=== PATIENT | male | born 1940 | race Caucasian/White ===

== ENCOUNTER → 2017-07-29 08:35 | Outpatient (CLI) | payer MEDICARE, SELFPAY ==
[2017-07-29 09:35] LABS: AST(SGOT) 30 U/L (15-37); Alanine Aminotransfer ALT/SGPT 46 U/L (16-61); Alkaline Phosphatase 96 U/L (45-117); Bilirubin, Direct 0.15 mg/dL (0.00-0.30); Cholesterol 142 mg/dL (200); High Density Lipoprotein 45 mg/dL; Triglycerides 101 mg/dL; Very Low Density Lipoprotein 20 mg/dL (5-40)
== END ==
PROVIDERS: Family Provider Family Medicine; PCP Family Medicine; Visit Provider Physician Assistant Medical
DX: E78.5 Hyperlipidemia, unspecified (principal); Z79.899 Other long term (current) drug therapy
CPT/HCPCS: 36415; 80061; 80076

== ENCOUNTER → 2018-01-30 08:00 | Outpatient (CLI) | payer MEDICARE, SELFPAY ==
[2018-01-30 09:56] LABS: AST(SGOT) 18 U/L (15-37); Alanine Aminotransfer ALT/SGPT 25 U/L (16-61); Albumin, Serum 3.7 g/dL (3.2-5.0); Alkaline Phosphatase 82 U/L (45-117); Bilirubin, Direct 0.15 mg/dL (0.00-0.30); Cholesterol 118 mg/dL (200); Globulin 3.9 g/dL (2.2-4.2); High Density Lipoprotein 39 mg/dL; Protein, Total 7.6 g/dL (6.4-8.2); Triglycerides 86 mg/dL; Very Low Density Lipoprotein 17 mg/dL (5-40)
== END ==
PROVIDERS: Family Provider Family Medicine; PCP Family Medicine; Visit Provider Physician Assistant Medical
DX: I25.10 Atherosclerotic heart disease of native coronary artery without angina pectoris (principal); E78.5 Hyperlipidemia, unspecified; Z79.899 Other long term (current) drug therapy
CPT/HCPCS: 36415; 80061; 80076

== ENCOUNTER → 2018-02-22 10:23 | Outpatient (CLI) | payer MEDICARE, SELFPAY ==
--- NOTE | 2018-02-22 12:17 | CDU_ITS ---
Reason For Study: Vertigo Rt. Velocities/BP Lt. Velocities/BP Prox CCA 92.6/14.1 cm/sec. Prox CCA 91.5/17.0 cm/sec. Mid CCA 85.6/19.3 cm/sec. Mid CCA 89.1/20.5 cm/sec. Dist CCA 87.4/18.2 cm/sec. Dist CCA 108.0/19.6 cm/sec. Prox ICA 60.2/18.7 cm/sec. Prox ICA 83.3/14.7 cm/sec. Mid ICA 70.8/18.7 cm/sec. Mid ICA 76.8/25.2 cm/sec. Dist ICA 74.6/21.1 cm/sec. Dist ICA 79.7/25.8 cm/sec. Rt. ICA/CCA = .87. Lt. ICA/CCA = .93. Prox ECA 126.0/10.0 cm/sec. Prox ECA 156.0/14.9 cm/sec. Rt. Vert. 58.0/18.8 cm/sec. Lt. Vert. 40.0/7.6 cm/sec. Right Extracranial There is heterogeneous, irregular atherosclerotic plaque noted in the right common carotid artery. There is heterogeneous, irregular atherosclerotic plaque noted in the right internal carotid artery. There is heterogeneous, irregular atherosclerotic plaque noted in the right external carotid artery. Antegrade flow is noted in the right vertebral artery. Left Extracranial There is heterogeneous, irregular atherosclerotic plaque noted in the left common carotid artery. There is heterogeneous, irregular atherosclerotic plaque noted in the left internal carotid artery. There is heterogeneous, irregular atherosclerotic plaque noted in the left external carotid artery. Antegrade flow is noted in the left vertebral artery. Procedure Carotid Duplex [id number]. Exam performed in department. Interpretation Summary Mild (<50%) stenosis right extracranial internal carotid. Mild (<50%) stenosis left extracranial internal carotid. Flow within the vertebral arteries is antegrade bilaterally. Ordering Physician: David Jimenez Referring Physician: Kev Steve Performed By: Chika Arellano RVT
== END ==
PROVIDERS: Family Provider Family Medicine; PCP Family Medicine; Visit Provider Orthopaedic Surgery
DX: R09.89 Other specified symptoms and signs involving the circulatory and respiratory systems (principal); M48.02 Spinal stenosis, cervical region; R42 Dizziness and giddiness
CPT/HCPCS: 73221; 93880

== ENCOUNTER 2018-10-11 07:18 | Inpatient (IN) | payer MEDICARE, SELFPAY ==
--- NOTE | 2018-09-28 10:18 | PCM.HP.BLA ---
History and Physical DATE OF SURGERY: 10/11/2018 SCHEDULED PROCEDURE: Right reverse total shoulder arthroplasty HISTORY OF PRESENT ILLNESS: This is a 78-year-old male who is been having ongoing right shoulder pain for approximately 6 months. Patient is right-hand dominant. With activity pain can reach a size a 9/10. Pain on average is a 5/10. Pain is increased with activities of daily living including driving and reaching out in front or behind his body. He does complain of pain and weakness with lifting. Pain is over the lateral aspect of the shoulder and does radiate into the upper arm. Patient does complain of numbness and tingling into both hands and fingers. Patient has tried [id number] anti-inflammatories as well as physical therapy and 2 previous cortisone injections which gave him approximately 3 months of relief. He denies any recent fevers, chills, or recent infections. After failing conservative measures and discussing all treatment options with Dr. Bartolo Perkins, the patient does wish to proceed with a right reverse total shoulder arthroplasty. Patient has a medical history pertinent for fibromyalgia, hypertension, coronary artery disease, asthma, vertigo, and previous heart bypass in 2006. Patient currently uses baby aspirin daily. Patient has obtained surgical clearance from the harp repairer. We are obtaining surgical clearance from the primary care physician. We will be following recommendations for stopping the aspirin prior to surgery by the harp repairer. REVIEW OF SYSTEMS: ROS: Const: Denies anorexia, change in appetite, fever, hard of hearing, vision problems and weight change. CV: Reports peripheral vascular disease, but denies chest pain, heart murmur and irregular heartbeat. Resp: Reports asthma, but denies cough, pneumonia, sleep apnea, SOB, tuberculosis and wheezing. GI: Denies constipation, diarrhea, difficulty swallowing, heartburn, nausea, bloody stools and vomiting. : Urinary: denies incontinence. Musculo: Reports trouble walking, but denies leg swelling, limp and weakness. Skin: Denies Raynaud's, history of shingles and tattoo. Neuro: Reports numbness/tingling but denies ambulatory dysfunction, dizziness and tremor. Psych: Denies anxiety, depression, insomnia, mental illness and stress. Keo/Lymph: Denies anemia, bleeding/bruising tendency and past transfusion. Reviewed, no changes. PAST MEDICAL HISTORY: Advance Care Plan: Other Directive, LIVING WILL Effective Date: 09/21/2018 Other Directive, POA Effective Date: 09/21/2018 PMH: Medical Problems: Arthritis, Fibromyalgia, High Blood Pressure, Coronary Artery Disease (CAD), Asthma, Hypercholesterolemia, Vertigo, Spinal Stenosis Accidents: Fracture - RT SIDE BROKEN RIB Fell - RT SHOULDER, RT HIP, RT KNEE Surgical Hx: Heart Bypass (CABG) - (2006) TERE Hernia Repair - (1974) LORETOI Sinus Surgery - (1989) JULISA Colon Surgery - (2010) Lumbar Fusion - (03/13/2015) CANDELARIO @ [facility] Hip Replacement RT - (03/22/2016) [email or web address] Anesthesia Complications: None Assistive Devices: Glasses, Dentures, Cane Reviewed, no changes. SOCIAL HISTORY: SH: Marital: .Occupation: Retired.Work Status: Retired.Hand Dominance: Right-handed. Personal Habits: Smoking: Patient is a former smoker.Cigarette Use: Former.Alcohol: Has consumed alcohol in the past.Drug Use: Denies Use.Enjoy Exercising: Daily. Reviewed, no changes. VITALS: Ht: 66 Wt: 163lb Wt k.937 BMI: 26.3 BP: 140/80 Pulse: 62 Resp: 10 T: 96.7 T: 35.9C ALLERGIES: Flu Virus Vaccine - Nausea Nitroglycerin - Headache Contrast Dye - Rash MEDICATIONS: Metoprolol Tartrate 25 mg 1 PO bid, Flovent Diskus 2 puffs 2 times daily, Proventil HFA 108 (90 Base) mcg/Act 2 puffs 4x daily, Vitamin D3 1000 Unit 1x/day by mouth, Vitamin B-12 1000 mcg 1 tab PO daily, Amlodipine Besylate 5 mg 1po qday, Atorvastatin Calcium 40 mg 1po qday, Lansoprazole 30 mg 1/2po qday, Levocetirizine Dihydrochloride 5 mg 1po qday, Aspir-81 81 mg 1po qday, Ibuprofen 800 mg 1 by mouth twice daily., Probiotic 1po qday, Turmeric 500 mg 1po qday, Miralax 3350 nf daily PRE-OP EXAM: General appearance:NORMAL Other: Eyes: Conjunctivae and lids: NORMAL Pupils: ERR Ears, Nose, Mouth, and Throat: NORMAL Other: Inspection of lips, teeth and gums: NORMAL Other: Neck: Examination of neck: no masses noted. Respiratory: Assessment of respiratory effort: NORMAL Other: Auscultation of lungs: clear to auscultation no wheezes, rhonchi or rales. Cardiovascular: Auscultation of heart: regular rate and rhythm, no murmurs, gallops or rubs. Gastrointestinal: Exam of abdomen: soft, nontender, nondistended bowel sounds present. PHYSICAL EXAMINATION: On exam right shoulder is cool to touch without erythema. Range of motion: Right shoulder forward elevation 140, left shoulder elevation or 60. Internal rotation T7 on the left and L1 on the right. External rotation 20 bilaterally. Positive scapular dyskinesia on the right. Supraspinatus strength 3+/5 on the right for/5 on the left. Positive Tinel's left elbow. Sensation intact to light touch. Neurovascularly intact. IMAGING STUDIES: X-rays of the right shoulder reveals severe glenohumeral osteoarthritis with joint space narrowing, subchondral sclerosis, subchondral cyst formation and osteophyte formation. Previous MRI of the shoulder reveals small supraspinatus tendon tear IMPRESSION: 1. Severe right shoulder glenohumeral osteoarthritis with underlying rotator cuff tear 2. Hypertension 3. Coronary artery disease 4. History of heart bypass 2006 5. Asthma 6. Fibromyalgia 7. Hypercholesterolemia 8. Vertigo 9. Spinal stenosis with previous lumbar fusion PLAN: Dr. Bartolo Perkins did discuss and review with the patient all treatment options including surgical versus nonsurgical options. Patient does wish to proceed with the above-stated procedure. Potential risks, benefits, and complications of the procedure were discussed in detail including but not limited to , infection, nerve and blood vessel damage, persistent pain, numbness, tingling, paresthesias, blood clot, pulmonary embolism, and requirement for possible further surgery. The patient expressed full understanding and has no further questions for the doctor. Patient does agree to proceed with the above-stated procedure and has signed the surgery consent form. This dictation was created using voice recognition software. Phonetic and/or grammatical errors may exist.. ___ I have re-examined the patient. There are no clinical changes since date of exam. ___ See progress notes for changes. ___ Dictated on admission Date: Time: Signature:
--- NOTE | 2018-10-02 14:09 | SDCEKG_ITS ---
Test Reason : Blood Pressure : / mmHG Vent. Rate : 069 BPM Atrial Rate : 069 BPM P-R Int : 176 ms QRS Dur : 068 ms QT Int : 396 ms P-R-T Axes : 010 -16 015 degrees QTc Int : 424 ms Normal sinus rhythm Nonspecific ST abnormality Abnormal ECG Confirmed by JUDITH SHERMAN, JAZMYN ([id number]), editorial director CANDI PALOMINO ([id number]) on 10/04/2018 9:18:10 AM Referred By: Bartolo Perkins Confirmed By:JAZMYN WONG MD
[2018-10-02 14:18] VITALS: BP 122/68; PULSE 70; RESP 16; TEMP 36.8; O2SAT 95; BMI 27.3
[2018-10-11] VITALS (11 sets, daily range): BP systolic 118–158; BP diastolic 65–93; PULSE 59–89; RESP 16–18; TEMP 35.6–36.9; O2SAT 92–98; BMI 27.3
[2018-10-11] MEDS: oxyCODONE HCl Cr 10 MG Tablet PO (08:05)
[2018-10-11] MEDS: Acetaminophen 500 MG Tablet 1000 MG PO ×3 (08:05→22:46)
--- NOTE | 2018-10-11 09:11 | RAD_ITS ---
STUDY: X-RAY - RIGHT SHOULDER REASON FOR EXAM: Male, 78 years old. Postoperative. TECHNIQUE: 1 view(s) of the shoulder. COMPARISON: None. FINDINGS: Single view demonstrates total shoulder replacement. Glenoid and humeral components are in situ. Alignment is anatomic. There is no fracture or periprosthetic fracture. Bony structures are otherwise unremarkable. There is atelectasis in the right lung base. RAD/Shoulder One View IMPRESSION: Anatomic alignment status post right shoulder replacement. Electronically Signed: Ariana Evans MD at 16:59 EDT Tel , Service support ,
[2018-10-11] MEDS: Cefazolin 2 GM in 0.9% Normal Saline 100 ML IV (09:52)
--- NOTE | 2018-10-11 09:53 | PCM.OPRPT ---
Report of Operation Date of Procedure: 10/11/18 Pre-Operative Diagnosis: Primary glenohumeral osteoarthritis right shoulder with cuff dysfunction Post-Operative Diagnosis: Primary glenohumeral osteoarthritis right shoulder with cuff dysfunction Surgery/Procedure Performed:: Right reverse total shoulder replacement Description of Surgical Findings:: Stable shoulder, repaired subscapularis tyre finisher and examiner: Hao Acros Type of Anesthesia:: General Anesthesiologist: Jordan Hamlin Special Medications: 2 g Ancef, 1 g TXA at incision, 1 g TXA closure, 10 mg Decadron, vancomycin IV during case Specimen's removed: BONY CUTS Estimated Blood Loss (mL): 75 Fluids Replaced: 1000 ml Description of Procedure: Components used 1. [place] reunion glenoid baseplate 2. [place] reunion 36, +2 mm Glenosphere 3. [place] reunion 36 mm, 6mm humeral liner 4. [place] reunion reverse TSA humeral adapter tray 4mm 5. [place] reunion humeral stem primary press-fit 16 mm size Brief history/Operative indications: 78 yo M with history of R shoulder pain and cuff tear arthropathy. Patient failed conservative measures as mentioned in the H&P. After discussion of risk and benefits of reverse total shoulder replacement including but not limited to blood loss, DVTs, PEs, nerve vessel damage, infection, general risk of anesthesia including loss of life, instability and stiffness patient demonstrating understanding wish to proceed was able to sign informed consent. Medical clearance was obtained. Procedure: On the date of the procedure, patient's R upper extremity was marked in the preoperative area. Patient was taken back to the operating room where they were placed on the table in the supine position. Anesthesia assumed control of the C-spine and airway, then administered anesthetic. All bony prominences were identified well-padded, the head was secured and the patient was placed in the beachchair position at about 35? inclination. Anesthesia remained in control of the C-spine airway throughout the remainder of the procedure. Patient was then appropriately fastened to the table and the R upper extremity was prepped in a sterile fashion. The surgeons then scrubbed. Upon reentering the room, the R upper extremity was draped in a sterile fashion and the incision was marked out. Timeout was called, everyone agreed upon the side, the site, the procedure to be performed, patient identity and antibiotics given. Incision was taken down through skin and subcutaneous tissue, fat down to fascia. The stripe of the deltopectoral interval and cephalic vein were identified and blunt dissection was used to retract the deltoid. The cephalic vein was retracted laterally. Clavipectoral fascia was then incised and a cobra retractor was placed in the wound. The proximal one third of the pectoralis major insertion was released. Pectoralis tendon insertion was used to tenodesed the biceps tendon which was identified in the bicipital groove. Tenodesis was done with #1 Vicryl. Proximally we followed the biceps tendon after transecting it into the rotator interval. The rotator interval was split and the arm was externally rotated. The split was 1 cm medial to the bicipital groove. Subscapularis tendon was released. We released down the anterior portion of the humeral head and a betts elevator was used to release the inferior portion of the humeral head. The arm was externally rotated and the shoulder was dislocated. The humeral head cutting guide was used to make humeral cut. This was done at anatomic retroversion. Once his humeral head cut was made humerus was retracted out of the way and the glenoid was exposed. After exposing the glenoid, the labrum and the remaining proximal biceps were debrided. At this time we are able to view the entire outer edge of the glenoid. A central pin was placed we sequentially reamed over this central pin to 36mm. Once this was completed the glenoid baseplate and central screw were fixed into place. Wound was closely irrigated out with normal saline we then drilled sequentially for 2 screws. Screws were placed superiorly and inferiorly and tightened down the screws. Once the screws were appropriately tightened into place the glenoid baseplate was compressed against the exposed subchondral bone. Locking caps were placed and a 36, +2 mm glenosphere was impacted into place engaging the Verma taper. Attention was then turned towards the humerus. The humerus was again externally rotated exposing the proximal portion of the humerus. Central canal finder was then used to open up the canal. We reamed to a 16mm reamer. We then broached to a 16mm stem. We trialed the 6mm liner, with the 4mm humeral baseplate. We obtained an adequate reduction at this time with a nice stable shoulder. Good internal rotation to the gluteus, forward elevation to 140?, external rotation to 20?. Final components were then assembled on the back table, trials were removed and the wound was copiously irrigated with normal saline after dislocating the shoulder. Once the final components were assembled they were impacted into place. Shoulder was then reduced and found to be stable with good range of motion. Subscapularis tendon repaired using #2 FiberWire. The wound was then lavaged first for 1 minute with chlorhexidine/sterile water solution then with 2 g of TXA, finally the wound was copiously irrigated out with a 1 L normal saline lavage. The deltopectoral fascia was then closed using #1 Vicryl skin was closed using 2-0 Vicryl interrupted sutures and final skin closure was done with 3-0 Monocryl. Steri-Strips are placed for final skin closure. Sterile dressing was placed patient was then placed in a sling and awakened by anesthesia. Patient was then transferred to the PACU for recovery. Postoperative plan: Patient will be admitted to the hospital overnight. They will get physical therapy starting in 2 weeks with normal postoperative regimen. Patient will be placed on aspirin daily for DVT prophylaxis. The first postoperative appointment will be in 2 weeks for wound check and initiation of phase 1 physical therapy. Grafts/Implants Used: [place] ReUnion - Complications No intraoperative complications - Admit VTE Documentation VTE Present on Admission: No VTE Mechan Device Prophylaxis: SCD's VTE Pharm Prophylaxis ordered?: Yes
--- NOTE | 2018-10-11 09:58 | OP.PCM_ITS ---
Report of Operation Date of Procedure: 10/11/18 Pre-Operative Diagnosis: Primary glenohumeral osteoarthritis right shoulder with cuff dysfunction Post-Operative Diagnosis: Primary glenohumeral osteoarthritis right shoulder with cuff dysfunction Surgery/Procedure Performed:: Right reverse total shoulder replacement Description of Surgical Findings:: Stable shoulder, repaired subscapularis electricity trader: Hao Arcos Type of Anesthesia:: General Anesthesiologist: Jordan Hamlin Special Medications: 2 g Ancef, 1 g TXA at incision, 1 g TXA closure, 10 mg Decadron, vancomycin IV during case Specimen's removed: BONY CUTS Estimated Blood Loss (mL): 75 Fluids Replaced: 1000 ml Description of Procedure: Components used 1. [place] reunion glenoid baseplate 2. John reunion 36, +2 mm Glenosphere 3. [place] reunion 36 mm, 6mm humeral liner 4. John reunion reverse TSA humeral adapter tray 4mm 5. [place] reunion humeral stem primary press-fit 16 mm size Brief history/Operative indications: 78 yo M with history of R shoulder pain and cuff tear arthropathy. Patient failed conservative measures as mentioned in the H&P. After discussion of risk and benefits of reverse total shoulder replacement including but not limited to blood loss, DVTs, PEs, nerve vessel damage, infection, general risk of anesthesia including loss of life, instability and stiffness patient demonstrating understanding wish to proceed was able to sign informed consent. Medical clearance was obtained. Procedure: On the date of the procedure, patient's R upper extremity was marked in the preoperative area. Patient was taken back to the operating room where they were placed on the table in the supine position. Anesthesia assumed control of the C-spine and airway, then administered anesthetic. All bony prominences were identified well-padded, the head was secured and the patient was placed in the beachchair position at about 35? inclination. Anesthesia remained in control of the C-spine airway throughout the remainder of the procedure. Patient was then appropriately fastened to the table and the R upper extremity was prepped in a sterile fashion. The surgeons then scrubbed. Upon reentering the room, the R upper extremity was draped in a sterile fashion and the incision was marked out. Timeout was called, everyone agreed upon the side, the site, the procedure to be performed, patient identity and antibiotics given. Incision was taken down through skin and subcutaneous tissue, fat down to fascia. The stripe of the deltopectoral interval and cephalic vein were identified and blunt dissection was used to retract the deltoid. The cephalic vein was retracted laterally. Clavipectoral fascia was then incised and a cobra retractor was placed in the wound. The proximal one third of the pectoralis major insertion was released. Pectoralis tendon insertion was used to tenodesed the biceps tendon which was identified in the bicipital groove. Tenodesis was done with #1 Vicryl. Proximally we followed the biceps tendon after transecting it into the rotator interval. The rotator interval was split and the arm was externally rotated. The split was 1 cm medial to the bicipital groove. Subscapularis tendon was released. We released down the anterior portion of the humeral head and a betts elevator was used to release the inferior portion of the humeral head. The arm was externally rotated and the shoulder was dislocated. The humeral head cutting guide was used to make humeral cut. This was done at anatomic retroversion. Once his humeral head cut was made humerus was retracted out of the way and the glenoid was exposed. After exposing the glenoid, the labrum and the remaining proximal biceps were debrided. At this time we are able to view the entire outer edge of the glenoid. A central pin was placed we sequentially reamed over this central pin to 36mm. Once this was completed the glenoid baseplate and central screw were fixed into place. Wound was closely irrigated out with normal saline we then drilled sequentially for 2 screws. Screws were placed superiorly and inferiorly and tightened down the screws. Once the screws were appropriately tightened into place the glenoid baseplate was compressed against the exposed subchondral bone. Locking caps were placed and a 36, +2 mm glenosphere was impacted into place engaging the Verma taper. Attention was then turned towards the humerus. The humerus was again externally rotated exposing the proximal portion of the humerus. Central canal finder was then used to open up the canal. We reamed to a 16mm reamer. We then broached to a 16mm stem. We trialed the 6mm liner, with the 4mm humeral baseplate. We obtained an adequate reduction at this time with a nice stable shoulder. Good internal rotation to the gluteus, forward elevation to 140?, external rotation to 20?. Final components were then assembled on the back table, trials were removed and the wound was copiously irrigated with normal saline after dislocating the shoulder. Once the final components were assembled they were impacted into place. Shoulder was then reduced and found to be stable with good range of motion. Subscapularis tendon repaired using #2 FiberWire. The wound was then lavaged first for 1 minute with chlorhexidine/sterile water solution then with 2 g of TXA, finally the wound was copiously irrigated out with a 1 L normal saline lavage. The deltopectoral fascia was then closed using #1 Vicryl skin was closed using 2-0 Vicryl interrupted sutures and final skin closure was done with 3-0 Monocryl. Steri-Strips are placed for final skin closure. Sterile dressing was placed patient was then placed in a sling and awakened by anesthesia. Patient was then transferred to the PACU for recovery. Postoperative plan: Patient will be admitted to the hospital overnight. They will get physical therapy starting in 2 weeks with normal postoperative regimen. Patient will be placed on aspirin daily for DVT prophylaxis. The first postoperative gabriella ointment will be in 2 weeks for wound check and initiation of phase 1 physical therapy. Grafts/Implants Used: [place] ReUnion - Complications No intraoperative complications - Admit VTE Documentation VTE Present on Admission: No VTE Mechan Device Prophylaxis: SCD's VTE Pharm Prophylaxis ordered?: Yes
[2018-10-11] MEDS: Vancomycin IV 1,000 MG/200 ML BAG 200 MG IV (10:10)
[2018-10-11] MEDS: Famotidine 20 MG Tablet PO (14:28)
[2018-10-11] MEDS: Polyethylene Glycol 3350 17 GM PACKET PO (14:28)
--- NOTE | 2018-10-11 16:43 | PCM.PROGNOTE ---
Subjective: 78 yo male with pmhx CAD prior cABG 2006, fibromyalgia, htn, hld, asthma, vertigo who underwent rigth total shulder with Dr. Perkins today. He currently has no pain in his shoulder. He had mild nausea earlier with no vomiting. This has resolved. He had a sensation of slight SOB and chest congestion and would like a breathing treatment. No fever/Chills. Tolerating PO intake. Sitting upright side of bed NAD. - Physical Exam General: Alert, Oriented x3, Cooperative HEENT: Atraumatic, PERRLA, EOMI, Normocephalic Neck: Supple, No JVD, Negative Carotid Bruits Lungs: Clear to auscultation, Normal air movement Cardiovascular: Regular rate, No murmurs Abdomen: Bowel Sounds Present, Soft, Non Tender Extremities: No edema, Capillary Refill Less than 3 Seconds Skin: No rashes, No breakdown Musculoskeletal: No Tenderness to Palpation of Joints or Extremities, - - s/p arthroscopy, in sling. Neurological: Cranial nerves II-XII grossly intact Psych/Mental Status: Normal Affect, Appropriate, Alert and oriented to time, place, person, mood and affect Vital Signs Temp Pulse Resp BP Pulse Ox 97.5 F L 68 16 139/65 H 93 10/11/18 15:03 10/11/18 15:03 10/11/18 15:03 10/11/18 15:03 10/11/18 15:03 Oxygen Flow Rate (L/min) 3 Oxygen Delivery Method Room Air Weight: 161 lb 9.581 oz Body Mass Index (BMI) 27.3 Intake and Output for Last 24 Hours 10/09/18 10/10/18 10/11/18 23:59 23:59 23:59 Intake Total 1000 / 1000 Balance 1000 / 1000 Medical Necessity - Tobacco Use Smoking Status: Former smoker Tobacco Use: Non-smoker Assessment/Plan All Active Problems (Last Updated 09/29/18 @ 15:03 by Kenyetta Carlson) H/O coronary artery bypass surgery (Resolved 12/2006) Abnormal result of cardiovascular function study, unspecified (Resolved) SBO (small bowel obstruction) (Resolved) 1. Ostearthritis s/p right total shoulder POD#0 - zero pain currently. Doing well. 2. Hx asthma - feels sore throat and slight chest congestion / SOB. Encouraged IS hourly and will get aerosol treatment x1 now. No wheezing on exam no increased O2 demand. 3. CAD prior CABG - continue home meds. No CP. 4. Fibromyalgia 5. HTN/HLD - home meds. DVT ppx: ASA qd per ortho Thank you for the opportunity to pariticpate in the care of this patient. This patient was seen by Mk Padron PA-C under the supervision of Dr. Michael.
[2018-10-11] MEDS: Budesonide Respules 0.5 MG/2 ML AMPUL.NEB. INHALATION (16:57)
[2018-10-11] MEDS: Albuterol 2.5 MG/3 ML VIAL.NEB. INHALATION (16:57)
[2018-10-11] MEDS: Lactated Ringers 1,000 ML 125 ML IV (17:11)
[2018-10-11] MEDS: Cefazolin 1 GM/50 ML BAG IV (17:11)
[2018-10-11] MEDS: LORazepam 0.5 MG Tablet PO (22:46)
[2018-10-11] MEDS: Atorvastatin Calcium 40 MG Tablet PO (22:46)
[2018-10-11] MEDS: Metoprolol Tartrate 25 MG Tablet PO (22:47)
[2018-10-12] MEDS: BENZOCAINE/MENTHOL 1 LOZENGE MUCOUS MEM (00:28)
[2018-10-12] MEDS: Cefazolin 1 GM/50 ML BAG IV (00:28)
[2018-10-12 03:49] VITALS: BP 139/83; PULSE 79; RESP 18; TEMP 36.6; O2SAT 97
[2018-10-12] MEDS: Ondansetron 4 MG/2 ML Vial IV (03:55)
[2018-10-12] MEDS: Ketorolac 15 MG/ML Vial IV (03:55)
[2018-10-12] MEDS: Acetaminophen 500 MG Tablet 1000 MG PO (05:44)
[2018-10-12 07:23] VITALS: PULSE 86; RESP 16
[2018-10-12] MEDS: Budesonide Respules 0.5 MG/2 ML AMPUL.NEB. INHALATION (07:23)
[2018-10-12] MEDS: Cyanocobalamin 500 MCG Tablet 1000 MCG PO (08:48)
[2018-10-12] MEDS: Aspirin 325 MG Tablet PO (08:48)
[2018-10-12] MEDS: Loratadine 10 MG Tablet 5 MG PO (08:51)
[2018-10-12] MEDS: Polyethylene Glycol 3350 17 GM PACKET PO (08:52)
[2018-10-12] MEDS: Pantoprazole Sodium 40 MG Tablet PO (08:52)
[2018-10-12] MEDS: amLODIPine 5 MG Tablet PO (08:52)
--- NOTE | 2018-10-12 08:56 | PCM.PN.ORT ---
Subjective: The patient was sitting in bedside chair upon examination. Patient denies any chest pain, shortness of breath, dizziness, lightheadedness, nausea or vomiting, abdominal discomfort, or calf pain. Pain is controlled on medications. No adverse overnight events. Overall patient is doing well and is sitting comfortably in the chair. He has no significant complaints. Patient states he has already had a bowel movement today. Plan is for him to go home with outpatient physical therapy to begin after 2-week follow-up. Objective: Vital signs stable, afebrile Dressing is clean, dry, intact Ultra-sling fitting appropriately Sensation intact to axillary, radial, median, and ulnar distribution Motor intact to AIN, PIN, and ulnar nerve - Physical Exam General: Alert, Oriented x3, Cooperative, No apparent distress Vital Signs Temp Pulse Resp BP Pulse Ox 97.8 F 79 18 139/83 H 97 10/12/18 03:49 10/12/18 03:49 10/12/18 03:49 10/12/18 03:49 10/12/18 03:49 Oxygen Flow Rate (L/min) 3 Oxygen Delivery Method Room Air Weight: 73.3 kg Body Mass Index (BMI) 27.3 Intake and Output for Last 24 Hours 10/10/18/10/12/18 23:59 23:59 23:59 Intake Total 1772 / 1772 2300 / 2300 Balance 1772 / 1772 2300 / 2300 Medical Necessity - Tobacco Use Smoking Status: Former smoker Tobacco Use: Non-smoker Assessment/Plan All Active Problems (Last Updated 09/29/18 @ 15:03 by Kenyetta Carlson) H/O coronary artery bypass surgery (Resolved 12/2006) Abnormal result of cardiovascular function study, unspecified (Resolved) SBO (small bowel obstruction) (Resolved) 1. S/P right reverse total shoulder arthroplasty POD #1 2. Continue Pain Medications: Tylenol and OxyIR 3. DVT Prophylaxis: Aspirin 325 mg once daily for 2 weeks postoperatively 4. PT/OT: Continue with UltraSling, okay to come out to work on elbow, wrist, hand range of motion. Also able to work on pendulum exercises. We will have patient see physical therapy today and then will begin outpatient formal physical therapy after 2-week postop visit. 5. Continue postoperative medical management per medicine 6. Encouraged Incentive Spirometry 7. Disposition: Orthopedically stable, plan will be for discharge home today after physical therapy. Prescriptions will be E scribed [facility]. Patient will follow-up per postop instructions..
[2018-10-12 08:57] VITALS: PULSE 80
[2018-10-12] MEDS: Metoprolol Tartrate 25 MG Tablet PO (08:57)
--- NOTE | 2018-10-12 09:09 | DCINST_ITS ---
Discharge Diet: No Restrictions Discharge Activity: May Not Drive May shower in (days): 1 - Turn dressing away from water Ice area for (Minutes): 20 - Ice area for 20 minutes each hour while awake Weight Bearing Status: No weight bearing - Right upper extremity Call your doctor if your incision/area has: Continuous Slow Oozing, Sudden Increased Bleeding, Increased Pain/ Swelling, Increased Redness, Foul Smelling Discharge Call your doctor if you observe: Fever of 101 or Higher, Coldness, Increased Pain, Numbness or Tingling, Change in Color Remove Dressing in (days):: 4 - Okay to remove dressing on October 16, 2018 Additional Instructions: Follow with [facility] orthopedic postop instructions Do not take any other nonsteroidal anti-inflammatories while taking meloxicam. Do not take to Tumeric next 2 weeks. Allergies/Adverse Reactions: Allergies nitroglycerin Allergy (Verified 10/02/18 13:40) Other states it makes my head explode. states he can take the pills but not the patch simvastatin Adverse Reaction (Severe, Verified 10/02/18 13:40) Myalgias CONTRAST DYE Allergy (Mild, Uncoded 10/02/18 13:40) Rash Medications to take at Discharge Ativan 0.5 mg PO QHS 09/07/13 Flovent 220 Mcg 2 puff INHALATION BID 09/07/13 Lansoprazole [Prevacid] 30 mg PO DAILY 09/07/13 Albuterol Sulfate [Proventil Hfa] 2 puff IH 4X/DAY PRN PRN 03/12/16 Cholecalciferol (VIT D3) [Vitamin D3] 1,000 unit PO DAILY 03/12/16 Cyanocobalamin (Vitamin B-12) [Vitamin B-12] 1,000 mcg PO DAILY 03/12/16 levocetirizine 5 mg tablet 5 mg PO QDAY tab 07/14/17 Amlodipine [Norvasc] 5 mg PO DAILY 10/02/18 Atorvastatin Calcium [Lipitor] 40 mg PO QHS 10/02/18 L.acidoph,Paracasei, B.lactis [Probiotic] 1 each PO DAILY 10/02/18 Metoprolol Tartrate [Lopressor (beta joselito)] 25 mg PO BID 10/02/18 Polyethylene Glycol 3350 [Miralax] 17 gm PO DAILY 10/02/18 Acetaminophen [Tylenol] 1,000 mg PO Q8 #100 tablet 10/12/18 Aspirin 325 mg PO DAILY@0800 #14 tablet 10/12/18 Meloxicam [Mobic] 7.5 mg PO BID #30 tablet 10/12/18 Oxycodone [Oxyir] 5 - 10 mg PO Q4H PRN PRN 4 Days #30 tablet 10/12/18 The following prescriptions were given: Oxycodone [Oxyir] 5 - 10 mg PO Q4H PRN PRN 4 Days #30 tablet PRN Reason: Pain Acetaminophen [Tylenol] 1,000 mg PO Q8 #100 tablet Aspirin 325 mg PO DAILY@0800 #14 tablet Meloxicam [Mobic] 7.5 mg PO BID #30 tablet Primary Care Physician: Kev Steve [Primary Care Provider] - Test Results: Test results from this visit will be discussed in further detail at your follow- up appointment, if applicable. Please Follow Up With: Jony Espinoza PA-C When: 10/25/18 @ 10:30 am Please Follow Up With: [facility] When: 10/25/18 @ 1:00 pm
--- NOTE | 2018-10-12 09:22 | PCM.PN.HOSP ---
Subjective: Patient is a 78-year-old gentleman who underwent right reverse total shoulder replacement by orthopedic surgery on 10/11/2018 the hospitalist service consulted to assist with management of patient comorbidities following the procedure Objective: GENERAL: cooperative HEENT: Atraumatic; moist oral mucosa EYES; Anicteric, Normal Conjunctiva NECK; supple, normal thyroid, no distended JVD. RESPIRATORY: Diminished to auscultation bilaterally, CARDIOVASCULAR: Regular S1 S2, no audible murmurs GI: soft, non-tender, normoactive bowel sounds, : No Renal angle tenderness; EXTREMITIES: No edema, no clubbing, no cyanosis. MUSCULOSKELETAL: Right shoulder immobilized NEURO: Awake; no lateralizing signs. SKIN: No Rash PSYCH; Normal affect Vitals/I&O's: Vital Signs Temp Pulse Resp BP Pulse Ox 97.8 F 80 18 139/83 H 97 10/12/18 03:49 10/12/18 08:57 10/12/18 03:49 10/12/18 03:49 10/12/18 03:49 Oxygen Flow Rate (L/min) 3 Oxygen Delivery Method Room Air Weight: 73.3 kg Body Mass Index (BMI) 27.3 Intake and Output for Last 24 Hours 10/10/18 10/11/18 10/12/18 23:59 23:59 23:59 Intake Total 1772 / 1772 2300 / 2300 Balance 1772 / 1772 2300 / 2300 Current Medications Acetaminophen (Tylenol) 1,000 mg PO Q8 [facility] Last Admin: 10/12/18 05:44 Dose: 1,000 mg Albuterol Sulfate (Ventolin Aerosols) 2.5 mg INHALATION Q4H PRN PRN Reason: Asthma Last Admin: 10/11/18 16:57 Dose: 2.5 mg Amlodipine Besylate (Norvasc) 5 mg PO DAILY [facility] Last Admin: 10/12/18 08:52 Dose: 5 mg Aspirin (Aspirin) 325 mg PO DAILY@0800 [facility] Last Admin: 10/12/18 08:48 Dose: 325 mg Atorvastatin Calcium (Lipitor) 40 mg PO QHS [facility] Last Admin: 10/11/18 22:46 Dose: 40 mg Budesonide (Pulmicort Aerosol) 0.5 mg INHALATION Q12H.RT [facility] Last Admin: 10/12/18 07:23 Dose: 0.5 mg Cholecalciferol (Vitamin D) [facility] Last Admin: 10/12/18 08:48 Dose: 1,000 unit Cyanocobalamin (Vitamin B12) 1,[facility]cg [facility] Last Admin: 10/12/18 08:48 Dose: 1,000 mcg Lactated Ringer's () 1,000 mls @ 125 mls/hr IV .Q8H [facility] Last Admin: 10/11/18 17:11 Dose: 125 mls/hr Sodium Chloride () 250 mls @ 15 mls/hr IV .[id number] PRN PRN Reason: SALINE FLUSH Ketorolac Tromethamine (Toradol) 15 mg IV Q6H PRN PRN PRN Reason: PAIN Last Admin: 10/12/18 03:55 Dose: 15 mg Loratadine (Claritin) 5 mg PO DAILY [facility] Last Admin: 10/12/18 08:51 Dose: 5 mg Lorazepam (Ativan) 0.5 mg PO QHS [facility] Last Admin: 10/11/18 22:46 Dose: 0.5 mg Meloxicam (Mobic) 7.5 mg PO BID [facility] Metoprolol Tartrate (Lopressor (Beta Zuly)) 25 mg PO BID [facility] Last Admin: 10/12/18 08:57 Dose: 25 mg Morphine Sulfate () 2 - 4 mg IV Q2H PRN PRN PRN Reason: Severe pain (6-10) Morphine Sulfate () 2 - 4 mg IV Q2H PRN PRN PRN Reason: Severe pain (6-10) Nutritional Formula (Lactose Free) (Ensure Enlive) 120 ml PO TIDCM [facility] Last Admin: 10/12/18 08:50 Dose: 120 ml Ondansetron HCl (Zofran) 4 mg IV Q6H PRN PRN PRN Reason: Nausea Last Admin: 10/12/18 03:55 Dose: 4 mg Oxycodone HCl (Oxyir) 5 - 10 mg PO Q4H PRN PRN PRN Reason: PAIN Pantoprazole Sodium (Protonix) 40 mg PO DAILY [facility] Last Admin: 10/12/18 08:52 Dose: 40 mg Polyethylene Glycol (Miralax) 17 gm PO DAILY [facility] Last Admin: 10/12/18 08:52 Dose: 17 gm Promethazine HCl (Phenergan) 12.5 mg IV Q6H PRN PRN PRN Reason: NAUSEA/VOMITING Senna/Docusate Sodium (Senokot-S, Ebonie-Colace) 2 tablet PO BID PRN PRN PRN Reason: Constipation Sodium Chloride () 5 - 15 ml IV UD PRN PRN Reason: SALINE FLUSH Throat Lozenges (Cepacol Sore Throat Lozenge) 1 lozenge MUCOUS MEM Q2H PRN PRN PRN Reason: SORE THROAT Last Admin: 10/12/18 00:28 Dose: 1 lozenge Medical Necessity - Tobacco Use Smoking Status: Former smoker Tobacco Use: Non-smoker Assessment/Plan All Active Problems (Last Updated 09/29/18 @ 15:03 by Kenyetta Carlson) H/O coronary artery bypass surgery (Resolved 12/2006) Abnormal result of cardiovascular function study, unspecified (Resolved) SBO (small bowel obstruction) (Resolved) Patient is a 78-year-old gentleman who underwent right reverse total shoulder replacement by orthopedic surgery on 10/11/2018 the hospitalist service consulted to assist with management of patient comorbidities following the procedure 1. Status post right total shoulder replacement on 10/11/[address] Nunez on account of severe osteoarthritis having failed conservative therapy. Patient postoperative orders regarding pain management PT/OT DVT prophylaxis deferred to primary service 2. Mild intermittent asthma patient is on budesonide as well as as needed albuterol 3. Coronary artery disease with previous CABG in 2006 4. Hypertension-blood pressure controlled, home medications continued with dose adjustment as needed 5. Dyslipidemia-patient is on statin therapy, continued at home dose 6. GERD on PPI 7. B12 deficiency patient is on p.o. cyanocobalamin 8. DVT prophylaxis deferred to primary service Active Medications Acetaminophen (Tylenol) 1,000 mg PO Q8 [facility] Last Admin: 10/12/18 05:44 Dose: 1,000 mg Albuterol Sulfate (Ventolin Aerosols) 2.5 mg INHALATION Q4H PRN PRN Reason: Asthma Last Admin: 10/11/18 16:57 Dose: 2.5 mg Amlodipine Besylate (Norvasc) 5 mg PO DAILY [facility] Last Admin: 10/12/18 08:52 Dose: 5 mg Aspirin (Aspirin) 325 mg PO DAILY@0800 [facility] Last Admin: 10/12/18 08:48 Dose: 325 mg Atorvastatin Calcium (Lipitor) 40 mg PO QHS [facility] Last Admin: 10/11/18 22:46 Dose: 40 mg Budesonide (Pulmicort Aerosol) 0.5 mg INHALATION Q12H.RT [facility] Last Admin: 10/12/18 07:23 Dose: 0.5 mg Cholecalciferol (Vitamin D) 1,[facility] Last Admin: 10/12/18 08:48 Dose: 1,000 unit Cyanocobalamin (Vitamin B12) 1,000 mcg [facility] Last Admin: 10/12/18 08:48 Dose: 1,000 mcg Lactated Ringer's () 1,000 mls @ 125 mls/hr IV .Q8H [facility] Last Admin: 10/11/18 17:11 Dose: 125 mls/hr Sodium Chloride () 250 mls @ 15 mls/hr IV .[id number] PRN PRN Reason: SALINE FLUSH Ketorolac Tromethamine (Toradol) 15 mg IV Q6H PRN PRN PRN Reason: PAIN Last Admin: 10/12/18 03:55 Dose: 15 mg Loratadine (Claritin) 5 mg PO DAILY [facility] Last Admin: 10/12/18 08:51 Dose: 5 mg Lorazepam (Ativan) 0.5 mg PO QHS [facility] Last Admin: 10/11/18 22:46 Dose: 0.5 mg Meloxicam (Mobic) 7.5 mg PO BID [facility] Metoprolol Tartrate (Lopressor (Beta Zuly)) 25 mg PO BID [facility] Last Admin: 10/12/18 08:57 Dose: 25 mg Morphine Sulfate () 2 - 4 mg IV Q2H PRN PRN PRN Reason: Severe pain (6-10) Morphine Sulfate () 2 - 4 mg IV Q2H PRN PRN PRN Reason: Severe pain (6-10) Nutritional Formula (Lactose Free) (Ensure Enlive) 120 ml PO TIDCM [facility] Last Admin: 10/12/18 08:50 Dose: 120 ml Ondansetron HCl (Zofran) 4 mg IV Q6H PRN PRN PRN Reason: Nausea Last Admin: 10/12/18 03:55 Dose: 4 mg Oxycodone HCl (Oxyir) 5 - 10 mg PO Q4H PRN PRN PRN Reason: PAIN Pantoprazole Sodium (Protonix) 40 mg PO DAILY [facility] Last Admin: 10/12/18 08:52 Dose: 40 mg Polyethylene Glycol (Miralax) 17 gm PO DAILY [facility] Last Admin: 10/12/18 08:52 Dose: 17 gm Promethazine HCl (Phenergan) 12.5 mg IV Q6H PRN PRN PRN Reason: NAUSEA/VOMITING Senna/Docusate Sodium (Senokot-S, Ebonie-Colace) 2 tablet PO BID PRN PRN PRN Reason: Constipation Sodium Chloride () 5 - 15 ml IV UD PRN PRN Reason: SALINE FLUSH Throat Lozenges (Cepacol Sore Throat Lozenge) 1 lozenge MUCOUS MEM Q2H PRN PRN PRN Reason: SORE THROAT Last Admin: 10/12/18 00:28 Dose: 1 lozenge Code Visit Inpatient E&M: 80227 Subs Hosp L2
--- NOTE | 2018-10-12 09:25 | PN_ITS ---
Subjective: Patient is a 78-year-old gentleman who underwent right reverse total shoulder replacement by orthopedic surgery on 10/11/2018 the hospitalist service consulted to assist with management of patient comorbidities following the procedure Objective: GENERAL: cooperative HEENT: Atraumatic; moist oral mucosa EYES; Anicteric, Normal Conjunctiva NECK; supple, normal thyroid, no distended JVD. RESPIRATORY: Diminished to auscultation bilaterally, CARDIOVASCULAR: Regular S1 S2, no audible murmurs GI: soft, non-tender, normoactive bowel sounds, : No Renal angle tenderness; EXTREMITIES: No edema, no clubbing, no cyanosis. MUSCULOSKELETAL: Right shoulder immobilized NEURO: Awake; no lateralizing signs. SKIN: No Rash PSYCH; Normal affect Vitals/I&O's: Vital Signs Temp Pulse Resp BP Pulse Ox 97.8 F 80 18 139/83 H 97 10/12/18 03:49 10/12/18 08:57 10/12/18 03:49 10/12/18 03:49 10/12/18 03:49 Oxygen Flow Rate (L/min) 3 Oxygen Delivery Method Room Air Weight: 73.3 kg Body Mass Index (BMI) 27.3 Intake and Output for Last 24 Hours 10/10/18 10/11/18 10/12/18 23:59 23:59 23:59 Intake Total 1772 / 1772 2300 / 2300 Balance 1772 / 1772 2300 / 2300 Current Medications Acetaminophen (Tylenol) 1,000 mg PO Q8 [facility] Last Admin: 10/12/18 05:44 Dose: 1,000 mg Albuterol Sulfate (Ventolin Aerosols) 2.5 mg INHALATION Q4H PRN PRN Reason: Asthma Last Admin: 10/11/18 16:57 Dose: 2.5 mg Amlodipine Besylate (Norvasc) 5 mg PO DAILY [facility] Last Admin: 10/12/18 08:52 Dose: 5 mg Aspirin (Aspirin) 325 mg PO DAILY@0800 [facility] Last Admin: 10/12/18 08:48 Dose: 325 mg Atorvastatin Calcium (Lipitor) 40 mg PO QHS [facility] Last Admin: 10/11/18 22:46 Dose: 40 mg Budesonide (Pulmicort Aerosol) 0.5 mg INHALATION Q12H.RT [facility] Last Admin: 10/12/18 07:23 Dose: 0.5 mg Cholecalciferol (Vitamin D) [facility] Last Admin: 10/12/18 08:48 Dose: 1,000 unit Cyanocobalamin (Vitamin B12) [facility]cg [facility] Last Admin: 10/12/18 08:48 Dose: 1,000 mcg Lactated Ringer's () 1,000 mls @ 125 mls/hr IV .Q8H [facility] Last Admin: 10/11/18 17:11 Dose: 125 mls/hr Sodium Chloride () 250 mls @ 15 mls/hr IV .[id number] PRN PRN Reason: SALINE FLUSH Ketorolac Tromethamine (Toradol) 15 mg IV Q6H PRN PRN PRN Reason: PAIN Last Admin: 10/12/18 03:55 Dose: 15 mg Loratadine (Claritin) 5 mg PO DAILY [facility] Last Admin: 10/12/18 08:51 Dose: 5 mg Lorazepam (Ativan) 0.5 mg PO QHS [facility] Last Admin: 10/11/18 22:46 Dose: 0.5 mg Meloxicam (Mobic) 7.5 mg PO BID [facility] Metoprolol Tartrate (Lopressor (Beta Zuly)) 25 mg PO BID [facility] Last Admin: 10/12/18 08:57 Dose: 25 mg Morphine Sulfate () 2 - 4 mg IV Q2H PRN PRN PRN Reason: Severe pain (6-10) Morphine Sulfate () 2 - 4 mg IV Q2H PRN PRN PRN Reason: Severe pain (6-10) Nutritional Formula (Lactose Free) (Ensure Enlive) 120 ml PO TIDCM [facility] Last Admin: 10/12/18 08:50 Dose: 120 ml Ondansetron HCl (Zofran) 4 mg IV Q6H PRN PRN PRN Reason: Nausea Last Admin: 10/12/18 03:55 Dose: 4 mg Oxycodone HCl (Oxyir) 5 - 10 mg PO Q4H PRN PRN PRN Reason: PAIN Pantoprazole Sodium (Protonix) 40 mg PO DAILY [facility] Last Admin: 10/12/18 08:52 Dose: 40 mg Polyethylene Glycol (Miralax) 17 gm PO DAILY [facility] Last Admin: 10/12/18 08:52 Dose: 17 gm Promethazine HCl (Phenergan) 12.5 mg IV Q6H PRN PRN PRN Reason: NAUSEA/VOMITING Senna/Docusate Sodium (Senokot-S, Ebonie-Colace) 2 tablet PO BID PRN PRN PRN Reason: Constipation Sodium Chloride () 5 - 15 ml IV UD PRN PRN Reason: SALINE FLUSH Throat Lozenges (Cepacol Sore Throat Lozenge) 1 lozenge MUCOUS MEM Q2H PRN PRN PRN Reason: SORE THROAT Last Admin: 10/12/18 00:28 Dose: 1 lozenge Medical Necessity - Tobacco Use Smoking Status: Former smoker Tobacco Use: Non-smoker Assessment/Plan All Active Problems (Last Updated 09/29/18 @ 15:03 by Kenyetta Carlson) H/O coronary artery bypass surgery (Resolved 12/2006) Abnormal result of cardiovascular function study, unspecified (Resolved) SBO (small bowel obstruction) (Resolved) Patient is a 78-year-old gentleman who underwent right reverse total shoulder replacement by orthopedic surgery on 10/11/2018 the hospitalist service consulted to assist with management of patient comorbidities following the procedure 1. Status post right total shoulder replacement on 10/11/[address] Nunez on account of severe osteoarthritis having failed conservative therapy. Patient postoperative orders regarding pain management PT/OT DVT prophylaxis deferred to primary service 2. Mild intermittent asthma patient is on budesonide as well as as needed albuterol 3. Coronary artery disease with previous CABG in 2006 4. Hypertension-blood pressure controlled, home medications continued with dose adjustment as needed 5. Dyslipidemia-patient is on statin therapy, continued at home dose 6. GERD on PPI 7. B12 deficiency patient is on p.o. cyanocobalamin 8. DVT prophylaxis deferred to primary service Active Medications Acetaminophen (Tylenol) 1,000 mg PO Q8 [facility] Last Admin: 10/12/18 05:44 Dose: 1,000 mg Albuterol Sulfate (Ventolin Aerosols) 2.5 mg INHALATION Q4H PRN PRN Reason: Asthma Last Admin: 10/11/18 16:57 Dose: 2.5 mg Amlodipine Besylate (Norvasc) 5 mg PO DAILY [facility] Last Admin: 10/12/18 08:52 Dose: 5 mg Aspirin (Aspirin) 325 mg PO DAILY@0800 [facility] Last Admin: 10/12/18 08:48 Dose: 325 mg Atorvastatin Calcium (Lipitor) 40 mg PO QHS [facility] Last Admin: 10/11/18 22:46 Dose: 40 mg Budesonide (Pulmicort Aerosol) 0.5 mg INHALATION Q12H.RT [facility] Last Admin: 10/12/18 07:23 Dose: 0.5 mg Cholecalciferol (Vitamin D) [facility] Last Admin: 10/12/18 08:48 Dose: 1,000 unit Cyanocobalamin (Vitamin B12) 1,[facility]cg [facility] Last Admin: 10/12/18 08:48 Dose: 1,000 mcg Lactated Ringer's () 1,000 mls @ 125 mls/hr IV .Q8H [facility] Last Admin: 10/11/18 17:11 Dose: 125 mls/hr Sodium Chloride () 250 mls @ 15 mls/hr IV .[id number] PRN PRN Reason: SALINE FLUSH Ketorolac Tromethamine (Toradol) 15 mg IV Q6H PRN PRN PRN Reason: PAIN Last Admin: 10/12/18 03:55 Dose: 15 mg Loratadine (Claritin) 5 mg PO DAILY [facility] Last Admin: 10/12/18 08:51 Dose: 5 mg Lorazepam (Ativan) 0.5 mg PO QHS [facility] Last Admin: 10/11/18 22:46 Dose: 0.5 mg Meloxicam (Mobic) 7.5 mg PO BID [facility] Metoprolol Tartrate (Lopressor (Beta Zuly)) 25 mg PO BID [facility] Last Admin: 10/12/18 08:57 Dose: 25 mg Morphine Sulfate () 2 - 4 mg IV Q2H PRN PRN PRN Reason: Severe pain (6-10) Morphine Sulfate () 2 - 4 mg IV Q2H PRN PRN PRN Reason: Severe pain (6-10) Nutritional Formula (Lactose Free) (Ensure Enlive) 120 ml PO TIDCM [facility] Last Admin: 10/12/18 08:50 Dose: 120 ml Ondansetron HCl (Zofran) 4 mg IV Q6H PRN PRN PRN Reason: Nausea Last Admin: 10/12/18 03:55 Dose: 4 mg Oxycodone HCl (Oxyir) 5 - 10 mg PO Q4H PRN PRN PRN Reason: PAIN Pantoprazole Sodium (Protonix) 40 mg PO DAILY [facility] Last Admin: 10/12/18 08:52 Dose: 40 mg Polyethylene Glycol (Miralax) 17 gm PO DAILY [facility] Last Admin: 10/12/18 08:52 Dose: 17 gm Promethazine HCl (Phenergan) 12.5 mg IV Q6H PRN PRN PRN Reason: NAUSEA/VOMITING Senna/Docusate Sodium (Senokot-S, Ebonie-Colace) 2 tablet PO BID PRN PRN PRN Reason: Constipation Sodium Chloride () 5 - 15 ml IV UD PRN PRN Reason: SALINE FLUSH Throat Lozenges (Cepacol Sore Throat Lozenge) 1 lozenge MUCOUS MEM Q2H PRN PRN PRN Reason: SORE THROAT Last Admin: 10/12/18 00:28 Dose: 1 lozenge Code Visit Inpatient E&M: 15514 Subs Hosp L2
[2018-10-12 09:49] VITALS: BP 133/73; PULSE 78; RESP 18; TEMP 36.7; O2SAT 97
--- NOTE | 2018-10-12 11:45 | CASEMGMT ---
RN CM Face to Face with patient for initial transition planning/care coordination assessment. RN CM introduced self and role at [facility]. Patient sitting in chair, alert and oriented. Patient willing to participate in assessment and is able to answer all questions appropriately. Care providers, pharmacy, and demographics verified. Patient wishes to discharge home, denies need for home health at this time. Patient states he has no further needs or concerns at this time. CM to follow for discharge planning needs that may arise. PCP: [facility]: [facility]: [facility] Insurance: [employer] Prescription Benefit: yes Living Will/HPOA: yes Dariel su Jr LNOK: son, brother, and friend Living Arrangements: Patient lives alone in a house. Patient states he is independent at home. Patient has family and friend to help. Transportation: Family and friend DME/HHC: Patient denies DME Disposition Plan: Patient to discharge home with family support and follow-up plans in place. Taisha MCKINNEY, RN, CM
== END 2018-10-12 12:54 | disposition home or self-care (01) | DRG 483 ==
LOC: ACINP 07:58 → MS3 08:05
PROVIDERS: Admitting Provider Specialist; Family Provider Family Medicine; PCP Family Medicine; Referring Provider Specialist; Visit Provider Internal Medicine
PROC: 0RRJ00Z Replacement of Right Shoulder Joint with Reverse Ball and Socket Synthetic Substitute, Open Approach (ICD-10-PCS; CPT 23472; principal; 2018-10-11 09:00)
DX: M19.011 Primary osteoarthritis, right shoulder (principal); I10 Essential (primary) hypertension; I25.10 Atherosclerotic heart disease of native coronary artery without angina pectoris; M79.7 Fibromyalgia; E78.00 Pure hypercholesterolemia, unspecified; J45.909 Unspecified asthma, uncomplicated; E53.8 Deficiency of other specified B group vitamins; Z95.1 Presence of aortocoronary bypass graft; Z87.891 Personal history of nicotine dependence; Z98.1 Arthrodesis status
CPT/HCPCS: 73020; 87077; 87081; 93005; 94640; 94762; 97165; 97530; C1776; J7120; J2405

== ENCOUNTER → 2019-01-01 | Outpatient (CLI) | payer MEDICARE, SELFPAY ==
[2018-10-11 13:32] VITALS: BMI 27.3
--- NOTE | 2019-01-01 18:10 | RAD_ITS ---
STUDY: X-RAY CHEST REASON FOR EXAM: Male, 78 years old. Cough TECHNIQUE: Frontal and lateral views COMPARISON: May 21, 2016 FINDINGS: Stable sternotomy wires. The lungs are clear and expanded. There is no demonstrated pleural abnormality. Normal size heart. Normal mediastinum and yahir. Normal visualized pulmonary arteries. Calcified aortic arch and descending thoracic aorta. Degenerative changes of the visualized thoracic spine. Interval placement of a right shoulder prosthesis. Possible small hiatal hernia. RAD/Chest PA and Lateral IMPRESSION: No acute pulmonary pathology of the chest. Electronically Signed: Nav Hughes DO at 23:57 EDT Tel [phone], Service support ,
== END | disposition home or self-care (01) ==
LOC: US 18:11 → RAD 18:13
PROVIDERS: Family Provider Family Medicine; PCP Family Medicine; Visit Provider Family Medicine
DX: J40 Bronchitis, not specified as acute or chronic (principal)
CPT/HCPCS: 71046

== ENCOUNTER → 2019-04-11 | Outpatient (CLI) | payer MEDICARE, SELFPAY ==
[2019-01-16 13:05] VITALS: BMI 26.6
--- NOTE | 2019-04-11 15:29 | CT_ITS ---
STUDY: CT CHEST WITHOUT CONTRAST REASON FOR EXAM: Male, 79 years old. Cough for several months. History of bronchitis and asthma. Prior CABG repair in 2007. RADIATION DOSAGE (If Supplied By Facility): CTDIvol = ( 13.37 ) mGy, DLP = ( 470.95 ) mGycm TECHNIQUE: Transaxial imaging was performed without the administration of intravenous contrast material. Multiplanar coronal and sagittal images were reformatted. Individualized dose optimization techniques were used for this CT. COMPARISON: Partial images of CT of the abdomen and pelvis 06/03/2017. FINDINGS: There is minimal lingular and posterior lower lobe atelectasis, remainder of the lung huang are normally expanded and clear. There is no demonstrated pleural abnormality. Heart maintains normal size with extensive coronary artery calcifications. Normal mediastinum. Normal hilar regions. Normal unenhanced pulmonary arteries. There is atherosclerotic calcification of the aortic arch with tortuosity and elongation of the aortic arch and descending thoracic aorta. There is demineralization of the thoracic spine. Upper abdomen: There is a large hiatal hernia. There are multiple tiny stones within the gallbladder. There is a small low-attenuation lesion within the posterior aspect of the right liver lobe, axial image 109 and measuring 1.1 x 1.0 cm, stable compared to previous exam of 2017. A similar lesion is seen within the right liver lobe posteriorly and seen below the diaphragm measuring approximately 5 mm, stable. Remainder of the visualized is normal. The visualized spleen, pancreas and bilateral adrenal glands are normal. That there is nonspecific bilateral perinephric stranding in the upper visualized kidneys. Anterior sternotomy wires demonstrated. Postoperative changes with beam hardening artifact related to a right shoulder prosthesis. CT/Chest without Contrast IMPRESSION: Areas of mild atelectasis throughout the bilateral lung huang with no acute cardiopulmonary process seen. Large hiatal hernia. Coronary artery calcifications. Electronically Signed: Aarti Walker MD at 5:36 EDT , Service support ,
== END | disposition home or self-care (01) ==
LOC: CT 15:27
PROVIDERS: Family Provider Family Medicine; PCP Family Medicine; Referring Provider Family Medicine; Visit Provider Family Medicine
DX: J98.01 Acute bronchospasm (principal)
CPT/HCPCS: 71250

== ENCOUNTER → 2019-05-09 12:06 | Outpatient (CLI) | payer MEDICARE, SELFPAY ==
[2019-01-16 13:05] VITALS: BMI 26.6
[2019-05-09 14:00] LABS: Absolute Lymphocyte Count 2.34 X10^3/uL (0.83-4.51); Absolute Neutrophil Count 5.9 X10^3/uL (2.0-7.7); Basophil# 0.07 X10^3/uL; Basophil% 0.6 % (0-1); Eosinophils% 18.8 % (0-5); Hematocrit 46.8 % (40-54); Hemoglobin 15.2 g/dL (13.0-16.5); Lymphocyte # 2.34 X10^3/ul (4.0); Lymphocyte % 20.5 % (19-41); Mean Corp Hgb Conc 32.5 g/dL (32-36); Mean Corpuscular Volume 92.5 fL (80-94); Mean Platelet Vol. 9.7 fl (6.2-12.0); Monocyte# 0.95 X10^3/uL; Monocyte% 8.3 % (0-10); NRBC Flagged by Analyzer 0 % (0-5); Neutrophil # 5.88 X10^3/uL (2.7-7.7); Neutrophil % 51.5 % (47-70); POSITIVE DIFFERENTIAL YES; Platelet Count 264 K/mm3 (150-450); RBC Distribution Width CV 14.3 % (11.6-14.6); RBC Distribution Width SD 48.7 fl (35.1-43.9); Red Blood Count 5.06 M/mm3 (4.6-6.2); White Blood Count 11.4 K/mm3 (4.4-11.0)
[2019-05-09 14:02] LABS: Differential Indicated SCAN CRITERIA MET; Eosinophil# 2.15 X10^3/uL
[2019-05-11 10:48] LABS: Pathologist Review Reviewed
[2019-05-13 11:07] LABS: Immunoglobulin E 1698 IU/mL (6-495)
== END ==
PROVIDERS: Family Provider Family Medicine; PCP Family Medicine; Referring Provider Internal Medicine Pulmonary Disease; Visit Provider Internal Medicine Pulmonary Disease
DX: J45.909 Unspecified asthma, uncomplicated (principal)
CPT/HCPCS: 36415; 82785; 85025

== ENCOUNTER → 2019-10-01 | Outpatient (CLI) | payer MEDICARE, SELFPAY ==
[2019-01-16 13:05] VITALS: BMI 26.6
[2019-10-01 15:15] LABS: CRP 3.37 mg/L (0.0-3.0)
[2019-10-02 07:33] LABS: Creatinine, Serum 0.73 mg/dL (0.70-1.30); EST Glomerular Filtration Rate 111 mL/min (>60); Est Glom Filt Rate - Afr Amer 134 mL/min (>60)
[2019-10-04 16:07] LABS: Cytoplasmic Ab (C-ANCA) <1:20 titer (Neg:<1:20)
[2019-10-04 17:48] LABS: Immunoglobulin E 2305 IU/mL (6-495); Perinuclear Ab (P-ANCA) <1:20 titer (Neg:<1:20)
== END | disposition home or self-care (01) ==
LOC: MTLAB 12:52
PROVIDERS: PCP Family Medicine
DX: D72.1 Eosinophilia (principal); J45.50 Severe persistent asthma, uncomplicated
CPT/HCPCS: 36415; 82565; 82570; 82785; 86140; 86256

== ENCOUNTER → 2019-10-02 | Outpatient (CLI) | payer MEDICARE, SELFPAY ==
[2019-01-16 13:05] VITALS: BMI 26.6
== END | disposition home or self-care (01) ==
LOC: LABSPEC 11:30
PROVIDERS: PCP Family Medicine; Referring Provider Specialist; Visit Provider Specialist
DX: D72.1 Eosinophilia (principal); J45.50 Severe persistent asthma, uncomplicated
CPT/HCPCS: 87177; 87209

== ENCOUNTER → 2019-11-01 | Outpatient (CLI) | payer MEDICARE, SELFPAY ==
[2019-01-16 13:05] VITALS: BMI 26.6
[2019-11-01 18:11] LABS: Absolute Lymphocyte Count 2.73 X10^3/uL (0.83-4.51); Absolute Neutrophil Count 6.8 X10^3/uL (2.0-7.7); Basophil# 0.08 X10^3/uL; Basophil% 0.5 % (0-1); Eosinophils% 28.9 % (0-5); Hematocrit 43.8 % (40-54); Lymphocyte # 2.73 X10^3/ul (4.0); Lymphocyte % 18.3 % (19-41); Mean Corpuscular Volume 90.9 fL (80-94); Monocyte# 0.97 X10^3/uL; Monocyte% 6.5 % (0-10); NRBC Flagged by Analyzer 0 % (0-5); Neutrophil # 6.77 X10^3/uL (2.7-7.7); Neutrophil % 45.5 % (47-70); POSITIVE DIFFERENTIAL YES; Platelet Count 275 K/mm3 (150-450); RBC Distribution Width CV 13.2 % (11.6-14.6); RBC Distribution Width SD 43.8 fl (35.1-43.9); Red Blood Count 4.82 M/mm3 (4.6-6.2); White Blood Count 14.9 K/mm3 (4.4-11.0)
[2019-11-01 18:28] LABS: Differential Indicated SCAN CRITERIA MET; Eosinophil# 4.31 X10^3/uL
[2019-11-01 18:50] LABS: Differential Comment SCANNED
[2019-11-01 19:06] LABS: Iron Binding Capacity,Total 364 ug/dL (250-450)
[2019-11-01 20:52] LABS: Vitamin B12 998 pg/mL (211-911)
[2019-11-02 10:06] LABS: Pathologist Review Reviewed
== END | disposition home or self-care (01) ==
LOC: MTLAB 15:59
PROVIDERS: PCP Family Medicine; Referring Provider Specialist; Visit Provider Specialist
DX: D72.1 Eosinophilia (principal); J30.9 Allergic rhinitis, unspecified; J45.50 Severe persistent asthma, uncomplicated; R06.00 Dyspnea, unspecified; J32.9 Chronic sinusitis, unspecified; L50.1 Idiopathic urticaria; T78.3XXD Angioneurotic edema, subsequent encounter; T78.09XD Anaphylactic reaction due to other food products, subsequent encounter; E55.9 Vitamin D deficiency, unspecified; E07.9 Disorder of thyroid, unspecified; Z91.038 Other insect allergy status
CPT/HCPCS: 36415; 82607; 83520; 83550; 84484; 85025

== ENCOUNTER → 2019-11-09 11:30 | Outpatient (CLI) | payer MEDICARE, SELFPAY ==
[2019-01-16 13:05] VITALS: BMI 26.6
== END ==
PROVIDERS: PCP Family Medicine; Referring Provider Otolaryngology; Visit Provider Otolaryngology
DX: Z03.818 Encounter for observation for suspected exposure to other biological agents ruled out (principal)
CPT/HCPCS: 87633; 87635; 94799; G2023; U0004

== ENCOUNTER 2019-11-09 17:11 | Inpatient (IN) | payer MEDICARE, SELFPAY ==
[2019-01-16 13:05] VITALS: BMI 26.6
[2019-11-09] VITALS (33 sets, daily range): BP systolic 104–227; BP diastolic 68–138; PULSE 87–145; RESP 11–40; TEMP 36.4–37.2; O2SAT 75–100; BMI 27.5; BMI 26.4
--- NOTE | 2019-11-09 17:20 | EKG12_ITS ---
Test Reason : RESP ARRET Blood Pressure : / mmHG Vent. Rate : 135 BPM Atrial Rate : 135 BPM P-R Int : 114 ms QRS Dur : 076 ms QT Int : 310 ms P-R-T Axes : 036 -17 072 degrees QTc Int : [address] depression, consider subendocardial injury Abnormal ECG Confirmed by DEENA SHERMAN, SEVERINO ([id number]), associate editor CANDI PALOMINO ([id number]) on 11/13/2019 2:21:54 PM Referred By: Edouard Michael Confirmed By:SEVERINO SHAFFER MD
[2019-11-09] MEDS: Etomidate 20 MG/10 ML Vial 23 MG IV (17:29)
[2019-11-09] MEDS: Rocuronium Bromide 50 MG/5 ML Vial 62 MG IV (17:29)
--- NOTE | 2019-11-09 17:33 | ED.VIS.GEN ---
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 History is limited because patient is in severe respiratory distress with paradoxical breathing. His pulse ox initially was 71% and Lele of the respiratory therapist stated he had a respiratory arrest. I was informed he administered aerosol treatments and took prednisone at home. He received 2 DuoNeb treatments and 125 mg of Solu-Medrol by squad in route. 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 states he can take the pills but not the patch simvastatin Adverse Reaction (Severe, Verified 11/09/19 17:33) Myalgias CONTRAST DYE Allergy (Mild, Uncoded 11/09/19 17:33) Rash Primary Care Physician: Kev Steve DO [Primary Care Provider] - Prior records reviewed: Yes Surgical History: noncontributory Lives: Alone Smoking Status: Unknown if ever smoked - Family History Maternal Family History: Family History (Last Reviewed 02/14/18 @ 13:[address] David Jimenez MD) Grandfather Myocardial infarction Sudden cardiac Grandmother CVA (cerebral vascular accident) Grandfather Cancer Father Colon cancer Hypertension Mother Breast cancer CHF (congestive heart failure) Brother COPD (chronic obstructive pulmonary disease) Sister CAD (coronary artery disease) Hypertension HLD (hyperlipidemia) Son Hypertension Family History: Reports: No pertinent history Paternal Family History: Family History (Last Reviewed 02/14/18 @ 13:[address] David Jimenez MD) Grandfather Myocardial infarction Sudden cardiac Grandmother CVA (cerebral vascular accident) Grandfather Cancer Father Colon cancer Hypertension Mother Breast cancer CHF (congestive heart failure) Brother COPD (chronic obstructive pulmonary disease) Sister CAD (coronary artery disease) Hypertension HLD (hyperlipidemia) Son Hypertension Family History: Reports: No pertinent history Review of Systems ROS: Unable to Obtain - History limited because of respiratory distress and Respiratory: Reports: Dyspnea, Cough, Sputum Physical Exam Vital Signs/Narrative: Vital Signs Temp Pulse Resp BP Pulse Ox 11/09/19 17:30 98 11/09/19 17:27 119 H 40 H 169/125 H 100 11/09/19 17:22 137 H 28 H 169/125 H 93 11/09/19 17:12 99 F 145 H 11 L 75 Inital Vital Signs reviewed: Yes General: Well nourished, Well developed, Acute Distress Head: Normocephalic, Atraumatic Eyes: Perrl, EOMI. Negative for: Pale conjunctiva, Scleral icterus ENT: Moist mucous membranes, No rhinorrhea, TM's clear, Nasal congestion. Negative for: Sinus tenderness Neck: Supple, Nontender, No lymphadenopathy, No JVD Cardiovascular: Regular rhythm, No murmurs, Normal S1, Normal S2, Tachycardia Respiratory: Wheezing, Diminished, Decreased Air Movement, Retractions Abdomen: Soft, Nontender, Nondistended, Normal bowel sounds Rectal: Deferred Back: Nontender Extremities: Nontender, No edema Skin: No rash, Cyanosis, Diaphoresis, No Trauma. Negative for: Jaundice Neurological: Cranial nerves II-XII grossly intact, Normal Strength, Normal Sensation. Negative for: Alert, Oriented x3 Diagnostic/Tx/Re-eval 11/09/19 17:20 Chest 1 View (Portable) [RAD] Stat 11/09/19 17:21 Abdomen Single View (Portable) [RAD] Stat Laboratory Results 11/09/19 11/09/19 11/09/19 17:25 17:25 17:25 WBC 11.2 H RBC 5.41 Hgb 15.7 Hct 50.8 MCV 93.9 MCH 29.0 MCHC 30.9 L RDW Std Deviation 47.0 H RDW Coeff of [place]ida 13.8 Plt Count 351 MPV 10.9 Immature Gran % (Auto) 0.400 Neut % (Auto) 75.7 H Lymph % (Auto) 21.8 [place] % (Auto) 1.0 Eos % (Auto) 0.8 Baso % (Auto) 0.3 Absolute Neuts (auto) 8.5 H Absolute Lymphs (auto) 2.45 Nucleated RBC % 0 PT 13.8 INR 1.1 APTT 28.9 Specimen Type Sample Site pH Bicarbonate Actual POC Total CO2 Base Excess O2 Saturation O2 % ABG pCO2 ABG pO2 Respiration Rate Vent Mode Tidal Volume POC PEEP Blood Gas Notified Whom Blood Gas Notified Time Sodium 142 Potassium 3.7 Chloride 109 H Carbon Dioxide 23.0 Anion Gap 10 BUN 22 H Creatinine 1.15 Estim Creat Clear Calc 46.05 Est GFR (MDRD) Af Amer 79 Est GFR (MDRD) Non-Af 65 BUN/Creatinine Ratio 19.1 Glucose 233 H Calcium 9.5 Total Bilirubin 0.70 AST 24 ALT 25 Alkaline Phosphatase 128 H Troponin I < 0.015 Total Protein 9.6 H Albumin 4.3 Globulin 5.3 H Albumin/Globulin Ratio 0.8 L Urine Color Urine Clarity Urine pH Ur Specific [place] Urine Protein Urine Glucose (UA) Urine Ketones Urine Occult Blood Urine Nitrite Urine Bilirubin Urine Urobilinogen Ur Leukocyte Esterase Urine RBC Urine WBC Ur Squamous Epith Cells Urine Bacteria Urine Mucus 11/09/19 11/09/19 17:55 17:55 WBC RBC Hgb Hct MCV MCH MCHC RDW Std Deviation RDW Coeff of [place] Plt Count MPV Immature Gran % (Auto) Neut % (Auto) Lymph % (Auto) [place] % (Auto) Eos % (Auto) Baso % (Auto) Absolute Neuts (auto) Absolute Lymphs (auto) Nucleated RBC % PT INR APTT Specimen Type ART Sample Site R RADIAL pH 7.32 L Bicarbonate Actual 21.4 L POC Total CO2 23 Base Excess -5 L O2 Saturation 91 L O2 % 75 ABG pCO2 41.8 ABG pO2 66 L Respiration Rate 12 Vent Mode A-C Tidal Volume 450 POC PEEP 8 Blood Gas Notified Whom ED Blood Gas Notified Time 1755 Sodium Potassium Chloride Carbon Dioxide Anion Gap BUN Creatinine Estim Creat Clear Calc Est GFR (MDRD) Af Amer Est GFR (MDRD) Non-Af BUN/Creatinine Ratio Glucose Calcium Total Bilirubin AST ALT Alkaline Phosphatase Troponin I Total Protein Albumin Globulin Albumin/Globulin Ratio Urine Color Yellow Urine Clarity Clear Urine pH 7.0 Ur Specific [place] 1.010 Urine Protein 100 H Urine Glucose (UA) 1000 H Urine Ketones 15 H Urine Occult Blood 25 H Urine Nitrite Negative Urine Bilirubin Negative Urine Urobilinogen Normal Ur Leukocyte Esterase Negative Urine RBC 0-5 SEEN Urine WBC 0 SEEN Ur Squamous Epith Cells 0 SEEN Urine Bacteria 0 SEEN Urine Mucus 0 SEEN Chest x-ray reveals endotracheal tube to be approximately 3 cm above the scott. OG will need to be advanced. It is in the stomach. There is no evidence of pneumothorax or infiltrate. Blood gas reveals a metabolic acidosis with increased AA gradient. Urine is unremarkable. - Rhythm Strip Rhythm Strip: Sinus Rhythm Rate: 143 Ectopy: PVC(s) - EKG Initial EKG Interpretation: Sinus Tachycardia - Tachycardia with a ventricular rate of 135. There is marked ST depression consistent with subendocardial injury. This may also represent myocarditis due to COVID. MD interval is 114 ms. QRS duration 76 ms. QT duration 310 ms. [place] is normal. - Medical Decision Making Patient presents with respiratory failure. Will obtain ABG to determine if he has hypercapnia. Per old records he has history of asthma. He received sufficient treatment prior to hospitalization. Since he had a respiratory arrest he was orotracheally debated. He received 23 mg of etomidate and 60 mg of rocuronium. He was easily orotracheally debated with a 7.5 endotracheal tube using glide scope. All personnel were appropriately dressed for COVID precautions. EKG was obtained to rule out ischemia. Chest x-ray to rule out pneumonia/pneumothorax. Appropriate blood work. Since patient had COVID test performed earlier today the COVID test was not repeated. - Critical Care Time Critical care time (excluding procedures): 30-74 minutes - Care time 33 minutes, Discussing w/Patient &/or Family/Revenue Integrity Analyst, Discussing w/Consultants, Arranging Admission or Transfer Procedures Procedure(s): Tracheal intubation by RSI technique. He received a total of 23 mg etomidate and 62 mg rocuronium. Endotracheal tube was placed without difficulty using glide scope. [employer] change was noted on capnometer. Condensation noted endotracheal tube and breath sounds are noted bilaterally. There was no breath sounds noted over the epigastrium. ED Disposition - Plan for ED Patient: Disposition: Home or Assisted Living Diagnosis: Respiratory failure with hypoxia, Status asthmaticus, Suspected 2019 novel coronavirus infection, Metabolic acidosis, History of coronary artery disease Referrals: Kev Steve DO [Primary Care Provider] -
[2019-11-09] MEDS: 0.9% Normal Saline 1,000 ML 150 ML IV (17:44)
[2019-11-09] MEDS: Aspirin 300 MG Suppository RECTAL (17:45)
[2019-11-09] MEDS: fentaNYL drip 100 ML 2.5 MCG IV (17:53)
[2019-11-09 18:05] LABS: Base Excess -5 mmol/L (-2 to +2); Bicarbonate 21.4 mmol/L (22-26); PO2 66 mmHG (75-100); SO2 91 % (95-99); Total Carbon Dioxide 23 mmol/L; pCO2 41.8 mmHg (35-45); pH 7.32 (7.35-7.45)
[2019-11-09 18:09] LABS: Blood Gas Specimen Type ART; FI02 75; Mode A-C; PEEP 8; SITE R RADIAL; Time Given 1755
[2019-11-09 18:10] LABS: RR 12; Vt 450
[2019-11-09 18:13] LABS: Bacteria 0 SEEN /hpf (None Seen); Mucous, Urine 0 SEEN /hpf (<or=2+); Squamous Epithelial Cells - UA 0 SEEN /hpf (0-5); White Blood Cells 0 SEEN /hpf (0-5)
[2019-11-09] MEDS: Propofol 200 MG/20 ML Vial 40 MG IV BOLUS (18:15)
[2019-11-09 18:16] LABS: Color, Urine Yellow (Yellow); Glucose, Dipstick 1000 mg/dl (Normal); Ketone-Dipstick 15 mg/dl (Negative); Leukocyte Esterase-Dipstick Negative /ul (Negative); Nitrite-Dipstick Negative (Negative); Occult Blood-Urine 25 /ul (Negative); Protein-Dipstick 100 mg/dl (Negative); Urine Bilirubin Dipstick Negative (Negative); Urine Clarity Clear (Clear); Urine Urobilinogen Normal (Normal)
[2019-11-09 18:16] LABS: ALB/GLOB Ratio 0.8 RATIO (0.9-2.4); AST(SGOT) 24 U/L (15-37); Alanine Aminotransfer ALT/SGPT 25 U/L (16-61); Albumin, Serum 4.3 g/dL (3.2-5.0); Alkaline Phosphatase 128 U/L (45-117); Anion Gap 10 (5-15); BUN 22 mg/dL (7-18); BUN/Creat Ratio 19.1 RATIO (10-20); Calcium,Total 9.5 mg/dL (8.5-10.1); Chloride 109 mmol/L (98-107); Creatinine, Serum 1.15 mg/dL (0.70-1.30); EST Glomerular Filtration Rate 65 mL/min (>60); Est Glom Filt Rate - Afr Amer 79 mL/min (>60); Estimated Creatinine Clearance 46.05 ml/min; Globulin 5.3 g/dL (2.2-4.2); Glucose 233 mg/dL (74-106); Potassium 3.7 mmol/L (3.5-5.1); Protein, Total 9.6 g/dL (6.4-8.2); Sodium Level 142 mmol/L (136-145)
[2019-11-09 18:23] LABS: Red Blood Cells-Urine 0-5 SEEN /hpf (0-5)
[2019-11-09 18:24] LABS: Absolute Lymphocyte Count 2.45 X10^3/uL (0.83-4.51); Absolute Neutrophil Count 8.5 X10^3/uL (2.0-7.7); Basophil# 0.03 X10^3/uL; Basophil% 0.3 % (0-1); Eosinophil# 0.09 X10^3/uL; Eosinophils% 0.8 % (0-5); Hematocrit 50.8 % (40-54); Hemoglobin 15.7 g/dL (13.0-16.5); Lymphocyte # 2.45 X10^3/ul (4.0); Lymphocyte % 21.8 % (19-41); Mean Corp Hgb Conc 30.9 g/dL (32-36); Mean Corpuscular Volume 93.9 fL (80-94); Mean Platelet Vol. 10.9 fl (6.2-12.0); Monocyte# 0.11 X10^3/uL; NRBC Flagged by Analyzer 0 % (0-5); Neutrophil # 8.49 X10^3/uL (2.7-7.7); Neutrophil % 75.7 % (47-70); Platelet Count 351 K/mm3 (150-450); RBC Distribution Width CV 13.8 % (11.6-14.6); Red Blood Count 5.41 M/mm3 (4.6-6.2); White Blood Count 11.2 K/mm3 (4.4-11.0)
[2019-11-09 18:26] LABS: International Normalized Ratio 1.1; Prothrombin Time (Protime)PT. 13.8 SECONDS (11.7-14.9)
[2019-11-09 18:27] LABS: Partial Thromboplast Time 28.9 Seconds (24.1-36.2)
--- NOTE | 2019-11-09 18:30 | RAD_ITS ---
STUDY: X-RAY CHEST REASON FOR EXAM: Male, 79 years old. ETT PLACEMENT, OG TUBE PLACEMENT TECHNIQUE: AP portable COMPARISON: January 01, 2019 FINDINGS: The lungs are clear and expanded. There is no demonstrated pleural abnormality. Normal size heart. Normal mediastinum and yahir. Normal visualized pulmonary arteries. Normal visualized aortic arch and descending thoracic aorta. Postop change status post median sternotomy and CABG. Dorsal spine demonstrates degenerative change. Normal visualized ribs, and clavicles. There is a right shoulder prosthesis present Nasogastric tube present with tip in the proximal gastric fundus. Endotracheal tube is noted with tip 6 cm proximal to scott. Small retrocardiac density most likely hiatal hernia There is no demonstrated abnormality of the visualized soft tissue structures of the upper abdomen. RAD/Chest 1 View (Portable) IMPRESSION: No acute cardiopulmonary pathology Electronically Signed: Conor Conrad MD at 19:09 EDT , Service support ,
[2019-11-09] MEDS: Propofol 10MG/Ml 1,000 MG/100 ML Bottle 4.5 MG CONT INF (18:33)
[2019-11-09 18:43] LABS: Lactic Acid 3.5 mmol/L (0.4-1.9)
--- NOTE | 2019-11-09 19:03 | HP.PCM_ITS ---
Problem List (1) History of asthma Status: Chronic (2) Respiratory failure with hypoxia Status: Acute (3) Status asthmaticus Status: Acute (4) Suspected 2019 novel coronavirus infection Status: Acute (5) Metabolic acidosis Status: Acute (6) History of coronary artery disease Status: Chronic (7) H/O coronary artery bypass surgery Status: Chronic Comment: CABG x 2 TRUONG-LAD, SVG- posterior lateral CFX 12/24 (8) Essential (primary) hypertension Status: Chronic (9) Coronary atherosclerosis of [place] coronary artery Status: Chronic Qualifiers: [place] vs. transplanted heart: [place] heart Associated angina: without angina Qualified Code(s): I25.10 - Atherosclerotic heart disease of [place] coronary artery without angina pectoris Comment: CABG x 2 TRUONG-LAD, SVG- posterior lateral CFX 12/24 (10) Carotid bruit Status: Chronic (11) Hyperlipidemia Status: Chronic Qualifiers: Hyperlipidemia type: pure hypercholesterolemia Qualified Code(s): E78.00 - Pure hypercholesterolemia, unspecified; E78.0 - Pure hypercholesterolemia History of Present Illness Date of Admission: 11/09/19 Chief Complaint: Shortness of breath The patient is a 79 year old M with a significant history of asthma; CAD status post CABG; hypertension who presented to emergency department with shortness of breath. Reportedly while at the emergency department patient had respiratory arrest and he was emergently intubated. Patient received Solu-Medrol and a breathing treatment prior to coming to the emergency department. Reportedly patient was tested for COVID-19 outpatient. Patient was intubated at the time of history taking. He has been been coughing. He is able to nod his head to admit to some answers. Past Medical History Past Medical History (Chronic Problems): Chronic Problems (Last Reviewed 11/09/19 @ 19:[address] Edouard Michael MD) History of asthma (Chronic) History of coronary artery disease (Chronic) H/O coronary artery bypass surgery (Chronic 12/2006) CABG x 2 TRUONG-LAD, SVG- posterior lateral CFX 12/24 Essential (primary) hypertension (Chronic) Coronary atherosclerosis of [place] coronary artery (Chronic) CABG x 2 TRUONG-LAD, SVG- posterior lateral CFX 12/24 Carotid bruit (Chronic) Hyperlipidemia (Chronic) Medical History: Medical History (Last Reviewed 11/09/19 @ 19:[address] 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 states he can take the pills but not the patch simvastatin Adverse Reaction (Severe, Verified 11/09/19 17:33) Myalgias CONTRAST DYE Allergy (Mild, Uncoded 11/09/19 17:33) Rash Home Medications: Ambulatory Orders Medication Instructions Recorded Lansoprazole [Prevacid] 30 mg PO DAILY 09/07/13 Cholecalciferol (VIT D3) [Vitamin 1,000 unit PO DAILY 03/12/16 D3] Cyanocobalamin (Vitamin B-12) 1,000 mcg PO DAILY 03/12/16 [Vitamin B-12] L.acidoph,Paracasei, B.lactis 1 ea PO DAILY 10/02/18 [Probiotic] Acetaminophen [Tylenol] 1,000 mg PO Q8 #100 tab 10/12/18 atorvastatin 40 mg tablet 40 mg PO QHS #90 tab 12/06/18 aspirin 81 mg tablet,delayed 81 mg PO DAILY 01/16/19 release amlodipine 5 mg tablet 5 mg PO DAILY #90 tab 07/17/19 metoprolol tartrate 25 mg tablet 25 mg PO BID #180 tab 10/15/19 Albuterol Sulfate [Ventolin Hfa] 2 puff INHALATION Q6H PRN PRN 11/09/19 Budesonide/Formoterol Fumarate 2 puff INHALATION BID 11/09/19 [Symbicort 160-4.5 Mcg Inhaler] Cefadroxil [Duricef] 500 mg PO BID 11/09/19 Ibuprofen [Ibu] 800 mg PO BID 11/09/19 Ipratropium/Albuterol Sulfate 3 ml INHALATION Q6H PRN PRN 11/09/19 [Duoneb] Levocetirizine Dihydrochloride 5 mg PO QHS 11/09/19 [Xyzal] Lorazepam [Ativan] 0.5 mg PO QHS PRN PRN 11/09/19 Montelukast [Singulair] 10 mg PO DAILY 11/09/19 Tiotropium [place] [Spiriva 2 puff INHALATION DAILY 11/09/19 Respimat] Surgical History: Surgical History (Last Reviewed 11/09/19 @ 19:[address] Edouard Michael MD) H/O coronary artery bypass surgery (Chronic) Onset Date: 12/2006 Z95.1 CABG x 2 TRUONG-LAD, SVG- posterior lateral CFX 12/24 Psychiatric History: No pertinent psych hx Lives: Alone Smoking Status: Former smoker - *Family History Maternal Family History: Family History (Last Reviewed 11/09/19 @ 19:[address] Edouard Michael MD) Grandfather Myocardial infarction Sudden cardiac Grandmother CVA (cerebral vascular accident) Grandfather Cancer Father Colon cancer Hypertension Mother Breast cancer CHF (congestive heart failure) Brother COPD (chronic obstructive pulmonary disease) Sister CAD (coronary artery disease) Hypertension HLD (hyperlipidemia) Son Hypertension History Items: No pertinent history Paternal Family History: Family History (Last Reviewed 11/09/19 @ 19:[address] Edouard Michael MD) Grandfather Myocardial infarction Sudden cardiac Grandmother CVA (cerebral vascular accident) Grandfather Cancer Father Colon cancer Hypertension Mother Breast cancer CHF (congestive heart failure) Brother COPD (chronic obstructive pulmonary disease) Sister CAD (coronary artery disease) Hypertension HLD (hyperlipidemia) Son Hypertension History Items: No pertinent history Review of Systems Unable to obtain accurate/complete ROS d/t: Intubated. VTE Information - Inpt Only VTE Present on Admission: No VTE Mechan Device Prophylaxis: None VTE Pharm Prophylaxis ordered?: Yes Patient Problems: Active and Suspected Problems (Last Reviewed 11/09/19 @ 19:[address] Edouard Michael MD) Respiratory failure with hypoxia (Acute) Status asthmaticus (Acute) Suspected 2018 novel coronavirus infection (Acute) Metabolic acidosis (Acute) - Physical Exam Vitals/I&O's: Vital Signs Temp Pulse Resp BP Pulse Ox 97.9 F 109 H 18 139/89 H 92 11/09/19 18:49 11/09/19 18:49 11/09/19 18:49 11/09/19 18:49 11/09/19 18:49 Oxygen Delivery Method Mechanical Ventilator Weight: 75.1 kg Body Mass Index (BMI) 27.5 Intake and Output for Last 24 Hours 11/07/19 11/08/19 11/09/19 23:59 23:59 23:59 Intake Total 6.36 / 6.36 Balance 6.36 / 6.36 General: Alert, Oriented x3, Cooperative, - - Intubated and on sedation. HEENT: Atraumatic, PERRLA, EOMI, Normocephalic Neck: Supple, No JVD, Negative Carotid Bruits Lungs: Rhonchi, Tachypneic Cardiovascular: Normal S1, Normal S2, No murmurs, Tachycardic Abdomen: Bowel Sounds Present, Soft, Non Tender Extremities: No edema, Capillary Refill Less than 3 Seconds Skin: No rashes, No breakdown Musculoskeletal: No Tenderness to Palpation of Joints or Extremities Neurological: Neuro grossly intact - Although is intubated and on light sedation. Psych/Mental Status: Normal Affect, Appropriate Laboratory Results 11/09/19 17:25: WBC 11.2 H, RBC 5.41, Hgb 15.7, Hct 50.8, MCV 93.9, MCH 29.0, MCHC 30.9 L, RDW Std Deviation 47.0 H, RDW Coeff of [place] 13.8, Plt Count 351, MPV 10.9, Immature Gran % (Auto) 0.400, Neut % (Auto) 75.7 H, Lymph % (Auto) 21.8, [place] % (Auto) 1.0, Eos % (Auto) 0.8, Baso % (Auto) 0.3, Absolute Neuts (auto) 8.5 H, Absolute Lymphs (auto) 2.45, Nucleated RBC % 0 11/09/19 17:25: PT 13.8, INR 1.1, APTT 28.9 11/09/19 17:25: Sodium 142, Potassium 3.7, Chloride 109 H, Carbon Dioxide 23.0, Anion Gap 10, BUN 22 H, Creatinine 1.15, Estim Creat Clear Calc 46.05, Est GFR (MDRD) Af Amer 79, Est GFR (MDRD) Non-Af 65, BUN/Creatinine Ratio 19.1, Glucose 233 H, Calcium 9.5, Total Bilirubin 0.70, AST 24, ALT 25, Alkaline Phosphatase 128 H, Troponin I < 0.015, Total Protein 9.6 H, Albumin 4.3, Globulin 5.3 H, Albumin/Globulin Ratio 0.8 L 11/09/19 17:42: Lactic Acid 3.5 H* 11/09/19 17:55: Urine Color Yellow, Urine Clarity Clear, Urine pH 7.0, Ur Specific [place] 1.010, Urine Protein 100 H, Urine Glucose (UA) 1000 H, Urine Ketones 15 H, Urine Occult Blood 25 H, Urine Nitrite Negative, Urine Bilirubin Negative, Urine Urobilinogen Normal, Ur Leukocyte Esterase Negative, Urine RBC 0-5 SEEN, Urine WBC 0 SEEN, Ur Squamous Epith Cells 0 SEEN, Urine Bacteria 0 SEEN, Urine Mucus 0 SEEN 11/09/19 17:55: Specimen Type ART, Sample Site R RADIAL, pH 7.32 L, Bicarbonate Actual 21.4 L, POC Total CO2 23, Base Excess -5 L, O2 Saturation 91 L, O2 % 75, ABG pCO2 41.8, ABG pO2 66 L, Respiration Rate 12, Vent Mode A-C, Tidal Volume 450, POC PEEP 8, Blood Gas Notified Whom ED MD, Blood Gas Notified Time 1755 Current Medications Sodium Chloride () 1,000 mls @ 150 mls/hr IV .Q6H40M [facility] Last Admin: 11/09/19 17:44 Dose: 150 mls/hr Documented by: Fentanyl () 100 mls @ 2.5 mls/hr IV UD LINA; Protocol Last Titration: 11/09/19 18:46 Dose: 75 mcg/hr, 7.5 mls/hr Documented by: Propofol (Diprivan) 1,000 mg in 100 mls @ 4.506 mls/hr CONT INF .Q12H LINA; Protocol Last Titration: 11/09/19 18:45 Dose: 15 mcg/kg/min, 6.8 mls/hr Documented by: Assessment/Plan All Active Problems (Last Reviewed 11/09/19 @ 19:[address] Edouard Michael MD) Respiratory failure with hypoxia (Acute) Status asthmaticus (Acute) Suspected 2018 novel coronavirus infection (Acute) Metabolic acidosis (Acute) Abnormal result of cardiovascular function study, unspecified (Resolved) SBO (small bowel obstruction) (Resolved) The patient is a 79 year old M with a significant history of asthma; CAD status post CABG; hypertension who presented to emergency department with shortness of breath; and found to be severely hypoxemic at emergency department; and also had respiratory arrest consistent with status asthmaticus. Status asthmaticus Intubated at emergency department. Will admit to the intensive care. Placed on scheduled Solu-Medrol and DuoNeb. PRN albuterol. Chest x-ray is unremarkable for infiltrates. Chest x-ray is not classic for COVID. However will start patient on ceftriaxone and azithromycin. Will get MRSA nasal screen. We will get strep pneumonia antigen and Legionella urine antigen. Continue sedation with fentanyl drip and propofol. Refrigerator Crater consult. Outpatient COVID screen is pending. We will get a ferritin; d-dimer; and CRP. Acute respiratory failure with hypoxemia Patient with hypoxemia and respiratory arrest at the ED. On vent. Management as an status asthmaticus. Hypertension Presentation blood pressure was now within goal Home blood pressure medication continued. Hyperglycemia Accu-Chek q. 6. Put on correction scale insulin. Check hemoglobin A1c. DVT prophylaxis: We will put on Lovenox 40 mg twice daily. Inpatient E&M: 10693 Init Hosp L3
--- NOTE | 2019-11-09 19:13 | CPS ---
CLINICAL OPERATIONS MANAGER moved ET Tube to 24 cm top lip with initial check at 18:26. Was recorded that ET tube was at this depth upon intubation. Before that it was between 26-27 cm. All assessments after reposition of tube were verified. After x-ray verbally gave this CLINICAL OPERATIONS MANAGER an order to move tube back down 2cm. Breath sounds were verified with returned volumes after this reposition. ET tube 26 cm top lip after reposition.
--- NOTE | 2019-11-09 19:31 | ED.RN ---
attempted to call son for update but went to voicemail at this time. pt is awake but calm on ventilator. pt informed.
--- NOTE | 2019-11-09 19:36 | ED.RN ---
restraints removed while RN in room, pt is following commands appropriately
--- NOTE | 2019-11-09 20:31 | ED.RN ---
left message for son to update.
[2019-11-09 20:58] LABS: D-Dimer Quantitative (DVT/PE) 1.51 FEU/ug/m (0.27-0.49)
[2019-11-09 21:11] LABS: Hemoglobin A1c 5.8 % (3.8-5.6)
[2019-11-09 21:14] LABS: CRP < 2.90 mg/L (0.0-3.0); Ferritin 16 ng/mL (26-388)
[2019-11-09] MEDS: Chlorhexidine 15 ML PO (22:00)
[2019-11-09 22:11] LABS: Reflex Lactate? Y
[2019-11-09 22:41] LABS: M R Staph aureus DNA By PCR Negative (Negative); Probe Check PASS; Specimen Processing Control PASS
[2019-11-09] MEDS: Propofol 10MG/Ml 1,000 MG/100 ML Bottle 9 MG CONT INF (22:55)
[2019-11-09] MEDS: Ipratropium/Albuterol Sulfate 3 ML AMPUL.NEB INHALATION (23:16)
[2019-11-09] MEDS: Metoprolol Tartrate 25 MG Tablet PO (23:39)
[2019-11-09] MEDS: Enoxaparin 40 MG/0.4 ML Syringe SC (23:39)
[2019-11-09] MEDS: Loratadine 10 MG Tablet 5 MG PO (23:39)
[2019-11-09] MEDS: Atorvastatin Calcium 40 MG Tablet PO (23:39)
[2019-11-10] VITALS (41 sets, daily range): BP systolic 99–141; BP diastolic 54–86; PULSE 63–92; RESP 11–18; TEMP 36.8–37.7; O2SAT 93–99; BMI 26.6
[2019-11-10 00:01] LABS: Bedside Glucose 148 mg/dL (70-110)
--- NOTE | 2019-11-10 00:07 | NURSING ---
Attempted to call pts son Dariel Hurley to give update on pt. Call went to voicemail at this time.
--- NOTE | 2019-11-10 00:22 | NURSING ---
Pts son called in and given full update at this time.
[2019-11-10 00:27] LABS: Lactic Acid 1.5 mmol/L (0.4-1.9)
[2019-11-10] MEDS: fentaNYL drip 100 ML 7.5 MCG IV ×2 (00:52→14:18)
[2019-11-10] MEDS: Ipratropium/Albuterol Sulfate 3 ML AMPUL.NEB INHALATION ×6 (02:19→22:30)
--- NOTE | 2019-11-10 05:43 | CON.PCM_ITS ---
Reason for Consult Date of Consultation: 11/10/19 Reason for Consultation: Acute hypoxemic respiratory failure History of Present Illness: The patient is a 79-year-old male, with a history as outlined below, who presented to the emergency department on November 08 shortness of breath. The patient does have a history of coronary artery disease status post bypass surgery in 2006. He also reportedly has a history of asthma (IgE elevated to 2305 in September 2019, ANCA negative) for which he appears to be prescribed Symbicort, Spiriva, Singulair and albuterol. History pertinent to the patient hospitalization was obtained primarily via chart review, as the patient is currently intubated and there is no family present at the bedside. Apparently, the patient did have COVID testing sent to [facility] on November 08 as part of the outpatient drive-through program. However, he apparently decompensated from a respiratory perspective shortly thereafter. On presentation to the emergency department, the patient was noted to be afebrile and hemodynamically stable. He was, nevertheless, tachycardic, tach ypneic and hypoxemic. Laboratory evaluation revealed a mildly elevated white blood cell count to 11,000. Coagulation profile was within normal limits. D- dimer was elevated to 1.5. Chemistry profile was largely unremarkable. Initial lactate was elevated to 3.5. Troponin was negative. MRSA screen was negative. Plain film chest x-ray revealed no acute cardiopulmonary process. The patient did receive aerosol treatments and IV Solu-Medrol while in route to the hospital. Due to impending respiratory failure, the patient was emergently intubated on arrival to the emergency department. The patient received supplemental IV fluid hydration and was placed antimicrobial therapy. He was subsequently admitted to the medical intensive care unit for further management. Past Medical History Past Medical History (Chronic Problems): Chronic Problems (Last Reviewed 11/09/19 @ 19:[address] Edouard Michael MD) History of asthma (Chronic) History of coronary artery disease (Chronic) H/O coronary artery bypass surgery (Chronic 12/2006) CABG x 2 TRUONG-LAD, SVG- posterior lateral CFX 12/24 Essential (primary) hypertension (Chronic) Coronary atherosclerosis of lime coronary artery (Chronic) CABG x 2 TRUONG-LAD, SVG- posterior lateral CFX 12/24 Carotid bruit (Chronic) Hyperlipidemia (Chronic) Medical History: Medical History (Last Reviewed 11/09/19 @ 19:[address] Edouard Michael MD) Essential (primary) hypertension (Chronic) I10 Coronary atherosclerosis of lime coronary artery (Chronic) I25.10 CABG x 2 TRUONG-LAD, SVG- posterior lateral CFX 7 Carotid bruit (Chronic) R09.89 Hyperlipidemia (Chronic) E78.5 Abnormal result of cardiovascular function study, unspecified (Resolved) R94.30 FH: sudden cardiac (SCD) (Inactive) Z82.41 Family history of hypertension (Inactive) Z82.49 penitentiary use of drug (Inactive) Z79.899 Allergies nitroglycerin Allergy (Verified 11/09/19 17:33) Other states it makes my head explode. states he can take the pills but not the patch simvastatin Adverse Reaction (Severe, Verified 11/09/19 17:33) Myalgias CONTRAST DYE Allergy (Mild, Uncoded 11/09/19 17:33) Rash Home Medications: Ambulatory Orders Medication Instructions Recorded Lansoprazole [Prevacid] 30 mg PO DAILY 09/07/13 Cholecalciferol (VIT D3) [Vitamin 1,000 unit PO DAILY 03/12/16 D3] Cyanocobalamin (Vitamin B-12) 1,000 mcg PO DAILY 03/12/16 [Vitamin B-12] L.acidoph,Paracasei, B.lactis 1 ea PO DAILY 10/02/18 [Probiotic] Acetaminophen [Tylenol] 1,000 mg PO Q8 #100 tab 10/12/18 atorvastatin 40 mg tablet 40 mg PO QHS #90 tab 12/06/18 aspirin 81 mg tablet,delayed 81 mg PO DAILY 01/16/19 release amlodipine 5 mg tablet 5 mg PO DAILY #90 tab 07/17/19 metoprolol tartrate 25 mg tablet 25 mg PO BID #180 tab 10/15/19 Albuterol Sulfate [Ventolin Hfa] 2 puff INHALATION Q6H PRN PRN 11/09/19 Budesonide/Formoterol Fumarate 2 puff INHALATION BID 11/09/19 [Symbicort 160-4.5 Mcg Inhaler] Cefadroxil [Duricef] 500 mg PO BID 11/09/19 Ibuprofen [Ibu] 800 mg PO BID 11/09/19 Ipratropium/Albuterol Sulfate 3 ml INHALATION Q6H PRN PRN 11/09/19 [Duoneb] Levocetirizine Dihydrochloride 5 mg PO QHS 11/09/19 [Xyzal] Lorazepam [Ativan] 0.5 mg PO QHS PRN PRN 11/09/19 Montelukast [Singulair] 10 mg PO DAILY 11/09/19 Tiotropium [place] [Spiriva 2 puff INHALATION DAILY 11/09/19 Respimat] Surgical History: Surgical History (Last Reviewed 11/09/19 @ 19:[address] Edouard Michael MD) H/O coronary artery bypass surgery (Chronic) Onset Date: 12/2006 Z95.1 CABG x 2 TRUONG-LAD, SVG- posterior lateral CFX 12/24 Surgical History: noncontributory Psychiatric History: No pertinent psych hx Lives: Alone Smoking Status: Former smoker - *Family History Maternal Family History: Family History (Last Reviewed 11/09/19 @ 19:[address] Edouard Michael MD) Grandfather Myocardial infarction Sudden cardiac Grandmother CVA (cerebral vascular accident) Grandfather Cancer Father Colon cancer Hypertension Mother Breast cancer CHF (congestive heart failure) Brother COPD (chronic obstructive pulmonary disease) Sister CAD (coronary artery disease) Hypertension HLD (hyperlipidemia) Son Hypertension History Items: No pertinent history Paternal Family History: Family History (Last Reviewed 11/09/19 @ 19:[address] Edouard Michael MD) Grandfather Myocardial infarction Sudden cardiac Grandmother CVA (cerebral vascular accident) Grandfather Cancer Father Colon cancer Hypertension Mother Breast cancer CHF (congestive heart failure) Brother COPD (chronic obstructive pulmonary disease) Sister CAD (coronary artery disease) Hypertension HLD (hyperlipidemia) Son Hypertension History Items: No pertinent history Review of Systems Unable to obtain accurate/complete ROS d/t: Due to current intubation and mechanical ventilation status. Patient Problems: Active and Suspected Problems (Last Reviewed 11/09/19 @ 19:[address] Edouard Michael MD) Respiratory failure with hypoxia (Acute) Status asthmaticus (Acute) Suspected 2019 novel coronavirus infection (Acute) Metabolic acidosis (Acute) Objective: The patient's most recent lab work, culture data and imaging studies have all been personally reviewed. Strep and urine Legionella antigens were negative. Respiratory viral panel is pending. Sputum, blood and urine cultures are pending. - Physical Exam Vitals/I&O's: Vital Signs Temp Pulse Resp BP Pulse Ox 98.6 F 77 11 L 109/65 96 11/10/19 03:00 11/10/19 03:05 11/10/19 03:00 11/10/19 03:00 11/10/19 03:00 Oxygen Delivery Method Mechanical Ventilator Weight: 159 lb 9.835 oz Body Mass Index (BMI) 26.4 Intake and Output for Last 24 Hours 11/08/19 11/09/19 11/10/19 23:59 23:59 23:59 Intake Total 502.39 / 578.89 381.0 / 381.0 Output Total 300 / 300 Balance 502.39 / 278.89 81.0 / 81.0 General: - - Intubated, sedated and mechanically ventilated HEENT: Atraumatic, Normocephalic Oral: No Gingival or Mucosal Lesions/ Ulcerations, - - Endotracheal and OG tubes in place Neck: Supple, No Nodes, Trachea Midline Lungs: Diminished Cardiovascular: Regular rate, Regular Rhythm, Normal S1, Normal S2 Abdomen: Bowel Sounds Present, Soft, Non Tender Extremities: No clubbing, No cyanosis Skin: No breakdown Musculoskeletal: No Tenderness to Palpation of Joints or Extremities Lymphatic: No Cervical, Supraclavicular, or Inguinal Adenopathy Neurological: - - No focal neurological deficits. Currently sedated on the vent. Labs (Last 48 Hours) 11/09/19 11/09/19 11/09/19 17:25 17:25 17:25 WBC 11.2 H RBC 5.41 Hgb 15.7 Hct 50.8 MCV 93.9 MCH 29.0 MCHC 30.9 L RDW Std Deviation 47.0 H RDW Coeff of [place] 13.8 Plt Count 351 MPV 10.9 Immature Gran % (Auto) 0.400 Neut % (Auto) 75.7 H Lymph % (Auto) 21.8 [place] % (Auto) 1.0 Eos % (Auto) 0.8 Baso % (Auto) 0.3 Absolute Neuts (auto) 8.5 H Absolute Lymphs (auto) 2.45 Nucleated RBC % 0 PT 13.8 INR 1.1 APTT 28.9 D-Dimer Quant (PE/DVT) Specimen Type Sample Site pH Bicarbonate Actual POC Total CO2 Base Excess O2 Saturation O2 % ABG pCO2 ABG pO2 Respiration Rate Vent Mode Tidal Volume POC PEEP Blood Gas Notified Whom Blood Gas Notified Time Sodium 142 Potassium 3.7 Chloride 109 H Carbon Dioxide 23.0 Anion Gap 10 BUN 22 H Creatinine 1.15 Estim Creat Clear Calc 46.05 Est GFR (MDRD) Af Amer 79 Est GFR (MDRD) Non-Af 65 BUN/Creatinine Ratio 19.1 Glucose 233 H Hemoglobin A1c Lactic Acid Calcium 9.5 Ferritin Total Bilirubin 0.70 AST 24 ALT 25 Alkaline Phosphatase 128 H Troponin I < 0.015 C-React Prot Ext Range Total Protein 9.6 H Albumin 4.3 Globulin 5.3 H Albumin/Globulin Ratio 0.8 L Urine Color Urine Clarity Urine pH Ur Specific [place] Urine Protein Urine Glucose (UA) Urine Ketones Urine Occult Blood Urine Nitrite Urine Bilirubin Urine Urobilinogen Ur Leukocyte Esterase Urine RBC Urine WBC Ur Squamous Epith Cells Urine Bacteria Urine Mucus MRSA (PCR) POC Glucose 11/09/19 11/09/19 11/09/19 17:25 17:25 17:25 WBC RBC Hgb Hct MCV MCH MCHC RDW Std Deviation RDW Coeff of [place] Plt Count MPV Immature Gran % (Auto) Neut % (Auto) Lymph % (Auto) [place] % (Auto) Eos % (Auto) Baso % (Auto) Absolute Neuts (auto) Absolute Lymphs (auto) Nucleated RBC % PT INR APTT D-Dimer Quant (PE/DVT) 1.51 H* Specimen Type Sample Site pH Bicarbonate Actual POC Total CO2 Base Excess O2 Saturation O2 % ABG pCO2 ABG pO2 Respiration Rate Vent Mode Tidal Volume POC PEEP Blood Gas Notified Whom Blood Gas Notified Time Sodium Potassium Chloride Carbon Dioxide Anion Gap BUN Creatinine Estim Creat Clear Calc Est GFR (MDRD) Af Amer Est GFR (MDRD) Non-Af BUN/Creatinine Ratio Glucose Hemoglobin A1c 5.8 H Lactic Acid Calcium Ferritin 16 L Total Bilirubin AST ALT Alkaline Phosphatase Troponin I C-React Prot Ext Range < 2.90 Total Protein Albumin Globulin Albumin/Globulin Ratio Urine Color Urine Clarity Urine pH Ur Specific [place] Urine Protein Urine Glucose (UA) Urine Ketones Urine Occult Blood Urine Nitrite Urine Bilirubin Urine Urobilinogen Ur Leukocyte Esterase Urine RBC Urine WBC Ur Squamous Epith Cells Urine Bacteria Urine Mucus MRSA (PCR) POC Glucose 11/09/19 11/09/19 11/09/19 17:42 17:55 17:55 WBC RBC Hgb Hct MCV MCH MCHC RDW Std Deviation RDW Coeff of [place] Plt Count MPV Immature Gran % (Auto) Neut % (Auto) Lymph % (Auto) [place] % (Auto) Eos % (Auto) Baso % (Auto) Absolute Neuts (auto) Absolute Lymphs (auto) Nucleated RBC % PT INR APTT D-Dimer Quant (PE/DVT) Specimen Type ART Sample Site R RADIAL pH 7.32 L Bicarbonate Actual 21.4 L POC Total CO2 23 Base Excess -5 L O2 Saturation 91 L O2 % 75 ABG pCO2 41.8 ABG pO2 66 L Respiration Rate 12 Vent Mode A-C Tidal Volume 450 POC PEEP 8 Blood Gas Notified Whom ED Blood Gas Notified Time 1755 Sodium Potassium Chloride Carbon Dioxide Anion Gap BUN Creatinine Estim Creat Clear Calc Est GFR (MDRD) Af Amer Est GFR (MDRD) Non-Af BUN/Creatinine Ratio Glucose Hemoglobin A1c Lactic Acid 3.5 H* Calcium Ferritin Total Bilirubin AST ALT Alkaline Phosphatase Troponin I C-React Prot Ext Range Total Protein Albumin Globulin Albumin/Globulin Ratio Urine Color Yellow Urine Clarity Clear Urine pH 7.0 Ur Specific [place] 1.010 Urine Protein 100 H Urine Glucose (UA) 1000 H Urine Ketones 15 H Urine Occult Blood 25 H Urine Nitrite Negative Urine Bilirubin Negative Urine Urobilinogen Normal Ur Leukocyte Esterase Negative Urine RBC 0-5 SEEN Urine WBC 0 SEEN Ur Squamous Epith Cells 0 SEEN Urine Bacteria 0 SEEN Urine Mucus 0 SEEN MRSA (PCR) POC Glucose 11/09/19 11/09/19 11/09/19 20:50 23:35 23:47 WBC RBC Hgb Hct MCV MCH MCHC RDW Std Deviation RDW Coeff of [place] Plt Count MPV Immature Gran % (Auto) Neut % (Auto) Lymph % (Auto) [place] % (Auto) Eos % (Auto) Baso % (Auto) Absolute Neuts (auto) Absolute Lymphs (auto) Nucleated RBC % PT INR APTT D-Dimer Quant (PE/DVT) Specimen Type Sample Site pH Bicarbonate Actual POC Total CO2 Base Excess O2 Saturation O2 % ABG pCO2 ABG pO2 Respiration Rate Vent Mode Tidal Volume POC PEEP Blood Gas Notified Whom Blood Gas Notified Time Sodium Potassium Chloride Carbon Dioxide Anion Gap BUN Creatinine Estim Creat Clear Calc Est GFR (MDRD) Af Amer Est GFR (MDRD) Non-Af BUN/Creatinine Ratio Glucose Hemoglobin A1c Lactic Acid 1.5 Calcium Ferritin Total Bilirubin AST ALT Alkaline Phosphatase Troponin I C-React Prot Ext Range Total Protein Albumin Globulin Albumin/Globulin Ratio Urine Color Urine Clarity Urine pH Ur Specific [place] Urine Protein Urine Glucose (UA) Urine Ketones Urine Occult Blood Urine Nitrite Urine Bilirubin Urine Urobilinogen Ur Leukocyte Esterase Urine RBC Urine WBC Ur Squamous Epith Cells Urine Bacteria Urine Mucus MRSA (PCR) Negative POC Glucose 148 H Microbiology 11/09/19 23:15 Mucosa - Nasopharyngeal Respiratory Panel (PCR) - Preliminary 11/09/19 17:55 Urine Catheter - Catheter Streptococcus pneumoniae Antigen (M - Final 11/09/19 17:55 Urine Catheter - Catheter Legionella Antigen - Final Clinical Impression(s) from Imaging Studies Chest X-Ray 11/09/19 18:30 IMPRESSION: No acute cardiopulmonary pathology Electronically Signed: Conor Conrad MD at 19:09 EDT , Service support , Current Medications Acetaminophen (Tylenol) 650 mg PO Q6H PRN PRN PRN Reason: Pain Score 1-10/Temp > 100.7 F Albuterol Sulfate (Ventolin Aerosols) 2.5 mg INHALATION Q2H PRN PRN PRN Reason: SOB/Wheezing Albuterol/Ipratropium (Duoneb) 3 ml INHALATION Q4H.RT [facility] Last Admin: 11/10/19 02:19 Dose: 3 ml Documented by: Amlodipine Besylate (Norvasc) 5 mg PO DAILY [facility] Atorvastatin Calcium (Lipitor) 40 mg PO QHS [facility] Last Admin: 11/09/19 23:39 Dose: 40 mg Documented by: Chlorhexidine Gluconate () 15 ml PO BID [facility] Last Admin: 11/09/19 22:00 Dose: 15 ml Documented by: Chlorhexidine Gluconate () 1 each TOPICAL DAILY [facility] Dextrose (D50w Syringe) 0 gm IV X1 PRN; Protocol PRN Reason: Hypoglycemia Enoxaparin Sodium (Lovenox) 40 mg SC BID [facility] Last Admin: 11/09/19 23:39 Dose: 40 mg Documented by: Glucagon () 1 mg IM .X1 PRN PRN Reason: Hypoglycemia Fentanyl () 100 mls @ 2.5 mls/hr [place] [facility] [place] Last Titration: 11/10/19 03:00 Dose: 75 mcg/hr, 7.5 mls/hr Documented by: Propofol (Diprivan) 1,000 mg in 100 mls @ 4.506 mls/hr CONT INF .Q12H [facility]; Protocol Last Titration: 11/10/19 03:00 Dose: 20 mcg/kg/min, 9 mls/hr Documented by: Azithromycin 500 mg/ Dextrose 255 mls @ 250 mls/hr IV QHS [facility] Stop: 11/11/19 23:02 Last Infusion: 11/10/19 01:03 Dose: Infused Documented by: Ceftriaxone Sodium 2 gm/ (Sodium Chloride) 50 mls @ 100 mls/hr IV QHS [facility] Last Infusion: 11/09/19 23:43 Dose: Infused Documented by: Sodium Chloride () 250 mls @ 15 mls/hr IV .[id number] PRN PRN Reason: Saline Flush Sodium Chloride () 250 mls @ 15 mls/hr IV .[id number] PRN PRN Reason: Additional IVPB Infusion Insulin Human Lispro (Humalog Kwikpen (Bkc)) 0 unit SC Q6 [facility]; Protocol Last Admin: 11/09/19 23:49 Dose: Not Given Documented by: Loratadine (Claritin) 5 mg PO QHS [facility] Last Admin: 11/09/19 23:39 Dose: 5 mg Documented by: Methylprednisolone (Solu-Medrol) 40 mg IV Q8 [facility] Metoprolol Tartrate (Lopressor (Beta Zuly)) 25 mg PO BID [facility] Last Admin: 11/09/19 23:39 Dose: 25 mg Documented by: Montelukast Sodium (Singulair) 10 mg PO DAILY [facility] Ondansetron HCl (Zofran) 4 mg IV Q8H PRN PRN PRN Reason: NAUSEA/VOMITING Pantoprazole Sodium (Protonix) 40 mg PO DAILY [facility] Sodium Chloride () 10 - 40 ml IV UD PRN PRN Reason: SALINE FLUSH Assessment/Plan Active and Suspected Problems (Last Reviewed 11/09/19 @ 19:[address] Edouard Michael MD) Respiratory failure with hypoxia (Acute) Status asthmaticus (Acute) Suspected 2019 novel coronavirus infection (Acute) Metabolic acidosis (Acute) RECOMMENDATIONS: 1. Send in-house coronavirus testing PCR. 2. Obtain CTA chest, given lack of infiltrates on plain film chest x-ray. 3. Continue scheduled bronchodilators, antimicrobials and steroids. 4. Continue appropriate ICU prophylaxis. 5. Okay to start tube feeds today. 6. Wean FiO2 to maintain oxygen saturations at or above 90%. IMPRESSIONS: 1. Acute hypoxemic respiratory failure Unclear precipitating etiology. Plain film chest x-ray was largely unrevealing without focal infiltrate or consolidation. Will send in-house coronavirus PCR testing. The patient will remain on empiric antimicrobials for now. Will obtain CTA chest to evaluate for pulmonary embolism as precipitating etiology. In the interim, will wean FiO2 to maintain oxygen saturations at or above 90%. Continue scheduled bronchodilators along with IV steroids. Okay from my perspective to begin tube feeds. The patient does apparently have a history of asthma which is likely in a state of exacerbation as well. 2. Coronary artery disease status post bypass/GERD/hyperlipidemia/hypertension Complicates care, management, recovery and prognosis. Continue home medications as indicated. TIME: 38 minutes of critical care time, independent of procedures, was spent addressing the patient's acute hypoxemic respiratory failure, questionable asthma exacerbation, coronary artery disease status post bypass, review of all data and collaboration with the care team. [id number]) [id number] Critical care first hour
--- NOTE | 2019-11-10 05:52 | CT_ITS ---
We are attempting to reach an attending provider to discuss findings. An addendum with communication details will be sent when the communication is complete. STUDY: CTA CHEST REASON FOR EXAM: Male, 79 years old. ACUTE HYPOXIC RESP FAILURE RADIATION DOSAGE (If Supplied By Facility): CTDIvol = ( 15.38 ) mGy, DLP = ( 409.82 ) mGycm TECHNIQUE: The examination was performed with the intravenous administration of 100 mL of Isovue-370. Post-processing of the angiographic images was performed, with multiplanar reformation and MIP (maximum intensity projection) reconstruction. Individualized dose optimization techniques were used for this CT. COMPARISON: CT chest without contrast 04/11/2019. FINDINGS: Normal enhancement of the main pulmonary artery and right and left pulmonary arteries. Normal enhancement of the bilateral peripheral pulmonary arteries. There is no demonstrated pulmonary embolism. Noncalcified plaques in the [place] of the descending thoracic aorta. Mild dilatation of the ascending aorta with diameter 3.3 cm versus 2.5 cm for the descending thoracic aorta. There is no demonstrated aortic dissection. Normal cardiac size. Normal pericardium. Normal mediastinum. Normal hilar regions. ET tube inside the trachea. Normal trachea and bronchi. The lungs are well expanded. Complete atelectases in the posterior basilar segment of the left lower lobe. This is most likely from mucous plug. No suspicious pulmonary nodules or infiltrates. Normal pleura. Normal chest wall structures. C7 benign vertebral body hemangioma is unchanged. No acute osseous abnormality. 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 CT/CTA Chest W/WO Contrast IMPRESSION: 1. No CTA evidence of pulmonary thromboemboli or thoracic aortic dissection. 2. Mild dilatation of the ascending aorta with a diameter of 3.3 cm versus 2.5 cm for the descending thoracic aorta. 3. Complete atelectases in the posterior basilar segment of the left lower lobe is most likely from mucous plug. 4. No suspicious pneumonia or pulmonary nodules. 5. 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 6. C7 benign vertebral body hemangioma is unchanged. Electronically Signed: Mitch Eubanks MD at 10:23 EDT , Service support ,
[2019-11-10 06:15] LABS: Absolute Lymphocyte Count 1.18 X10^3/uL (0.83-4.51); Absolute Neutrophil Count 6.7 X10^3/uL (2.0-7.7); Hematocrit 40.9 % (40-54); Hemoglobin 13.2 g/dL (13.0-16.5); Lymphocyte # 1.18 X10^3/ul (4.0); Lymphocyte % 13.7 % (19-41); Mean Corp Hgb Conc 32.3 g/dL (32-36); Mean Corpuscular Hgb 29.6 pg (27.0-32.0); Mean Corpuscular Volume 91.7 fL (80-94); Mean Platelet Vol. 10.2 fl (6.2-12.0); Monocyte# 0.64 X10^3/uL; Monocyte% 7.5 % (0-10); NRBC Flagged by Analyzer 0 % (0-5); Neutrophil # 6.72 X10^3/uL (2.7-7.7); Neutrophil % 78.2 % (47-70); Platelet Count 274 K/mm3 (150-450); RBC Distribution Width CV 13.7 % (11.6-14.6); RBC Distribution Width SD 46.1 fl (35.1-43.9); Red Blood Count 4.46 M/mm3 (4.6-6.2); White Blood Count 8.6 K/mm3 (4.4-11.0)
[2019-11-10 06:31] LABS: Anion Gap 5 (5-15); BUN 32 mg/dL (7-18); BUN/Creat Ratio 35.5 RATIO (10-20); Calcium,Total 8.8 mg/dL (8.5-10.1); Chloride 113 mmol/L (98-107); EST Glomerular Filtration Rate 86 mL/min (>60); Est Glom Filt Rate - Afr Amer 105 mL/min (>60); Estimated Creatinine Clearance 56.64 ml/min; Glucose 129 mg/dL (74-106); Sodium Level 142 mmol/L (136-145)
[2019-11-10 06:59] LABS: ALB/GLOB Ratio 0.8 RATIO (0.9-2.4); AST(SGOT) 25 U/L (15-37); Alanine Aminotransfer ALT/SGPT 24 U/L (16-61); Albumin, Serum 3.4 g/dL (3.2-5.0); Alkaline Phosphatase 101 U/L (45-117); Globulin 4.3 g/dL (2.2-4.2); Protein, Total 7.7 g/dL (6.4-8.2)
[2019-11-10] MEDS: DiphenhydrAMINE 50 MG/ML Syringe IV (08:12)
--- NOTE | 2019-11-10 08:31 | PN_ITS ---
Patient Problems: Active and Suspected Problems (Last Reviewed 11/09/19 @ 19:[address] Edouard Michael MD) Respiratory failure with hypoxia (Acute) Status asthmaticus (Acute) Suspected 2019 novel coronavirus infection (Acute) Metabolic acidosis (Acute) Subjective: Patient following admission with intubation in the ED secondary to impending respiratory failure with no acute events overnight, maintained on stable vent settings, T-max 99.9, stable vital signs otherwise with no necessity for pressor usage, maintained on Rocephin and azithromycin as well as Solu-Medrol for concern for asthma exacerbation. Patient alert, following commands, notes improved since initial ED presentation with denied chills, nausea, emesis, abdom inal pain, chest pain or recurrent sensation of severe dyspnea. Objective: Physical Examination: General: awake, alert, oriented to self, place and recent events, communicating via hand gestures and facial gestures given intubated status, remains cooperative, seated upright in ICU bed in no apparent distress. Skin: normal color, turgor, no icterus, cyanosis. HEENT: AT/NC, EOMI, PERRLA, mildly dry MM, ET tube in place. Lungs: Diminished breath sounds bilaterally, intubated, symmetric rise, no obvious rales, rhonchi or any current wheezing. Heart: Eegular rate and rhythm; no gallop, rub audible. Abdomen: soft, NTTP, ND, normal BS. Extremities: no cyanosis, clubbing, or edema. Neurological: patient awake, alert, oriented as noted; cognitive function suspect near baseline intact despite current intubated status; pupils equally reactive to light and accomodation; cranial nerves grossly normal aside those that cannot currently be adequately assessed given intubated status, moving all extremities, strength given sedated status with restraints difficult to assess but moderately to severely global decrease. Psychiatric: affect appears fatigued and moderately flat, no acute evidence of depressive or anxiety feelings. Vitals/I&O's: Vital Signs Temp Pulse Resp BP Pulse Ox 99.1 F 75 12 126/70 H 95 11/10/19 06:00 11/10/19 06:48 11/10/19 06:48 11/10/19 06:00 11/10/19 06:44 Oxygen Delivery Method Mechanical Ventilator Weight: 159 lb 9.835 oz Body Mass Index (BMI) 26.4 Intake and Output for Last 24 Hours 11/08/19 11/09/19 11/10/19 23:59 23:59 23:59 Intake Total 502.39 / 578.89 430.5 / 430.5 Output Total 500 / 500 Balance 502.39 / 278.89 -69.5 / -69.5 Microbiology Past 72 Hours 11/09/19 23:15 Mucosa - Nasopharyngeal Respiratory Panel (PCR) - Final 11/09/19 17:55 Urine Catheter - Catheter Streptococcus pneumoniae Antigen (M - Final 11/09/19 17:55 Urine Catheter - Catheter Legionella Antigen - Final Laboratory Results 11/09/19 17:25: WBC 11.2 H, RBC 5.41, Hgb 15.7, Hct 50.8, MCV 93.9, MCH 29.0, MCHC 30.9 L, RDW Std Deviation 47.0 H, RDW Coeff of Nida 13.8, Plt Count 351, MPV 10.9, Immature Gran % (Auto) 0.400, Neut % (Auto) 75.7 H, Lymph % (Auto) 21.8, Mora % (Auto) 1.0, Eos % (Auto) 0.8, Baso % (Auto) 0.3, Absolute Neuts (auto) 8.5 H, Absolute Lymphs (auto) 2.45, Nucleated RBC % 0 11/09/19 17:25: PT 13.8, INR 1.1, APTT 28.9 11/09/19 17:25: Sodium 142, Potassium 3.7, Chloride 109 H, Carbon Dioxide 23.0, Anion Gap 10, BUN 22 H, Creatinine 1.15, Estim Creat Clear Calc 46.05, Est GFR (MDRD) Af Amer 79, Est GFR (MDRD) Non-Af 65, BUN/Creatinine Ratio 19.1, Glucose 233 H, Calcium 9.5, Total Bilirubin 0.70, AST 24, ALT 25, Alkaline Phosphatase 128 H, Troponin I < 0.015, Total Protein 9.6 H, Albumin 4.3, Globulin 5.3 H, Albumin/Globulin Ratio 0.8 L 11/09/19 17:25: Ferritin 16 L, C-React Prot Ext Range < 2.90 11/09/19 17:25: D-Dimer Quant (PE/DVT) 1.51 H* 11/09/19 17:25: Hemoglobin A1c 5.8 H 11/09/19 17:42: Lactic Acid 3.5 H* 11/09/19 17:55: Urine Color Yellow, Urine Clarity Clear, Urine pH 7.0, Ur Specific [place] 1.010, Urine Protein 100 H, Urine Glucose (UA) 1000 H, Urine Ketones 15 H, Urine Occult Blood 25 H, Urine Nitrite Negative, Urine Bilirubin Negative, Urine Urobilinogen Normal, Ur Leukocyte Esterase Negative, Urine RBC 0-5 SEEN, Urine WBC 0 SEEN, Ur Squamous Epith Cells 0 SEEN, Urine Bacteria 0 SEEN, Urine Mucus 0 SEEN 11/09/19 17:55: Specimen Type ART, Sample Site R RADIAL, pH 7.32 L, Bicarbonate Actual 21.4 L, POC Total CO2 23, Base Excess -5 L, O2 Saturation 91 L, O2 % 75, ABG pCO2 41.8, ABG pO2 66 L, Respiration Rate 12, Vent Mode A-C, Tidal Volume 450, POC PEEP 8, Blood Gas Notified Whom ED , Blood Gas Notified Time 1755 11/09/19 20:50: MRSA (PCR) Negative 11/09/19 23:35: Lactic Acid 1.5 11/09/19 23:47: POC Glucose 148 H 11/10/19 06:00: WBC 8.6, RBC 4.46 L, Hgb 13.2, Hct 40.9, MCV 91.7, MCH 29.6, MCHC 32.3, RDW Std Deviation 46.1 H, RDW Coeff of Nida 13.7, Plt Count 274, MPV 10.2, Immature Gran % (Auto) 0.600, Neut % (Auto) 78.2 H, Lymph % (Auto) 13.7 L, Mora % (Auto) 7.5, Eos % (Auto) 0.0, Baso % (Auto) 0.0, Absolute Neuts (auto) 6.7, Absolute Lymphs (auto) 1.18, Nucleated RBC % 0 11/10/19 06:00: Sodium 142, Potassium 4.0, Chloride 113 H, Carbon Dioxide 24.0, Anion Gap 5, BUN 32 H, Creatinine 0.90, Estim Creat Clear Calc 56.64, Est GFR (MDRD) Af Amer 105, Est GFR (MDRD) Non-Af 86, BUN/Creatinine Ratio 35.5 H, Glucose 129 H, Calcium 8.8, Total Bilirubin 0.40, AST 25, ALT 24, Alkaline Phosphatase 101, Total Protein 7.7, Albumin 3.4, Globulin 4.3 H, Albumin/Globulin Ratio 0.8 L 11/10/19 06:00: Sodium Cancelled, Potassium Cancelled, Chloride Cancelled, Carbon Dioxide Cancelled, Anion Gap Cancelled, BUN Cancelled, Creatinine Cancelled, Estim Creat Clear Calc Cancelled, Est GFR (MDRD) Af Amer Cancelled, Est GFR (MDRD) Non-Af Cancelled, BUN/Creatinine Ratio Cancelled, Glucose Cancelled, Calcium Cancelled, Total Bilirubin Cancelled, AST Cancelled, ALT Cancelled, Alkaline Phosphatase Cancelled, Total Protein Cancelled, Albumin Cancelled, Globulin Cancelled, Albumin/Globulin Ratio Cancelled 11/10/19 07:03: COVID-19 (INDY) Cancelled Current Medications Acetaminophen (Tylenol) 650 mg PO Q6H PRN PRN PRN Reason: Pain Score 1-10/Temp > 100.7 F Albuterol Sulfate (Ventolin Aerosols) 2.5 mg INHALATION Q2H PRN PRN PRN Reason: SOB/Wheezing Albuterol/Ipratropium (Duoneb) 3 ml INHALATION Q4H.RT [facility] Last Admin: 11/10/19 06:46 Dose: 3 ml Documented by: Amlodipine Besylate (Norvasc) 5 mg PO DAILY [facility] Atorvastatin Calcium (Lipitor) 40 mg PO QHS [facility] Last Admin: 11/09/19 23:39 Dose: 40 mg Documented by: Chlorhexidine Gluconate () 15 ml PO BID [facility] Last Admin: 11/09/19 22:00 Dose: 15 ml Documented by: Chlorhexidine Gluconate () 1 each TOPICAL DAILY [facility] Dextrose (D50w Syringe) 0 gm IV X1 PRN; Protocol PRN Reason: Hypoglycemia Enoxaparin Sodium (Lovenox) 40 mg SC BID [facility] Last Admin: 11/09/19 23:39 Dose: 40 mg Documented by: Glucagon () 1 mg IM .X1 PRN PRN Reason: Hypoglycemia Fentanyl () 100 mls @ 2.5 mls/hr IV [facility] [place]; Protocol Last Titration: 11/10/19 06:00 Dose: 75 mcg/hr, 7.5 mls/hr Documented by: Propofol (Diprivan) 1,000 mg in 100 mls @ 4.506 mls/hr CONT INF .Q12H [facility]; Protocol Last Titration: 11/10/19 06:00 Dose: 20 mcg/kg/min, 9 mls/hr Documented by: Azithromycin 500 mg/ Dextrose 255 mls @ 250 mls/hr IV QHS [facility] Stop: 11/11/19 23:02 Last Infusion: 11/10/19 01:03 Dose: Infused Documented by: Ceftriaxone Sodium 2 gm/ (Sodium Chloride) 50 mls @ 100 mls/hr IV QHS [facility] Last Infusion: 11/09/19 23:43 Dose: Infused Documented by: Sodium Chloride () 250 mls @ 15 mls/hr IV .[id number] PRN PRN Reason: Saline Flush Sodium Chloride () 250 mls @ 15 mls/hr IV .[id number] PRN PRN Reason: Additional IVPB Infusion Insulin Human Lispro (Humalog Kwikpen (Bkc)) 0 unit SC Q6 [facility]; Protocol Last Admin: 11/10/19 06:02 Dose: Not Given Documented by: Loratadine (Claritin) 5 mg PO QHS [facility] Last Admin: 11/09/19 23:39 Dose: 5 mg Documented by: Methylprednisolone (Solu-Medrol) 40 mg IV Q8 [facility] Last Admin: 11/10/19 06:02 Dose: 40 mg Documented by: Metoprolol Tartrate (Lopressor (Beta Zuly)) 25 mg PO BID [facility] Last Admin: 11/09/19 23:39 Dose: 25 mg Documented by: Montelukast Sodium (Singulair) 10 mg PO DAILY [facility] Ondansetron HCl (Zofran) 4 mg IV Q8H PRN PRN PRN Reason: NAUSEA/VOMITING Pantoprazole Sodium (Protonix) 40 mg PO DAILY [facility] Sodium Chloride () 10 - 40 ml IV UD PRN PRN Reason: SALINE FLUSH STROKE Vital Signs/Narrative: Vital Signs Temp Pulse Resp BP Pulse Ox 11/10/19 06:48 75 12 11/10/19 06:44 77 12 95 11/10/19 06:00 99.1 F 78 16 126/70 H 97 11/10/19 05:25 75 12 96 11/10/19 05:00 98.8 F 75 12 109/64 97 Medical Necessity - Tobacco Use Smoking Status: Former smoker Assessment/Plan All Active Problems (Last Reviewed 11/09/19 @ 19:[address] Edouard Michael MD) Respiratory failure with hypoxia (Acute) Status asthmaticus (Acute) Suspected 2019 novel coronavirus infection (Acute) Metabolic acidosis (Acute) Abnormal result of cardiovascular function study, unspecified (Resolved) SBO (small bowel obstruction) (Resolved) The patient is a 79 y/o M w/ PMHx: HTN, HLD, Carotid disease, CAD s/p CABG x 2 TRUONG-LAD, SVG-posterior CFX, Asthma who presents to the [facility] ED on 11/09/19 with history of onset of dyspnea and dry cough with occasional wheezing without any nausea, emesis, abdominal pain, diarrhea, arthralgias or myalgias, alteration to sense of taste or smell, headaches prompting him to have outpatient COVID testing on 11/08 as part of an outpatient drive-through program however patient decompensated prompting ED presentation. 1. Acute Hypoxic Respiratory Failure secondary to Acute on Chronic Asthma Exacerbation with Significant Compressive Atelectasis LLL possible secondary to Mucous Plugging with concurrent lactic acidosis, corrected: Patient admitted to the ICU, intubated, sedated status, vent setting management per pulmonary medicine, COVID 19 testing obtained and noted to be negative with lower suspicion given only symptoms dyspnea and dry cough as well as follow-up CTPA w/ no evidence of pulmonary thromboemboli or thoracic aortic dissection, mild dilatation of the ascending aorta with diameter of 3.3 cm versus 2.5 cm for the descending thoracic aorta, complete atelectasis in the posterior basilar segment of the left lower lobe possibly for mucous plugging, no evidence of pneumonia or pulmonary nodules, large gastric anemia in the posterior mediastinum unchanged, unchanged C7 benign vertebral body hemangioma, admission CBC with WBC 11.2, hemoglobin 15.7, platelets 351 with left shift, d-dimer 1.51 with no pulmonary emboli is noted, maintained on anticoagulant therapy, CMP with chloride 109, BUN/creatinine 22/1.15, glucose 233, lactic acid 3.5 with repeat 1.5, ferritin 16, normal AST/ALT, CRP less than 2.90, urinalysis unremarkable, MRSA screen negative, currently maintained on azithromycin and Rocephin however will discuss de-escalation with ICU physician in a.m., continue Solu-Medrol, negative respiratory panel, preliminary sputum culture with no growth, negative Legionella and streptococcal antigens, pending blood culture per ED. 2. Hyperglycemia: Admission glucose 233, suspected stress response however to be cautious hemoglobin A1c obtained, 5.8%. 3. CAD: Status post CABG x2 TRUONG?LAD, SVG?posterior CFX, maintain on aspirin, statin, metoprolol regimen. 4. Hypertension: Continue home regimen including metoprolol, Norvasc with hold parameters, PRN hydralazine. 5. Hyperlipidemia: Continue home statin regimen. 6. Reported history of carotid disease: We will continue patient aspirin, hypertensive regimen, statin therapy, hemoglobin A1c 5.8% as noted. 7. DVT prophylaxis: SCDs, Lovenox 40 mg SC twice daily initially as elevated d- dimer and concern for COVID however this is negative, will review anticoagulant therapy with critical care in AM. 8. CODE STATUS: Full code. Inpatient E&M: 91773 Subs Hosp L3
[2019-11-10] MEDS: Propofol 10MG/Ml 1,000 MG/100 ML Bottle 9 MG CONT INF (10:05)
[2019-11-10 11:21] LABS: Bedside Glucose 124 mg/dL (70-110)
[2019-11-10] MEDS: Aspirin E.C. 81 MG Tablet PO (11:29)
[2019-11-10] MEDS: Metoprolol Tartrate 25 MG Tablet PO ×2 (11:29→21:10)
[2019-11-10] MEDS: Montelukast 10 MG Tablet PO (11:29)
[2019-11-10] MEDS: Enoxaparin 40 MG/0.4 ML Syringe SC ×2 (11:29→21:12)
[2019-11-10] MEDS: Pantoprazole Sodium 40 MG Tablet PO (11:30)
[2019-11-10] MEDS: amLODIPine 5 MG Tablet PO (11:30)
[2019-11-10] MEDS: Chlorhexidine 15 ML PO ×2 (11:30→21:09)
[2019-11-10] MEDS: CHLORHEXIDINE GLUC 2% CLOTH 1 EACH TOWELETTE TOPICAL (11:30)
[2019-11-10 11:51] LABS: Bedside Glucose 125 mg/dL (70-110)
--- NOTE | 2019-11-10 12:31 | CASEMGMT ---
Addendum entered by Taisha Leonardo 11/10/19 14:42: Still unable to reach son at this time. Sherly ZAMARRIPA CM Original Note: Pt is currently on ventilator at this time and this RN CM is unable to reach pt's son, Dariel Hurley, at this time. Will attempt again later. Sherly ZAMARRIPA CM
--- NOTE | 2019-11-10 12:48 | PCM.NTREPORT ---
Nutrition Therapy Report - History Nutrition Services has been consulted to:: Manage enteral nutrition Current diet / nutrition support order:: NPO - Anthropometric Measurements Height:: 5 ft 4.96 in Weight:: 72.4 kg Body Mass Index (BMI):: 26.6 - Relevant Labs Relevant Labs:: WBC 11.2 K/mm3 (4.4-11.0) H 11/09/19 17:25 RBC 4.46 M/mm3 (4.6-6.2) L 11/10/19 06:00 MCHC 30.9 g/dL (32-36) L 11/09/19 17:25 RDW Std Deviation 46.1 fl (35.1-43.9) H 11/10/19 06:00 Neut % (Auto) 78.2 % (47-70) H 11/10/19 06:00 Lymph % (Auto) 13.7 % (19-41) L 11/10/19 06:00 Absolute Neuts (auto) 8.5 X10^3/uL (2.0-7.7) H 11/09/19 17:25 D-Dimer Quant (PE/DVT) 1.51 FEU/ug/m (0.27-0.49) H* 11/09/19 17:25 Chloride 113 mmol/L (98-107) H 11/10/19 06:00 BUN 32 mg/dL (7-18) H 11/10/19 06:00 BUN/Creatinine Ratio 35.5 RATIO (10-20) H 11/10/19 06:00 Glucose 129 mg/dL (74-106) H 11/10/19 06:00 Hemoglobin A1c 5.8 % (3.8-5.6) H 11/09/19 17:25 Lactic Acid 3.5 mmol/L (0.4-1.9) H* 11/09/19 17:42 Ferritin 16 ng/mL (26-388) L 11/09/19 17:25 Alkaline Phosphatase 128 U/L (45-117) H 11/09/19 17:25 Total Protein 9.6 g/dL (6.4-8.2) H 11/09/19 17:25 Globulin 4.3 g/dL (2.2-4.2) H 11/10/19 06:00 Albumin/Globulin Ratio 0.8 RATIO (0.9-2.4) L 11/10/19 06:00 - Assessment Food / Nutrition-Related History:: Discussed in ICU rounds. Pt is currently intubated w/ NG in place. In isolation pending COVID-19 testing. Reported UBW 155# upon admission, CBW 159.6# suggesting no significant wt loss but unable to confirm w/ pt at this time. Noted elevated blood glucose, A1C drawn 11/09/19 was 5.8%. On IV steroid. - Nutrition Diagnosis Problem / Etiology / Signs & Symptoms (PES):: Inadequate oral intake r/t respiratory status as evidenced by no PO intake since admission Evidence of Malnutrition Exists:: No - Nutrition Intervention Nutrition Prescription:: [id number] calories/day, 108-118 g protein/day - Food / Nutrient Delivery Interventions Summary of nutrition intervention:: Will order enteral nutrition support Nutrition support ordered as / adjusted to:: Vital AF 1.2 via NG at goal rate of 65mL/hour w/ 100mL H2O flush every 4 hours to provide 1872 calories, 117 g protein, and 1865mL total fluid/day. Would start tube feeds at 25mL/hour and increase by 10mL every 8 hours as pt tolerates until goal rate achieved. Nutrition education provided?: No - MNT Monitoring Further MNT monitoring and evaluation required?: Yes MNT Follow-up in:: 1-2 days
[2019-11-10] MEDS: Vital AF 1.2 Cal Liquid 1,000 ML 65 ML GT (15:26)
[2019-11-10 17:31] LABS: Bedside Glucose 139 mg/dL (70-110)
[2019-11-10] MEDS: Propofol 10MG/Ml 1,000 MG/100 ML Bottle 11.3 MG CONT INF (20:19)
[2019-11-10] MEDS: Atorvastatin Calcium 40 MG Tablet PO (21:10)
[2019-11-10] MEDS: Loratadine 10 MG Tablet 5 MG PO (21:11)
[2019-11-10] MEDS: Insulin Lispro 100 UNIT/ML INSULN.PEN SC (23:20)
[2019-11-10 23:21] LABS: Bedside Glucose 186 mg/dL (70-110)
[2019-11-11] VITALS (43 sets, daily range): BP systolic 110–186; BP diastolic 59–98; PULSE 59–111; RESP 12–24; TEMP 36.6–37.4; O2SAT 92–97
[2019-11-11] MEDS: fentaNYL drip 100 ML 10 MCG IV (01:52)
[2019-11-11] MEDS: Ipratropium/Albuterol Sulfate 3 ML AMPUL.NEB INHALATION ×6 (02:52→22:51)
[2019-11-11] MEDS: Propofol 10MG/Ml 1,000 MG/100 ML Bottle 11.3 MG CONT INF (03:06)
[2019-11-11 05:36] LABS: Bedside Glucose 147 mg/dL (70-110)
--- NOTE | 2019-11-11 06:03 | PN_ITS ---
Subjective: The patient was seen and examined at the bedside this morning. Events from the last 24 hours have been reviewed. The patient is currently afebrile, hemodynamically stable and maintaining appropriate oxygen saturations with an FiO2 requirement of 30%. The patient passed a spontaneous breathing trial this morning. He is alert and following commands appropriately. Therefore, under my direct supervision, the patient was extubated at the bedside. Post extubation, the patient reported to me that 4 months ago he was evaluated by Dr. Bravo. Derrick honeycutt was diagnosed with severe persistent asthma. He is interested in transferring care to [facility] [place]. Apparently, 4 months ago the idea of initiating him on some form of biologic therapy was discussed. However, the patient reported that he did not think he would be able to give himself injections due to arthritis. Of note, the patient did have significant peripheral eosinophilia noted on CBC from October 31. The eosinophilia has been present dating back to 2013. He also had an elevated IgE level to 2305 on September 2019. ANCA screen was negative. The patient does report frequent utilization of his Ventolin rescue inhaler on a daily basis. He also reports the presence of severe seasonal allergies, which have been an issue for him over the last 3 weeks. He reports a significant amount of sinus nasal congestion, rhinorrhea, itchy/watery eyes and sneezing. Objective: The patient's most recent lab work, culture data and imaging studies have all been personally reviewed. CTA chest revealed no evidence for pulmonary embolism. There was mucus plugging in the basilar segment of the left lower lobe. Strep and urine Legionella antigens were negative. Blood and urine cultures have shown no growth to date. Sputum culture is demonstrating normal respiratory uri. Respiratory viral panel was negative. Coronavirus PCR was negative. General: Alert, Cooperative, - - Intubated and mechanically ventilated. HEENT: Atraumatic, PERRLA, Normocephalic Oral: Moist Mucosa, - - Endotracheal and OG tubes present Neck: Supple, No Nodes, Trachea Midline Lungs: Diminished, - - Coarse mechanical breath sounds, right greater than left, with prolonged expiratory phase Cardiovascular: Regular rate, Regular Rhythm, Normal S1, Normal S2, No murmurs Abdomen: Bowel Sounds Present, Soft, Non Tender Extremities: No clubbing, No cyanosis, No edema Skin: No breakdown Musculoskeletal: No Tenderness to Palpation of Joints or Extremities Lymphatic: No Cervical, Supraclavicular, or Inguinal Adenopathy Neurological: Neuro grossly intact, - - Alert and following commands appropriately. Vital Signs Temp Pulse Resp BP Pulse Ox 98.5 F 74 14 119/61 97 11/11/19 05:00 11/11/19 05:02 11/11/19 05:02 11/11/19 05:00 11/11/19 05:02 Oxygen Delivery Method Mechanical Ventilator Weight: 160 lb 7.944 oz Body Mass Index (BMI) 26.6 Intake and Output for Last 24 Hours 11/09/19 11/10/19 11/11/19 23:59 23:59 23:59 Intake Total 502.39 / 578.89 1307.19 / 1662.49 662.59 / 662.59 Output Total 1120 / 1320 425 / 425 Balance 502.39 / 278.89 187.19 / 342.49 237.59 / 237.59 Labs (Last 48 Hours) 11/09/19 11/09/19 11/09/19 17:25 17:25 17:25 WBC 11.2 H RBC 5.41 Hgb 15.7 Hct 50.8 MCV 93.9 MCH 29.0 MCHC 30.9 L RDW Std Deviation 47.0 H RDW Coeff of Nida 13.8 Plt Count 351 MPV 10.9 Immature Gran % (Auto) 0.400 Neut % (Auto) 75.7 H Lymph % (Auto) 21.8 [place] % (Auto) 1.0 Eos % (Auto) 0.8 Baso % (Auto) 0.3 Absolute Neuts (auto) 8.5 H Absolute Lymphs (auto) 2.45 Nucleated RBC % 0 PT 13.8 INR 1.1 APTT 28.9 D-Dimer Quant (PE/DVT) Specimen Type Sample Site pH Bicarbonate Actual POC Total CO2 Base Excess O2 Saturation O2 % ABG pCO2 ABG pO2 Respiration Rate Vent Mode Tidal Volume POC PEEP Blood Gas Notified Whom Blood Gas Notified Time Sodium 142 Potassium 3.7 Chloride 109 H Carbon Dioxide 23.0 Anion Gap 10 BUN 22 H Creatinine 1.15 Estim Creat Clear Calc 46.05 Est GFR (MDRD) Af Amer 79 Est GFR (MDRD) Non-Af 65 BUN/Creatinine Ratio 19.1 Glucose 233 H Hemoglobin A1c Lactic Acid Calcium 9.5 Ferritin Total Bilirubin 0.70 AST 24 ALT 25 Alkaline Phosphatase 128 H Troponin I < 0.015 C-React Prot Ext Range Total Protein 9.6 H Albumin 4.3 Globulin 5.3 H Albumin/Globulin Ratio 0.8 L Urine Color Urine Clarity Urine pH Ur Specific [place] Urine Protein Urine Glucose (UA) Urine Ketones Urine Occult Blood Urine Nitrite Urine Bilirubin Urine Urobilinogen Ur Leukocyte Esterase Urine RBC Urine WBC Ur Squamous Epith Cells Urine Bacteria Urine Mucus COVID-19 (INDY) MRSA (PCR) POC Glucose 11/09/19 11/09/19 11/09/19 17:25 17:25 17:25 WBC RBC Hgb Hct MCV MCH MCHC RDW Std Deviation RDW Coeff of [place] Plt Count MPV Immature Gran % (Auto) Neut % (Auto) Lymph % (Auto) [place] % (Auto) Eos % (Auto) Baso % (Auto) Absolute Neuts (auto) Absolute Lymphs (auto) Nucleated RBC % PT INR APTT D-Dimer Quant (PE/DVT) 1.51 H* Specimen Type Sample Site pH Bicarbonate Actual POC Total CO2 Base Excess O2 Saturation O2 % ABG pCO2 ABG pO2 Respiration Rate Vent Mode Tidal Volume POC PEEP Blood Gas Notified Whom Blood Gas Notified Time Sodium Potassium Chloride Carbon Dioxide Anion Gap BUN Creatinine Estim Creat Clear Calc Est GFR (MDRD) Af Amer Est GFR (MDRD) Non-Af BUN/Creatinine Ratio Glucose Hemoglobin A1c 5.8 H Lactic Acid Calcium Ferritin 16 L Total Bilirubin AST ALT Alkaline Phosphatase Troponin I C-React Prot Ext Range < 2.90 Total Protein Albumin Globulin Albumin/Globulin Ratio Urine Color Urine Clarity Urine pH Ur Specific [place] Urine Protein Urine Glucose (UA) Urine Ketones Urine Occult Blood Urine Nitrite Urine Bilirubin Urine Urobilinogen Ur Leukocyte Esterase Urine RBC Urine WBC Ur Squamous Epith Cells Urine Bacteria Urine Mucus COVID-19 (INDY) MRSA (PCR) POC Glucose 11/09/19 11/09/19 11/09/19 17:42 17:55 17:55 WBC RBC Hgb Hct MCV MCH MCHC RDW Std Deviation RDW Coeff of [place] Plt Count MPV Immature Gran % (Auto) Neut % (Auto) Lymph % (Auto) [place] % (Auto) Eos % (Auto) Baso % (Auto) Absolute Neuts (auto) Absolute Lymphs (auto) Nucleated RBC % PT INR APTT D-Dimer Quant (PE/DVT) Specimen Type ART Sample Site R RADIAL pH 7.32 L Bicarbonate Actual 21.4 L POC Total CO2 23 Base Excess -5 L O2 Saturation 91 L O2 % 75 ABG pCO2 41.8 ABG pO2 66 L Respiration Rate 12 Vent Mode A-C Tidal Volume 450 POC PEEP 8 Blood Gas Notified Whom ED Blood Gas Notified Time 1755 Sodium Potassium Chloride Carbon Dioxide Anion Gap BUN Creatinine Estim Creat Clear Calc Est GFR (MDRD) Af Amer Est GFR (MDRD) Non-Af BUN/Creatinine Ratio Glucose Hemoglobin A1c Lactic Acid 3.5 H* Calcium Ferritin Total Bilirubin AST ALT Alkaline Phosphatase Troponin I C-React Prot Ext Range Total Protein Albumin Globulin Albumin/Globulin Ratio Urine Color Yellow Urine Clarity Clear Urine pH 7.0 Ur Specific [place] 1.010 Urine Protein 100 H Urine Glucose (UA) 1000 H Urine Ketones 15 H Urine Occult Blood 25 H Urine Nitrite Negative Urine Bilirubin Negative Urine Urobilinogen Normal Ur Leukocyte Esterase Negative Urine RBC 0-5 SEEN Urine WBC 0 SEEN Ur Squamous Epith Cells 0 SEEN Urine Bacteria 0 SEEN Urine Mucus 0 SEEN COVID-19 (INDY) MRSA (PCR) POC Glucose 11/09/19 11/09/19 11/09/19 20:50 23:35 23:47 WBC RBC Hgb Hct MCV MCH MCHC RDW Std Deviation RDW Coeff of [place] Plt Count MPV Immature Gran % (Auto) Neut % (Auto) Lymph % (Auto) [place] % (Auto) Eos % (Auto) Baso % (Auto) Absolute Neuts (auto) Absolute Lymphs (auto) Nucleated RBC % PT INR APTT D-Dimer Quant (PE/DVT) Specimen Type Sample Site pH Bicarbonate Actual POC Total CO2 Base Excess O2 Saturation O2 % ABG pCO2 ABG pO2 Respiration Rate Vent Mode Tidal Volume POC PEEP Blood Gas Notified Whom Blood Gas Notified Time Sodium Potassium Chloride Carbon Dioxide Anion Gap BUN Creatinine Estim Creat Clear Calc Est GFR (MDRD) Af Amer Est GFR (MDRD) Non-Af BUN/Creatinine Ratio Glucose Hemoglobin A1c Lactic Acid 1.5 Calcium Ferritin Total Bilirubin AST ALT Alkaline Phosphatase Troponin I C-React Prot Ext Range Total Protein Albumin Globulin Albumin/Globulin Ratio Urine Color Urine Clarity Urine pH Ur Specific [place] Urine Protein Urine Glucose (UA) Urine Ketones Urine Occult Blood Urine Nitrite Urine Bilirubin Urine Urobilinogen Ur Leukocyte Esterase Urine RBC Urine WBC Ur Squamous Epith Cells Urine Bacteria Urine Mucus COVID-19 (INDY) MRSA (PCR) Negative POC Glucose 148 H 11/10/19 11/10/19 11/10/19 05:48 06:00 06:00 WBC 8.6 RBC 4.46 L Hgb 13.2 Hct 40.9 MCV 91.7 MCH 29.6 MCHC 32.3 RDW Std Deviation 46.1 H RDW Coeff of Ndia 13.7 Plt Count 274 MPV 10.2 Immature Gran % (Auto) 0.600 Neut % (Auto) 78.2 H Lymph % (Auto) 13.7 L [place] % (Auto) 7.5 Eos % (Auto) 0.0 Baso % (Auto) 0.0 Absolute Neuts (auto) 6.7 Absolute Lymphs (auto) 1.18 Nucleated RBC % 0 PT INR APTT D-Dimer Quant (PE/DVT) Specimen Type Sample Site pH Bicarbonate Actual POC Total CO2 Base Excess O2 Saturation O2 % ABG pCO2 ABG pO2 Respiration Rate Vent Mode Tidal Volume POC PEEP Blood Gas Notified Whom Blood Gas Notified Time Sodium 142 Potassium 4.0 Chloride 113 H Carbon Dioxide 24.0 Anion Gap 5 BUN 32 H Creatinine 0.90 Estim Creat Clear Calc 56.64 Est GFR (MDRD) Af Amer 105 Est GFR (MDRD) Non-Af 86 BUN/Creatinine Ratio 35.5 H Glucose 129 H Hemoglobin A1c Lactic Acid Calcium 8.8 Ferritin Total Bilirubin 0.40 AST 25 ALT 24 Alkaline Phosphatase 101 Troponin I C-React Prot Ext Range Total Protein 7.7 Albumin 3.4 Globulin 4.3 H Albumin/Globulin Ratio 0.8 L Urine Color Urine Clarity Urine pH Ur Specific [place] Urine Protein Urine Glucose (UA) Urine Ketones Urine Occult Blood Urine Nitrite Urine Bilirubin Urine Urobilinogen Ur Leukocyte Esterase Urine RBC Urine WBC Ur Squamous Epith Cells Urine Bacteria Urine Mucus COVID-19 (INDY) MRSA (PCR) POC Glucose 124 H 11/10/19 11/10/19 11/10/19 06:00 07:03 11:35 WBC RBC Hgb Hct MCV MCH MCHC RDW Std Deviation RDW Coeff of [place] Plt Count MPV Immature Gran % (Auto) Neut % (Auto) Lymph % (Auto) [place] % (Auto) Eos % (Auto) Baso % (Auto) Absolute Neuts (auto) Absolute Lymphs (auto) Nucleated RBC % PT INR APTT D-Dimer Quant (PE/DVT) Specimen Type Sample Site pH Bicarbonate Actual POC Total CO2 Base Excess O2 Saturation O2 % ABG pCO2 ABG pO2 Respiration Rate Vent Mode Tidal Volume POC PEEP Blood Gas Notified Whom Blood Gas Notified Time Sodium Cancelled Potassium Cancelled Chloride Cancelled Carbon Dioxide Cancelled Anion Gap Cancelled BUN Cancelled Creatinine Cancelled Estim Creat Clear Calc Cancelled Est GFR (MDRD) Af Amer Cancelled Est GFR (MDRD) Non-Af Cancelled BUN/Creatinine Ratio Cancelled Glucose Cancelled Hemoglobin A1c Lactic Acid Calcium Cancelled Ferritin Total Bilirubin Cancelled AST Cancelled ALT Cancelled Alkaline Phosphatase Cancelled Troponin I C-React Prot Ext Range Total Protein Cancelled Albumin Cancelled Globulin Cancelled Albumin/Globulin Ratio Cancelled Urine Color Urine Clarity Urine pH Ur Specific [place] Urine Protein Urine Glucose (UA) Urine Ketones Urine Occult Blood Urine Nitrite Urine Bilirubin Urine Urobilinogen Ur Leukocyte Esterase Urine RBC Urine WBC Ur Squamous Epith Cells Urine Bacteria Urine Mucus COVID-19 (INDY) Cancelled MRSA (PCR) POC Glucose 125 H 11/10/19 11/10/19 11/11/19 17:28 23:14 05:25 WBC RBC Hgb Hct MCV MCH MCHC RDW Std Deviation RDW Coeff of [place] Plt Count MPV Immature Gran % (Auto) Neut % (Auto) Lymph % (Auto) [place] % (Auto) Eos % (Auto) Baso % (Auto) Absolute Neuts (auto) Absolute Lymphs (auto) Nucleated RBC % PT INR APTT D-Dimer Quant (PE/DVT) Specimen Type Sample Site pH Bicarbonate Actual POC Total CO2 Base Excess O2 Saturation O2 % ABG pCO2 ABG pO2 Respiration Rate Vent Mode Tidal Volume POC PEEP Blood Gas Notified Whom Blood Gas Notified Time Sodium Potassium Chloride Carbon Dioxide Anion Gap BUN Creatinine Estim Creat Clear Calc Est GFR (MDRD) Af Amer Est GFR (MDRD) Non-Af BUN/Creatinine Ratio Glucose Hemoglobin A1c Lactic Acid Calcium Ferritin Total Bilirubin AST ALT Alkaline Phosphatase Troponin I C-React Prot Ext Range Total Protein Albumin Globulin Albumin/Globulin Ratio Urine Color Urine Clarity Urine pH Ur Specific [place] Urine Protein Urine Glucose (UA) Urine Ketones Urine Occult Blood Urine Nitrite Urine Bilirubin Urine Urobilinogen Ur Leukocyte Esterase Urine RBC Urine WBC Ur Squamous Epith Cells Urine Bacteria Urine Mucus COVID-19 (INDY) MRSA (PCR) POC Glucose 139 H 186 H 147 H Microbiology 11/09/19 18:22 Sputum, Expectorated/Coughed Gram Stain - Final 11/09/19 18:22 Sputum, Expectorated/Coughed Respiratory Culture - Preliminary Culture exhibits no growth. 11/09/19 17:55 Urine, Catheterized Urine Culture - Preliminary Culture exhibits no growth. 11/10/19 07:20 Mucosa - Nasopharyngeal Coronavirus COVID-19 PCR - Final 11/09/19 23:15 Mucosa - Nasopharyngeal Respiratory Panel (PCR) - Final 11/09/19 17:55 Urine Catheter - Catheter Streptococcus pneumoniae Antigen (M - Final 11/09/19 17:55 Urine Catheter - Catheter Legionella Antigen - Final Clinical Impression(s) from Imaging Studies Chest X-Ray 11/09/19 18:30 IMPRESSION: No acute cardiopulmonary pathology Electronically Signed: Conor Conrad MD at 19:09 EDT , Service support , Chest CTA 11/10/19 05:52 IMPRESSION: 1. No CTA evidence of pulmonary thromboemboli or thoracic aortic dissection. 2. Mild dilatation of the ascending aorta with a diameter of 3.3 cm versus 2.5 cm for the descending thoracic aorta. 3. Complete atelectases in the posterior basilar segment of the left lower lobe is most likely from mucous plug. 4. No suspicious pneumonia or pulmonary nodules. 5. 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 6. C7 benign vertebral body hemangioma is unchanged. Electronically Signed: Mitch Eubanks MD at 10:23 EDT , Service support , ADDENDUM: 11/10/19 1147 IMPRESSION: 1. No CTA evidence of pulmonary thromboemboli or thoracic aortic dissection. 2. Mild dilatation of the ascending aorta with a diameter of 3.3 cm versus 2.5 cm for the descending thoracic aorta. 3. Complete atelectases in the posterior basilar segment of the left lower lobe is most likely from mucous plug. 4. No suspicious pneumonia or pulmonary nodules. 5. 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 6. C7 benign vertebral body hemangioma is unchanged. N.B. : The above information has been verbally conveyed by Mitch Eubanks MD to LINDA FLETCHER DO on 11/10/2019 11:40:26 (ET). Electronically Signed: Mitch Eubanks MD at 10:23 EDT , Service support , Medical Necessity - Tobacco Use Smoking Status: Former smoker Assessment/Plan All Active Problems (Last Reviewed 11/09/19 @ 19:[address] Edouard Michael MD) Respiratory failure with hypoxia (Acute) Status asthmaticus (Acute) Suspected 2018 novel coronavirus infection (Acute) Metabolic acidosis (Acute) Abnormal result of cardiovascular function study, unspecified (Resolved) SBO (small bowel obstruction) (Resolved) RECOMMENDATIONS: 1. Proceed with a trial of extubation this morning. 2. Once extubated wean supplemental oxygen to maintain saturations at or above 90%. 3. Perform bedside swallow evaluation and advance diet accordingly. 4. Continue scheduled bronchodilator therapy and IV steroids. Continue daily Singulair as well. 5. Okay to discontinue antimicrobials from my perspective. 6. Perform walking oximetry study prior to consideration for discharge home. 7. Close outpatient pulmonary follow-up within 2 weeks of discharge is recommended. RAST profile was ordered. 8. Strongly consider outpatient initiation of biologic therapy for underlying asthma. IMPRESSIONS: 1. Acute hypoxemic respiratory failure The patient reportedly has a history of severe persistent asthma and previously had documented significant peripheral eosinophilia and grossly elevated IgE levels. Subsequent work-up including cultures and CTA chest were unremarkable. There was no evidence of focal infiltrate or pneumonia. Cultures have been unrevealing. I strongly suspect that perennial aeroallergens may have been a significant contributing factor to the patient's exacerbation. He does report significant seasonal allergy symptoms. He is currently on maximal therapy as an outpatient for asthma with Symbicort, Spiriva, Singulair and as needed Ventolin. His reliance on his rescue inhaler is frequent. I do suspect that he would benefit from being initiated on biologic therapy upon discharge from the hospital. The patient is interested in following up with the [facility] of [place], which can be arranged within 2 weeks of his discharge. In the interim, the patient will remain on scheduled bronchodilators and IV steroids. From my perspective antimicrobials can be discontinued. 2. Coronary artery disease status post bypass/GERD/hyperlipidemia/hypertension Complicates care, management, recovery and prognosis. Continue home medications as indicated. TIME: 42 minutes of critical care time, independent of procedures, was spent addressing the patient's acute hypoxemic respiratory failure, severe asthma with exacerbation, coronary artery disease status post bypass, review of all data and collaboration with the care team. ([id number]) [phone]: [id number] Critical care first hour
--- NOTE | 2019-11-11 06:43 | PN_ITS ---
Patient Problems: Active and Suspected Problems (Last Reviewed 11/09/19 @ 19:[address] Edouard Michael MD) Respiratory failure with hypoxia (Acute) Status asthmaticus (Acute) Suspected 2019 novel coronavirus infection (Acute) Metabolic acidosis (Acute) Subjective: The patient is a 79 y/o M w/ PMHx: HTN, HLD, Carotid disease, CAD s/p CABG x 2 TRUONG-LAD, SVG-posterior CFX, Asthma who presents to the [facility] ED on 11/09/19 with history of onset of dyspnea and dry cough with occasional wheezing without any nausea, emesis, abdominal pain, diarrhea, arthralgias or myalgias, alteration to sense of taste or smell, headaches prompting him to have outpatient COVID testing on 11/08 as part of an outpatient drive-through program however patient decompensated prompting ED presentation. Patient admitted to the ICU, intubated, sedated status, vent setting management per pulmonary medicine, admission CBC with WBC 11.2, hemoglobin 15.7, platelets 351 with left shift, d-dimer 1.51 with no pulmonary emboli is noted, maintained on lovenox 40 u SC BID, CMP with chloride 109, BUN/creatinine 22/1.15, glucose 233, lactic acid 3.5 with repeat 1 .5, ferritin 16, normal AST/ALT, CRP less than 2.90, COVID 19 testing obtained and noted to be negative with lower suspicion given only symptoms dyspnea and dry cough as well as follow-up CTPA w/ no evidence of pulmonary thromboemboli or thoracic aortic dissection, mild dilatation of the ascending aorta with diameter of 3.3 cm versus 2.5 cm for the descending thoracic aorta, complete atelectasis in the posterior basilar segment of the left lower lobe possibly for mucous plugging, no evidence of pneumonia or pulmonary nodules, large gastric anemia in the posterior mediastinum unchanged, unchanged C7 benign vertebral body hemangioma therefore precautions discontinued 11/10/19. Initially maintained on azithromycin and Rocephin however discontinued given CTPA findings with suspected etiology asthma and severe allergies, continued Solu-Medrol. Patient with negative respiratory panel, sputum culture with no growth, negative Legionella and streptococcal antigens. Awaiting bedside swallow evaluation this AM given successful extubation. Start diet if appropriate. Once clinically appropriate for discharge to home would plan discharge on steroid taper, continued Singulair, plan close follow-up with pulmonary medicine in 2 weeks with pending RAST profile ordered per pulmonary medicine with noted intention for initiation of likely biologic therapy for severity of his asthma outpatient and necessity of oxygenation trial prior to discharge. Admission glucose 233, suspected stress response however to be cautious hemoglobin A1c obtained, 5.8%. Patient overnight with continued clinical improvement and ability to extubate this morning on 11/11/2019 successfully. Patient notes feeling improved since initial ED presentation with less dyspnea but still has intermittent wheezing and cough, nonproductive. Patient with negative COVID testing day prior and CTPA without any evidence of groundglass opacities therefore precautions have been removed. Discussed with patient and pulmonary medicine with likely source patient severe allergies with acute asthma exacerbation with planned aggressive treatment and follow-up with Dr. Lincoln outpatient. Patient denies fevers, chills, nausea, emesis, abdominal pain, chest pain. Objective: Physical Examination: General: awake, alert, oriented x 3 and cooperative, seated upright in the ICU bed, no acute distress, successfully extubated this morning. Skin: normal color, turgor, no icterus, cyanosis. HEENT: AT/NC, EOMI, PERRLA, improved less dry MM, status post recent extubation. Lungs: Recent extubation, improved effort, coarse with expiratory wheeze occasionally, no obvious rales no evidence of distress. Heart: Regular rate and rhythm; no gallop, rub audible. Abdomen: soft, NTTP, ND, normal BS. Extremities: no cyanosis, clubbing, or edema. Neurological: patient awake, alert, oriented as noted; cognitive function now appears baseline intact; pupils equally reactive to light and accomodation; c ranial nerves II-XII grossly normal, moving all 4 extremities, strenght improving, moderately to severely globally decreased. Psychiatric: affect appears fatigued but improved, no acute evidence of de pressive or anxiety feelings. Vitals/I&O's: Vital Signs Temp Pulse Resp BP Pulse Ox 99.2 F H 87 13 177/94 H 96 11/11/19 06:00 11/11/19 06:00 11/11/19 06:00 11/11/19 06:00 11/11/19 06:00 Oxygen Delivery Method Mechanical Ventilator Weight: 160 lb 7.944 oz Body Mass Index (BMI) 26.6 Intake and Output for Last 24 Hours 11/09/19 11/10/19 11/11/19 23:59 23:59 23:59 Intake Total 502.39 / 578.89 1307.19 / 1662.49 762.59 / 762.59 Output Total 1120 / 1320 425 / 425 Balance 502.39 / 278.89 187.19 / 342.49 337.59 / 337.59 Microbiology Past 72 Hours 11/09/19 18:22 Sputum, Expectorated/Coughed Gram Stain - Final 11/09/19 18:22 Sputum, Expectorated/Coughed Respiratory Culture - Preliminary Culture exhibits no growth. 11/09/19 17:55 Urine, Catheterized Urine Culture - Preliminary Culture exhibits no growth. 11/10/19 07:20 Mucosa - Nasopharyngeal Coronavirus COVID-19 PCR - Final 11/09/19 23:15 Mucosa - Nasopharyngeal Respiratory Panel (PCR) - Final 11/09/19 17:55 Urine Catheter - Catheter Streptococcus pneumoniae Antigen (M - Final 11/09/19 17:55 Urine Catheter - Catheter Legionella Antigen - Final Laboratory Results 11/10/19 05:48: POC Glucose 124 H 11/10/19 06:00: Sodium 142, Potassium 4.0, Chloride 113 H, Carbon Dioxide 24.0, Anion Gap 5, BUN 32 H, Creatinine 0.90, Estim Creat Clear Calc 56.64, Est GFR (MDRD) Af Amer 105, Est GFR (MDRD) Non-Af 86, BUN/Creatinine Ratio 35.5 H, Glucose 129 H, Calcium 8.8, Total Bilirubin 0.40, AST 25, ALT 24, Alkaline Phosphatase 101, Total Protein 7.7, Albumin 3.4, Globulin 4.3 H, Albumin/Globulin Ratio 0.8 L 11/10/19 06:00: Sodium Cancelled, Potassium Cancelled, Chloride Cancelled, Carbon Dioxide Cancelled, Anion Gap Cancelled, BUN Cancelled, Creatinine Cancelled, Estim Creat Clear Calc Cancelled, Est GFR (MDRD) Af Amer Cancelled, Est GFR (MDRD) Non-Af Cancelled, BUN/Creatinine Ratio Cancelled, Glucose Cancelled, Calcium Cancelled, Total Bilirubin Cancelled, AST Cancelled, ALT Cancelled, Alkaline Phosphatase Cancelled, Total Protein Cancelled, Albumin Cancelled, Globulin Cancelled, Albumin/Globulin Ratio Cancelled 11/10/19 07:03: COVID-19 (INDY) Cancelled 11/10/19 11:35: POC Glucose 125 H 11/10/19 17:28: POC Glucose 139 H 11/10/19 23:14: POC Glucose 186 H 11/11/19 05:25: POC Glucose 147 H Current Medications Acetaminophen (Tylenol) 650 mg PO Q6H PRN PRN PRN Reason: Pain Score 1-10/Temp > 100.7 F Albuterol Sulfate (Ventolin Aerosols) 2.5 mg INHALATION Q2H PRN PRN PRN Reason: SOB/Wheezing Albuterol/Ipratropium (Duoneb) 3 ml INHALATION Q4H.RT [facility] Last Admin: 11/11/19 02:52 Dose: 3 ml Documented by: Amlodipine Besylate (Norvasc) 5 mg PO DAILY [facility] Last Admin: 11/10/19 11:30 Dose: 5 mg Documented by: Aspirin (Ecotrin) 81 mg PO DAILY@0800 [facility] Last Admin: 11/10/19 11:29 Dose: 81 mg Documented by: Atorvastatin Calcium (Lipitor) 40 mg PO QHS [facility] Last Admin: 11/10/19 21:10 Dose: 40 mg Documented by: Chlorhexidine Gluconate () 15 ml PO BID [facility] Last Admin: 11/10/19 21:09 Dose: 15 ml Documented by: Chlorhexidine Gluconate () 1 each TOPICAL DAILY [facility] Last Admin: 11/10/19 11:30 Dose: 1 each Documented by: Dextrose (D50w Syringe) 0 gm IV X1 PRN; Protocol PRN Reason: Hypoglycemia Enoxaparin Sodium (Lovenox) 40 mg SC BID [facility] Last Admin: 11/10/19 21:12 Dose: 40 mg Documented by: Glucagon () 1 mg IM .X1 PRN PRN Reason: Hypoglycemia Fentanyl () 100 mls @ 2.5 mls/hr IV UD [facility]; Protocol Last Titration: 11/11/19 05:30 Dose: 50 mcg/hr, 5 mls/hr Documented by: Propofol (Diprivan) 1,000 mg in 100 mls @ 4.506 mls/hr CONT INF .Q12H [facility]; Protocol Last Titration: 11/11/19 05:30 Dose: 0 mcg/kg/min, 0 mls/hr Documented by: Azithromycin 500 mg/ Dextrose 255 mls @ 250 mls/hr IV QHS [facility] Stop: 11/11/19 23:02 Last Infusion: 11/10/19 22:44 Dose: Infused Documented by: Ceftriaxone Sodium 2 gm/ (Sodium Chloride) 50 mls @ 100 mls/hr IV QHS [facility] Last Infusion: 11/10/19 21:40 Dose: Infused Documented by: Sodium Chloride () 250 mls @ 15 mls/hr IV .[id number] PRN PRN Reason: Saline Flush Sodium Chloride () 250 mls @ 15 mls/hr IV .[id number] PRN PRN Reason: Additional IVPB Infusion Enteral Nutritional Formula (Vital Af 1.2 Tarun Liquid) 1,000 mls @ 65 mls/hr GT .[id number] [facility] Last Admin: 11/11/19 05:15 Dose: Not Given Documented by: Insulin Human Lispro (Humalog Kwikpen (Bkc)) 0 unit SC Q6 [facility]; Protocol Last Admin: 11/11/19 05:26 Dose: Not Given Documented by: Loratadine (Claritin) 5 mg PO QHS [facility] Last Admin: 11/10/19 21:11 Dose: 5 mg Documented by: Methylprednisolone (Solu-Medrol) 40 mg IV Q8 [facility] Last Admin: 11/11/19 05:26 Dose: 40 mg Documented by: Metoprolol Tartrate (Lopressor (Beta Zuly)) 25 mg PO BID [facility] Last Admin: 11/10/19 21:10 Dose: 25 mg Documented by: Montelukast Sodium (Singulair) 10 mg PO DAILY [facility] Last Admin: 11/10/19 11:29 Dose: 10 mg Documented by: Ondansetron HCl (Zofran) 4 mg IV Q8H PRN PRN PRN Reason: NAUSEA/VOMITING Pantoprazole Sodium (Protonix) 40 mg PO DAILY [facility] Last Admin: 11/10/19 11:30 Dose: 40 mg Documented by: Sodium Chloride () 10 - 40 ml IV UD PRN PRN Reason: SALINE FLUSH STROKE Vital Signs/Narrative: Vital Signs Temp Pulse Resp BP Pulse Ox 11/11/19 06:00 99.2 F H 87 13 177/94 H 96 11/11/19 05:02 74 14 97 11/11/19 05:00 98.5 F 60 12 119/61 97 11/11/19 04:00 98.5 F 60 12 121/64 H 96 11/11/19 03:00 98.6 F 60 12 111/60 96 11/11/19 02:53 63 12 Medical Necessity - Tobacco Use Smoking Status: Former smoker Assessment/Plan All Active Problems (Last Reviewed 11/09/19 @ 19:[address] Edouard Michael MD) Respiratory failure with hypoxia (Acute) Status asthmaticus (Acute) Suspected 2019 novel coronavirus infection (Acute) Metabolic acidosis (Acute) Abnormal result of cardiovascular function study, unspecified (Resolved) SBO (small bowel obstruction) (Resolved) The patient is a 79 y/o M w/ PMHx: HTN, HLD, Carotid disease, CAD s/p CABG x 2 TRUONG-LAD, SVG-posterior CFX, Asthma who presents to the [facility] ED on 11/09/19 with history of onset of dyspnea and dry cough with occasional wheezing without any nausea, emesis, abdominal pain, diarrhea, arthralgias or myalgias, alteration to sense of taste or smell, headaches prompting him to have outpatient COVID testing on 11/08 as part of an outpatient drive-through program however patient decompensated prompting ED presentation. 1. Acute Hypoxic Respiratory Failure secondary to Acute on Chronic Asthma Exacerbation with Significant Compressive Atelectasis LLL possible secondary to Mucous Plugging with concurrent lactic acidosis, corrected: Patient admitted to the ICU, intubated, sedated status, vent setting management per pulmonary medicine, admission CBC with WBC 11.2, hemoglobin 15.7, platelets 351 with left shift, d-dimer 1.51 with no pulmonary emboli is noted, maintained on lovenox 40 u SC BID, CMP with chloride 109, BUN/creatinine 22/1.15, glucose 233, lactic acid 3.5 with repeat 1.5, ferritin 16, normal AST/ALT, CRP less than 2.90, COVID 19 testing obtained and noted to be negative with lower suspicion given only symptoms dyspnea and dry cough as well as follow-up CTPA w/ no evidence of pulmonary thromboemboli or thoracic aortic dissection, mild dilatation of the ascending aorta with diameter of 3.3 cm versus 2.5 cm for the descending thoracic aorta, complete atelectasis in the posterior basilar segment of the left lower lobe possibly for mucous plugging, no evidence of pneumonia or pulmonary nodules, large gastric anemia in the posterior mediastinum unchanged, unchanged C7 benign vertebral body hemangioma therefore precautions discontinued 11/10/19. Initially maintained on azithromycin and Rocephin however discontinued given CTPA findings with suspected etiology asthma and severe allergies, continued Solu-Medrol. Patient with negative respiratory panel, sputum culture with no growth, negative Legionella and streptococcal antigens. Awaiting bedside swallow evaluation this AM given successful extubation. Start diet if appropriate. Once clinically appropriate for discharge to home would plan discharge on steroid taper, continued Singulair, plan close follow-up with pulmonary medicine in 2 weeks with pending RAST profile ordered per pulmonary medicine with noted intention for initiation of likely biologic therapy for severity of his asthma outpatient and necessity of oxygenation trial prior to discharge. 2. Hyperglycemia: Admission glucose 233, suspected stress response however to be cautious hemoglobin A1c obtained, 5.8%. 3. CAD: Status post CABG x2 TRUONG?LAD, SVG?posterior CFX, maintain on aspirin, statin, metoprolol regimen. 4. Hypertension: Continue home regimen including metoprolol, Norvasc with hold parameters, PRN hydralazine. 5. Hyperlipidemia: Continue home statin regimen. 6. Reported history of carotid disease: We will continue patient aspirin, hypertensive regimen, statin therapy, hemoglobin A1c 5.8% as noted. 7. DVT prophylaxis: SCDs, Lovenox 40 mg SC twice daily. 8. CODE STATUS: Full code. Inpatient E&M: 16342 Subs Hosp L2
[2019-11-11] MEDS: Enoxaparin 40 MG/0.4 ML Syringe SC ×2 (09:23→21:06)
[2019-11-11] MEDS: amLODIPine 5 MG Tablet PO ×2 (09:23→14:09)
[2019-11-11] MEDS: Montelukast 10 MG Tablet PO (09:23)
[2019-11-11] MEDS: Metoprolol Tartrate 25 MG Tablet PO ×2 (09:23→21:05)
[2019-11-11] MEDS: Aspirin E.C. 81 MG Tablet PO (09:24)
[2019-11-11] MEDS: Pantoprazole Sodium 40 MG Tablet PO (09:24)
[2019-11-11] MEDS: CHLORHEXIDINE GLUC 2% CLOTH 1 EACH TOWELETTE TOPICAL (11:14)
[2019-11-11] MEDS: hydrALAZINE 20 MG/ML Vial 10 MG IV ×2 (12:24→17:17)
[2019-11-11] MEDS: 0.9% Saline Lock 10 ML Syringe IV ×4 (12:25→21:14)
[2019-11-11] MEDS: LORazepam 2 MG/ML Syringe 0.5 MG IV (13:24)
[2019-11-11] MEDS: Metoprolol Tartrate 5 MG/5 ML Vial IV (14:09)
[2019-11-11] MEDS: hydroCHLOROthiazide 12.5mg 12.5 MG PO (14:49)
[2019-11-11] MEDS: LORazepam 0.5 MG Tablet PO (21:03)
[2019-11-11] MEDS: Atorvastatin Calcium 40 MG Tablet PO (21:04)
[2019-11-11] MEDS: Loratadine 10 MG Tablet 5 MG PO (21:05)
[2019-11-12] VITALS (31 sets, daily range): BP systolic 130–160; BP diastolic 60–96; PULSE 74–106; RESP 12–20; TEMP 36.6–37.2; O2SAT 93–98
[2019-11-12] MEDS: Albuterol 2.5 MG/3 ML VIAL.NEB. INHALATION (01:43)
[2019-11-12] MEDS: LORazepam 0.5 MG Tablet PO (03:04)
[2019-11-12] MEDS: Ipratropium/Albuterol Sulfate 3 ML AMPUL.NEB INHALATION ×5 (03:53→19:35)
[2019-11-12] MEDS: 0.9% Saline Lock 10 ML Syringe IV ×4 (05:54→21:34)
[2019-11-12 06:15] LABS: Anion Gap 9 (5-15); BUN 30 mg/dL (7-18); BUN/Creat Ratio 38.6 RATIO (10-20); Calcium,Total 8.9 mg/dL (8.5-10.1); Chloride 105 mmol/L (98-107); Creatinine, Serum 0.78 mg/dL (0.70-1.30); EST Glomerular Filtration Rate 102 mL/min (>60); Est Glom Filt Rate - Afr Amer 124 mL/min (>60); Estimated Creatinine Clearance 50.98 ml/min; Glucose 123 mg/dL (74-106); Magnesium 2.6 mg/dL (1.6-2.6); Phosphorus 3.1 mg/dL (2.5-4.9); Potassium 3.3 mmol/L (3.5-5.1); Sodium Level 138 mmol/L (136-145)
--- NOTE | 2019-11-12 07:01 | PN_ITS ---
Subjective: Patient did well overnight. No acute issues were reported. Patient has been on minimal nasal cannula oxygen. Patient states he feels subjectively improved compared to yesterday. Patient is still requiring frequent albuterol and Ativan secondary to shortness of breath and anxiety. General: Alert, Oriented x3, Cooperative, No apparent distress, - - Appears stated age. No conversational dyspnea. HEENT: Atraumatic, PERRLA, EOMI, Normocephalic, - - No scleral icterus or injection noted Oral: Moist Mucosa, No Gingival or Mucosal Lesions/ Ulcerations Neck: Supple, No JVD, No Nodes, Trachea Midline Lungs: No rhonchi, No rales, Diminished, Wheezes, - - Symmetric expansion. No dullness to percussion. Cardiovascular: Regular rate, Regular Rhythm, Normal S1, Normal S2, No murmurs, No rub noted, No Gallop Abdomen: Bowel Sounds Present, Soft, Non Tender, Non-Distended Extremities: No clubbing, No cyanosis, No edema Skin: No rashes, No breakdown Musculoskeletal: No Tenderness to Palpation of Joints or Extremities Lymphatic: No Cervical, Supraclavicular, or Inguinal Adenopathy Neurological: Cranial nerves II-XII grossly intact, Neuro grossly intact, Motor Exam 5/5 strength throughout Psych/Mental Status: Appropriate, Anxious Vital Signs Temp Pulse Resp BP Pulse Ox 36.6 C 92 18 139/70 H 96 11/12/19 04:00 11/12/19 06:56 11/12/19 06:56 11/12/19 06:00 11/12/19 06:00 Oxygen Flow Rate (L/min) 2 Oxygen Delivery Method Nasal Cannula Weight: 72.8 kg Body Mass Index (BMI) 26.6 Intake and Output for Last 24 Hours 11/10/19 11/11/19 11/12/19 23:59 23:59 23:59 Intake Total 1307.19 / 1662.49 1628.26 / 1628.26 150 / 150 Output Total 1120 / 1320 1500 / 1500 450 / 450 Balance 187.19 / 342.49 128.26 / 128.26 -300 / -300 Labs (Last 48 Hours) 11/10/19 11/10/19 11/10/19 05:48 06:00 07:03 Sodium Cancelled Potassium Cancelled Chloride Cancelled Carbon Dioxide Cancelled Anion Gap Cancelled BUN Cancelled Creatinine Cancelled Estim Creat Clear Calc Cancelled Est GFR (MDRD) Af Amer Cancelled Est GFR (MDRD) Non-Af Cancelled BUN/Creatinine Ratio Cancelled Glucose Cancelled Calcium Cancelled Phosphorus Magnesium Total Bilirubin Cancelled AST Cancelled ALT Cancelled Alkaline Phosphatase Cancelled Total Protein Cancelled Albumin Cancelled Globulin Cancelled Albumin/Globulin Ratio Cancelled COVID-19 (INDY) Cancelled Miscellaneous Test POC Glucose 124 H 11/10/19 11/10/19 11/10/19 11:35 17:28 23:14 Sodium Potassium Chloride Carbon Dioxide Anion Gap BUN Creatinine Estim Creat Clear Calc Est GFR (MDRD) Af Amer Est GFR (MDRD) Non-Af BUN/Creatinine Ratio Glucose Calcium Phosphorus Magnesium Total Bilirubin AST ALT Alkaline Phosphatase Total Protein Albumin Globulin Albumin/Globulin Ratio COVID-19 (INDY) Miscellaneous Test POC Glucose 125 H 139 H 186 H 11/11/19 11/11/19 11/12/19 05:25 08:05 05:50 Sodium 138 Potassium 3.3 L Chloride 105 Carbon Dioxide 24.0 Anion Gap 9 BUN 30 H Creatinine 0.78 Estim Creat Clear Calc 50.98 Est GFR (MDRD) Af Amer 124 Est GFR (MDRD) Non-Af 102 BUN/Creatinine Ratio 38.6 H Glucose 123 H Calcium 8.9 Phosphorus 3.1 Magnesium 2.6 Total Bilirubin AST ALT Alkaline Phosphatase Total Protein Albumin Globulin Albumin/Globulin Ratio COVID-19 (INDY) Miscellaneous Test Pending POC Glucose 147 H Microbiology 11/09/19 18:22 Sputum, Expectorated/Coughed Gram Stain - Final 11/09/19 18:22 Sputum, Expectorated/Coughed Respiratory Culture - Preliminary Culture exhibits no growth. 11/09/19 17:55 Urine, Catheterized Urine Culture - Preliminary Culture exhibits no growth. 11/10/19 07:20 Mucosa - Nasopharyngeal Coronavirus COVID-19 PCR - Final 11/09/19 23:15 Mucosa - Nasopharyngeal Respiratory Panel (PCR) - Final Medical Necessity - Tobacco Use Smoking Status: Former smoker Assessment/Plan All Active Problems (Last Reviewed 11/09/19 @ 19:[address] Edouard Michael MD) Respiratory failure with hypoxia (Acute) Status asthmaticus (Acute) Suspected 2019 novel coronavirus infection (Acute) Metabolic acidosis (Acute) Abnormal result of cardiovascular function study, unspecified (Resolved) SBO (small bowel obstruction) (Resolved) RECOMMENDATIONS: 1. Wean oxygen as tolerated 2. Oral supplementation of potassium 3. Initiate Seroquel 4. Continue scheduled bronchodilator therapy and IV steroids. Continue daily Singulair as well. 5. Walking oximetry prior to discharge 6. Okay to leave the intensive care unit from my perspective 7. Close outpatient pulmonary follow-up within 2 weeks of discharge is recommended. RAST profile was ordered. 8. Strongly consider outpatient initiation of biologic therapy for underlying asthma. IMPRESSIONS: 1. Acute hypoxemic respiratory failure The patient reportedly has a history of severe persistent asthma and previously had documented significant peripheral eosinophilia and grossly elevated IgE levels. Subsequent work-up including cultures and CTA chest were unremarkable. There was no evidence of focal infiltrate or pneumonia. High clinical suspicion for asthma exacerbation leading to acute hypoxemic respiratory failure. Patient is currently on maximal therapy, so outpatient evaluation for Biologics is likely indicated. Likely decrease steroids tomorrow if patient is doing well. 2. Anxiety This will exacerbate patient's underlying pulmonary mechanics. Patient has been receiving significant Ativan over the last 24 hours. Will attempt to initiate Seroquel to see how this helps. Benzodiazepines have been linked with onset of delirium in similar patients. Will attempt to avoid if possible. 3. Coronary artery disease status post bypass/GERD/hyperlipide francisco/hypertension/hypokalemia Complicates care, management, recovery and prognosis. Continue home medications as indicated. Potassium will be supplemented with liquid as patient has some difficulty with large pills. Inpatient E&M: 40442 [facility] L3
[2019-11-12] MEDS: Ondansetron 4 MG/2 ML Vial IV (07:57)
[2019-11-12] MEDS: QUEtiapine 25 MG Tablet 50 MG PO (07:57)
[2019-11-12] MEDS: Metoprolol Tartrate 25 MG Tablet PO ×2 (09:36→21:33)
[2019-11-12] MEDS: amLODIPine 10 MG Tablet PO (09:36)
[2019-11-12] MEDS: Pantoprazole Sodium 40 MG Tablet PO (09:37)
[2019-11-12] MEDS: hydroCHLOROthiazide 12.5mg 12.5 MG PO (09:37)
[2019-11-12] MEDS: Montelukast 10 MG Tablet PO (09:37)
[2019-11-12] MEDS: Enoxaparin 40 MG/0.4 ML Syringe SC ×2 (09:37→21:33)
[2019-11-12] MEDS: Aspirin E.C. 81 MG Tablet PO (09:38)
[2019-11-12] MEDS: CHLORHEXIDINE GLUC 2% CLOTH 1 EACH TOWELETTE TOPICAL (12:09)
--- NOTE | 2019-11-12 12:09 | PCM.PN.HOSP ---
Patient Problems: Active and Suspected Problems (Last Reviewed 11/09/19 @ 19:[address] Edouard Michael MD) Respiratory failure with hypoxia (Acute) Status asthmaticus (Acute) Suspected 2019 novel coronavirus infection (Acute) Metabolic acidosis (Acute) Reason for Visit: asthma exacerbation Subjective: Anxious. Appears to be less symptomatically with nasal canula on. Vitals/I&O's: Vital Signs Temp Pulse Resp BP Pulse Ox 36.6 C 87 12 132/81 H 96 11/12/19 12:00 11/12/19 12:00 11/12/19 12:00 11/12/19 12:00 11/12/19 12:00 Oxygen Flow Rate (L/min) 2 Oxygen Delivery Method Nasal Cannula Weight: 70.9 kg Body Mass Index (BMI) 26.6 Intake and Output for Last 24 Hours 11/10/19 11/11/19 11/12/19 23:59 23:59 23:59 Intake Total 1307.19 / 1662.49 1628.26 / 1628.26 350 / 350 Output Total 1120 / 1320 1500 / 1500 625 / 625 Balance 187.19 / 342.49 128.26 / 128.26 -275 / -275 General: Alert, No apparent distress HEENT: Atraumatic, Normocephalic Oral: Moist Mucosa, No Gingival or Mucosal Lesions/ Ulcerations Neck: No Nodes, Trachea Midline Lungs: Clear to auscultation, Normal air movement, No rhonchi, No wheeze, No rales Cardiovascular: Regular rate, Regular Rhythm, Normal S1, Normal S2, No murmurs Abdomen: Bowel Sounds Present, Soft, Non Tender, Non-Distended Psych/Mental Status: Normal Affect, Appropriate Microbiology Past 72 Hours 11/09/19 17:42 Blood Culture (Wb) - Anticubital Left Blood Culture - Preliminary No growth in 48 hours. 11/09/19 17:55 Urine, Catheterized Urine Culture - Final Culture exhibits no growth. 11/09/19 18:22 Sputum, Expectorated/Coughed Gram Stain - Final 11/09/19 18:22 Sputum, Expectorated/Coughed Respiratory Culture - Final Culture exhibits no growth. 11/10/19 07:20 Mucosa - Nasopharyngeal Coronavirus COVID-19 PCR - Final 11/09/19 23:15 Mucosa - Nasopharyngeal Respiratory Panel (PCR) - Final 11/09/19 17:55 Urine Catheter - Catheter Streptococcus pneumoniae Antigen (M - Final 11/09/19 17:55 Urine Catheter - Catheter Legionella Antigen - Final Laboratory Results 11/12/19 05:50: Sodium 138, Potassium 3.3 L, Chloride 105, Carbon Dioxide 24.0, Anion Gap 9, BUN 30 H, Creatinine 0.78, Estim Creat Clear Calc 50.98, Est GFR (MDRD) Af Amer 124, Est GFR (MDRD) Non-Af 102, BUN/Creatinine Ratio 38.6 H, Glucose 123 H, Calcium 8.9, Phosphorus 3.1, Magnesium 2.6 Current Medications Acetaminophen (Tylenol) 650 mg PO Q6H PRN PRN PRN Reason: Pain Score 1-10/Temp > 100.7 F Albuterol Sulfate (Ventolin Aerosols) 2.5 mg INHALATION Q2H PRN PRN PRN Reason: SOB/Wheezing Last Admin: 11/12/19 01:43 Dose: 2.5 mg Documented by: Albuterol/Ipratropium (Duoneb) 3 ml INHALATION Q4H.RT [facility] Last Admin: 11/12/19 11:27 Dose: 3 ml Documented by: Amlodipine Besylate (Norvasc) 10 mg PO DAILY [facility] Last Admin: 11/12/19 09:36 Dose: 10 mg Documented by: Aspirin (Ecotrin) 81 mg PO DAILY@0800 [facility] Last Admin: 11/12/19 09:38 Dose: 81 mg Documented by: Atorvastatin Calcium (Lipitor) 40 mg PO QHS [facility] Last Admin: 11/11/19 21:04 Dose: 40 mg Documented by: Chlorhexidine Gluconate () 1 each TOPICAL DAILY [facility] Last Admin: 11/12/19 12:09 Dose: 1 each Documented by: Dextrose (D50w Syringe) 0 gm IV X1 PRN; Protocol PRN Reason: Hypoglycemia Enoxaparin Sodium (Lovenox) 40 mg SC BID [facility] Last Admin: 11/12/19 09:37 Dose: 40 mg Documented by: Glucagon () 1 mg IM .X1 PRN PRN Reason: Hypoglycemia Hydralazine HCl (Apresoline Iv) 10 mg IV Q4H PRN PRN PRN Reason: BLOOD PRESSURE ELEVATION Last Admin: 11/11/19 17:17 Dose: 10 mg Documented by: Hydrochlorothiazide () 12.5 mg PO DAILY [facility] Last Admin: 11/12/19 09:37 Dose: 12.5 mg Documented by: Sodium Chloride () 250 mls @ 15 mls/hr IV .[id number] PRN PRN Reason: Saline Flush Sodium Chloride () 250 mls @ 15 mls/hr IV .[id number] PRN PRN Reason: Additional IVPB Infusion Loratadine (Claritin) 5 mg PO QHS [facility] Last Admin: 11/11/19 21:05 Dose: 5 mg Documented by: Lorazepam (Ativan) 0.5 mg PO Q6H PRN PRN PRN Reason: ANXIETY Last Admin: 11/12/19 03:04 Dose: 0.5 mg Documented by: Methylprednisolone (Solu-Medrol) 40 mg IV Q8 [facility] Last Admin: 11/12/19 05:54 Dose: 40 mg Documented by: Metoprolol Tartrate (Lopressor (Beta Zuly)) 25 mg PO BID [facility] Last Admin: 11/12/19 09:36 Dose: 25 mg Documented by: Montelukast Sodium (Singulair) 10 mg PO DAILY [facility] Last Admin: 11/12/19 09:37 Dose: 10 mg Documented by: Ondansetron HCl (Zofran) 4 mg IV Q8H PRN PRN PRN Reason: NAUSEA/VOMITING Last Admin: 11/12/19 07:57 Dose: 4 mg Documented by: Pantoprazole Sodium (Protonix) 40 mg PO DAILY [facility] Last Admin: 11/12/19 09:37 Dose: 40 mg Documented by: Quetiapine Fumarate (Seroquel) 100 mg PO X1 ONE Stop: 11/12/19 22:01 Sodium Chloride () 10 - 40 ml IV UD PRN PRN Reason: SALINE FLUSH Last Admin: 11/12/19 07:57 Dose: 10 ml Documented by: STROKE Vital Signs/Narrative: Vital Signs Temp Pulse Resp BP BP Pulse Ox 11/12/19 12:00 36.6 C 87 12 132/81 H 96 11/12/19 11:29 80 16 11/12/19 11:09 79 11/12/19 11:00 79 12 160/87 H 98 11/12/19 10:00 36.7 C 85 18 156/77 H 98 11/12/19 09:36 103 H 132/80 H 11/12/19 09:00 106 H 16 132/80 H 94 11/12/19 08:28 97 16 94 Medical Necessity - Tobacco Use Smoking Status: Former smoker Assessment/Plan All Active Problems (Last Reviewed 11/09/19 @ 19:[address] Edouard Michael MD) Respiratory failure with hypoxia (Acute) Status asthmaticus (Acute) Suspected 2019 novel coronavirus infection (Acute) Metabolic acidosis (Acute) Abnormal result of cardiovascular function study, unspecified (Resolved) SBO (small bowel obstruction) (Resolved) 1. acute hypoxic respiratory failure 2/2 AE asthma extubated COVID-19 negative 2. acute exacerbation of asthma BDs and methylprednisone anxiety complicates picture 3. Anxiety complicates picture minimize BZDs received quetiapine per CCM 4. VTE prophylaxis: LMWH Inpatient E&M: 64947 Subs Hosp L2
[2019-11-12] MEDS: Atorvastatin Calcium 40 MG Tablet PO (21:33)
[2019-11-12] MEDS: QUEtiapine 100 MG Tablet PO (21:33)
[2019-11-12] MEDS: Loratadine 10 MG Tablet 5 MG PO (21:34)
[2019-11-13] VITALS (21 sets, daily range): BP systolic 136–208; BP diastolic 76–149; PULSE 74–117; RESP 18–22; TEMP 36.5–37; O2SAT 91–97
[2019-11-13] MEDS: 0.9% Saline Lock 10 ML Syringe IV ×3 (06:06→20:48)
[2019-11-13] MEDS: Ipratropium/Albuterol Sulfate 3 ML AMPUL.NEB INHALATION ×4 (07:09→19:19)
[2019-11-13 07:10] LABS: Anion Gap 6 (5-15); BUN 30 mg/dL (7-18); BUN/Creat Ratio 42.1 RATIO (10-20); Calcium,Total 9.5 mg/dL (8.5-10.1); Chloride 108 mmol/L (98-107); Creatinine, Serum 0.71 mg/dL (0.70-1.30); EST Glomerular Filtration Rate 113 mL/min (>60); Est Glom Filt Rate - Afr Amer 137 mL/min (>60); Estimated Creatinine Clearance 50.98 ml/min; Glucose 129 mg/dL (74-106); Potassium 3.7 mmol/L (3.5-5.1); Sodium Level 138 mmol/L (136-145)
--- NOTE | 2019-11-13 08:03 | PN_ITS ---
Subjective: Patient did okay overnight. Patient remains on minimal nasal cannula oxygen to room air. Patient feels his anxiety is improved following the addition of Seroquel. Patient does feel that he needs to get up and move around a little as he is started to develop some lower extremity edema. General: Alert, Oriented x3, Cooperative, No apparent distress, - - No conversational dyspnea. HEENT: Atraumatic, PERRLA, EOMI, Normocephalic, - - No scleral icterus or injection noted. Glasses in place. Oral: Moist Mucosa, No Gingival or Mucosal Lesions/ Ulcerations Neck: Supple, No JVD, No Nodes, Trachea Midline Lungs: No rhonchi, No rales, Diminished, Wheezes - At end exhalation Cardiovascular: Regular rate, Regular Rhythm, Normal S1, Normal S2, No murmurs, No rub noted, No Gallop Abdomen: Bowel Sounds Present, Soft, Non Tender, Non-Distended Extremities: No clubbing, No cyanosis, Edema - Trace lower extremity Skin: No rashes, No breakdown Musculoskeletal: No Tenderness to Palpation of Joints or Extremities Lymphatic: No Cervical, Supraclavicular, or Inguinal Adenopathy Neurological: Cranial nerves II-XII grossly intact, Neuro grossly intact, Motor Exam 5/5 strength throughout Psych/Mental Status: Alert and oriented to time, place, person, mood and affect Vital Signs Temp Pulse Resp BP Pulse Ox 36.6 C 84 20 H 136/86 H 97 11/13/19 02:46 11/13/19 07:09 11/13/19 07:09 11/13/19 02:46 11/13/19 07:09 Oxygen Flow Rate (L/min) 2 Oxygen Delivery Method Nasal Cannula Weight: 70.9 kg Body Mass Index (BMI) 26.6 Intake and Output for Last 24 Hours 11/11/19 11/12/19 11/13/19 23:59 23:59 23:59 Intake Total 1628.26 / 1628.26 350 / 350 250 / 250 Output Total 1500 / 1500 625 / 625 Balance 128.26 / 128.26 -275 / -275 250 / 250 Labs (Last 48 Hours) 11/11/19 11/12/19 11/13/19 08:05 05:50 06:40 Sodium 138 138 Potassium 3.3 L 3.7 Chloride 105 108 H Carbon Dioxide 24.0 24.0 Anion Gap 9 6 BUN 30 H 30 H Creatinine 0.78 0.71 Estim Creat Clear Calc 50.98 50.98 Est GFR (MDRD) Af Amer 124 137 Est GFR (MDRD) Non-Af 102 113 BUN/Creatinine Ratio 38.6 H 42.1 H Glucose 123 H 129 H Calcium 8.9 9.5 Phosphorus 3.1 Magnesium 2.6 Miscellaneous Test Pending Microbiology 11/09/19 17:42 Blood Culture (Wb) - Anticubital Left Blood Culture - Preliminary No growth in 48 hours. 11/09/19 17:55 Urine, Catheterized Urine Culture - Final Culture exhibits no growth. 11/09/19 18:22 Sputum, Expectorated/Coughed Gram Stain - Final 11/09/19 18:22 Sputum, Expectorated/Coughed Respiratory Culture - Final Culture exhibits no growth. Medical Necessity - Tobacco Use Smoking Status: Former smoker Assessment/Plan All Active Problems (Last Reviewed 11/09/19 @ 19:[address] Edouard Michael MD) Respiratory failure with hypoxia (Acute) Status asthmaticus (Acute) Suspected 2019 novel coronavirus infection (Acute) Metabolic acidosis (Acute) Abnormal result of cardiovascular function study, unspecified (Resolved) SBO (small bowel obstruction) (Resolved) RECOMMENDATIONS: 1. Wean oxygen as tolerated 2. Oral supplementation of potassium as indicated 3. Continue Seroquel at current dosing 4. Continue scheduled bronchodilator therapy and IV steroids. Continue daily Singulair as well. 5. Walking oximetry prior to discharge 6. Close outpatient pulmonary follow-up within 2 weeks of discharge is recommended. RAST profile was ordered. 7. Strongly consider outpatient initiation of biologic therapy for underlying asthma. IMPRESSIONS: 1. Acute hypoxemic respiratory failure The patient reportedly has a history of severe persistent asthma and previously had documented significant peripheral eosinophilia and grossly elevated IgE levels. Subsequent work-up including cultures and CTA chest were unremarkable. There was no evidence of focal infiltrate or pneumonia. High clinical suspicion for asthma exacerbation leading to acute hypoxemic respiratory failure. Patient is currently on maximal therapy, so outpatient evaluation for Biologics is likely indicated. Steroids will be decreased today. Increase activity as tolerated. 2. Anxiety This will exacerbate patient's underlying pulmonary mechanics. Patient appears to be responding well to Seroquel therapy. This will be continued. Benzodiazepines have been linked with onset of delirium in similar patients. Will attempt to avoid if possible. 3. Coronary artery disease status post bypass/GERD/hyperlipidemia/hypertension/hypokalemia Complicates care, management, recovery and prognosis. Continue home medications as indicated. Potassium will be supplemented with liquid as patient has some difficulty with large pills when indicated. Inpatient E&M: [id number] [facility] Hosp L3
--- NOTE | 2019-11-13 09:16 | PN_ITS ---
Patient Problems: Active and Suspected Problems (Last Reviewed 11/09/19 @ 19:[address] Edouard Michael MD) Respiratory failure with hypoxia (Acute) Status asthmaticus (Acute) Suspected 2019 novel coronavirus infection (Acute) Metabolic acidosis (Acute) Reason for Visit: asthma exacerbation Subjective: Doesn't feel any better. States that 2 liter/min of oxygen didn't help, so he took it off. Still feels shortness of breath. Vitals/I&O's: Vital Signs Temp Pulse Resp BP Pulse Ox 36.6 C 84 20 H 136/86 H 97 11/13/19 02:46 11/13/19 07:09 11/13/19 07:09 11/13/19 02:46 11/13/19 07:09 Oxygen Flow Rate (L/min) 2 Oxygen Delivery Method Nasal Cannula Weight: 70.9 kg Body Mass Index (BMI) 26.6 Intake and Output for Last 24 Hours 11/11/19 11/12/19 11/13/19 23:59 23:59 23:59 Intake Total 1628.26 / 1628.26 350 / 350 250 / 250 Output Total 1500 / 1500 625 / 625 Balance 128.26 / 128.26 -275 / -275 250 / 250 General: Alert, No apparent distress HEENT: Atraumatic, Normocephalic Oral: Moist Mucosa, No Gingival or Mucosal Lesions/ Ulcerations Neck: No Nodes, Trachea Midline Lungs: Clear to auscultation, Normal air movement, No rhonchi, No wheeze Cardiovascular: Regular rate, Regular Rhythm, Normal S1, Normal S2 Abdomen: Bowel Sounds Present, Soft, Non Tender, Non-Distended, No Hepato- splenomegaly Extremities: No edema, No Calf Tenderness Skin: No rashes, No breakdown Psych/Mental Status: Normal Affect, Appropriate Microbiology Past 72 Hours 11/09/19 17:42 Blood Culture (Wb) - Anticubital Left Blood Culture - Preliminary No growth in 48 hours. 11/09/19 17:55 Urine, Catheterized Urine Culture - Final Culture exhibits no growth. 11/09/19 18:22 Sputum, Expectorated/Coughed Gram Stain - Final 11/09/19 18:22 Sputum, Expectorated/Coughed Respiratory Culture - Final Culture exhibits no growth. 11/10/19 07:20 Mucosa - Nasopharyngeal Coronavirus COVID-19 PCR - Final 11/09/19 23:15 Mucosa - Nasopharyngeal Respiratory Panel (PCR) - Final Laboratory Results 11/13/19 06:40: Sodium 138, Potassium 3.7, Chloride 108 H, Carbon Dioxide 24.0, Anion Gap 6, BUN 30 H, Creatinine 0.71, Estim Creat Clear Calc 50.98, Est GFR (MDRD) Af Amer 137, Est GFR (MDRD) Non-Af 113, BUN/Creatinine Ratio 42.1 H, Glucose 129 H, Calcium 9.5 Current Medications Acetaminophen (Tylenol) 650 mg PO Q6H PRN PRN PRN Reason: Pain Score 1-10/Temp > 100.7 F Albuterol Sulfate (Ventolin Aerosols) 2.5 mg INHALATION Q2H PRN PRN PRN Reason: SOB/Wheezing Last Admin: 11/12/19 01:43 Dose: 2.5 mg Documented by: Albuterol/Ipratropium (Duoneb) 3 ml INHALATION Q4H.RT [facility] Last Admin: 11/13/19 07:09 Dose: 3 ml Documented by: Amlodipine Besylate (Norvasc) 10 mg PO DAILY [facility] Last Admin: 11/12/19 09:36 Dose: 10 mg Documented by: Aspirin (Ecotrin) 81 mg PO DAILY@0800 [facility] Last Admin: 11/12/19 09:38 Dose: 81 mg Documented by: Atorvastatin Calcium (Lipitor) 40 mg PO QHS [facility] Last Admin: 11/12/19 21:33 Dose: 40 mg Documented by: Chlorhexidine Gluconate () 1 each TOPICAL DAILY [facility] Last Admin: 11/12/19 12:09 Dose: 1 each Documented by: Dextrose (D50w Syringe) 0 gm IV X1 PRN; Protocol PRN Reason: Hypoglycemia Enoxaparin Sodium (Lovenox) 40 mg SC BID [facility] Last Admin: 11/12/19 21:33 Dose: 40 mg Documented by: Glucagon () 1 mg IM .X1 PRN PRN Reason: Hypoglycemia Hydralazine HCl (Apresoline Iv) 10 mg IV Q4H PRN PRN PRN Reason: BLOOD PRESSURE ELEVATION Last Admin: 11/11/19 17:17 Dose: 10 mg Documented by: Hydrochlorothiazide () 12.5 mg PO DAILY [facility] Last Admin: 11/12/19 09:37 Dose: 12.5 mg Documented by: Sodium Chloride () 250 mls @ 15 mls/hr IV .[id number] PRN PRN Reason: Saline Flush Sodium Chloride () 250 mls @ 15 mls/hr IV .[id number] PRN PRN Reason: Additional IVPB Infusion Loratadine (Claritin) 5 mg PO QHS [facility] Last Admin: 11/12/19 21:34 Dose: 5 mg Documented by: Lorazepam (Ativan) 0.5 mg PO Q6H PRN PRN PRN Reason: ANXIETY Last Admin: 11/12/19 03:04 Dose: 0.5 mg Documented by: Methylprednisolone (Solu-Medrol) 40 mg IV Q12 [facility] Metoprolol Tartrate (Lopressor (Beta Zuly)) 25 mg PO BID [facility] Last Admin: 11/12/19 21:33 Dose: 25 mg Documented by: Montelukast Sodium (Singulair) 10 mg PO DAILY [facility] Last Admin: 11/12/19 09:37 Dose: 10 mg Documented by: Ondansetron HCl (Zofran) 4 mg IV Q8H PRN PRN PRN Reason: NAUSEA/VOMITING Last Admin: 11/12/19 07:57 Dose: 4 mg Documented by: Pantoprazole Sodium (Protonix) 40 mg PO DAILY [facility] Last Admin: 11/12/19 09:37 Dose: 40 mg Documented by: Quetiapine Fumarate (Seroquel) 100 mg PO BID [facility] Sodium Chloride () 10 - 40 ml IV UD PRN PRN Reason: SALINE FLUSH Last Admin: 11/13/19 06:06 Dose: 10 ml Documented by: STROKE Vital Signs/Narrative: Vital Signs Pulse Resp Pulse Ox 11/13/19 07:09 84 20 H 97 Medical Necessity - Tobacco Use Smoking Status: Former smoker Assessment/Plan All Active Problems (Last Reviewed 11/09/19 @ 19:[address] Edouard Michael MD) Respiratory failure with hypoxia (Acute) Status asthmaticus (Acute) Suspected 2019 novel coronavirus infection (Acute) Metabolic acidosis (Acute) Abnormal result of cardiovascular function study, unspecified (Resolved) SBO (small bowel obstruction) (Resolved) 1. acute hypoxic respiratory failure * 2/2 AE asthma * extubated * COVID-19 negative * methylpred decreased 2. acute exacerbation of asthma * BDs and methylprednisone * anxiety complicates picture 3. Anxiety * complicates picture * minimize BZDs * received quetiapine per CCM as monotherapy 100mg BID 4. VTE prophylaxis: LMWH Inpatient E&M: [id number] Subs Hosp L2
[2019-11-13] MEDS: Aspirin E.C. 81 MG Tablet PO (09:20)
[2019-11-13] MEDS: hydroCHLOROthiazide 12.5mg 12.5 MG PO (09:20)
[2019-11-13] MEDS: Montelukast 10 MG Tablet PO (09:20)
[2019-11-13] MEDS: Metoprolol Tartrate 25 MG Tablet PO ×2 (09:20→20:48)
[2019-11-13] MEDS: amLODIPine 10 MG Tablet PO (09:21)
[2019-11-13] MEDS: Pantoprazole Sodium 40 MG Tablet PO (09:21)
[2019-11-13] MEDS: QUEtiapine 100 MG Tablet PO ×2 (09:25→20:48)
[2019-11-13] MEDS: Enoxaparin 40 MG/0.4 ML Syringe SC ×2 (09:25→20:48)
--- NOTE | 2019-11-13 11:50 | CASEMGMT ---
RN CM Face to Face with patient for initial transition planning/care coordination assessment. RN CM introduced self and role at [facility]. Patient sitting in chair, alert and oriented. Patient willing to participate in assessment and is able to answer all questions appropriately. Care providers, pharmacy, and demographics verified. Patient wishes to discharge home, denies need for home health at this time. Patient states he has no further needs or concerns at this time. CM to follow for discharge planning needs that may arise. 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 Patient states he is independent and able to ambulate stairs at home. Transportation: self/Son DME/HHC: Patient states he has nebulizer, walker, and cane at home. Will monitor patient for need for home oxygen. Denies previous HHC. Disposition Plan: Patient to discharge home with family support and follow-up plans in place. Taisha MCKINNEY, RN, CM
[2019-11-13] MEDS: hydrALAZINE 20 MG/ML Vial 10 MG IV (19:38)
--- NOTE | 2019-11-13 20:10 | EKG12_ITS ---
Test Reason : CP Blood Pressure : / mmHG Vent. Rate : 109 BPM Atrial Rate : 109 BPM P-R Int : 148 ms QRS Dur : 122 ms QT Int : 372 ms P-R-T Axes : 018 -01 041 degrees QTc Int : 500 ms Sinus tachycardia Right bundle branch block Abnormal ECG When compared with ECG of 09-NOV-2019 17:40, Right bundle branch block is now Present Confirmed by AL SHERMAN, ANA ([id number]), news assignment editor CANDI PALOMINO ([id number]) on 11/19/2019 11:35:22 AM Referred By: Edouard Michael Confirmed By:LEEANN MELENDEZ MD
[2019-11-13] MEDS: LORazepam 0.5 MG Tablet PO (20:14)
--- NOTE | 2019-11-13 20:37 | NURSING ---
Lab called for stat troponin.
[2019-11-13] MEDS: Loratadine 10 MG Tablet 5 MG PO (20:48)
[2019-11-13] MEDS: Atorvastatin Calcium 40 MG Tablet PO (20:48)
--- NOTE | 2019-11-13 22:41 | ECHOD_ITS ---
Reason For Study: CHEST PAIN Procedure This was a 2D Doppler, Color Flow transthoracic echocardiogram. The study was technically difficult. PT had difficulty lying still throughout exam. Exam performed portable in patient room. Left Ventricle Normal size and thickness. The estimated ejection fraction is 65 %. Stage 1 diastolic dysfunction. No regional wall motion abnormalities noted. Right Ventricle Normal size and thickness. Normal systolic function. Atria Normal left atrium. Normal right atrium. Normal atrial septum. Mitral Valve The mitral valve is structurally normal. No prolapse or stenosis seen. Tricuspid Valve Normal tricuspid valve. Unable to estimate RV systolic pressure due to insufficient tricuspid regurgitant envelope. Aortic Valve Trisinus/trileaflet aortic valve. Mild focal aortic valve thickening. There is no aortic stenosis. Pulmonic Valve The pulmonic valve is not well visualized. Great Vessels Normal aortic root. Normal arch. Normal inferior vena cava. Inferior vena cava collapse with sniff. Pericardium/Pleural No pericardial effusion. MMode/2D Measurements & Calculations LVIDd: 5.4 cm IVSd: 1.0 cm Ao root diam: 3.4 cm LVIDs: 3.1 cm LVPWd: 1.1 cm RVDd: 3.2 cm FS: 41.8 % LAV(MOD-bp): 65.3 ml LA A4 area: 23.3 cm2 LA dimension(2D): 3.9 cm LAV(MOD-bp) Indexed: 36.7 ml/m2 LAV(MOD-sp2): 55.9 ml LAV(MOD-sp4): 76.3 ml Time Measurements MV dec time: 0.22 sec Doppler Measurements & Calculations MV E max sherwin: 58.7 cm/sec Lat Peak E' Sherwin: 7.4 cm/sec Med Peak E' Sherwin: 5.4 cm/sec MV A max sherwin: 106.1 cm/sec E/E' lat: 7.9 E/E' med: 10.8 MV E/A: 0.55 Ao V2 max: 104.0 cm/sec LV V1 max: 92.7 cm/sec PA V2 max: 85.9 cm/sec Ao max P.3 mmHg LV V1 max P.4 mmHg Interpretation Summary The estimated ejection fraction is 65 %. Stage 1 diastolic dysfunction. Unable to estimate RV systolic pressure due to insufficient tricuspid regurgitant envelope. Compared to echo report dated 09/22/2009, no appreciable changes noted. Ordering Physician: Brant Gleason Referring Physician: Kev Steve Performed By: Marine Tobias RDCS, RVT
--- NOTE | 2019-11-13 22:51 | PCM.PN.BLA ---
Progress Note Patient developed chest pain. When I saw the patient, he states that chest pain is easing up. Pain getting worse when taking deep breath. Stat EKG done and did show new EKG changes, ST depression in leads V3 and V4 as well as T wave inversion and those changes were not present on admission EKG. Troponin is 0.059. Discussed with cardiology. Plan: Transfer to PCU, serial cardiac enzymes, repeat EKG tomorrow morning, cardiology consult, 2D echocardiogram. STROKE Vital Signs/Narrative: Vital Signs Temp Pulse Resp BP BP Pulse Ox 11/13/19 21:30 106 H 11/13/19 20:48 109 H 11/13/19 20:43 98.4 F 109 H 20 H 150/81 H 94 11/13/19 20:13 117 H 208/149 H 93 11/13/19 19:38 103 H 11/13/19 19:31 97.9 F 103 H 22 H 179/92 H 91 11/13/19 19:20 100 20 H
--- NOTE | 2019-11-13 23:33 | NURSING ---
Patient transferred to PCU at this time for chest pain/EKG changes. Report called to Anisa ZAMARRIPA. Patient states that he will notify next of kin tomorrow morning, regarding transfer.
[2019-11-14] VITALS (16 sets, daily range): BP systolic 132–160; BP diastolic 80–86; PULSE 68–119; RESP 16–20; TEMP 36.4–36.6; O2SAT 93–97
--- NOTE | 2019-11-14 05:55 | EKG12_ITS ---
Test Reason : AM EKG Blood Pressure : / mmHG Vent. Rate : 078 BPM Atrial Rate : 078 BPM P-R Int : 160 ms QRS Dur : 116 ms QT Int : 444 ms P-R-T Axes : 015 014 038 degrees QTc Int : 506 ms Normal sinus rhythm Right bundle branch block Abnormal ECG When compared with ECG of 13-NOV-2019 20:24, MANUAL COMPARISON REQUIRED, DATA IS UNCONFIRMED Confirmed by AL SHERMAN, ANA ([id number]), food expeditor CANDI PALOMINO ([id number]) on 11/19/2019 11:47:21 AM Referred By: Edouard Michael Confirmed By:LEEANN MELENDEZ MD
--- NOTE | 2019-11-14 08:49 | PCM.PN.PUL ---
Patient Problems: Active and Suspected Problems (Last Reviewed 11/09/19 @ 19:[address] Edouard Michael MD) Respiratory failure with hypoxia (Acute) Status asthmaticus (Acute) Suspected 2019 novel coronavirus infection (Acute) Metabolic acidosis (Acute) Subjective: Patient transferred from [facility] to PCU overnight secondary to chest pain. Patient states the pain was intense and located to his left chest. Patient states that this is currently resolved and he feels that he is breathing okay. Patient does feel that he has something caught in my throat whenever he looks to the right side. Patient has not been out of bed this morning to know if exertion makes it worse. - Physical Exam Vitals/I&O's: Vital Signs Temp Pulse Resp BP Pulse Ox 36.6 C 68 16 148/84 H 96 11/14/19 04:30 11/14/19 07:01 11/14/19 04:30 11/14/19 04:30 11/14/19 07:43 Oxygen Flow Rate (L/min) 4 Oxygen Delivery Method Nasal Cannula Weight: 69.1 kg Body Mass Index (BMI) 26.6 Intake and Output for Last 24 Hours 11/12/19 11/13/19 11/14/19 23:59 23:59 23:59 Intake Total 350 / 350 1370 / 1370 Output Total 625 / 625 350 / 350 500 / 500 Balance -275 / -275 1020 / 1020 -500 / -500 General: Alert, Oriented x3, Cooperative, No apparent distress, - - Appears stated age. Speaking in full sentences. HEENT: Atraumatic, PERRLA, EOMI, Normocephalic, - - No scleral icterus or injection noted. Glasses in place. Oral: Moist Mucosa, No Gingival or Mucosal Lesions/ Ulcerations Neck: Supple, No JVD, No Nodes, Trachea Midline Lungs: Clear to auscultation, No rhonchi, No wheeze, No rales, - - Symmetric expansion. No dullness to percussion. Cardiovascular: Regular rate, Regular Rhythm, Normal S1, Normal S2, No murmurs, No rub noted, No Gallop Abdomen: Bowel Sounds Present, Soft, Non Tender, Non-Distended Extremities: No clubbing, No cyanosis, No edema, Capillary Refill Less than 3 Seconds Skin: No rashes, No breakdown Musculoskeletal: No Tenderness to Palpation of Joints or Extremities Lymphatic: No Cervical, Supraclavicular, or Inguinal Adenopathy Neurological: Cranial nerves II-XII grossly intact, Neuro grossly intact, Motor Exam 5/5 strength throughout Psych/Mental Status: Alert and oriented to time, place, person, mood and affect Microbiology Past 72 Hours 11/09/19 17:42 Blood Culture (Wb) - Anticubital Left Blood Culture - Preliminary No growth in 48 hours. 11/09/19 17:55 Urine, Catheterized Urine Culture - Final Culture exhibits no growth. 11/09/19 18:22 Sputum, Expectorated/Coughed Gram Stain - Final 11/09/19 18:22 Sputum, Expectorated/Coughed Respiratory Culture - Final Culture exhibits no growth. Laboratory Results 11/13/19 20:55: Troponin I 0.059 H 11/14/19 00:26: Troponin I 0.071 H 11/14/19 04:05: Troponin I 0.063 H Current Medications Acetaminophen (Tylenol) 650 mg PO Q6H PRN PRN PRN Reason: Pain Score 1-10/Temp > 100.7 F Albuterol Sulfate (Ventolin Aerosols) 2.5 mg INHALATION Q2H PRN PRN PRN Reason: SOB/Wheezing Last Admin: 11/12/19 01:43 Dose: 2.5 mg Documented by: Albuterol/Ipratropium (Duoneb) 3 ml INHALATION Q4H.RT [facility] Last Admin: 11/14/19 07:05 Dose: Not Given Documented by: Amlodipine Besylate (Norvasc) 10 mg PO DAILY [facility] Last Admin: 11/13/19 09:21 Dose: 10 mg Documented by: Aspirin (Ecotrin) 81 mg PO DAILY@0800 [facility] Last Admin: 11/13/19 09:20 Dose: 81 mg Documented by: Atorvastatin Calcium (Lipitor) 40 mg PO QHS [facility] Last Admin: 11/13/19 20:48 Dose: 40 mg Documented by: Dextrose (D50w Syringe) 0 gm IV X1 PRN; Protocol PRN Reason: Hypoglycemia Enoxaparin Sodium (Lovenox) 40 mg SC BID [facility] Last Admin: 11/13/19 20:48 Dose: 40 mg Documented by: Glucagon () 1 mg IM .X1 PRN PRN Reason: Hypoglycemia Hydralazine HCl (Apresoline Iv) 10 mg IV Q4H PRN PRN PRN Reason: BLOOD PRESSURE ELEVATION Last Admin: 11/13/19 19:38 Dose: 10 mg Documented by: Hydrochlorothiazide () 12.5 mg PO DAILY [facility] Last Admin: 11/13/19 09:20 Dose: 12.5 mg Documented by: Sodium Chloride () 250 mls @ 15 mls/hr IV .[id number] PRN PRN Reason: Saline Flush Sodium Chloride () 250 mls @ 15 mls/hr IV .[id number] PRN PRN Reason: Additional IVPB Infusion Loratadine (Claritin) 5 mg PO QHS [facility] Last Admin: 11/13/19 20:48 Dose: 5 mg Documented by: Lorazepam (Ativan) 0.5 mg PO Q6H PRN PRN PRN Reason: ANXIETY Last Admin: 11/13/19 20:14 Dose: 0.5 mg Documented by: Methylprednisolone (Solu-Medrol) 40 mg IV Q12 [facility] Last Admin: 11/13/19 20:48 Dose: 40 mg Documented by: Metoprolol Tartrate (Lopressor (Beta Zuly)) 25 mg PO BID [facility] Last Admin: 11/13/19 20:48 Dose: 25 mg Documented by: Montelukast Sodium (Singulair) 10 mg PO DAILY [facility] Last Admin: 11/13/19 09:20 Dose: 10 mg Documented by: Ondansetron HCl (Zofran) 4 mg IV Q8H PRN PRN PRN Reason: NAUSEA/VOMITING Last Admin: 11/12/19 07:57 Dose: 4 mg Documented by: Pantoprazole Sodium (Protonix) 40 mg PO DAILY [facility] Last Admin: 11/13/19 09:21 Dose: 40 mg Documented by: Quetiapine Fumarate (Seroquel) 100 mg PO BID [facility] Last Admin: 11/13/19 20:48 Dose: 100 mg Documented by: Sodium Chloride () 10 - 40 ml IV UD PRN PRN Reason: SALINE FLUSH Last Admin: 11/13/19 20:48 Dose: 10 ml Documented by: Medical Necessity - Tobacco Use Smoking Status: Former smoker Assessment/Plan All Active Problems (Last Reviewed 11/09/19 @ 19:[address] Edouard Michael MD) Respiratory failure with hypoxia (Acute) Status asthmaticus (Acute) Suspected 2018 novel coronavirus infection (Acute) Metabolic acidosis (Acute) Abnormal result of cardiovascular function study, unspecified (Resolved) SBO (small bowel obstruction) (Resolved) RECOMMENDATIONS: 1. Wean oxygen as tolerated 2. Oral supplementation of potassium as indicated 3. Continue Seroquel at current dosing 4. Will hold at current scheduled bronchodilator therapy and IV steroids. Continue daily Singulair as well. 5. Walking oximetry prior to discharge 6. Close outpatient pulmonary follow-up within 2 weeks of discharge is recommended. RAST profile was ordered. 7. Strongly consider outpatient initiation of biologic therapy for underlying asthma. IMPRESSIONS: 1. Acute hypoxemic respiratory failure The patient reportedly has a history of severe persistent asthma and previously had documented significant peripheral eosinophilia and grossly elevated IgE levels. Subsequent work-up including cultures and CTA chest were unremarkable outside of some mucus plugging. There was no evidence of focal infiltrate or pneumonia. High clinical suspicion for asthma exacerbation leading to acute hypoxemic respiratory failure. Patient is currently on maximal therapy, so outpatient evaluation for Biologics is likely indicated. Plans to transition to prednisone therapy today will be held secondary to acute chest pain. Patient has good air exchange at this time. If persists in high oxygen requirements, could obtain a chest x-ray to see if there is an element of atelectasis. Patient is not having significant constitutional symptoms to suggest acute pneumonia at this time. 2. Anxiety This will exacerbate patient's underlying pulmonary mechanics. Patient appears to be responding well to Seroquel therapy. This will be continued. Benzodiazepines have been linked with onset of delirium in similar patients. Will attempt to avoid if possible. 3. Coronary artery disease status post bypass/GERD/hyperlipidemia/hypertension/hypokalemia Complicates care, management, recovery and prognosis. Continue home medications as indicated. Potassium will be supplemented as indicated with liquid as patient has some difficulty with large pills. Inpatient E&M: 36884 Subs Hosp L2
--- NOTE | 2019-11-14 09:23 | CON.PCM_ITS ---
Problem List (1) Angina pectoris Status: Acute (2) NSTEMI (non-ST elevated myocardial infarction) Status: Acute (3) Coronary atherosclerosis of [place] coronary artery Status: Chronic Qualifiers: [place] vs. transplanted heart: [place] heart Associated angina: without angina Qualified Code(s): I25.10 - Atherosclerotic heart disease of [place] coronary artery without angina pectoris Comment: CABG x 2 TRUONG-LAD, SVG- posterior lateral CFX 12/24 (4) H/O coronary artery bypass surgery Status: Chronic Comment: CABG x 2 TRUONG-LAD, SVG- posterior lateral CFX 12/24 (5) Hyperlipidemia Status: Chronic Qualifiers: Hyperlipidemia type: pure hypercholesterolemia Qualified Code(s): E78.00 - Pure hypercholesterolemia, unspecified; E78.0 - Pure hypercholesterolemia (6) Essential (primary) hypertension Status: Chronic (7) Carotid artery disease Status: Chronic (8) Respiratory failure with hypoxia Status: Acute Reason for Consult Date of Consultation: 11/14/19 History of Present Illness: The patient is a 79 year old white male with a past medical history of CAD, status post CABG (TRUONG to the LAD and SVG to the LCx system), hyper lipidemia, hypertension, and artery disease, and asthma requiring recent evaluation/care in the ICU with mechanical intubation/ventilation who was referred for evaluation of chest discomfort concerning for angina pectoris and abnormal troponin I levels concerning for a non-ST segment elevation OR. He states he had issues breathing at home. He presented to the hospital. He was thought to have an acute respiratory syndrome and required mechanical intubation/ventilation. He did undergo COVID-19 evaluation which was reported as not detected. He was eventually extubated and transferred from the ICU. He was noted to have concerns of left-sided chest discomfort/central chest discomfort. He does not recall having discomfort like this in the past. He states he felt as if this was a crushing sensation on his chest. It eventually eased up. He was evaluated by internal medicine. His admission: I level was reviewed which was negative. His subsequent troponin I level elevated to 0.071. His initial ECG demonstrated findings concerning for sinus rhythm/sinus tachycardia with possible ST segment findings compatible with a subendocardial injury pattern. His ECG repeats during and following his chest discomfort demonstrated sinus rhythm with a right bundle branch block pattern with ST and T wave changes which upon repeat has improved respect to ST and T wave changes. He states he is feeling much better at this time. He notes that when he has been up and about he gets markedly short of breath and dyspneic. He has not complained of acute orthopnea or PND. He has no ongoing peripheral pitting edema at the moment. He denies any near-syncope or syncope. [] Past Medical History Allergies/Adverse Reactions: Allergies nitroglycerin Allergy (Verified 11/09/19 17:33) Other states it makes my head explode. states he can take the pills but not the patch simvastatin Adverse Reaction (Severe, Verified 11/09/19 17:33) Myalgias CONTRAST DYE Allergy (Mild, Uncoded 11/09/19 17:33) Rash Home Medications: Ambulatory Orders Medication Instructions Recorded Lansoprazole [Prevacid] 30 mg PO DAILY 09/07/13 Cholecalciferol (VIT D3) [Vitamin 1,000 unit PO DAILY 03/12/16 D3] Cyanocobalamin (Vitamin B-12) 1,000 mcg PO DAILY 03/12/16 [Vitamin B-12] L.acidoph,Paracasei, B.lactis 1 ea PO DAILY 10/02/18 [Probiotic] Acetaminophen [Tylenol] 1,000 mg PO Q8 #100 tab 10/12/18 atorvastatin 40 mg tablet 40 mg PO QHS #90 tab 12/06/18 aspirin 81 mg tablet,delayed 81 mg PO DAILY 01/16/19 release amlodipine 5 mg tablet 5 mg PO DAILY #90 tab 07/17/19 metoprolol tartrate 25 mg tablet 25 mg PO BID #180 tab 10/15/19 Albuterol Sulfate [Ventolin Hfa] 2 puff INHALATION Q6H PRN PRN 11/09/19 Budesonide/Formoterol Fumarate 2 puff INHALATION BID 11/09/19 [Symbicort 160-4.5 Mcg Inhaler] Cefadroxil [Duricef] 500 mg PO BID 11/09/19 Ibuprofen [Ibu] 800 mg PO BID 11/09/19 Ipratropium/Albuterol Sulfate 3 ml INHALATION Q6H PRN PRN 11/09/19 [Duoneb] Levocetirizine Dihydrochloride 5 mg PO QHS 11/09/19 [Xyzal] Lorazepam [Ativan] 0.5 mg PO QHS PRN PRN 11/09/19 Montelukast [Singulair] 10 mg PO DAILY 11/09/19 Tiotropium [place] [Spiriva 2 puff INHALATION DAILY 11/09/19 Respimat] Past Medical History (Chronic Problems): Chronic Problems (Last Reviewed 11/09/19 @ 19:[address] Edouard Michael MD) History of asthma (Chronic) History of coronary artery disease (Chronic) Carotid artery disease (Chronic) H/O coronary artery bypass surgery (Chronic 12/2006) CABG x 2 TRUONG-LAD, SVG- posterior lateral CFX 12/24 Essential (primary) hypertension (Chronic) Coronary atherosclerosis of [place] coronary artery (Chronic) CABG x 2 TRUONG-LAD, SVG- posterior lateral CFX 12/24 Carotid bruit (Chronic) Hyperlipidemia (Chronic) Surgical History: noncontributory Psychiatric History: No pertinent psych hx - *Family History Maternal Family History: Family History (Last Reviewed 11/09/19 @ 19:[address] Edouard Michael MD) Grandfather Myocardial infarction Sudden cardiac Grandmother CVA (cerebral vascular accident) Grandfather Cancer Father Colon cancer Hypertension Mother Breast cancer CHF (congestive heart failure) Brother COPD (chronic obstructive pulmonary disease) Sister CAD (coronary artery disease) Hypertension HLD (hyperlipidemia) Son Hypertension History Items: No pertinent history Paternal Family History: Family History (Last Reviewed 11/09/19 @ 19:[address] Edouard Michael MD) Grandfather Myocardial infarction Sudden cardiac Grandmother CVA (cerebral vascular accident) Grandfather Cancer Father Colon cancer Hypertension Mother Breast cancer CHF (congestive heart failure) Brother COPD (chronic obstructive pulmonary disease) Sister CAD (coronary artery disease) Hypertension HLD (hyperlipidemia) Son Hypertension History Items: No pertinent history Lives: Alone Smoking Status: Former smoker Review of Systems - Review of Systems General: Denies: Fever, Night Sweats, Fatigue Cardiovascular: Reports: Chest Discomfort, Chest Discomfort at Rest, Shortness of Breath, Shortness of Breath at Rest. Denies: Orthopnea, PND, Peripheral Edema, Palpitations, Lightheadedness, Dizziness, Near Syncope, Syncope Respiratory: Reports: Shortness of Breath. Denies: Cough, Sputum Production, Hemoptysis Gastrointestinal: Denies: Hematemesis, Hematochezia, Melena Genitourinary: Denies: Dysuria, Hematuria Skin: Denies: Rash Subjectve: Is a pleasant 79-year-old white male who appears to be resting comfortably at the moment in no acute distress. Objective: Vital Signs Temp Pulse Resp BP Pulse Ox 97.8 F 68 16 148/84 H 96 11/14/19 04:30 11/14/19 07:01 11/14/19 04:30 11/14/19 04:30 11/14/19 07:43 Oxygen Flow Rate (L/min) 4 Oxygen Delivery Method Nasal Cannula Weight: 152 lb 5.431 oz Body Mass Index (BMI) 26.6 Intake and Output for Last 24 Hours 11/12/19 11/13/19 11/14/19 23:59 23:59 23:59 Intake Total 350 / 350 1370 / 1370 Output Total 625 / 625 350 / 350 500 / 500 Balance -275 / -275 1020 / 1020 -500 / -500 General: Awake, Alert, Oriented x 3, Cooperative, No Acute Distress HEENT: Atraumatic, Normocephalic, PERRL, EOMI, Sclera Non Icteric Oral: Moist Mucosa Neck: Supple, Good ROM, No JVD Lungs: Diminished [place] Bases Cardiovascular: Regular Rhythm, Normal S1, Normal S2 Vascular: [place] Carotid Artery Bruits Abdomen: Bowel Sounds Present, Soft, Non Tender Extremities: No edema Neurological: No Focal Motor or Sensory Deficit Psych/Mental Status: Appropriate 11/13/19 20:55: Troponin I 0.059 H 11/14/19 00:26: Troponin I 0.071 H 11/14/19 04:05: Troponin I 0.063 H Rhythm: Sinus rhythm EKG: As noted above ECHO: Pending CT scan: 11-10-2019: No obvious acute great vessel disease/thromboembolic disease and no report of findings compatible with pneumonia: Please see official report Assessment/Plan 1. Angina pectoris The patient developed symptoms concerning for angina pectoris. He appears to be symptomatically improved at this time. He has been undergoing evaluation with troponin I levels which have increased to 0.071. He has had ECGs performed as noted above. He does have a history of CAD and status post CABG. At the present time he will continue medical therapy which will include the addition of antiplatelet therapy. He will be evaluated with an echocardiogram to evaluate his left ventricular wall motion and systolic function. He has been recommended to have future evaluation with diagnostic cardiac catheterization to reassess his coronary/graft status. 2. Non-ST segment elevation OR Based upon the patient's clinical scenario and objective findings there is concern about a non-ST segment elevation OR. He will continue to be monitored. He will continue medical management. He will be assessed as noted above. 3. CAD status post CABG The patient underwent CABG in 2006. He had 2 grafts placed as noted. The present time he will continue evaluation care as noted above. 4. Hyperlipidemia He will continue medical management. 5. Hypertension His blood pressure can be monitored and his medicines adjusted to assist with blood pressure control. 6. Carotid artery disease He will continue evaluation care as deemed appropriate. 7. COPD/asthma status post transient mechanical intubation/ventilation The patient appears to be doing better overall from a respiratory standpoint. He will need continued evaluation care per internal medicine and pulmonology/critical care medicine. Comment: The patient's case was discussed and reviewed with the patient and his primary lead miner blasting Dr. Jimenez. This note was generated using a voice recognition system and there may be incorrect words, spelling or punctuation that were not noted when reviewing the office note prior to saving.
[2019-11-14] MEDS: 0.9% Saline Lock 10 ML Syringe IV ×2 (09:49→21:59)
[2019-11-14] MEDS: Enoxaparin 40 MG/0.4 ML Syringe SC ×2 (09:49→22:10)
[2019-11-14] MEDS: Montelukast 10 MG Tablet PO (09:51)
[2019-11-14] MEDS: amLODIPine 10 MG Tablet PO (09:51)
[2019-11-14] MEDS: QUEtiapine 100 MG Tablet PO ×2 (09:51→22:10)
[2019-11-14] MEDS: Metoprolol Tartrate 25 MG Tablet PO ×2 (09:51→22:10)
[2019-11-14] MEDS: Clopidogrel Bisulfate 300 MG Tablet PO (09:51)
[2019-11-14] MEDS: Aspirin E.C. 81 MG Tablet PO (09:51)
[2019-11-14] MEDS: Pantoprazole Sodium 40 MG Tablet PO (09:51)
[2019-11-14] MEDS: hydroCHLOROthiazide 12.5mg 12.5 MG PO (09:51)
--- NOTE | 2019-11-14 10:22 | PN_ITS ---
Patient Problems: Active and Suspected Problems (Last Reviewed 11/09/19 @ 19:[address] Edouard Michael MD) Respiratory failure with hypoxia (Acute) Status asthmaticus (Acute) Suspected 2019 novel coronavirus infection (Acute) Metabolic acidosis (Acute) Angina pectoris (Acute) NSTEMI (non-ST elevated myocardial infarction) (Acute) Reason for Visit: asthma Subjective: had chest pain last night. improved, but still present on left side of chest. Vitals/I&O's: Vital Signs Temp Pulse Resp BP Pulse Ox 36.4 C L 83 18 160/80 H 97 11/14/19 09:48 11/14/19 09:51 11/14/19 09:48 11/14/19 09:48 11/14/19 09:48 Oxygen Flow Rate (L/min) 1 Oxygen Delivery Method Nasal Cannula Weight: 69.1 kg Body Mass Index (BMI) 26.6 Intake and Output for Last 24 Hours 11/12/19 11/13/19 11/14/19 23:59 23:59 23:59 Intake Total 350 / 350 1370 / 1370 Output Total 625 / 625 350 / 350 500 / 500 Balance -275 / -275 1020 / 1020 -500 / -500 General: Alert, No apparent distress HEENT: Atraumatic Oral: Moist Mucosa, No Gingival or Mucosal Lesions/ Ulcerations Neck: No Nodes, Trachea Midline Lungs: Clear to auscultation, Diminished Cardiovascular: Regular rate, Regular Rhythm, Normal S1, Normal S2, No murmurs Abdomen: Bowel Sounds Present, Soft, Non Tender, Non-Distended, No Hepato- splenomegaly Extremities: No edema, No Calf Tenderness Skin: No rashes, No breakdown Psych/Mental Status: Normal Affect, Appropriate Microbiology Past 72 Hours 11/09/19 17:42 Blood Culture (Wb) - Anticubital Left Blood Culture - Preliminary No growth in 48 hours. 11/09/19 17:55 Urine, Catheterized Urine Culture - Final Culture exhibits no growth. 11/09/19 18:22 Sputum, Expectorated/Coughed Gram Stain - Final 11/09/19 18:22 Sputum, Expectorated/Coughed Respiratory Culture - Final Culture exhibits no growth. Laboratory Results 11/13/19 20:55: Troponin I 0.059 H 11/14/19 00:26: Troponin I 0.071 H 11/14/19 04:05: Troponin I 0.063 H Current Medications Acetaminophen (Tylenol) 650 mg PO Q6H PRN PRN PRN Reason: Pain Score 1-10/Temp > 100.7 F Albuterol Sulfate (Ventolin Aerosols) 2.5 mg INHALATION Q2H PRN PRN PRN Reason: SOB/Wheezing Last Admin: 11/12/19 01:43 Dose: 2.5 mg Documented by: Albuterol/Ipratropium (Duoneb) 3 ml INHALATION Q4H.RT [facility] Last Admin: 11/14/19 10:16 Dose: Not Given Documented by: Amlodipine Besylate (Norvasc) 10 mg PO DAILY [facility] Last Admin: 11/14/19 09:51 Dose: 10 mg Documented by: Aspirin (Ecotrin) 81 mg PO DAILY@0800 [facility] Last Admin: 11/14/19 09:51 Dose: 81 mg Documented by: Atorvastatin Calcium (Lipitor) 40 mg PO QHS [facility] Last Admin: 11/13/19 20:48 Dose: 40 mg Documented by: Clopidogrel Bisulfate (Plavix) 75 mg PO DAILY [facility] Dextrose (D50w Syringe) 0 gm IV X1 PRN; Protocol PRN Reason: Hypoglycemia Enoxaparin Sodium (Lovenox) 40 mg SC BID [facility] Last Admin: 11/14/19 09:49 Dose: 40 mg Documented by: Glucagon () 1 mg IM .X1 PRN PRN Reason: Hypoglycemia Hydralazine HCl (Apresoline Iv) 10 mg IV Q4H PRN PRN PRN Reason: BLOOD PRESSURE ELEVATION Last Admin: 11/13/19 19:38 Dose: 10 mg Documented by: Hydrochlorothiazide () 12.5 mg PO DAILY [facility] Last Admin: 11/14/19 09:51 Dose: 12.5 mg Documented by: Sodium Chloride () 250 mls @ 15 mls/hr IV .[id number] PRN PRN Reason: Saline Flush Sodium Chloride () 250 mls @ 15 mls/hr IV .[id number] PRN PRN Reason: Additional IVPB Infusion Loratadine (Claritin) 5 mg PO QHS [facility] Last Admin: 11/13/19 20:48 Dose: 5 mg Documented by: Lorazepam (Ativan) 0.5 mg PO Q6H PRN PRN PRN Reason: ANXIETY Last Admin: 11/13/19 20:14 Dose: 0.5 mg Documented by: Methylprednisolone (Solu-Medrol) 40 mg IV Q12 [facility] Last Admin: 11/14/19 09:49 Dose: 40 mg Documented by: Metoprolol Tartrate (Lopressor (Beta Zuly)) 25 mg PO BID [facility] Last Admin: 11/14/19 09:51 Dose: 25 mg Documented by: Montelukast Sodium (Singulair) 10 mg PO DAILY [facility] Last Admin: 11/14/19 09:51 Dose: 10 mg Documented by: Ondansetron HCl (Zofran) 4 mg IV Q8H PRN PRN PRN Reason: NAUSEA/VOMITING Last Admin: 11/12/19 07:57 Dose: 4 mg Documented by: Pantoprazole Sodium (Protonix) 40 mg PO DAILY [facility] Last Admin: 11/14/19 09:51 Dose: 40 mg Documented by: Quetiapine Fumarate (Seroquel) 100 mg PO BID [facility] Last Admin: 11/14/19 09:51 Dose: 100 mg Documented by: Sodium Chloride () 10 - 40 ml IV UD PRN PRN Reason: SALINE FLUSH Last Admin: 11/14/19 09:49 Dose: 10 ml Documented by: STROKE Vital Signs/Narrative: Vital Signs Temp Pulse Resp BP Pulse Ox 11/14/19 09:51 83 11/14/19 09:48 36.4 C L 77 18 160/80 H 97 11/14/19 07:43 96 11/14/19 07:01 68 Medical Necessity - Tobacco Use Smoking Status: Former smoker Assessment/Plan All Active Problems (Last Reviewed 11/09/19 @ 19:[address] Edouard Michael MD) Respiratory failure with hypoxia (Acute) Status asthmaticus (Acute) Suspected 2018 novel coronavirus infection (Acute) Metabolic acidosis (Acute) Angina pectoris (Acute) NSTEMI (non-ST elevated myocardial infarction) (Acute) Abnormal result of cardiovascular function study, unspecified (Resolved) SBO (small bowel obstruction) (Resolved) 1. acute hypoxic respiratory failure * 2/2 AE asthma * extubated * COVID-19 negative * methylpred decreased 2. acute exacerbation of asthma * BDs and methylprednisone * anxiety complicates picture 3. chest pain: * improved * new RBBB * echo * possible LHC while inpatient * cards input appreciated. 4. Anxiety * complicates picture * minimize BZDs * received quetiapine per CCM as monotherapy 100mg BID. Will not continue upon discharge. 5. VTE prophylaxis: LMWH Inpatient E&M: [id number] Subs Hosp L2
[2019-11-14] MEDS: Ipratropium/Albuterol Sulfate 3 ML AMPUL.NEB INHALATION ×2 (13:24→18:52)
[2019-11-14] MEDS: Loratadine 10 MG Tablet 5 MG PO (22:09)
[2019-11-14] MEDS: Atorvastatin Calcium 40 MG Tablet PO (22:10)
[2019-11-15] VITALS (25 sets, daily range): BP systolic 104–154; BP diastolic 77–99; PULSE 68–95; RESP 10–22; TEMP 36.7–37; O2SAT 91–97
[2019-11-15] MEDS: Ipratropium/Albuterol Sulfate 3 ML AMPUL.NEB INHALATION ×3 (00:30→13:16)
--- NOTE | 2019-11-15 05:55 | EKG12_ITS ---
Test Reason : AM EKG Blood Pressure : / mmHG Vent. Rate : 088 BPM Atrial Rate : 088 BPM P-R Int : 164 ms QRS Dur : 110 ms QT Int : 424 ms P-R-T Axes : 010 -04 030 degrees QTc Int : 513 ms Normal sinus rhythm Right bundle branch block Abnormal ECG When compared with ECG of 14-NOV-2019 04:20, MANUAL COMPARISON REQUIRED, DATA IS UNCONFIRMED Confirmed by AL SHERMAN, ANA ([id number]), photography editor CANDI PALOMINO ([id number]) on 11/19/2019 11:43:10 AM Referred By: Edouard Michael Confirmed By:LEEANN MELENDEZ MD
[2019-11-15] MEDS: Clopidogrel Bisulfate 75 MG Tablet PO (06:18)
[2019-11-15] MEDS: Metoprolol Tartrate 25 MG Tablet PO (06:18)
[2019-11-15] MEDS: amLODIPine 10 MG Tablet PO (06:18)
[2019-11-15] MEDS: Aspirin E.C. 81 MG Tablet PO (06:18)
[2019-11-15 06:50] LABS: Absolute Lymphocyte Count 0.98 X10^3/uL (0.83-4.51); Absolute Neutrophil Count 8.1 X10^3/uL (2.0-7.7); Basophil# 0.01 X10^3/uL; Basophil% 0.1 % (0-1); Hematocrit 45.5 % (40-54); Hemoglobin 15.2 g/dL (13.0-16.5); Lymphocyte # 0.98 X10^3/ul (4.0); Lymphocyte % 9.5 % (19-41); Mean Corp Hgb Conc 33.4 g/dL (32-36); Mean Corpuscular Hgb 29.4 pg (27.0-32.0); Mean Platelet Vol. 10.1 fl (6.2-12.0); Monocyte# 1.12 X10^3/uL; Monocyte% 10.9 % (0-10); NRBC Flagged by Analyzer 0 % (0-5); Neutrophil # 8.11 X10^3/uL (2.7-7.7); Neutrophil % 78.9 % (47-70); Platelet Count 342 K/mm3 (150-450); RBC Distribution Width CV 13.1 % (11.6-14.6); RBC Distribution Width SD 42.4 fl (35.1-43.9); Red Blood Count 5.17 M/mm3 (4.6-6.2); White Blood Count 10.3 K/mm3 (4.4-11.0)
[2019-11-15 07:06] LABS: Anion Gap 7 (5-15); BUN 35 mg/dL (7-18); BUN/Creat Ratio 48.3 RATIO (10-20); Chloride 107 mmol/L (98-107); Creatinine, Serum 0.72 mg/dL (0.70-1.30); EST Glomerular Filtration Rate 111 mL/min (>60); Est Glom Filt Rate - Afr Amer 134 mL/min (>60); Estimated Creatinine Clearance 50.98 ml/min; Glucose 128 mg/dL (74-106); Potassium 3.4 mmol/L (3.5-5.1); Sodium Level 139 mmol/L (136-145)
--- NOTE | 2019-11-15 07:21 | NURSING ---
Report called to Domingo in production laborer at this time. Domingo states production laborer will call when they are ready for the patient in production laborer.
--- NOTE | 2019-11-15 08:54 | PN.CARD_ITS ---
Subjectve: Patient seen and evaluated. Appears to be doing well. Objective: Vital Signs Temp Pulse Resp BP Pulse Ox 98.6 F 84 10 L 132/82 H 95 11/15/19 06:13 11/15/19 06:49 11/15/19 06:13 11/15/19 06:13 11/15/19 07:18 Oxygen Flow Rate (L/min) 2 Oxygen Delivery Method Nasal Cannula Weight: 149 lb 14.629 oz Body Mass Index (BMI) 26.6 Intake and Output for Last 24 Hours 11/13/19 11/14/19 11/15/19 23:59 23:59 23:59 Intake Total 1370 / 1370 880 / 880 50 / 50 Output Total 350 / 350 500 / 500 Balance 1020 / 1020 380 / 380 50 / 50 General: Awake, Alert, Oriented x 3 HEENT: PERRL, EOMI, Sclera Non Icteric Neck: Supple, Good ROM, No Lymph Node Enlargement Lungs: Clear to auscultation Cardiovascular: Regular Rhythm, Normal S1, Normal S2, No Murmurs, No Rubs, No Gallops Vascular: No Carotid Bruits, Normal Femoral Pulses, Normal Radial Pulses, Normal Dorsalis Pedal Pulse, Normal Posterior Tibial Pulses Abdomen: Bowel Sounds Present, Soft, Non Tender, No HSM, No Organomegaly Extremities: No Cyanosis, No Clubbing, No edema Musculoskeletal: No Erythema Skin: No Rashes Lymphatic: No Lymph Node Enlargement Neurological: No Focal Motor or Sensory Deficit 11/15/19 06:41: WBC 10.3, RBC 5.17, Hgb 15.2, Hct 45.5, MCV 88.0, MCH 29.4, MCHC 33.4, Plt Count 342, MPV 10.1, Immature Gran % (Auto) 0.600, Neut % (Auto) 78.9 H, Lymph % (Auto) 9.5 L, [place] % (Auto) 10.9 H, Eos % (Auto) 0.0, Baso % (Auto) 0.1, Absolute Neuts (auto) 8.1 H, Nucleated RBC % 0 11/15/19 06:41: Sodium 139, Potassium 3.4 L, Chloride 107, Carbon Dioxide 25.0, Anion Gap 7, BUN 35 H, Creatinine 0.72, Est GFR (MDRD) Af Amer 134, Est GFR (MDRD) Non-Af 111, BUN/Creatinine Ratio 48.3 H, Glucose 128 H, Calcium 9.0 Rhythm: EKG: ECHO: Stress Test: Cardiac Cath: PCI: CT Surgery: Holter monitor: EPS: PPM: CXR: Chest CT Scan: Medical Necessity - Tobacco Use Smoking Status: Former smoker Assessment/Plan 1. Non-ST segment elevation RI * The patient underwent cardiac catheterization which demonstrated the following: Left main coronary artery with distal 60% stenosis. Left anterior descending artery with mid segment total occlusion. First diagonal branch which is patent. Proximal circumflex artery with ostial 60% stenosis. First obtuse marginal branch which is patent with competitive flow. Right coronary artery which is dominant with no significant stenosis. Left internal mammary artery to the left anterior descending artery which is patent with a thoracic branch which is unclipped. Based on the above angiographic findings the patient will continue with maximal medical therapy and if he fails the above he will be brought back for intervention. The above has been discussed with interventionalist Dr. Darling. 2. Hyperlipidemia He will continue medical management. 3. Hypertension His blood pressure can be monitored and his medicines adjusted to assist with blood pressure control. 4. Carotid artery disease He will continue evaluation care as deemed appropriate. Thank you for allowing me to participate in the care of your patient. Please don't hesitate to call if any issues arise.
--- NOTE | 2019-11-15 09:13 | CL.D_ITS ---
Patient Name: SUSY REED Study Date: 11/15/2019 Performing: David Jimenez MD Ht: 65 inches 165 cm : 1940 Wt: 150.1 lbs 68 kg Age: 79 Gender: male BSA: 1.75 PROCEDURE(S) PERFORMED [id number] [id number]-AO ROOT ANGIO WITH HEART CATH CLINICAL PROFILE AND INDICATIONS Indications: Worsening Angina Heart Failure: NYHA Class: 2, Newly Diagnosed: Yes, Heart Failure Type: Diastolic Stress/Imaging Stress/Image Study Performed: No CAD Presentations: Unstable angina. CONCLUSIONS Known coronary artery disease with bypass grafts which are patent. [place] disease is noted in the di stal left main coronary artery and the ostial left circumflex artery. RECOMMENDATIONS Medical therapy DESCRIPTION OF PROCEDURE The patient arrived to the procedure lab. The risks and benefits of the procedure as well as a full d escription of our services here and current unavailability of surgical backup were fully explained to the patient and/or their significant other prior to the catheterization. The Timeout was completed, verifying the correct patient and procedure. The patient's procedural site was prepped and draped in the usual fashion. Local anesthetic was given subcutaneously to left radial region with Lidocaine 2%. Using a modified Seldinger technique, arterial access was obtained via the left radial artery, a 6Fr sheath was inserted. Left internal mammary artery graft to the LAD selective angiography was perfor med in multiple views using a 5 Fr. IM catheter. Right Coronary Artery selective angiography was then performed in multiple views using a 5 Fr. 4.0 [place] catheter. Left Coronary Artery selective angiogr aphy was performed in multiple views using a 5 Fr. JL4 catheter. Ascending (root) aorta selective angiography was then performed in single view. Ascending (root) aorta selective angiography was then performed in single view. Saphenous Vein graft to the Circumflex selective angiography was performed in multiple views using a 5 Fr. JR 5 catheter.The arterial sheath was pulled and a TR Band was applied for hemostasis-10 cc air CORONARY ANGIOGRAPHY DOMINANCE: Right Dominant LEFT HEART ASSESSMENT Left Ventricular Ejection Fraction: by Echo 65 % Normal LV wall motion Normal Left Ventricular systolic function LEFT MAIN: Moderate calcification, 60 % Stenosis LEFT ANTERIOR DESCENDING ARTERY: MID LAD: is occluded DIAGONAL 1: Proximal - No significant disease noted CIRCUMFLEX ARTERY: OM 1: Proximal - No significant disease noted RIGHT CORONARY ARTERY: No significant disease noted GRAFTS: TRUONG graft to the Mid LAD is patent Saphenous Vein graft to the 2nd OM is patent COMPLICATIONS No Complications PROCEDURE MEDICATIONS Oxygen: 4 L/min via nasal cannula Benadryl 25 mg IV @ 11/15/2019 07:59:02 Heparin diluted in 23cc Heparinized saline. Patient given 10cc IA of this solution. 11/15/2019 08:09: 41 Potassium Chloride 40 mEq PO 11/15/2019 07:59:40 Solu-medrol 125 mg IV 11/15/2019 07:59:49 Verapamil 2.5mg, Ntg 100mcgs, 2000 units of Heparin diluted in 23cc Heparinized saline. Patient give n 10cc IA of this solution. 11/15/2019 08:09:41 SUMMARY OF HEMODYNAMIC DATA Time AIR REST ECG 07:54:29 AO 163/85 (111) SA 08:12:35 AO 150/79 (109) 08:40:16 Signed By David Jimenez MD On 11/15/2019 09:12:37 David Jimenez MD
[2019-11-15] MEDS: hydroCHLOROthiazide 25 MG Tablet PO (10:55)
[2019-11-15] MEDS: Metoprolol Tartrate 50 MG Tablet PO (10:55)
[2019-11-15] MEDS: 0.9% Saline Lock 10 ML Syringe IV (10:55)
[2019-11-15] MEDS: Pantoprazole Sodium 40 MG Tablet PO (10:56)
[2019-11-15] MEDS: QUEtiapine 100 MG Tablet PO (10:57)
[2019-11-15] MEDS: Montelukast 10 MG Tablet PO (10:57)
--- NOTE | 2019-11-15 12:27 | DCINST_ITS ---
- Discharge Diagnoses Current Active Problems: Current Active and Chronic Problems (Last Reviewed 11/09/19 @ 19:[address] Edouard Michael MD) Respiratory failure with hypoxia (Acute) Status asthmaticus (Acute) Suspected 2019 novel coronavirus infection (Acute) Metabolic acidosis (Acute) History of coronary artery disease (Chronic) Angina pectoris (Acute) NSTEMI (non-ST elevated myocardial infarction) (Acute 11/14/19) Carotid artery disease (Chronic) You will use the following diet at home:: Cardiac Your food should be the consistency of: Regular Your liquids should be the consistency of: Regular/Thin Discharge Activity: Return to Normal Activity Allergies/Adverse Reactions: Allergies nitroglycerin Allergy (Verified 11/09/19 17:33) Other states it makes my head explode. states he can take the pills but not the patch simvastatin Adverse Reaction (Severe, Verified 11/09/19 17:33) Myalgias CONTRAST DYE Allergy (Mild, Uncoded 11/09/19 17:33) Rash Medications to take at Discharge Lansoprazole [Prevacid] 30 mg PO DAILY 09/07/13 Cholecalciferol (VIT D3) [Vitamin D3] 1,000 unit PO DAILY 03/12/16 Cyanocobalamin (Vitamin B-12) [Vitamin B-12] 1,000 mcg PO DAILY 03/12/16 Acetaminophen [Tylenol] 1,000 mg PO Q8 #100 tab 10/12/18 atorvastatin 40 mg tablet 40 mg PO QHS #90 tab 12/06/18 aspirin 81 mg tablet,delayed release 81 mg PO DAILY 01/16/19 Albuterol Sulfate [Ventolin Hfa] 2 puff INHALATION Q6H PRN PRN 11/09/19 Budesonide/Formoterol Fumarate [Symbicort 160-4.5 Mcg Inhaler] 2 puff INHALATION BID 11/09/19 Ipratropium/Albuterol Sulfate [Duoneb] 3 ml INHALATION Q6H PRN PRN 11/09/19 Levocetirizine Dihydrochloride [Xyzal] 5 mg PO QHS 11/09/19 Lorazepam [Ativan] 0.5 mg PO QHS PRN PRN 11/09/19 Montelukast [Singulair] 10 mg PO DAILY 11/09/19 Tiotropium [place] [Spiriva Respimat] 2 puff INHALATION DAILY 11/09/19 Amlodipine [Norvasc] 10 mg PO DAILY #30 tab 11/15/19 Citalopram [Celexa] 10 mg PO DAILY #30 tab 11/15/19 Guaifenesin Dm [Robitussin Dm] 10 ml PO Q6H PRN PRN udc 11/15/19 Hydrochlorothiazide [Hctz] 25 mg PO DAILY #30 tab 11/15/19 Metoprolol Tartrate [Lopressor (beta joselito)] 50 mg PO BID #60 tab 11/15/19 Prednisone 10 mg PO DAILY #30 tab 11/15/19 The following prescriptions were given: Citalopram [Celexa] 10 mg PO DAILY #30 tab Transmission Status: Pending to [id number] Hydrochlorothiazide [Hctz] 25 mg PO DAILY #30 tab Transmission Status: Pending to [id number] Metoprolol Tartrate [Lopressor (beta joselito)] 50 mg PO BID #60 tab Transmission Status: Pending to [id number] Amlodipine [Norvasc] 10 mg PO DAILY #30 tab Transmission Status: Pending to [id number] Prednisone 10 mg PO DAILY #30 tab Prescription Printed Primary Care Physician: Kev Steve DO [Primary Care Provider] - Please follow up with your Primary Care Physician in: 1-2 weeks Test Results: Test results from this visit will be discussed in further detail at your follow- up appointment, if applicable. Please Follow Up With: Ashwin Jensen NP-C When: as directed Please Follow Up With: Fernando Reese MD When: 2 weeks Proposed Discharge Date: 11/15/19
--- NOTE | 2019-11-15 13:20 | PCM.PN.PUL ---
Patient Problems: Active and Suspected Problems (Last Reviewed 11/09/19 @ 19:[address] Edouard Michael MD) Respiratory failure with hypoxia (Acute) Status asthmaticus (Acute) Suspected 2019 novel coronavirus infection (Acute) Metabolic acidosis (Acute) Angina pectoris (Acute) NSTEMI (non-ST elevated myocardial infarction) (Acute 11/14/19) Subjective: Patient did okay overnight. No acute issues were reported. Patient states he continues to have a fullness sensation in his laryngeal area. Patient has been weaned to 2 L nasal cannula. Patient had a heart cath this morning that was reportedly within normal limits. - Physical Exam Vitals/I&O's: Vital Signs Temp Pulse Resp BP Pulse Ox 37.0 C 83 20 H 138/89 H 95 11/15/19 06:13 11/15/19 10:55 11/15/19 09:45 11/15/19 09:45 11/15/19 09:45 Oxygen Flow Rate (L/min) 3 Oxygen Delivery Method Nasal Cannula Weight: 68 kg Body Mass Index (BMI) 26.6 Intake and Output for Last 24 Hours 11/13/19 11/14/19 11/15/19 23:59 23:59 23:59 Intake Total 1370 / 1370 880 / 880 50 / 50 Output Total 350 / 350 500 / 500 Balance 1020 / 1020 380 / 380 50 / 50 General: Alert, Oriented x3, Cooperative, No apparent distress, - - No conversational dyspnea. Speaking in full sentences. HEENT: Atraumatic, PERRLA, EOMI, Normocephalic, - - Glasses in place. No scleral icterus or injection noted Oral: Moist Mucosa, No Gingival or Mucosal Lesions/ Ulcerations Neck: Supple, No JVD, No Nodes, Trachea Midline Lungs: Clear to auscultation, Normal air movement, No rhonchi, No wheeze, No rales Cardiovascular: Regular rate, Regular Rhythm, Normal S1, Normal S2, No murmurs, No rub noted, No Gallop Abdomen: Bowel Sounds Present, Soft, Non Tender, Non-Distended Extremities: No clubbing, No cyanosis, No edema Skin: - - No change compared to previous Musculoskeletal: No Tenderness to Palpation of Joints or Extremities Lymphatic: No Cervical, Supraclavicular, or Inguinal Adenopathy Neurological: Cranial nerves II-XII grossly intact, Neuro grossly intact, Motor Exam 5/5 strength throughout Psych/Mental Status: Alert and oriented to time, place, person, mood and affect Microbiology Past 72 Hours 11/09/19 17:42 Blood Culture (Wb) - Anticubital Left Blood Culture - Final No growth in 5 days. Laboratory Results 11/15/19 06:41: WBC 10.3, RBC 5.17, Hgb 15.2, Hct 45.5, MCV 88.0, MCH 29.4, MCHC 33.4, RDW Std Deviation 42.4, RDW Coeff of [place] 13.1, Plt Count 342, MPV 10.1, Immature Gran % (Auto) 0.600, Neut % (Auto) 78.9 H, Lymph % (Auto) 9.5 L, [place] % (Auto) 10.9 H, Eos % (Auto) 0.0, Baso % (Auto) 0.1, Absolute Neuts (auto) 8.1 H, Absolute Lymphs (auto) 0.98, Nucleated RBC % 0 11/15/19 06:41: Sodium 139, Potassium 3.4 L, Chloride 107, Carbon Dioxide 25.0, Anion Gap 7, BUN 35 H, Creatinine 0.72, Estim Creat Clear Calc 50.98, Est GFR (MDRD) Af Amer 134, Est GFR (MDRD) Non-Af 111, BUN/Creatinine Ratio 48.3 H, Glucose 128 H, Calcium 9.0 Current Medications Acetaminophen (Tylenol) 650 mg PO Q6H PRN PRN PRN Reason: Pain Score 1-10/Temp > 100.7 F Albuterol Sulfate (Ventolin Aerosols) 2.5 mg INHALATION Q2H PRN PRN PRN Reason: SOB/Wheezing Last Admin: 11/12/19 01:43 Dose: 2.5 mg Documented by: Albuterol/Ipratropium (Duoneb) 3 ml INHALATION Q4H.RT [facility] Last Admin: 11/15/19 13:16 Dose: 3 ml Documented by: Amlodipine Besylate (Norvasc) 10 mg PO DAILY [facility] Last Admin: 11/15/19 06:18 Dose: 10 mg Documented by: Aspirin (Ecotrin) 81 mg PO DAILY@0800 [facility] Last Admin: 11/15/19 06:18 Dose: 81 mg Documented by: Atorvastatin Calcium (Lipitor) 40 mg PO QHS [facility] Last Admin: 11/14/19 22:10 Dose: 40 mg Documented by: Dextrose (D50w Syringe) 0 gm IV X1 PRN; Protocol PRN Reason: Hypoglycemia Enoxaparin Sodium (Lovenox) 40 mg SC BID [facility] Last Admin: 11/15/19 10:56 Dose: Not Given Documented by: Glucagon () 1 mg IM .X1 PRN PRN Reason: Hypoglycemia Guaifenesin (Robitussin Dm) 10 ml PO Q6H PRN PRN PRN Reason: COUGH Hydralazine HCl (Apresoline Iv) 10 mg IV Q4H PRN PRN PRN Reason: BLOOD PRESSURE ELEVATION Last Admin: 11/13/19 19:38 Dose: 10 mg Documented by: Hydrochlorothiazide (Hctz) 25 mg PO DAILY [facility] Last Admin: 11/15/19 10:55 Dose: 25 mg Documented by: Sodium Chloride () 250 mls @ 15 mls/hr IV .[id number] PRN PRN Reason: Saline Flush Sodium Chloride () 250 mls @ 15 mls/hr IV .[id number] PRN PRN Reason: Additional IVPB Infusion Sodium Chloride () 1,000 mls @ 0 mls/hr IV .Q0M [facility] Loratadine (Claritin) 5 mg PO QHS [facility] Last Admin: 11/14/19 22:09 Dose: 5 mg Documented by: Lorazepam (Ativan) 0.5 mg PO Q6H PRN PRN PRN Reason: ANXIETY Last Admin: 11/13/19 20:14 Dose: 0.5 mg Documented by: Metoprolol Tartrate (Lopressor (Beta Zuly)) 50 mg PO BID [facility] Last Admin: 11/15/19 10:55 Dose: 50 mg Documented by: Montelukast Sodium (Singulair) 10 mg PO DAILY [facility] Last Admin: 11/15/19 10:57 Dose: 10 mg Documented by: Ondansetron HCl (Zofran) 4 mg IV Q8H PRN PRN PRN Reason: NAUSEA/VOMITING Last Admin: 11/12/19 07:57 Dose: 4 mg Documented by: Pantoprazole Sodium (Protonix) 40 mg PO DAILY [facility] Last Admin: 11/15/19 10:56 Dose: 40 mg Documented by: Prednisone () 40 mg PO DAILY@0800 [facility] Quetiapine Fumarate (Seroquel) 100 mg PO BID [facility] Last Admin: 11/15/19 10:57 Dose: 100 mg Documented by: Sodium Chloride () 10 - 40 ml IV UD PRN PRN Reason: SALINE FLUSH Last Admin: 11/15/19 10:55 Dose: 20 ml Documented by: Medical Necessity - Tobacco Use Smoking Status: Former smoker Assessment/Plan All Active Problems (Last Reviewed 11/09/19 @ 19:[address] Edouard Michael MD) Respiratory failure with hypoxia (Acute) Status asthmaticus (Acute) Suspected 2019 novel coronavirus infection (Acute) Metabolic acidosis (Acute) Angina pectoris (Acute) NSTEMI (non-ST elevated myocardial infarction) (Acute 11/14/19) Abnormal result of cardiovascular function study, unspecified (Resolved) SBO (small bowel obstruction) (Resolved) RECOMMENDATIONS: 1. Wean oxygen as tolerated. Patient likely need supplemental oxygen on discharge 2. Oral supplementation of potassium as indicated 3. Continue Seroquel at current dosing. Can be weaned off by PCP as an outpatient 4. Transition to p.o. prednisone. Continue daily Singulair as well. 5. Walking oximetry prior to discharge 6. Close outpatient pulmonary follow-up within 2 weeks of discharge is recommended. RAST profile was ordered. 7. Strongly consider outpatient initiation of biologic therapy for underlying asthma. IMPRESSIONS: 1. Acute hypoxemic respiratory failure The patient reportedly has a history of severe persistent asthma and previously had documented significant peripheral eosinophilia and grossly elevated IgE levels. Subsequent work-up including cultures and CTA chest were unremarkable outside of some mucus plugging. There was no evidence of focal infiltrate or pneumonia. High clinical suspicion for asthma exacerbation leading to acute hypoxemic respiratory failure. Patient is currently on maximal therapy, so outpatient evaluation for Biologics is likely indicated. Patient will be transition to prednisone therapy. This can be weaned over the next 12 to 14 days. Patient has good air exchange at this time. If persists in high oxygen requirements, could obtain a chest x-ray to see if there is an element of atelectasis. Patient is not having significant constitutional symptoms to suggest acute pneumonia at this time. Patient should follow-up with nurse practitioner 2 weeks after discharge 2. Anxiety This will exacerbate patient's underlying pulmonary mechanics. Patient appears to be responding well to Seroquel therapy. This will be continued. Benzodiazepines have been linked with onset of delirium in similar patients. Will attempt to avoid if possible. 3. Coronary artery disease status post bypass/GERD/hyperlipidemia/hypertension/hypokalemia Complicates care, management, recovery and prognosis. Continue home medications as indicated. Potassium will be supplemented as indicated with liquid as patient has some difficulty with large pills. Inpatient E&M: [id number] Subs Hosp L2
--- NOTE | 2019-11-15 14:14 | CASEMGMT ---
Pt does not qualify for home oxygen at this time. Per Shelia ZAMARRIPA, pt has been independent in the room today and states no concerns at this time. This RN CM to toom to discuss discharge plan with pt at this time and pt is standing at bedside getting his belongings around for discharge. Pt states no need for any further therapy, HHC or OP, at this time. Pt does state concerns with the fact that nurse only checked his pulse ox on his finger and that she did not check the 'oxygen going in and out of my lungs.' Advised pt that the the finger pulse ox is the way that we check pulse ox and pt disagrees at this time. Shelia ZAMARRIPA aware and states pt stated same to her. Pt is in no resp distress at this time, but does seem anxious. Pt voices no further questions/concerns/needs at this time. Sherly ZAMARRIPA CM
--- NOTE | 2019-11-15 15:04 | NURSING ---
discharge paperwork reviewed with patient, patient voices understanding, denies wanting this RN to review instructions with family. pt called son and son to be here @ 1530 for pickup.
--- NOTE | 2019-11-15 15:17 | DS.PCM_ITS ---
<Mk Padron - Last Filed: 11/15/19 15:17> Discharge Date and Diagnosis - Problem List Patient Problems: Active and Suspected Problems (Last Reviewed 11/09/19 @ 19:[address] Edouard Michael MD) Respiratory failure with hypoxia (Acute) Status asthmaticus (Acute) Suspected 2019 novel coronavirus infection (Acute) Metabolic acidosis (Acute) Angina pectoris (Acute) NSTEMI (non-ST elevated myocardial infarction) (Acute 11/14/19) Date of Admission: 11/09/19 Date of Discharge: 11/15/19 - Primary Discharge Diagnosis Acute Problems: Active Problems (Last Reviewed 11/09/19 @ 19:[address] Edouard Michael MD) Respiratory failure with hypoxia (Acute) Status asthmaticus (Acute) Angina pectoris (Acute) NSTEMI (non-ST elevated myocardial infarction) (Acute 11/14/19) CAD Anxiety Disorder - Secondary Discharge Diagnosis Chronic Problems: Chronic Problems (Last Reviewed 11/09/19 @ 19:[address] 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 Mitch Eubanks MD on 11/10/[address]/CTA Chest W/WO Contrast IMPRESSION: 1. No CTA evidence of pulmonary thromboemboli or thoracic aortic dissection. 2. Mild dilatation of the ascending aorta with a diameter of 3.3 cm versus 2.5 cm for the descending thoracic aorta. 3. Complete atelectases in the posterior basilar segment of the left lower lobe is most likely from mucous plug. 4. No suspicious pneumonia or pulmonary nodules. 5. 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 6. C7 benign vertebral body hemangioma is unchanged. 2D Echo: Interpretation Summary The estimated ejection fraction is 65 %. Stage 1 diastolic dysfunction. Unable to estimate RV systolic pressure due to insufficient tricuspid regurgi tant envelope. Compared to echo report dated 09/22/2009, no appreciable changes noted. L heart Cath: CONCLUSIONS Known coronary artery disease with bypass grafts which are patent. [place] disease is noted in the distal left main coronary artery and the ostial left circumflex artery. RECOMMENDATIONS Medical therapy CORONARY ANGIOGRAPHY DOMINANCE: Right Dominant LEFT HEART ASSESSMENT Left Ventricular Ejection Fraction: by Echo 65 % Normal LV wall motion Normal Left Ventricular systolic function LEFT MAIN: Moderate calcification, 60 % Stenosis LEFT ANTERIOR DESCENDING ARTERY: MID LAD: is occluded DIAGONAL 1: Proximal - No significant disease noted CIRCUMFLEX ARTERY: OM 1: Proximal - No significant disease noted RIGHT CORONARY ARTERY: No significant disease noted GRAFTS: TRUONG graft to the Mid LAD is patent Saphenous Vein graft to the 2nd OM is patent Consults: Rubin - Hugh Cardio - Tony Operations: None Procedures: Cardiac catheterization, Intubation Summary of Care Provided: Hospital Course: The patient is a 79 year old M with pmhx of asthma, htn, who presented to the ER with c/o SOB. He was in respiratory arrest on arrival to the ED and intubated in the ED. He was felt to have an asthma exacerbation and started on steroids and aerosols. He was admitted to the ICU. He was extubated on the , and transitioned to the PCU. He had an indeterminate troponin and chest pain. He was taken for a heart cath which showed some coronary disease as per report above, however no intervention was performed at this time. He will be treated with medical therapy initially. He was transitioned to prednisone taper. He was weaned off O2. The patient had severe anxiety issues off O2 and repeatedly put himself back on oxygen and insistent on needing airvo therapy despite demonstrating any hypoxia. Despite having no issues with conversation and remaining 95% on room air with ambulation he continued to demand oxygen and insisted we were not testing him correctly. This appeared to be anxiety driven. He was temporarily on seroquel while here. He uses ativan prn at home which he should continue. He was started on SSRI therapy at discharge. He will need follow up with his PCP in 1-2 weeks. He will need follow up with pulmonology in 2 weeks. He will need follow up with cardiology as directed. The patient was discharged home in stable condition. This patient was seen by Mk Padron PA-C under the supervision of Dr. Dudley [] Patient Problems: Active and Suspected Problems (Last Reviewed 11/09/19 @ 19:[address] Edouard Michael MD) Respiratory failure with hypoxia (Acute) Status asthmaticus (Acute) Suspected 2019 novel coronavirus infection (Acute) Metabolic acidosis (Acute) Angina pectoris (Acute) NSTEMI (non-ST elevated myocardial infarction) (Acute 11/14/19) - Physical Exam Vitals/I&O's: Vital Signs Temp Pulse Resp BP Pulse Ox 98.1 F 81 19 H 139/83 H 97 11/15/19 11:00 11/15/19 13:30 11/15/19 13:30 11/15/19 12:15 11/15/19 12:15 Oxygen Flow Rate (L/min) 2 Oxygen Delivery Method Room Air Weight: 149 lb 14.629 oz Body Mass Index (BMI) 26.6 Intake and Output for Last 24 Hours 11/13/19 11/14/19 11/15/19 23:59 23:59 23:59 Intake Total 1370 / 1370 880 / 880 530 / 530 Output Total 350 / 350 500 / 500 Balance 1020 / 1020 380 / 380 530 / 530 General: Alert, Oriented x3, Cooperative HEENT: Atraumatic, PERRLA, EOMI, Normocephalic Neck: Supple, No JVD, Negative Carotid Bruits Lungs: Clear to auscultation, Normal air movement Cardiovascular: Regular rate, No murmurs Abdomen: Bowel Sounds Present, Soft, Non Tender Extremities: No edema, Capillary Refill Less than 3 Seconds Skin: No rashes, No breakdown Musculoskeletal: No Tenderness to Palpation of Joints or Extremities Neurological: Cranial nerves II-XII grossly intact Psych/Mental Status: Anxious, Alert and oriented to time, place, person, mood and affect Microbiology Past 72 Hours 11/09/19 17:42 Blood Culture (Wb) - Anticubital Left Blood Culture - Final No growth in 5 days. Laboratory Results 11/15/19 06:41: WBC 10.3, RBC 5.17, Hgb 15.2, Hct 45.5, MCV 88.0, MCH 29.4, MCHC 33.4, RDW Std Deviation 42.4, RDW Coeff of Nida 13.1, Plt Count 342, MPV 10.1, Immature Gran % (Auto) 0.600, Neut % (Auto) 78.9 H, Lymph % (Auto) 9.5 L, [place] % (Auto) 10.9 H, Eos % (Auto) 0.0, Baso % (Auto) 0.1, Absolute Neuts (auto) 8.1 H , Absolute Lymphs (auto) 0.98, Nucleated RBC % 0 11/15/19 06:41: Sodium 139, Potassium 3.4 L, Chloride 107, Carbon Dioxide 25.0, Anion Gap 7, BUN 35 H, Creatinine 0.72, Estim Creat Clear Calc 50.98, Est GFR (MDRD) Af Amer 134, Est GFR (MDRD) Non-Af 111, BUN/Creatinine Ratio 48.3 H, Glucose 128 H, Calcium 9.0 Current Medications Acetaminophen (Tylenol) 650 mg PO Q6H PRN PRN PRN Reason: Pain Score 1-10/Temp > 100.7 F Albuterol Sulfate (Ventolin Aerosols) 2.5 mg INHALATION Q2H PRN PRN PRN Reason: SOB/Wheezing Last Admin: 11/12/19 01:43 Dose: 2.5 mg Documented by: Albuterol/Ipratropium (Duoneb) 3 ml INHALATION Q4H.RT [facility] Last Admin: 11/15/19 13:16 Dose: 3 ml Documented by: Amlodipine Besylate (Norvasc) 10 mg PO DAILY [facility] Last Admin: 11/15/19 06:18 Dose: 10 mg Documented by: Aspirin (Ecotrin) 81 mg PO DAILY@0800 [facility] Last Admin: 11/15/19 06:18 Dose: 81 mg Documented by: Atorvastatin Calcium (Lipitor) 40 mg PO QHS [facility] Last Admin: 11/14/19 22:10 Dose: 40 mg Documented by: Dextrose (D50w Syringe) 0 gm IV X1 PRN; Protocol PRN Reason: Hypoglycemia Enoxaparin Sodium (Lovenox) 40 mg SC BID [facility] Last Admin: 11/15/19 10:56 Dose: Not Given Documented by: Glucagon () 1 mg IM .X1 PRN PRN Reason: Hypoglycemia Guaifenesin (Robitussin Dm) 10 ml PO Q6H PRN PRN PRN Reason: COUGH Hydralazine HCl (Apresoline Iv) 10 mg IV Q4H PRN PRN PRN Reason: BLOOD PRESSURE ELEVATION Last Admin: 11/13/19 19:38 Dose: 10 mg Documented by: Hydrochlorothiazide (Hctz) 25 mg PO DAILY [facility] Last Admin: 11/15/19 10:55 Dose: 25 mg Documented by: Sodium Chloride () 250 mls @ 15 mls/hr IV .[id number] PRN PRN Reason: Saline Flush Sodium Chloride () 250 mls @ 15 mls/hr IV .[id number] PRN PRN Reason: Additional IVPB Infusion Sodium Chloride () 1,000 mls @ 0 mls/hr IV .Q0M [facility] Loratadine (Claritin) 5 mg PO QHS [facility] Last Admin: 11/14/19 22:09 Dose: 5 mg Documented by: Lorazepam (Ativan) 0.5 mg PO Q6H PRN PRN PRN Reason: ANXIETY Last Admin: 11/13/19 20:14 Dose: 0.5 mg Documented by: Metoprolol Tartrate (Lopressor (Beta Zuly)) 50 mg PO BID [facility] Last Admin: 11/15/19 10:55 Dose: 50 mg Documented by: Montelukast Sodium (Singulair) 10 mg PO DAILY [facility] Last Admin: 11/15/19 10:57 Dose: 10 mg Documented by: Ondansetron HCl (Zofran) 4 mg IV Q8H PRN PRN PRN Reason: NAUSEA/VOMITING Last Admin: 11/12/19 07:57 Dose: 4 mg Documented by: Pantoprazole Sodium (Protonix) 40 mg PO DAILY [facility] Last Admin: 11/15/19 10:56 Dose: 40 mg Documented by: Prednisone () 40 mg PO DAILY@0800 [facility] Quetiapine Fumarate (Seroquel) 100 mg PO BID [facility] Last Admin: 11/15/19 10:57 Dose: 100 mg Documented by: Sodium Chloride () 10 - 40 ml IV UD PRN PRN Reason: SALINE FLUSH Last Admin: 11/15/19 10:55 Dose: 20 ml Documented by: Discharge Diet: Low fat/ Low Cholesterol, 2000 mg Sodium Diet Discharge Activity: Return to Normal Activity Home Medications: Medications to take at Discharge Lansoprazole [Prevacid] 30 mg PO DAILY 09/07/13 Cholecalciferol (VIT D3) [Vitamin D3] 1,000 unit PO DAILY 03/12/16 Cyanocobalamin (Vitamin B-12) [Vitamin B-12] 1,000 mcg PO DAILY 03/12/16 Acetaminophen [Tylenol] 1,000 mg PO Q8 #100 tab 10/12/18 atorvastatin 40 mg tablet 40 mg PO QHS #90 tab 12/06/18 aspirin 81 mg tablet,delayed release 81 mg PO DAILY 01/16/19 Albuterol Sulfate [Ventolin Hfa] 2 puff INHALATION Q6H PRN PRN 11/09/19 Budesonide/Formoterol Fumarate [Symbicort 160-4.5 Mcg Inhaler] 2 puff INHALATION BID 11/09/19 Ipratropium/Albuterol Sulfate [Duoneb] 3 ml INHALATION Q6H PRN PRN 11/09/19 Levocetirizine Dihydrochloride [Xyzal] 5 mg PO QHS 11/09/19 Lorazepam [Ativan] 0.5 mg PO QHS PRN PRN 11/09/19 Montelukast [Singulair] 10 mg PO DAILY 11/09/19 Tiotropium [place] [Spiriva Respimat] 2 puff INHALATION DAILY 11/09/19 Amlodipine [Norvasc] 10 mg PO DAILY #30 tab 11/15/19 Citalopram [Celexa] 10 mg PO DAILY #30 tab 11/15/19 Guaifenesin Dm [Robitussin Dm] 10 ml PO Q6H PRN PRN udc 11/15/19 Hydrochlorothiazide [Hctz] 25 mg PO DAILY #30 tab 11/15/19 Metoprolol Tartrate [Lopressor (beta zuly)] 50 mg PO BID #60 tab 11/15/19 Prednisone 10 mg PO DAILY #30 tab 11/15/19 Following Prescrptions Were Given to Patient: Citalopram [Celexa] 10 mg PO DAILY #30 tab Transmission Status: Received by [facility] [id number] Hydrochlorothiazide [Hctz] 25 mg PO DAILY #30 tab Transmission Status: Received by [facility] 181 Metoprolol Tartrate [Lopressor (beta zuly)] 50 mg PO BID #60 tab Transmission Status: Received by [facility] [id number] Amlodipine [Norvasc] 10 mg PO DAILY #30 tab Transmission Status: Received by [facility] [id number] Prednisone 10 mg PO DAILY #30 tab Prescription Printed Primary Care Physician: Kev Steve DO [Primary Care Provider] - Please follow up with your Primary Care Physician in: 1-2 weeks Please Follow Up With: Kev Steve When: as directed Please Follow Up With: Fernando Reese MD When: 2 weeks Please Follow Up With: Ashwin Jensen NP-C Disposition: Home Minutes spent on discharge:: 35 Patient Condition:: Stable Medical Necessity - Tobacco Use Smoking Status: Former smoker Meaningful Use Info Meaningful Use Diagnoses (Choose all that apply): None applicable <Lele Dudley - Last Filed: 11/15/19 15:37> Discharge Date and Diagnosis - Primary Discharge Diagnosis Acute Problems: Active Problems (Last Reviewed 11/09/19 @ 19:[address] Edouard Michael MD) Respiratory failure with hypoxia (Acute) Status asthmaticus (Acute) Suspected 2019 novel coronavirus infection (Acute) Metabolic acidosis (Acute) Angina pectoris (Acute) NSTEMI (non-ST elevated myocardial infarction) (Acute 11/14/19) - Secondary Discharge Diagnosis Chronic Problems: Chronic Problems (Last Reviewed 11/09/19 @ 19:[address] 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 Data reviewed. 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 1. acute hypoxic respiratory failure * 2/2 AE asthma * extubated * COVID-19 negative * prednisone taper 2. acute exacerbation of asthma * BDs and methylprednisone * anxiety complicates picture * follow up with pulmonology 3. chest pain: * improved * new RBBB * echo * LHC showed 60% stenosis in Left main * cards input appreciated. Medical mgmt for now. Follow up with cardiology and possible intervention if medical therapy fails. 4. Anxiety * complicates picture * minimize BZDs * received quetiapine per [facility] as monotherapy 100mg BID. Will not continue upon discharge. * Citalopram as outpt. [] - Physical Exam Vitals/I&O's: Vital Signs Temp Pulse Resp BP Pulse Ox 36.7 C 81 19 H 139/83 H 97 11/15/19 11:00 11/15/19 13:30 11/15/19 13:30 11/15/19 12:15 11/15/19 12:15 Oxygen Flow Rate (L/min) 2 Oxygen Delivery Method Room Air Weight: 68 kg Body Mass Index (BMI) 26.6 Intake and Output for Last 24 Hours 11/13/19 11/14/19 11/15/19 23:59 23:59 23:59 Intake Total 1370 / 1370 880 / 880 530 / 530 Output Total 350 / 350 500 / 500 Balance 1020 / 1020 380 / 380 530 / 530 General: Alert, Cooperative HEENT: Atraumatic, Normocephalic Neck: Supple, No Nodes Lungs: Clear to auscultation, Normal air movement Cardiovascular: Regular rate, No murmurs Abdomen: Bowel Sounds Present, Soft, Non Tender Microbiology Past 72 Hours 11/09/19 17:42 Blood Culture (Wb) - Anticubital Left Blood Culture - Final No growth in 5 days. Laboratory Results 11/15/19 06:41: WBC 10.3, RBC 5.17, Hgb 15.2, Hct 45.5, MCV 88.0, MCH 29.4, MCHC 33.4, RDW Std Deviation 42.4, RDW Coeff of Nida 13.1, Plt Count 342, MPV 10.1, Immature Gran % (Auto) 0.600, Neut % (Auto) 78.9 H, Lymph % (Auto) 9.5 L, [place] % (Auto) 10.9 H, Eos % (Auto) 0.0, Baso % (Auto) 0.1, Absolute Neuts (auto) 8.1 H , Absolute Lymphs (auto) 0.98, Nucleated RBC % 0 11/15/19 06:41: Sodium 139, Potassium 3.4 L, Chloride 107, Carbon Dioxide 25.0, Anion Gap 7, BUN 35 H, Creatinine 0.72, Estim Creat Clear Calc 50.98, Est GFR (MDRD) Af Amer 134, Est GFR (MDRD) Non-Af 111, BUN/Creatinine Ratio 48.3 H, Glucose 128 H, Calcium 9.0 Current Medications Acetaminophen (Tylenol) 650 mg PO Q6H PRN PRN PRN Reason: Pain Score 1-10/Temp > 100.7 F Albuterol Sulfate (Ventolin Aerosols) 2.5 mg INHALATION Q2H PRN PRN PRN Reason: SOB/Wheezing Last Admin: 11/12/19 01:43 Dose: 2.5 mg Documented by: Albuterol/Ipratropium (Duoneb) 3 ml INHALATION Q4H.RT [facility] Last Admin: 11/15/19 13:16 Dose: 3 ml Documented by: Amlodipine Besylate (Norvasc) 10 mg PO DAILY [facility] Last Admin: 11/15/19 06:18 Dose: 10 mg Documented by: Aspirin (Ecotrin) 81 mg PO DAILY@0800 [facility] Last Admin: 11/15/19 06:18 Dose: 81 mg Documented by: Atorvastatin Calcium (Lipitor) 40 mg PO QHS [facility] Last Admin: 11/14/19 22:10 Dose: 40 mg Documented by: Dextrose (D50w Syringe) 0 gm IV X1 PRN; Protocol PRN Reason: Hypoglycemia Enoxaparin Sodium (Lovenox) 40 mg SC BID [facility] Last Admin: 11/15/19 10:56 Dose: Not Given Documented by: Glucagon () 1 mg IM .X1 PRN PRN Reason: Hypoglycemia Guaifenesin (Robitussin Dm) 10 ml PO Q6H PRN PRN PRN Reason: COUGH Hydralazine HCl (Apresoline Iv) 10 mg IV Q4H PRN PRN PRN Reason: BLOOD PRESSURE ELEVATION Last Admin: 11/13/19 19:38 Dose: 10 mg Documented by: Hydrochlorothiazide (Hctz) 25 mg PO DAILY [facility] Last Admin: 11/15/19 10:55 Dose: 25 mg Documented by: Sodium Chloride () 250 mls @ 15 mls/hr IV .[id number] PRN PRN Reason: Saline Flush Sodium Chloride () 250 mls @ 15 mls/hr IV .[id number] PRN PRN Reason: Additional IVPB Infusion Sodium Chloride () 1,000 mls @ 0 mls/hr IV .Q0M [facility] Loratadine (Claritin) 5 mg PO QHS [facility] Last Admin: 11/14/19 22:09 Dose: 5 mg Documented by: Lorazepam (Ativan) 0.5 mg PO Q6H PRN PRN PRN Reason: ANXIETY Last Admin: 11/13/19 20:14 Dose: 0.5 mg Documented by: Metoprolol Tartrate (Lopressor (Beta Zuly)) 50 mg PO BID [facility] Last Admin: 11/15/19 10:55 Dose: 50 mg Documented by: Montelukast Sodium (Singulair) 10 mg PO DAILY [facility] Last Admin: 11/15/19 10:57 Dose: 10 mg Documented by: Ondansetron HCl (Zofran) 4 mg IV Q8H PRN PRN PRN Reason: NAUSEA/VOMITING Last Admin: 11/12/19 07:57 Dose: 4 mg Documented by: Pantoprazole Sodium (Protonix) 40 mg PO DAILY [facility] Last Admin: 11/15/19 10:56 Dose: 40 mg Documented by: Prednisone () 40 mg PO DAILY@0800 [facility] Quetiapine Fumarate (Seroquel) 100 mg PO BID [facility] Last Admin: 11/15/19 10:57 Dose: 100 mg Documented by: Sodium Chloride () 10 - 40 ml IV UD PRN PRN Reason: SALINE FLUSH Last Admin: 11/15/19 10:55 Dose: 20 ml Documented by: Discharge Diet: Low fat/ Low Cholesterol, 2000 mg Sodium Diet Discharge Activity: Return to Normal Activity Disposition: Home Minutes spent on discharge:: 35 Patient Condition:: Stable Medical Necessity - Tobacco Use Smoking Status: Former smoker Meaningful Use Info Meaningful Use Diagnoses (Choose all that apply): None applicable Inpatient E&M: 98792 Disch Hosp
--- NOTE | 2019-11-16 16:10 | CASEMGMT ---
MARILOU JAMES Discharge Follow-Up Phone Call. Magui:?12?Strata: 3 Discharge Date:?11/15/19 Adm Dx:??Status asthmaticus, CP, abnormal troponin ? Call to pt to inquire about how?he?has been doing since being discharged from the hospital. Pt states I'm doing pretty good. I feel a whole lot better than I was a week ago. 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 Pt states, I have enough to last me for now, stating that he had Prednisone 10 mg tablets from a prior prescription he had filled. MARILOU JAMES reviewed the Prednisone tapering instructions w/pt and and he voices understanding of how to correctly take the Prednisone. MARILOU JAMES asked pt how many tablets he has currently. Pt stated, I have plenty here but did not provide exact number of tablets he has. MARILOU JAMES instructed pt to contact his pharmacy or PCP if he finds later that he is not going to have enough tablets to complete the tapering instructions. MARILOU JAMES instructed pt on importance of taking the Prednisone as instructed and not to stop taking it abruptly. Pt voices understanding. Pt denies having any questions about his other medications. Reviewed follow-up appts with pt and he denies having any questions about the discharge instructions. He states his otvtr-aca-ap-law works in a care home and that she helped him w/removing the bandaid from his cath site. He states the site healed well. He denies having any needs/concerns. Pt made aware to contact his PCP if any needs/concerns/questions arise. Pt voices understanding. MARILOU JAMES thanked pt for choosing [facility].? Andres MCKINNEY RN, CM
== END 2019-11-15 15:48 | disposition home or self-care (01) | DRG 208 ==
LOC: ED 18:46 → ICU 19:55 → MS3 11-12 16:19 → PCU 11-14 07:34
PROVIDERS: Family Medicine; Hospitalist; Internal Medicine Cardiovascular Disease; Internal Medicine Critical Care Medicine; Admitting Provider Hospitalist; Emergency Provider Emergency Medicine; PCP Family Medicine; Referring Provider Hospitalist
DX: J96.01 Acute respiratory failure with hypoxia (principal); I21.4 Non-ST elevation (NSTEMI) myocardial infarction; J45.52 Severe persistent asthma with status asthmaticus; E87.2 Acidosis; I25.110 Atherosclerotic heart disease of native coronary artery with unstable angina pectoris; I25.810 Atherosclerosis of coronary artery bypass graft(s) without angina pectoris; Z95.1 Presence of aortocoronary bypass graft; I10 Essential (primary) hypertension; E78.5 Hyperlipidemia, unspecified; Z79.82 Long term (current) use of aspirin; Z79.899 Other long term (current) drug therapy; Z79.51 Long term (current) use of inhaled steroids; Z87.891 Personal history of nicotine dependence; R73.9 Hyperglycemia, unspecified; K21.9 Gastro-esophageal reflux disease without esophagitis; F41.9 Anxiety disorder, unspecified; E87.6 Hypokalemia; I45.10 Unspecified right bundle-branch block; Z03.818 Encounter for observation for suspected exposure to other biological agents ruled out
CPT/HCPCS: 31500; 31720; 36415; 36600; 51702; 71045; 71275; 80048; 80053; 81001; 82728; 82803; 82962; 83036; 83605; 83735; 84100; 84484; 85025; 85379; 85610; 85730; 86140; 87040; 87070; 87086; 87205; 87449; 87633; 87635; 87641; 93005; 93306; 93455; 93567; 94002; 94003; 94640; 94660; 94667; 94668; 97110; 97116; 97162; 97163; 97165; 97530; 97535; 97802; 97803; 99251; 99285; G2023; J7030; Q9967; A4216; C1769; C1894; G0463; J0696; J2405; U0004

== ENCOUNTER → 2019-11-20 | Outpatient (CLI) | payer MEDICARE, SELFPAY ==
[2019-11-10 12:50] VITALS: BMI 26.6
[2019-11-22 16:08] LABS: Immunoglobulin A 213 mg/dL (61-437); Immunoglobulin G 1208 mg/dL (603-1613); Immunoglobulin M 199 mg/dL (15-143)
[2019-11-23 13:12] LABS: Immunofixation Urine Comment: (.)
== END | disposition home or self-care (01) ==
LOC: MTLAB 12:24
PROVIDERS: PCP Family Medicine; Referring Provider Specialist; Visit Provider Specialist
DX: D72.1 Eosinophilia (principal); R89.5 Abnormal microbiological findings in specimens from other organs, systems and tissues; J45.50 Severe persistent asthma, uncomplicated
CPT/HCPCS: 36415; 82784; 86334; 86335

== ENCOUNTER → 2019-11-21 | Outpatient (CLI) | payer MEDICARE, SELFPAY ==
[2019-11-10 12:50] VITALS: BMI 26.6
== END | disposition home or self-care (01) ==
LOC: LABSPEC 09:51
PROVIDERS: PCP Family Medicine; Referring Provider Specialist; Visit Provider Specialist
DX: D72.1 Eosinophilia (principal); R89.5 Abnormal microbiological findings in specimens from other organs, systems and tissues; J45.50 Severe persistent asthma, uncomplicated
CPT/HCPCS: 87177; 87209

== ENCOUNTER → 2019-12-04 | Outpatient (CLI) | payer MEDICARE, SELFPAY ==
[2019-11-30 09:22] VITALS: BMI 25.0
[2019-12-07 12:37] LABS: Aspergillus fumigatus 0.27 kU/L (Class 0/I); Helminthosporium sativum 0.28 kU/L (Class 0/I)
== END | disposition home or self-care (01) ==
PROVIDERS: PCP Family Medicine
DX: D72.1 Eosinophilia (principal)
CPT/HCPCS: 36415; 86003

== ENCOUNTER → 2020-01-01 | Outpatient (CLI) | payer MEDICARE, SELFPAY ==
[2019-12-12 10:42] VITALS: BMI 25.1
[2020-01-04 05:43] LABS: Immunoglobulin E 1404 IU/mL (6-495)
== END | disposition home or self-care (01) ==
LOC: LAB 11:11
PROVIDERS: PCP Family Medicine; Referring Provider Specialist; Visit Provider Specialist
DX: J45.50 Severe persistent asthma, uncomplicated (principal)
CPT/HCPCS: 36415; 82785

== ENCOUNTER → 2020-03-05 | Outpatient (CLI) | payer MEDICARE, SELFPAY ==
[2019-12-12 10:42] VITALS: BMI 25.1
[2020-03-05 16:18] LABS: Absolute Lymphocyte Count 1.51 X10^3/uL (0.83-4.51); Basophil# 0.04 X10^3/uL; Basophil% 0.4 % (0-1); Eosinophil# 0.07 X10^3/uL; Eosinophils% 0.6 % (0-5); Hematocrit 44.4 % (40-54); Hemoglobin 13.9 g/dL (13.0-16.5); Lymphocyte # 1.51 X10^3/ul (4.0); Lymphocyte % 13.3 % (19-41); Mean Corp Hgb Conc 31.3 g/dL (32-36); Mean Corpuscular Hgb 28.8 pg (27.0-32.0); Mean Corpuscular Volume 92.1 fL (80-94); Mean Platelet Vol. 10.9 fl (6.2-12.0); Monocyte# 0.69 X10^3/uL; Monocyte% 6.1 % (0-10); NRBC Flagged by Analyzer 0 % (0-5); Neutrophil # 8.97 X10^3/uL (2.7-7.7); Neutrophil % 79.2 % (47-70); Platelet Count 289 K/mm3 (150-450); RBC Distribution Width CV 12.9 % (11.6-14.6); RBC Distribution Width SD 43.9 fl (35.1-43.9); Red Blood Count 4.82 M/mm3 (4.6-6.2); White Blood Count 11.3 K/mm3 (4.4-11.0)
[2020-03-08 20:50] LABS: Immunoglobulin E 835 IU/mL (6-495)
== END | disposition home or self-care (01) ==
LOC: MTLAB 12:59
PROVIDERS: PCP Family Medicine; Referring Provider Specialist; Visit Provider Specialist
DX: J45.50 Severe persistent asthma, uncomplicated (principal); D72.1 Eosinophilia; B44.81 Allergic bronchopulmonary aspergillosis
CPT/HCPCS: 36415; 82785; 85025

== ENCOUNTER → 2020-09-04 10:53 | Outpatient (CLI) | payer MEDICARE, SELFPAY ==
[2020-08-12 12:58] VITALS: BMI 26.6
[2020-09-04 12:11] LABS: Absolute Lymphocyte Count 1.24 X10^3/uL (0.83-4.51); Absolute Neutrophil Count 4.3 X10^3/uL (2.0-7.7); Basophil# 0.05 X10^3/uL; Basophil% 0.7 % (0-1); Eosinophil# 0.26 X10^3/uL; Eosinophils% 3.9 % (0-5); Hemoglobin 14.8 g/dL (13.0-16.5); Lymphocyte # 1.24 X10^3/ul (4.0); Lymphocyte % 18.6 % (19-41); Mean Corp Hgb Conc 31.5 g/dL (32-36); Mean Corpuscular Hgb 28.3 pg (27.0-32.0); Mean Corpuscular Volume 89.9 fL (80-94); Mean Platelet Vol. 10.5 fl (6.2-12.0); Monocyte# 0.82 X10^3/uL; Monocyte% 12.3 % (0-10); NRBC Flagged by Analyzer 0 % (0-5); Neutrophil # 4.29 X10^3/uL (2.7-7.7); Neutrophil % 64.4 % (47-70); Platelet Count 318 K/mm3 (150-450); RBC Distribution Width CV 13.5 % (11.6-14.6); RBC Distribution Width SD 44.2 fl (35.1-43.9); Red Blood Count 5.23 M/mm3 (4.6-6.2); White Blood Count 6.7 K/mm3 (4.4-11.0)
== END ==
PROVIDERS: PCP Family Medicine; Referring Provider Specialist; Visit Provider Specialist
DX: D72.19 Other eosinophilia (principal)
CPT/HCPCS: 36415; 85025

== ENCOUNTER → 2020-09-18 13:13 | Outpatient (CLI) | payer MEDICARE, SELFPAY ==
[2020-08-12 12:58] VITALS: BMI 26.6
--- NOTE | 2020-09-18 13:30 | BD_ITS ---
STUDY: DUAL ENERGY X-RAY ABSORPTIOMETRY / DXA REASON FOR EXAM: Male, 80 years old. Z79.51 TECHNIQUE: Bone Mineral Density (BMD) measurements of lumbar spine and left hip were obtained. COMPARISON: Comparison is made with prior study dated 06/18/2014. FINDINGS: Lumbar Spine (L1-L4): g/cm2 (1.211) / T-score (0.1) / Z-score (0.8) Findings are suggestive of normal bone density with a low fracture risk. Left Femur Total: g/cm2 (0.887) / T-score (-1.5) / Z-score (-0.4) Left Femoral Neck: g/cm2 (0.856) / T-score (-1.6) / Z-score (-0.1) The T-Scores on the most recent prior examination were: Lumbar Spine (L1-L4): There has been improvement of bone density since the previous examination. Left Femur Total: which represents a worsening of 5%. Right Femur Total: . BD/Dexa Bone Density Study IMPRESSION: The patient is considered osteopenic as outlined below according to World Wilfred Organization (WHO) criteria with a moderate fracture risk. There has been worsening of bone density since the previous examination. Reference Information: The T-score is the number of standard deviations above or below the standard which is normal for young adults at their peak bone mineral density. The World Health Organization (WHO) interprets the T-scores as follows: Above -1 Normal bone density Between -1 and -2.5 Osteopenia Equal to / or below -2.5 Osteoporosis As a practical clinical guideline, osteopenia may be graded as follows: Mild -1 through -1.5 Moderate -1.6 through -2.0 Severe -2.1 through -2.4 The Z-score is the number of standard deviations above or below age-matched controls. A Z-score of less than -1.5 would be considered abnormal. References: 1. NIH Osteoporosis and Related Bone Diseases www osteo.org 2. International Society for Clinical Densitometry www iscd.org 3. National Osteoporosis Foundation www nof.org Electronically Signed: Saroj Harris MD at 15:51 EDT , Service support ,
== END ==
PROVIDERS: PCP Family Medicine
DX: J45.50 Severe persistent asthma, uncomplicated (principal); Z79.51 Long term (current) use of inhaled steroids
CPT/HCPCS: 77080

== ENCOUNTER → 2020-12-04 10:45 | Outpatient (CLI) | payer MEDICARE, SELFPAY ==
[2020-08-12 12:58] VITALS: BMI 26.6
[2020-12-04 12:19] LABS: Absolute Neutrophil Count 4.9 X10^3/uL (2.0-7.7); Basophil# 0.05 X10^3/uL; Basophil% 0.6 % (0-1); Eosinophil# 0.49 X10^3/uL; Eosinophils% 6.1 % (0-5); Hematocrit 44.5 % (40-54); Hemoglobin 14.4 g/dL (13.0-16.5); Lymphocyte % 19.9 % (19-41); Mean Corp Hgb Conc 32.4 g/dL (32-36); Mean Corpuscular Hgb 28.9 pg (27.0-32.0); Mean Corpuscular Volume 89.4 fL (80-94); Mean Platelet Vol. 10.9 fl (6.2-12.0); Monocyte# 0.98 X10^3/uL; Monocyte% 12.2 % (0-10); NRBC Flagged by Analyzer 0 % (0-5); Platelet Count 286 K/mm3 (150-450); RBC Distribution Width CV 13.5 % (11.6-14.6); RBC Distribution Width SD 44.6 fl (35.1-43.9); Red Blood Count 4.98 M/mm3 (4.6-6.2)
== END ==
PROVIDERS: PCP Family Medicine
DX: D72.10 Eosinophilia, unspecified (principal)
CPT/HCPCS: 36415; 85025

== ENCOUNTER → 2021-01-23 10:04 | Outpatient (CLI) | payer MEDICARE, SELFPAY ==
[2020-08-12 12:58] VITALS: BMI 26.6
[2021-01-23 12:06] LABS: Erythrocyte Sedimentation Rate 6 mm/hr (0-20)
[2021-01-23 12:08] LABS: Absolute Lymphocyte Count 1.86 X10^3/uL (0.83-4.51); Absolute Neutrophil Count 4.9 X10^3/uL (2.0-7.7); Basophil# 0.07 X10^3/uL; Basophil% 0.9 % (0-1); Eosinophil# 0.28 X10^3/uL; Eosinophils% 3.4 % (0-5); Hematocrit 44.2 % (40-54); Hemoglobin 14.6 g/dL (13.0-16.5); Lymphocyte # 1.86 X10^3/ul (0.83-4.51); Lymphocyte % 22.9 % (19-41); Mean Corpuscular Hgb 29.2 pg (27.0-32.0); Mean Corpuscular Volume 88.4 fL (80-94); Mean Platelet Vol. 10.7 fl (6.2-12.0); Monocyte# 1.02 X10^3/uL; Monocyte% 12.6 % (0-10); NRBC Flagged by Analyzer 0 % (0-5); Neutrophil # 4.87 X10^3/uL (2.7-7.7); Platelet Count 294 K/mm3 (150-450); RBC Distribution Width CV 13.3 % (11.6-14.6); RBC Distribution Width SD 42.7 fl (35.1-43.9); White Blood Count 8.1 K/mm3 (4.4-11.0)
[2021-01-23 12:31] LABS: AST(SGOT) 21 U/L (15-37); Alanine Aminotransfer ALT/SGPT 26 U/L (16-61); Albumin, Serum 3.8 g/dL (3.2-5.0); Alkaline Phosphatase 118 U/L (45-117); Anion Gap 4 (5-15); BUN 16 mg/dL (7-18); BUN/Creat Ratio 17.9 RATIO (10-20); CRP < 2.90 mg/L (0.0-3.0); Calcium,Total 9.2 mg/dL (8.5-10.1); Chloride 110 mmol/L (98-107); Creatinine, Serum 0.89 mg/dL (0.70-1.30); EST Glomerular Filtration Rate 87 mL/min (>60); Est Glom Filt Rate - Afr Amer 105 mL/min (>60); Globulin 3.7 g/dL (2.2-4.2); Glucose 57 mg/dL (74-106); Potassium 3.4 mmol/L (3.5-5.1); Protein, Total 7.5 g/dL (6.4-8.2); Rheumatoid Factor < 10.0 IU/mL (<15); Sodium Level 143 mmol/L (136-145)
[2021-01-23 13:06] LABS: Hepatitis B Surface Antibody Non-Reactive; Hepatitis B Surface Antigen Non-Reactive (Nonreactive); Hepatitis C Antibody Non-Reactive (Nonreactive)
[2021-01-25 07:40] LABS: CCP IgG Antibodies 7 units (0-19)
[2021-01-26 15:51] LABS: ANTINUCLEAR ANTIBODIES DIRECT Negative (Negative)
== END ==
PROVIDERS: PCP Family Medicine; Referring Provider Internal Medicine Rheumatology; Visit Provider Internal Medicine Rheumatology
DX: M06.4 Inflammatory polyarthropathy (principal); M17.0 Bilateral primary osteoarthritis of knee; M16.0 Bilateral primary osteoarthritis of hip; M48.02 Spinal stenosis, cervical region; Z79.899 Other long term (current) drug therapy
CPT/HCPCS: 36415; 80053; 85025; 85652; 86038; 86140; 86200; 86431; 86706; 86803; 87340

== ENCOUNTER → 2021-04-09 08:37 | Outpatient (CLI) | payer MEDICARE, SELFPAY ==
[2021-04-09 10:27] LABS: AST(SGOT) 29 U/L (15-37); Alanine Aminotransfer ALT/SGPT 28 U/L (16-61); Albumin, Serum 3.8 g/dL (3.2-5.0); Alkaline Phosphatase 126 U/L (45-117); Bilirubin, Direct 0.16 mg/dL (0.00-0.30); Cholesterol 131 mg/dL (200); Globulin 4.2 g/dL (2.2-4.2); High Density Lipoprotein 45 mg/dL; Triglycerides 112 mg/dL; Very Low Density Lipoprotein 22 mg/dL (5-40)
== END ==
PROVIDERS: PCP Family Medicine; Referring Provider Physician Assistant Medical; Visit Provider Physician Assistant Medical
DX: E78.00 Pure hypercholesterolemia, unspecified (principal); I25.10 Atherosclerotic heart disease of native coronary artery without angina pectoris
CPT/HCPCS: 36415; 80061; 80076

== ENCOUNTER 2021-04-30 11:10 | Day surgery (SDC) | payer MEDICARE, SELFPAY ==
[2021-04-30] VITALS (7 sets, daily range): BP systolic 120–167; BP diastolic 74–108; PULSE 62–78; RESP 16–18; TEMP 36.1–36.2; O2SAT 95–99; BMI 23.6
--- NOTE | 2021-04-30 11:55 | HP.PCM_ITS ---
History and Physical Date of Admission: 04/30/21 HISTORY AND PHYSICAL ? Dariel Wayne 1940 ? REFERRING PHYSICIAN: Kev Steve, DO ? CHIEF COMPLAINT: Consult (colonoscopy consult) ? HPI: The patient is a 81 year old male referred for endoscopy. Dariel notes the following GI complaints: Dariel denies abdominal pain.. Dariel notes diarrhea. Dariel denies constipation. Dariel denies a change in bowel habits. Dariel denies melena. Dariel notes bright red blood per rectum. Dariel denies hemorrhoids. ? The patient notes the following upper complaints: Dariel denies abdominal pain.. Dariel denies heartburn. Dariel denies dysphagia. Dariel denies a history of ulcers/ peptic ulcer disease. ? Dariel has undergone prior endoscopy. 2015 ? The patient is being seen by me today at the request of Dr. Kev Steve for my opinion and advice regarding Hematochezia (primary encounter diagnosis) Abdominal bloating. ? ? PAST MEDICAL HISTORY PAST MEDICAL HISTORY Diagnosis Date ? Abdominal pain, unspecified site ? ? Asthma ? ? Bronchitis ? ? Chronically dry eyes ? ? Coronary artery disease ? ? Diverticulitis ? ? Diverticulitis of colon (without mention of hemorrhage)(562.11) ? ? Dizziness and giddiness ? ? GERD (gastroesophageal reflux disease) ? ? High cholesterol ? ? High triglycerides ? ? Hypertension ? ? Known medical problems ? ? elevated eosinophiles ? Malignant melanoma of back (HCC) ? ? Mental disorder ? ? Personal history of colonic polyps 09/17/2014 ? Personal history of coronary artery disease ? ? Snoring ? ? UTI (lower urinary tract infection) ? ? ? PAST SURGICAL HISTORY PAST SURGICAL HISTORY Procedure Laterality Date ? APPENDECTOMY,W OTHR PROC ? 11-04-2009 ? BACK SURGERY HX ? 03/04 ? L2-3 ? COLONOS W/REM POLYP SNARE ? 09-13-11 ? Repeat in 3 years (-2014) ? COLONOSCOPY ? 01/2009 ? every 5 years ? COLONOSCOPY W/BX ? 09/17/2014 ? Repeat 2014 ? EXCIS BOWEL LESION(S) BY ENTEROTOMY ? 11-04-2009 ? EXCISION NOSE POLYP(S),SIMPLE ? ? ? Nasal polypectomy ? MOBILIZE SPLENIC FLEX ? 11-04-2009 ? PART REMOVAL COLON W COLOPROCTOSTOMY ? 11-04-2009 ? PAST SURGICAL HISTORY OF ? ? ? rectum lesion ? PAST SURGICAL HISTORY OF ? 12/2006 ? 1 vessel ? [place] ANESTH,SHOULDER REPLACEMENT Right 2019 ? REPAIR ING HERNIA,5+Y/O,REDUCIBL ? ? ? Hernia repair, inguinal, LIH ? TOTAL HIP JOINT REPLACEMENT Right 04/04 ? ? ? CURRENT MEDICATIONS Current Outpatient Medications Medication Sig ? fluticasone (FLONASE ALLERGY RELIEF) 50 mcg/actuation nasal spray Use 1 [place] in each nostril once daily. ? polyethylene glycol 3350 (MIRALAX) 17 gram packet Take 17 g by mouth once daily. Dissolve dose in 4 - 8 ounces of liquid and take as directed. ? budesonide (PULMICORT) 0.5 mg/2 mL nebulizer solution Use 0.5 mg via nebulizer once daily. ? tetrahydrozoline/polyethyl gly (EYE DROPS OPHTHALMIC) Use in eyes. Rohto Max Strength Redness Reliever Lubricant Eye Drops ? acetaminophen (TYLENOL ARTHRITIS PAIN) 650 mg CR tablet Take 1,300 mg by mouth every 8 hours as needed. ? metoprolol tartrate, short acting, (LOPRESSOR) 25 mg tablet Take 25 mg by mouth twice daily. ? amLODIPine (NORVASC) 5 mg tablet Take 5 mg by mouth once daily. ? LORazepam (ATIVAN) 0.5 mg Take 0.5 mg by mouth at bedtime as needed. ? montelukast (SINGULAIR) 10 mg tablet Take 10 mg by mouth once daily. ? ? albuterol sulfate (VENTOLIN HFA INHALATION) Inhale 2 Puffs as instructed as needed. ? nebulizer accessories (NEBULIZER MISC) as needed. albuterol ? budesonide/formoterol fumarate (SYMBICORT INHALATION) Inhale 2 Puffs as instructed twice daily. ? ? CYANOCOBALAMIN, VITAMIN B-12, (VITAMIN B-12 ORAL) Take 1,000 mcg by mouth once daily. ? ? Cholecalciferol, Vitamin D3, (VITAMIN D) 1,000 unit cap Take 1,000 Units by mouth once daily. ? ? ATORVASTATIN 40 mg tablet Take 40 mg by mouth daily at bedtime. ? ? lansoprazole(PREVACID 30 MG CAP) Take one(1) capsule daily. ? predniSONE (DELTASONE) 10 mg tablet Take 10 mg by mouth once daily. (Patient not taking: Reported on 04/13/2021 ) ? citalopram hydrobromide (CELEXA) 10 mg tablet TAKE 1 TABLET BY MOUTH ONCE DAILY (Patient not taking: Reported on 04/13/2021) ? metoprolol tartrate, short acting, (LOPRESSOR) 50 mg tablet Take 50 mg by mouth twice daily. (Patient not taking: Reported on 04/13/2021 ) ? hydroCHLOROthiazide (HYDRODIURIL, ESIDRIX) 25 mg tablet Take 25 mg by mouth once daily. (Patient not taking: Reported on 04/13/2021 ) ? Levocetirizine 5 mg tablet Take 5 mg by mouth once daily. (Patient not taking: Reported on 04/13/2021 ) ? SPIRIVA RESPIMAT 2.5 mcg/actuation inhaler Inhale 2 Puffs as instructed once daily. (Patient not taking: Reported on 04/13/2021 ) ? ibuprofen 800 mg ORAL tablet Take 800 mg by mouth twice daily as needed. (Patient not taking: Reported on 04/13/2021 ) ? Aspirin 81 mg ORAL Tab Take 81 mg by mouth once daily. (Patient not taking: Reported on 04/13/2021 ) ? No current facility-administered medications for this visit. ? ? ALLERGIES: Simvastatin, Contrast Dye, Gabapentin, and Nitro [Nitrate Analogues] ? PERSONAL HISTORY: SOCIAL HISTORY Social History ? Tobacco Use ? Smoking status: Former Smoker ? ? Packs/day: 1.00 ? ? Years: 15.00 ? ? Pack years: 15.00 ? ? Types: Cigarettes ? ? Quit date: 07/09/1977 ? ? Years since quittin.7 ? Smokeless tobacco: Never Used Vaping Use ? Vaping Use: Never used Substance Use Topics ? Alcohol use: Not Currently ? Drug use: No ? FAMILY HISTORY: FAMILY HISTORY FAMILY HISTORY Problem Relation Age of Onset ? Breast Cancer Mother ? ? Heart Mother ? ? Hypertension Mother ? ? Colon Cancer Father ? ? Prostate Cancer Father ? ? Arthritis Sister ? ? Colon Cancer Sister ? ? COPD Brother ? ? Heart Maternal Grandfather ? ? [place] ? Heart Maternal Uncle ? ? UT ? Heart Paternal Aunt ? ? UT ? ? REVIEW OF SYMPTOMS: The review of systems data was entered by the nurse and reviewed by me ? Nursing Notes: Dang Ross RN 04/13/2021 4:24 PM Signed REVIEW OF SYSTEMS: General: The patient denies fatigue, NOTES weight loss, denies weight gain, denies feeling hot, and denies feelings of cold. Eyes: The patient denies glaucoma, denies eye injury/surgery, wears glasses or contacts. Ear/Nose/Throat: The patient NOTES allergies, denies hayfever, denies ear infections, and denies bloody noses. Cardiovascular: The patient denies chest pain, denies heart disease, NOTES high blood pressure,denies cardiac stent, denies prior heart attack, denies irregular heart beat, denies high cholesterol, denies poor circulation, denies heart failure, other cardiac issues, NOTES claudication, denies cold feet, denies peripheral arterial stent. Respiratory: The patient denies tuberculosis, denies pneumonia, denies frequent cough, denies pulmonary embolism, denies shortness of breath, and denies coughing up blood. Gastrointestinal: The patient denies difficulty swallowing, NOTES acid reflux, denies ulcers, denies vomiting, denies jaundice/hepatitis, denies gallbladder problems, denies black or tarry stools, denies hemorrhoids, NOTES bleeding from rectum, NOTES diverticulitis, denies constipation, NOTES diarrhea, denies loss of stool control, and denies hernias. Kidney/Bladder: The patient denies kidney stones, denies urine infections, and denies bloody urine. Skin: The patient denies a history of skin cancer, denies bleeding/changing moles, and denies a history of skin rash. Neurologic: The patient denies a history of epilepsy/convulsions, denies headaches, denies head/spinal injuries, and denies stroke/TIA. Psychiatric: The patient denies psychiatric medications, denies depression, and denies voices, denies substance abuse. Endocrine: The patient denies thyroid disorders, denies diabetes, and denies hormonal problems. Hematologic: The patient denies a history of bruising, denies bleeding, and denies anemia, denies blood clots. Infections: The patient denies a history of measles and mumps, denies rheumatic fever, and denies sexually transmitted diseases. Musculoskeletal: The patient NOTES back pain/injury, NOTES back problems, NOTES sciatica, NOTES knee/foot trouble, NOTES arthritis, or denies gout. ? ? When was patient's last Mammogram screening? N/A ? Last Colonoscopy: 09/17/2014 ? Dang Ross RN ? ? PHYSICAL EXAMINATION: ? General: The patient is 81 year old male, well nourished, well hydrated in no acute distress. The patient is oriented to time, place, and person. ? VITALS: Blood pressure 174/92, pulse 76, temperature 36.8 ?C (98.3 ?F), height 165.1 cm (5' 5), weight 67.1 kg (148 lb), SpO2 96 %. Body mass index is 24.63 kg/m?. ? HEENT: Normal cephalic, ataumatic, pupils are equally round, sclera are anicteric, mucous membranes are moist, oropharynx is clear. Neck has no masses, asymmetry or lymphadenopathy. Thyroid is unremarkable. ? Respiratory: Clear to auscultation and percussion. Normal respiratory excursion and pattern. ? Cardiac: Examination is regular rate and rhythm. ? Abdominal exam: Soft, nontender, with no palpable masses. No hepatosplenomegaly. No palpable hernias. ? Rectal exam: exam deferred ? Extremities: no clubbing, cyanosis or edema. No adenopathy. ? Other: ? LABORATORY VALUES: As Noted ? RADIOLOGIC STUDIES: As Noted ? Assessment IMPRESSION: Hematochezia (primary encounter diagnosis) Abdominal bloating ? PLAN: I plan to perform upper and lower endoscopy. We discussed the risks and benefits of the planned endoscopy. I have informed the patient that complications can occur including failure to complete the endoscopy and perforation. The patient had the opportunity to ask questions concerning the planned endoscopy. My staff has also explained the procedure to the patient in understandable terms and has given the patient printed material concerning the procedure. The patient freely consents to surgery. ? I plan to use Miralax bowel preperation for endoscopy ? I plan for monitored anesthetic care. ? Diagnoses: (K92.1) Hematochezia (primary encounter diagnosis) (R14.0) Abdominal bloating ? ? A letter was sent to Dr. Kev Steve indicating the above finding for this patient. Return to Clinic: The patient is instructed to follow-up with me 1 week post operatively. ? COVID (Procedure Consent) Procedure Criteria ? Procedure Criteria: Yes Elective The surgeon/proceduralist and patient have discussed in detail the risk of exposure to and/or potential harm posed by the COVID-19 virus with having a surgery/procedure at this time versus the risk of? delaying the surgery/procedure. It is not possible to know either the risk of delaying the surgery or procedure or chance of getting an infection with perfect accuracy, but a joint decision was made between the patient and the surgeon/proceduralist ?to proceed at this time with the scheduled surgery/procedure as indicated on the consent form. ? ? Nikolay Hudson III, MD I have re-examined the patient. There are no clinical changes since date of exam.
[2021-04-30] MEDS: Lactated Ringers 1,000 ML 15 ML IV (12:05)
--- NOTE | 2021-04-30 12:30 | IMM_PTH ---
PATIENT: SUSY REED LOC: EN U#:[id number] AGE/SX: 81/M ROOM: RE04/30/[address]: Dr. Nikolay Hudson MD : 1940 BED: DIS: 04/30/2021 SPEC #: [id number] RECD: 04/30/21 14:32 STATUS: LIGIA REQ #: [id number] LARA: 04/30/21 12:[address]: Nikolay Hudson DEPT: IMMUNOHISTOCHEMISTRY RECD BY: Donna Martinez ENTERED: 04/30/21 14:33 SP TYPE: IMMUNO OTHR DR: Kev Steve Tissues: Stomach, NOS Procedures: H Pylori (initial) PHYSICIAN & INSTITUTION [place] [address] SPECIMEN INFORMATION: Tissue Source: Antrum biopsy Clinical Info: Hematochezia, abdominal bloating Specimen Number: [id number] CPT code: 26038 METHODOLOGY: Deparaffinized sections of prefer/formalin-fixed tissue or PAP/DQ stained slides are incubated with monoclonal/polyclonal antibodies/oligonucleotide probes. Localization is made via biotin free immunoperoxidase method. Appropriate controls are performed and reacted as expected. Results on target cell population are indicated in the following table: RESULTS: ANTIBODY / CLONE RESULT H Pylori (polyclonal) negative These tests were developed and their performance characteristics determined by [facility]. They may not have been cleared or approved by the U.S. Food and Drug Administration. The FDA has determined that such clearance or approval is not necessary. INTERPRETATION: Antrum biopsy: Negative for Helicobacter pylori organisms. ALECIA:judith 05/01/2021
--- NOTE | 2021-04-30 12:30 | EGD_PTH ---
PATIENT: SUSY REED LOC: EN U#:[id number] AGE/SX: 81/M ROOM: RE04/30/[address]: Dr. Nikolay Hudson MD : 1940 BED: DIS: 04/30/2021 SPEC #: [id number] RECD: 04/30/21 13:50 STATUS: LIGIA REJosué #: [id number] LARA: 04/30/21 12:[address]: Nikolay Hudson DEPT: SURGICAL PATHOLOGY RECD BY: Michelle Young ENTERED: 04/30/21 14:06 SP TYPE: EGD BIOPSY OTHR DR: Kev Steve Tissues: Gastric mucous membrane Procedures: Surgery Specimen Level IV HEADER OPERATION: Colonoscopy, EGD ([facility] [place]) PRE-OP DIAGNOSIS: Hematochezia, abdominal bloating TISSUE SUBMITTED: Antrum biopsy for H. pylori and path MICROSCOPIC DIAGNOSIS Antrum biopsy: Minimal gastritis. See microscopic description and comment. SJ:judith 05/01/2021 COMMENT The results of immunohistochemistry for Helicobacter pylori will be reported separately ([id number]). MICROSCOPIC DESCRIPTION Slides are reviewed. The specimen shows fragments of gastric mucosa with chronic inflammatory cell infiltrates in the lamina propria consisting of lymphocytes and plasma cells, consistent with minimal chronic gastritis. Focal mucosal congestion and hemorrhage are also noted. GROSS DESCRIPTION Received in fixative is one container labeled with the patient's name and designated antrum biopsy. The specimen consists of one irregular fragment of light fitch soft tissue that measures 0.3 x 0.3 x 0.1 cm. The specimen is totally submitted in one cassette. / ALECIA:judith 04/30/21 TC:3 CPT: 47763
--- NOTE | 2021-04-30 13:03 | OP.EGD_ITS ---
Patient Name: Dariel Wayne Procedure Date: 04/30/2021 12:29 PM Date of : 1940 Age: 81 Procedure: Upper GI endoscopy Indications: Hematochezia Providers: Nikolay Hudson MD Medicines: See the Anesthesia note for documentation of the administered medications Patient Profile: This is an 81 year old male. Refer to note in patient chart for documentation of history and physical. Complications: No immediate complications. Estimated blood loss: Minimal. Procedure: Pre-Anesthesia Assessment: - Prior to the procedure, a History and Physical was performed, and patient medications and allergies were reviewed. The patient's tolerance of previous anesthesia was also reviewed. The risks and benefits of the procedure and the sedation options and risks were discussed with the patient. All questions were answered, and informed consent was obtained. Prior Anticoagulants: The patient has taken aspirin, last dose was 7 days prior to procedure. ASA Grade Assessment: II - A patient with mild systemic disease. After reviewing the risks and benefits, the patient was deemed in satisfactory condition to undergo the procedure. After obtaining informed consent, the endoscope was passed under direct vision. Throughout the procedure, the patient's blood pressure, pulse, and oxygen saturations were monitored continuously. The Endoscope was introduced through the mouth, and advanced to the second part of duodenum. The upper GI endoscopy was accomplished without difficulty. The patient tolerated the procedure well. Scope In: 12:42:31 PM Scope Out: 12:44:55 PM Total Procedure Duration Time 0 hours 2 minutes 24 seconds Findings: The Z-line was regular and was found 35 cm from the incisors. The entire examined stomach was normal. Biopsies were taken with a cold forceps for Helicobacter pylori testing. The examined duodenum was normal. Impression: - Z-line regular, 35 cm from the incisors. small HH - Normal stomach. Biopsied. - Normal examined duodenum. Recommendation: - Discharge patient to home. - Resume previous diet. - Continue present medications. - Await pathology results. - Repeat upper endoscopy PRN for surveillance. - Return to physician tutoring assistant in 1 week. Procedure Code(s): --- Professional --- 33828, Esophagogastroduodenoscopy, flexible, transoral; with biopsy, single or multiple Diagnosis Code(s): --- Professional --- K92.1, Melena (includes Hematochezia) CPT copyright 2017 [employer]. All rights reserved. The codes documented in this report are preliminary and upon wood sawyer review may be revised to meet current compliance requirements. MD Nikolay Pop MD 04/30/2021 1:02:35 PM This report has been signed electronically. Number of Addenda: 0 Note Initiated On: 04/30/2021 12:29 PM
--- NOTE | 2021-04-30 13:03 | OP.CCLET_ITS ---
04/30/2021 Kev Steve Re : Upper GI endoscopy procedure for Dariel Wayne [employer] This procedure was performed on April. My impressions and recommendations are as follows: Impressions : - Z-line regular, 35 cm from the incisors. small HH - Normal stomach. Biopsied. - Normal examined duodenum. Recommendations : - Discharge patient to home. - Resume previous diet. - Continue present medications. - Await pathology results. - Repeat upper endoscopy PRN for surveillance. - Return to physician personnel assistant in 1 week. My findings are described in the full procedure note, which is enclosed. If I can be of further assistance, please feel free to contact me at Doctor phone number(s): , Work: . Sincerely, MD Nikolay Pop MD 04/30/2021 1:02:35 PM This report has been signed electronically.
--- NOTE | 2021-04-30 13:06 | OP.CCLET_ITS ---
04/30/2021 Kev Steve Re : Colonoscopy procedure for Dariel Wayne [employer] This procedure was performed on April. My impressions and recommendations are as follows: Impressions : - Diverticulosis in the entire examined colon. - Non-bleeding internal hemorrhoids. - The examination was otherwise normal. - No specimens collected. Recommendations : - Discharge patient to home. - Resume previous diet. - Continue present medications. - Repeat colonoscopy is not recommended due to current age (66 years or older) for surveillance. - Return to physician surveyor instrument assistant in 1 week. My findings are described in the full procedure note, which is enclosed. If I can be of further assistance, please feel free to contact me at Doctor phone number(s): , Work: . Sincerely, MD Nikolay Pop MD 04/30/2021 1:05:33 PM This report has been signed electronically.
--- NOTE | 2021-04-30 13:06 | OP.COLON_ITS ---
Patient Name: Dariel Wayne Procedure Date: 04/30/2021 12:46 PM Date of : 1940 Age: 81 Procedure: Colonoscopy Indications: Hematochezia Providers: Nikolay Hudson MD Medicines: See the Anesthesia note for documentation of the administered medications Patient Profile: This is an 81 year old male. Refer to note in patient chart for documentation of history and physical. Last Colonoscopy: 2014. Complications: No immediate complications. Estimated blood loss: None. Procedure: Pre-Anesthesia Assessment: - Prior to the procedure, a History and Physical was performed, and patient medications and allergies were reviewed. The patient's tolerance of previous anesthesia was also reviewed. The risks and benefits of the procedure and the sedation options and risks were discussed with the patient. All questions were answered, and informed consent was obtained. Prior Anticoagulants: The patient has taken aspirin, last dose was 7 days prior to procedure. ASA Grade Assessment: II - A patient with mild systemic disease. After reviewing the risks and benefits, the patient was deemed in satisfactory condition to undergo the procedure. After I obtained informed consent, the scope was passed under direct vision. Throughout the procedure, the patient's blood pressure, pulse, and oxygen saturations were monitored continuously. The colonoscope was introduced through the anus and advanced to the cecum, identified by appendiceal orifice and ileocecal valve. Scope In: 12:48:16 PM Scope Withdrawal Time 0 hours 7 minutes 9 seconds Scope Out: 12:58:31 PM Total Procedure Duration Time 0 hours 10 minutes 15 seconds Findings: Multiple small and large-mouthed diverticula were found in the entire colon. Non-bleeding internal hemorrhoids were found during retroflexion. The hemorrhoids were mild and small. The exam was otherwise without abnormality. Impression: - Diverticulosis in the entire examined colon. - Non-bleeding internal hemorrhoids. - The examination was otherwise normal. - No specimens collected. Recommendation: - Discharge patient to home. - Resume previous diet. - Continue present medications. - Repeat colonoscopy is not recommended due to current age (66 years or older) for surveillance. - Return to physician clinical nursing assistant in 1 week. Procedure Code(s): --- Professional --- 04822, Colonoscopy, flexible; diagnostic, including collection of specimen(s) by brushing or washing, when performed (separate procedure) Diagnosis Code(s): --- Professional --- K64.8, Other hemorrhoids K92.1, Melena (includes Hematochezia) K57.30, Diverticulosis of large intestine without perforation or abscess without bleeding CPT copyright 2017 [employer]. All rights reserved. The codes documented in this report are preliminary and upon personnel psychologist review may be revised to meet current compliance requirements. MD Nikolay Pop MD 04/30/2021 1:05:33 PM This report has been signed electronically. Number of Addenda: 0 Note Initiated On: 04/30/2021 12:46 PM
== END 2021-04-30 13:55 ==
LOC: EN 11:10 → AC 11:11
PROVIDERS: PCP Family Medicine; Referring Provider Family Medicine; Visit Provider Surgery
PROC: 0DJD8ZZ Inspection of Lower Intestinal Tract, Via Natural or Artificial Opening Endoscopic (ICD-10-PCS; CPT 45378; principal; 2021-04-30 12:25)
DX: K57.30 Diverticulosis of large intestine without perforation or abscess without bleeding (principal); K64.8 Other hemorrhoids; K29.70 Gastritis, unspecified, without bleeding; J45.909 Unspecified asthma, uncomplicated; I25.10 Atherosclerotic heart disease of native coronary artery without angina pectoris; K21.9 Gastro-esophageal reflux disease without esophagitis; I10 Essential (primary) hypertension; E78.00 Pure hypercholesterolemia, unspecified; F41.9 Anxiety disorder, unspecified; Z87.891 Personal history of nicotine dependence; Z79.51 Long term (current) use of inhaled steroids; Z79.899 Other long term (current) drug therapy
CPT/HCPCS: 43239; 45378; 88305; 88342; J7120; J2405

== ENCOUNTER → 2021-08-13 14:54 | Outpatient (CLI) | payer MEDICARE, SELFPAY ==
[2021-08-13 17:50] LABS: Absolute Lymphocyte Count 2.36 X10^3/uL (0.83-4.51); Absolute Neutrophil Count 7.3 X10^3/uL (2.0-7.7); Basophil# 0.05 X10^3/uL; Basophil% 0.5 % (0-1); Eosinophil# 0.26 X10^3/uL; Eosinophils% 2.3 % (0-5); Hematocrit 41.2 % (40-54); Hemoglobin 13.4 g/dL (13.0-16.5); Lymphocyte # 2.36 X10^3/ul (0.83-4.51); Lymphocyte % 21.3 % (19-41); Mean Corp Hgb Conc 32.5 g/dL (32-36); Mean Corpuscular Hgb 28.6 pg (27.0-32.0); Mean Platelet Vol. 10.2 fl (6.2-12.0); Monocyte# 1.09 X10^3/uL; Monocyte% 9.8 % (0-10); NRBC Flagged by Analyzer 0 % (0-5); Neutrophil # 7.28 X10^3/uL (2.7-7.7); Neutrophil % 65.8 % (47-70); Platelet Count 328 K/mm3 (150-450); RBC Distribution Width CV 14.1 % (11.6-14.6); RBC Distribution Width SD 45.1 fl (35.1-43.9); Red Blood Count 4.68 M/mm3 (4.6-6.2); White Blood Count 11.1 K/mm3 (4.4-11.0)
[2021-08-19 13:55] LABS: Immunoglobulin E 679 IU/mL (6-495)
== END ==
PROVIDERS: PCP Family Medicine
DX: B44.81 Allergic bronchopulmonary aspergillosis (principal); J30.89 Other allergic rhinitis; J45.50 Severe persistent asthma, uncomplicated
CPT/HCPCS: 36415; 82785; 85025

== ENCOUNTER 2021-08-19 13:32 | Outpatient (CLI) | payer MEDICARE, SELFPAY ==
--- NOTE | 2021-08-19 13:35 | CT_ITS ---
STUDY: CTA CHEST REASON FOR EXAM: Male, 81 years old. TAA RADIATION DOSAGE (If Supplied By Facility): CTDIvol = ( 17.06 ) mGy, DLP = ( 355.94 ) mGycm TECHNIQUE: The examination was performed with the intravenous administration of IV 100mL Isovue-370. Post-processing of the angiographic images was performed, with multiplanar reformation and 3D reconstruction. Individualized dose optimization techniques were used for this CT. COMPARISON: Comparison is made with prior study dated 11/10/2019. FINDINGS: Normal enhancement of the main pulmonary artery and right and left pulmonary arteries. Normal enhancement of the bilateral peripheral pulmonary arteries. There is no demonstrated pulmonary embolism. Normal thoracic aorta and visualized great vessels. Stable transverse dimension of the aortic root measuring 3.3 cm. Atherosclerotic plaque calcification of the aortic arch There is no demonstrated aortic dissection. There are calcifications of the coronary arteries. Sternal cerclage wires and vascular clips are present from a prior sternotomy and coronary artery bypass graft procedure (CABG). Normal mediastinum. Normal hilar regions. Normal visualized trachea and bronchi. The lungs are well expanded. Normal pulmonary parenchyma. Normal pleura. Normal chest wall structures. There are degenerative changes of thoracic spine. I suspect a 1.3 cm cyst in the inferior aspect of the right lobe of the liver. Large hiatal hernia. CT/CTA Chest W/WO Contrast IMPRESSION: Stable examination. Electronically Signed: Saroj Harris MD at 14:26 EST ,
[2021-08-19 13:56] LABS: CREATININE FINGERSTICK 0.8 mg/dL (0.70-1.30); EGFR FINGERSTICK > 60.0000 mL/min (>60)
== END 2021-08-19 23:59 | disposition home or self-care (01) ==
PROVIDERS: PCP Family Medicine; Referring Provider Physician Assistant Medical; Visit Provider Physician Assistant Medical
DX: Z01.810 Encounter for preprocedural cardiovascular examination (principal); I77.810 Thoracic aortic ectasia
CPT/HCPCS: 71275; Q9967

== ENCOUNTER → 2022-06-30 | Outpatient (CLI) | payer MEDICARE, SELFPAY ==
--- NOTE | 2022-06-30 17:42 | STRESSREP ---
Stress Test Report Pharmacologic myocardial perfusion stress test. 82-year-old man with a history of coronary artery disease Resting EKG demonstrates sinus rhythm with a rate of 72 bpm and an incomplete right bundle branch block. Resting blood pressure is 152/88 mmHg. 0.4 mg of regadenoson was infused per usual protocol followed by rapid intravenous saline flush injection. Continuous EKG monitoring was performed. The maximum heart rate was 111 bpm which was 79% of max impacted heart rate the maximum workload was 1 metabolic equivalent. At rest there were no ST or T wave changes noted to suggest ischemia and at peak infusion nonspecific ST changes were noted with did not meet the criteria for ischemia. Occasional premature ventricular complexes noted. No clinical angina is noted. The final blood pressure was 136/80 mmHg. Myocardial perfusion protocol. 11.1 mCi of technetium 99m sestamibi was injected at rest. 0.4 mg of regadenoson was infused per usual protocol. At peak infusion 32.7 mCi of technetium 99m sestamibi was injected stress images were obtained stress and rest images were reconstructed and compared in the short axis vertical long and horizontal long axis. Gated images were also obtained. Perfusion SPECT analysis: Review of the stress images demonstrate normal uptake of tracer noted in all areas of the myocardium. The resting images similar demonstrated normal uptake of tracer noted in all areas of the myocardium. No areas of reversibility are noted to suggest ischemia and no previous infarct is noted. Gated SPECT analysis: The gated ejection fraction is 82%. Conclusion: Normal pharmacologic myocardial perfusion stress test. Preserved ejection fraction.
== END | disposition home or self-care (01) ==
PROVIDERS: PCP Family Medicine; Referring Provider Internal Medicine Cardiovascular Disease; Visit Provider Internal Medicine Cardiovascular Disease
DX: I25.10 Atherosclerotic heart disease of native coronary artery without angina pectoris (principal); Z95.1 Presence of aortocoronary bypass graft
CPT/HCPCS: 78452; 93017; A9500; A4216; J2785

== ENCOUNTER → 2022-07-05 | Outpatient (CLI) | payer MEDICARE, SELFPAY ==
[2022-07-05 12:08] LABS: Absolute Lymphocyte Count 1.73 X10^3/uL (0.83-4.51); Absolute Neutrophil Count 4.7 X10^3/uL (2.0-7.7); Basophil# 0.05 X10^3/uL; Basophil% 0.7 % (0-1); Eosinophil# 0.23 X10^3/uL; Eosinophils% 3.1 % (0-5); Hematocrit 44.1 % (40-54); Hemoglobin 13.9 g/dL (13.0-16.5); Lymphocyte # 1.73 X10^3/ul (0.83-4.51); Lymphocyte % 23.1 % (19-41); Mean Corp Hgb Conc 31.5 g/dL (32-36); Mean Corpuscular Hgb 29.5 pg (27.0-32.0); Mean Corpuscular Volume 93.6 fL (80-94); Mean Platelet Vol. 9.9 fl (6.2-12.0); Monocyte# 0.79 X10^3/uL; Monocyte% 10.5 % (0-10); NRBC Flagged by Analyzer 0 % (0-5); Neutrophil # 4.68 X10^3/uL (2.7-7.7); Neutrophil % 62.3 % (47-70); Platelet Count 387 K/mm3 (150-450); RBC Distribution Width SD 44.9 fl (35.1-43.9); Red Blood Count 4.71 M/mm3 (4.6-6.2); White Blood Count 7.5 K/mm3 (4.4-11.0)
[2022-07-05 12:35] LABS: ALB/GLOB Ratio 1.1 RATIO (0.9-2.4); AST(SGOT) 23 U/L (15-37); Alanine Aminotransfer ALT/SGPT 24 U/L (16-61); Albumin, Serum 3.8 g/dL (3.2-5.0); Alkaline Phosphatase 108 U/L (45-117); Anion Gap 6 (5-15); BUN 12 mg/dL (7-18); Calcium,Total 9.4 mg/dL (8.5-10.1); Chloride 104 mmol/L (98-107); Cholesterol 130 mg/dL (200); Creatinine, Serum 0.92 mg/dL (0.70-1.30); EST Glomerular Filtration Rate 84 mL/min (>60); Est Glom Filt Rate - Afr Amer 101 mL/min (>60); Globulin 3.6 g/dL (2.2-4.2); Glucose 93 mg/dL (74-106); High Density Lipoprotein 46 mg/dL; Potassium 3.7 mmol/L (3.5-5.1); Protein, Total 7.4 g/dL (6.4-8.2); Sodium Level 140 mmol/L (136-145); Triglycerides 92 mg/dL; Very Low Density Lipoprotein 18 mg/dL (5-40)
== END | disposition home or self-care (01) ==
LOC: MTLAB 09:53
PROVIDERS: PCP Family Medicine; Referring Provider Family Medicine; Visit Provider Family Medicine
DX: E78.2 Mixed hyperlipidemia (principal)
CPT/HCPCS: 36415; 80053; 80061; 85025

== ENCOUNTER 2022-08-06 10:26 | Inpatient (IN) | payer MEDICARE, SELFPAY ==
[2022-08-06] VITALS (14 sets, daily range): BP systolic 134–166; BP diastolic 75–91; PULSE 100–113; RESP 15–27; TEMP 36.6–37.7; O2SAT 93–98; BMI 25.0; BMI 23.4
--- NOTE | 2022-08-06 10:45 | EKG12_ITS ---
Test Reason : Blood Pressure : / mmHG Vent. Rate : 105 BPM Atrial Rate : 105 BPM P-R Int : 174 ms QRS Dur : 126 ms QT Int : 366 ms P-R-T Axes : 010 -32 -01 degrees QTc Int : 483 ms Sinus tachycardia with occasional ventricular-paced complexes and with occasional Premature ventricul ar complexes Left axis deviation Right bundle branch block Abnormal ECG Confirmed by DEENA SHERMAN, SEVERINO ([id number]), order editor TONY CESAR ([id number]) on 08/09/2022 1:45:07 PM Referred By: Cici Hernandez Confirmed By:SEVERINO SHAFFER MD
[2022-08-06] MEDS: Ipratropium/Albuterol Sulfate 3 ML AMPUL.NEB INHALATION ×3 (10:54→18:53)
[2022-08-06] MEDS: Albuterol 2.5 MG/3 ML VIAL.NEB. INHALATION ×3 (10:55)
[2022-08-06 11:08] LABS: Absolute Lymphocyte Count 0.47 X10^3/uL (0.83-4.51); Absolute Neutrophil Count 16.4 X10^3/uL (2.0-7.7); Basophil# 0.04 X10^3/uL; Basophil% 0.2 % (0-1); Hematocrit 44.6 % (40-54); Hemoglobin 14.9 g/dL (13.0-16.5); Lymphocyte # 0.47 X10^3/ul (0.83-4.51); Lymphocyte % 2.5 % (19-41); Mean Corp Hgb Conc 33.4 g/dL (32-36); Mean Corpuscular Hgb 29.8 pg (27.0-32.0); Mean Corpuscular Volume 89.2 fL (80-94); Mean Platelet Vol. 10.6 fl (6.2-12.0); Monocyte# 1.58 X10^3/uL; Monocyte% 8.5 % (0-10); NRBC Flagged by Analyzer 0 % (0-5); Neutrophil # 16.37 X10^3/uL (2.7-7.7); Neutrophil % 88.4 % (47-70); POSITIVE DIFFERENTIAL YES; Platelet Count 296 K/mm3 (150-450); RBC Distribution Width CV 13.2 % (11.6-14.6); RBC Distribution Width SD 43.4 fl (35.1-43.9); White Blood Count 18.5 K/mm3 (4.4-11.0)
[2022-08-06 11:15] LABS: Differential Indicated SCAN CRITERIA MET
[2022-08-06] MEDS: MethylPREDNISolone 125 MG/2 ML Vial 60 MG IV (11:19)
[2022-08-06 11:24] LABS: Anion Gap 12 (5-15); BUN 24 mg/dL (7-18); BUN/Creat Ratio 20.7 RATIO (10-20); Calcium,Total 10.2 mg/dL (8.5-10.1); Chloride 106 mmol/L (98-107); Creatinine, Serum 1.16 mg/dL (0.70-1.30); EST Glomerular Filtration Rate 64 mL/min (>60); Est Glom Filt Rate - Afr Amer 78 mL/min (>60); Estimated Creatinine Clearance 43.44 ml/min; Glucose 153 mg/dL (74-106); Potassium 2.9 mmol/L (3.5-5.1); Sodium Level 139 mmol/L (136-145)
[2022-08-06] MEDS: Ondansetron 4 MG/2 ML Vial IV (11:31)
[2022-08-06 11:34] LABS: Lactic Acid 2.7 mmol/L (0.4-1.9)
--- NOTE | 2022-08-06 11:34 | RAD_ITS ---
HISTORY: Dyspnea, cough, rales left greater than right. TECHNIQUE: XR Chest 2 Views. COMPARISON: 11/09/2019. FINDINGS: CARDIOMEDIASTINAL BORDERS: Cardiac silhouette within normal limits in size. Mediastinal contour unchanged with midline sternotomy and moderate hiatal hernia. LUNGS: Mild left basilar opacity. PLEURA: No pleural effusion or pneumothorax seen. OSSEOUS STRUCTURES: Right reverse shoulder arthroplasty in place. Thoracic spinal electrode noted. RAD/Chest PA and Lateral IMPRESSION: Mild left basilar opacity, concerning for pneumonia. Recommend follow-up to resolution. Moderate hiatal hernia. Electronically Signed: Clarisse Montano MD at 11:58 EST ,
[2022-08-06 11:38] LABS: Differential Comment SCANNED
--- NOTE | 2022-08-06 13:08 | ED.VIS.DYS ---
HPI History of Present Illness Chief Complaint: Shortness of Breath Detail of Chief Complaint: Shortness of breath, productive cough, wheezing dyspnea with activity Informant: patient Onset/Context/Timing Onset: Days Context: sudden Timing: Continuous Current Severity: Moderate Maximum Severity: Severe Worsened by: Exertion and Coughing Relieved by: Nothing Associated Symptoms cough, sore throat and green sputum; Negative for rhinorrhea, post nasal drip, ear pain, fever, subjective, chills, sweats, clear sputum, white sputum or yellow sputum Chest Pain: Positive for None Narrative Narrative: Patient presents with increased shortness breath over the past couple days with productive cough. He does have history of asthma. He denies history of COPD. He states he quit smoking over 40 years ago. He complains of chills. Tmax 99.0 ?F. Denies headache, visual, ocular auditory symptoms. He denies chest discomfort. [place] history of VTE. He has no risk factors for VTE. He denies leg pain, swelling discoloration. He denies abdominal pain, nausea, vomit or diarrhea. He denies dysuria, frequency, urgency or hematuria. He denies rash, discoloration of his skin. He states he has been using his inhaler more frequently. He is uncertain whether he has been on prednisone in the last 3 to 6 months. PE Risk Factors: Negative for Cancer, OCP + Smoking + > 35, Prior DVT or PE, Recent immobilization, Recent surgery or Recent travel Prior similar symptoms: Yes (COPD exacerbation) Recent Illness/Hospitalization: No PFSH PFSH Medical History Anxiety Arthritis Asthma Atherosclerotic heart disease of [place] coronary artery without angina pectoris Back pain Cancer Carotid artery disease Carotid bruit Difficulty swallowing Eosinophilic asthma Essential (primary) hypertension FH: sudden cardiac (SCD) Former smoker Gastric reflux Hiatal hernia History of asthma History of diverticulitis History of hiatal hernia History of non-ST elevation myocardial infarction (NSTEMI) (11/14/19) Hyperlipidemia Metabolic acidosis Mild ascending aorta dilatation Status asthmaticus Vertigo Wears dentures Wears glasses Home Medications lansoprazole 30 mg capsule,delayed release 30 mg PO DAILY GERD 09/07/13 [History Last Taken 04/30/21] cholecalciferol (vitamin D3) 25 mcg (1,000 unit) tablet 1,000 unit PO DAILY SUPPLEMENT 03/12/16 [History Last Taken Unknown] cyanocobalamin (vitamin B-12) 1,000 mcg tablet,extended release 1,000 mcg PO DAILY SUPPLEMENT 03/12/16 [History Last Taken Unknown] albuterol sulfate 90 mcg/actuation aerosol inhaler 2 puff inhalation Q6H PRN PRN Wheezing 11/09/19 [History Last Taken Unknown] budesonide-formoterol HFA 160 mcg-4.5 mcg/actuation aerosol inhaler 1 puff inhalation DAILY copd 11/09/19 [History Last Taken Unknown] lorazepam 0.5 mg tablet 0.5 mg PO QHS PRN PRN Anxiety 11/09/19 [History Last Taken Unknown] montelukast 10 mg tablet 10 mg PO DAILY breathing 11/09/19 [History Last Taken Unknown] acetaminophen 500 mg tablet 1,000 mg PO BID 06/24/21 [History Last Taken 08/05/22] tiotropium bromide 1.25 mcg/actuation mist for inhalation 2 inh inhalation DAILY SOB 06/24/21 [History Last Taken Unknown] atorvastatin 40 mg tablet 40 mg PO QHS #90 tabs 12/07/21 [Rx Last Taken Unknown] metoprolol tartrate 25 mg tablet 25 mg PO BID #180 tabs 01/25/22 [Rx Last Taken Unknown] cephalexin 500 mg capsule 500 mg PO BID 03/16/22 [History Last Taken Unknown] gabapentin 300 mg capsule 300 mg PO DAILY PRN 03/16/22 [History Last Taken Unknown] prednisone 50 mg tablet 50 mg PO .COMPLEX #3 tabs 03/16/22 [Rx Last Taken Unknown] amlodipine 10 mg tablet 10 mg PO DAILY #90 tabs 06/01/22 [Rx Last Taken Unknown] hydrocodone-acetaminophen 5-325mg 5mg-325mg 1 tab PO BID PAIN 08/06/22 [History Last Taken 08/05/22] Allergy/AdvReac Type Severity Reaction Status Date / Time Iodinated Contrast Media Allergy Intermediate Rash Verified 08/06/22 10:27 nitroglycerin Allergy Other Verified 08/06/22 10:27 simvastatin AdvReac Severe Myalgias Verified 08/06/22 10:27 Family History Grandfather Myocardial infarction Sudden cardiac Grandmother CVA (cerebral vascular accident) Grandfather Cancer Father Colon cancer Hypertension Mother Breast cancer CHF (congestive heart failure) Brother COPD (chronic obstructive pulmonary disease) Sister CAD (coronary artery disease) Hx CABG Hypertension HLD (hyperlipidemia) Son Hypertension Surgical History H/O coronary artery bypass surgery (12/2006) History of esophagogastroduodenoscopy (EGD) History of left heart catheterization (11/15/19) History of lumbar fusion History of partial colectomy Hx of colonoscopy Hx of hernia repair Hx of shoulder replacement Hx of sinus surgery Hx of total hip arthroplasty Social History Smoking Status: Former smoker quit date: 06/20/79 Tobacco: How many years used: 15 alcohol intake: never substance use type: does not use seatbelt use: always ROS ROS ED Constitutional Constitutional ED: Reports chills; Denies fever(s), sweats or weight loss Eyes Eyes: Denies blurry vision, change in vision or diplopia ENT ENT ED: Denies ear pain, rhinorrhea or sore throat Cardiovascular Cardiovascular: Denies chest pain, orthopnea, palpitations, paroxysmal nocturnal dyspnea or racing heartbeat Respiratory/Chest Respiratory/Chest: Reports cough, dyspnea and dyspnea on exertion; Denies orthopnea or paroxysmal nocturnal dyspnea Gastrointestinal Gastrointestinal: Denies abdominal pain, diarrhea, nausea or vomiting Genitourinary Genitourinary ED: Denies dysuria, hematuria or urinary frequency Musculoskeletal Musculoskeletal: Denies arthralgias, back pain or myalgias Integumentary Denies Abrasions or rash Neurologic Neurologic: Reports weakness; Denies headache(s) or paresthesias Endocrine Endocrinology: Denies cold intolerance or heat intolerance Hematologic/Lymphatic Hematologic/Lymphatic: Denies easy bleeding or easy bruising EXAM Physical Exam Const Vital Signs: 08/06/22 10:27 08/06/22 10:29 08/06/22 10:52 Temperature 99.4 F H 98.4 F Temperature Source Temporal Temporal Pulse Rate 109 H 109 H 110 H Respiratory Rate 27 H 21 H 18 Respiratory Pattern Normal Blood Pressure 153/88 H 153/88 H Blood Pressure Mean 109 109 Pulse Ox 97 97 Oxygen Delivery Method Nasal Cannula Nasal Cannula Oxygen Flow Rate (L/min) 2 2 08/06/22 12:14 08/06/22 13:34 Temperature 98.1 F Temperature Source Temporal Pulse Rate 113 H 111 H Respiratory Rate 18 20 H Respiratory Pattern Blood Pressure 134/82 H 148/77 H Blood Pressure Mean 99 100 Pulse Ox 94 98 Oxygen Delivery Method Room Air Room Air Oxygen Flow Rate (L/min) Positive well nourished and well developed; Negative for cachectic, contractures or unkempt General Appearance ED: well developed and pallor; Negative for unkempt, cachectic, contractures or NAD Nutritional Appearance: Negative for cachectic HEENT Reports dry mucous membranes HEENT Narrative: Head is atraumatic normocephalic. Ears normal. Nares patent. Posterior pharynx out erythema or exudate. Uvula is midline. Mouth ED: Yes dry mucous membranes Mouth: dry mucous membranes Eyes PERRL and EOMs intact bilaterally General Eye ED: Negative for pale conjunctiva or scleral icterus Neck no lymphadenopathy, supple, no meningeal signs and no JVD Resp No normal respiratory effort and No clear to auscultation bilaterally Auscultation: rales bilateral lower and wheezes expiratory wheezes and throughout Cardio regular rhythm, S1 normal heart sound, S2 normal heart sound and no murmurs Rate: tachycardic GI non-tender, non-distended and no masses Auscultation: hypoactive bowel sounds Palpation: soft Back/Spine no CVA tenderness Extremity normal to inspection Extremity Narrative: There is no asymmetry, swelling, discoloration, leg vein distention, palpable cords or tenderness along the distribution of the deep venous system. Neuro oriented x3, CN's II-XII intact bilaterally and no sensory deficits noted [place] Coma Scale: document GCS findings Spontaneous Obeys Commands Oriented 15 Sensorium / Orientation: alert Speech: speech normal Psych Appearance: Negative for unkempt Skin no wounds and skin turgor normal General Skin Exam: pallor; Negative for jaundice Sepsis Attestation Date exam was performed: 08/06/22 Time exam was performed: 10:55 Possible Source of Sepsis: Pulmonary Sepsis Organ Dysfunction Criteria Present: Lactic Acid > 2 mmol/L MDM MDM MDM Narrative Medical decision making narrative: Differential diagnosis is exacerbated COPD with chronic bronchitis versus COPD versus pneumonia with exacerbation COPD. Sepsis work-up was undertaken. CBC was obtained to assess white count and rule out anemia since he appears pale. Basic metabolic panel was obtained to assess renal function and determine if antibiotic doses need to be adjusted. Also to assess glucose and anion gap. Lactate was obtained to assess for endorgan dysfunction. Furthermore elevated lactate is associated with increased mortality amongst ER patient's by 3 fold. Since patient has elevated lactate, elevated white count and is tachycardic tachypneic blood cultures were obtained. He was started on Rocephin and azithromycin for community-acquired pneumonia.. Since patient does not have Medicare he is not considered severe sepsis. He was treated for pneumonia. Patient did receive DuoNeb, albuterol and steroids. He is still wheezing significantly. He was reassessed twice during his ER stay prior to calling the hospitalist Lab Data Attestation: I reviewed the patient's lab results. Lab results narrative: White count is elevated with shift. Basic metabolic panel reveals elevated creatinine of 1.16. GFR 64. Glucose is slightly evaded 153. Patient does not have history of diabetes. Lactate is elevated 2.7. Rapid COVID and influenza antigens are negative. Labs: Laboratory Results - last 24 hr 08/06/22 08/06/22 08/06/22 10:30 10:30 10:55 WBC 18.5 H RBC 5.00 Hgb 14.9 Hct 44.6 MCV 89.2 MCH 29.8 MCHC 33.4 RDW Std Deviation 43.4 RDW Coeff of [place] 13.2 Plt Count 296 MPV 10.6 Immature Gran % (Auto) 0.400 Neut % (Auto) 88.4 H Lymph % (Auto) 2.5 L [place] % (Auto) 8.5 Eos % (Auto) 0.0 Baso % (Auto) 0.2 Absolute Neuts (auto) 16.4 H Absolute Lymphs (auto) 0.47 L Nucleated RBC % 0 Differential Comment SCANNED Diff Path Review May foll Sodium 139 Potassium 2.9 L Chloride 106 Carbon Dioxide 21.0 Anion Gap 12 BUN 24 H Creatinine 1.16 Estim Creat Clear Calc 43.44 Est GFR (MDRD) Af Amer 78 Est GFR (MDRD) Non-Af 64 BUN/Creatinine Ratio 20.7 H Glucose 153 H Lactic Acid 2.7 H* Calcium 10.2 H Radiography Chest X-Ray - ED: 1 View and Read by ED Physician (Chest x-ray reveals bilateral lower lung field infiltrates. Cardiac silhouette is unremarkable. Cardiac silhouette size is unremarkable. Osseous [place]. Perihilar area is unremarkable. There is evidence of a hiatal hernia.) Diagnostic Testing: Clinical Impression(s) from Imaging Studies Chest X-Ray 08/06/22 11:34 IMPRESSION: Mild left basilar opacity, concerning for pneumonia. Recommend follow-up to resolution. Moderate hiatal hernia. Electronically Signed: Clarisse Montano MD at 11:58 EST Reading Location ID and State: [facility] / [place] Tel , Service support , Rhythm Strip Rhythm Strip: Sinus Tach Rate: 116 EKG Initial EKG: Attestation: I personally reviewed and interpreted this EKG as follows: Interpretation: Sinus Tachycardia (Trickle rate is 105. There is an occasional ectopic beat noted. [place] to the left. [place] interval is under 74 ms. QS duration 126 ms. QT durations 166 ms.) Discharge Plan Dx/Rx/DC Orders Clinical Impression: Community acquired pneumonia, Acute exacerbation of COPD with asthma, Neutrophilic leukocytosis, Acidosis, lactic, Sinus tachycardia, Tachypnea Disposition Disposition: Acute Care Hospital [facility]
--- NOTE | 2022-08-06 13:39 | HP.PCM.HOS_ITS ---
HPI - General General Date of Admission: 08/06/22 Date of Service: 08/06/22 Chief Complaint: Intractable vomiting, SOB - 1 day HPI Narrative SUSY REED, is a 82 M who presents with above. Patient has past medical history of CAD s/p CABG, Hypertension, Hyperlipidemia who comes in with the above complaints. Patient stated that he went out to [employer] a day prior to admission. He ate some ribs and when he got home he had nausea with abdominal discomfort. He stated that he stayed up all night because he has had intractable nausea and vomiting. This morning, he felt still unwell and slightly short of breath and decided to come to the hospital. He denied any fever or chills. Denies any diarrhea, abdominal pain at the time of being seen. In the ED showed blood pressure 153/88, heart rate 109, respiratory 27, tempera ture 99.4 F, oxygen sat is 97% on 2 L of oxygen. WBC 18.5, hemoglobin 14.9, platelet 296, sodium 139, potassium 2.9, chloride 106, carbon 21, BUN 24, creatinine 1.16, previous creatinine was 0.92. Magnesium is 1.9. Calcium is 10.2. Admitting chest x-ray showed mild left basilar opacity concerning for pneumonia and moderate hiatal hernia. [facility] Medical History Anxiety Arthritis Asthma Atherosclerotic heart disease of [place] coronary artery without angina pectoris Back pain Cancer Carotid artery disease Carotid bruit Difficulty swallowing Eosinophilic asthma Essential (primary) hypertension FH: sudden cardiac (SCD) Former smoker Gastric reflux Hiatal hernia History of asthma History of diverticulitis History of hiatal hernia History of non-ST elevation myocardial infarction (NSTEMI) (11/14/19) Hyperlipidemia Metabolic acidosis Mild ascending aorta dilatation Status asthmaticus Vertigo Wears dentures Wears glasses Home Medications lansoprazole 30 mg capsule,delayed release 30 mg PO DAILY GERD 09/07/13 [History Last Taken 08/05/22] cholecalciferol (vitamin D3) 25 mcg (1,000 unit) tablet 1,000 unit PO DAILY SUPPLEMENT 03/12/16 [History Last Taken 08/05/22] cyanocobalamin (vitamin B-12) 1,000 mcg tablet,extended release 1,000 mcg PO DAILY SUPPLEMENT 03/12/16 [History Last Taken 08/05/22] albuterol sulfate 90 mcg/actuation aerosol inhaler 2 puff inhalation Q6H PRN PRN Wheezing 11/09/19 [History Last Taken 08/05/22] budesonide-formoterol HFA 160 mcg-4.5 mcg/actuation aerosol inhaler 1 puff inhalation DAILY copd 11/09/19 [History Last Taken 1 Week Ago ~07/30/22] lorazepam 0.5 mg tablet 0.5 mg PO QHS PRN PRN Anxiety 11/09/19 [History Last Taken 08/05/22] montelukast 10 mg tablet 10 mg PO DAILY breathing 11/09/19 [History Last Taken 08/05/22] acetaminophen 500 mg tablet 1,000 mg PO BID PAIN 06/24/21 [History Last Taken 08/05/22] gabapentin 300 mg capsule 300 mg PO DAILY PRN Pain 03/16/22 [History Last Taken 08/05/22] amlodipine 10 mg tablet 10 mg PO DAILY . 08/06/22 [History Last Taken 08/05/22] atorvastatin 40 mg tablet 40 mg PO QHS CHOLESTEROL 08/06/22 [History Last Taken 08/05/22] hydrocodone-acetaminophen 5-325mg 5mg-325mg 1 tab PO BID PAIN 08/06/22 [History Last Taken 08/05/22] metoprolol tartrate 25 mg tablet 25 mg PO BID ' 08/06/22 [History Last Taken 08/05/22] Allergy/AdvReac Type Severity Reaction Status Date / Time Iodinated Contrast Media Allergy Intermediate Rash Verified 08/06/22 10:27 nitroglycerin Allergy Other Verified 08/06/22 10:27 simvastatin AdvReac Severe Myalgias Verified 08/06/22 10:27 Family History Grandfather Myocardial infarction Sudden cardiac Grandmother CVA (cerebral vascular accident) Grandfather Cancer Father Colon cancer Hypertension Mother Breast cancer CHF (congestive heart failure) Brother COPD (chronic obstructive pulmonary disease) Sister CAD (coronary artery disease) Hx CABG Hypertension HLD (hyperlipidemia) Son Hypertension Surgical History H/O coronary artery bypass surgery (12/2006) History of esophagogastroduodenoscopy (EGD) History of left heart catheterization (11/15/19) History of lumbar fusion History of partial colectomy Hx of colonoscopy Hx of hernia repair Hx of shoulder replacement Hx of sinus surgery Hx of total hip arthroplasty Social History Smoking Status: Former smoker quit date: 06/20/79 Tobacco: How many years used: 15 alcohol intake: never substance use type: does not use seatbelt use: always ROS ROS Narrative Constitutional: Reports: Malaise, Weakness, Fatigue. Denies: Anorexia, Chills, Fever, Night Sweats, Weight Change Eyes: Denies: Blurred vision, Cataracts, Conjunctivae Inflammation, Pain, Redness, Vision Change HEENT: Denies: Difficulty Hearing, Difficulty Swallowing, Head Aches, Hearing Changes, Sinus Congestion, Sinus Drainage Cardiovascular: Denies: Chest Pain, Orthopnea, Palpitations Respiratory: Denies: Cough, Shortness of breath at rest, Sputum production Gastrointestinal: See HPI Genitourinary: Denies: Dysuria Musculoskeletal: Denies: Joint Pain, Joint stiffness, Joint swelling, Joint Tenderness Skin: Denies: Rash, Wounds Neurological: Denies: Numbness, Tingling, Focal weakness Vital Signs Vital Signs Vital Signs: 08/06/22 10:27 08/06/22 10:29 08/06/22 10:52 Temperature 99.4 F H 98.4 F Temperature Source Temporal Temporal Pulse Rate 109 H 109 H 110 H Respiratory Rate 27 H 21 H 18 Respiratory Pattern Normal Blood Pressure 153/88 H 153/88 H Blood Pressure Mean 109 109 Pulse Ox 97 97 Oxygen Delivery Method Nasal Cannula Nasal Cannula Oxygen Flow Rate (L/min) 2 2 08/06/22 12:14 08/06/22 13:34 Temperature 98.1 F Temperature Source Temporal Pulse Rate 113 H 111 H Respiratory Rate 18 20 H Respiratory Pattern Blood Pressure 134/82 H 148/77 H Blood Pressure Mean 99 100 Pulse Ox 94 98 Oxygen Delivery Method Room Air Room Air Oxygen Flow Rate (L/min) Weight Weight: 68.4 kg Body Mass Index (BMI) 25.0 Physical Exam Narrative Physical exam: General: Alert, Oriented x3, Cooperative, not on oxygen HEENT: Atraumatic Oral: Moist Mucosa Neck: Supple Lungs:Diminished to auscultation Cardiovascular: HS I+II, regular, no murmurs Abdomen: Bowel Sounds Present, Soft, Non Tender Extremities: No edema Skin: No rashes, No breakdown Neurological: Grossly intact Psych/Mental Status: Appropriate Results Lab / Micro Data Result Diagrams: 08/06/22 10:30 08/06/22 10:30 Labs: Laboratory Results - last 24 hr 08/06/22 10:30: WBC 18.5 H, RBC 5.00, Hgb 14.9, Hct 44.6, MCV 89.2, MCH 29.8, MCHC 33.4, RDW Std Deviation 43.4, RDW Coeff of [place] 13.2, Plt Count 296, MPV 10.6, Immature Gran % (Auto) 0.400, Neut % (Auto) 88.4 H, Lymph % (Auto) 2.5 L, [place] % (Auto) 8.5, Eos % (Auto) 0.0, Baso % (Auto) 0.2, Absolute Neuts (auto) 16.4 H, Absolute Lymphs (auto) 0.47 L, Nucleated RBC % 0, Differential Comment SCANNED, Diff Path Review October foll 08/06/22 10:30: Sodium 139, Potassium 2.9 L, Chloride 106, Carbon Dioxide 21.0, Anion Gap 12, BUN 24 H, Creatinine 1.16, Estim Creat Clear Calc 43.44, Est GFR (MDRD) Af Amer 78, Est GFR (MDRD) Non-Af 64, BUN/Creatinine Ratio 20.7 H, Glucose 153 H, Calcium 10.2 H 08/06/22 10:55: Lactic Acid 2.7 H* Micro: Microbiology 08/06/22 10:50 Nasal Secretion SARS-CoV-2 & FLU Antigen (Rapid) - Final Rhythm Strip Rhythm Strip: Sinus Tach Rate: 116 Radiology Impression Chest X-Ray 08/06/22 11:34 IMPRESSION: Mild left basilar opacity, concerning for pneumonia. Recommend follow-up to resolution. Moderate hiatal hernia. Electronically Signed: Clarisse Montano MD at 11:58 EST Reading Location ID and State: [facility] / [place] Tel , Service support , Assessment & Plan Assessment/Plan (1) Intractable vomiting: PLAN: Plan 1. Acute intractable vomiting likely secondary to gastroenteritis Patient went out to eat at [facility] Continue with symptomatic treatment, gentle IV fluid 2. Hypokalemia/hypomagnesemia secondary to #1, replaced Recheck in a.m. 3. Probable acute aspiration pneumonitis/pneumonia Chest x-ray had shown left basilar infiltrate We will cover for now with IV Unasyn, continue to encourage use of incentive spirometer 4. Leukocytosis, reactive, will trend 5. Dehydration secondary to #1, will continue on IV fluids, trend labs in a.m. 6. Lactic acidosis, likely secondary to #1, will continue on IV fluids, will trend 7. CAD status post CABG/hypertension/hyperlipidemia/history of aortic dilatation Continue on amlodipine, metoprolol, atorvastatin 8. DVT PPx- Heparin SC BID Charges/Coding Addendum Addendum: Total time spent: 75 minutes of which more > 50% was spent in reviewing patient's chart, laboratory investigations, imaging, discussing with emergency physician, taking history and physical examining patient. Visit Charges Inpatient E&M: 81030 Init Hosp L3 Procedures Hospitalists Procedures: 72728 Advncd Care Plan 30 Min
[2022-08-06 14:08] LABS: AST(SGOT) 39 U/L (15-37); Alanine Aminotransfer ALT/SGPT 36 U/L (16-61); Albumin, Serum 4.1 g/dL (3.2-5.0); Alkaline Phosphatase 102 U/L (45-117); Bilirubin, Direct 0.15 mg/dL (0.00-0.30); Globulin 4.3 g/dL (2.2-4.2); Protein, Total 8.4 g/dL (6.4-8.2)
[2022-08-06 15:00] LABS: Reflex Lactate? Y
--- NOTE | 2022-08-06 15:41 | NURSING ---
awaiting Rx to acknowledge meds
[2022-08-06 15:59] LABS: Lactic Acid 5.4 mmol/L (0.4-1.9)
[2022-08-06] MEDS: 0.9% Normal Saline 1,000 ML 100 ML IV (16:34)
[2022-08-06] MEDS: Potassium Chloride Oral Tablet 20 MEQ 40 MEQ PO (17:01)
--- NOTE | 2022-08-06 17:07 | NURSING ---
k riders have not arrived to unit at this time-pt took 40 meq of oral potassium
[2022-08-06 17:14] LABS: Magnesium 1.9 mg/dL (1.6-2.6)
[2022-08-06] MEDS: Potassium Chloride 10mEq/100mL 10 MEQ/100 ML IV.SOLN. 100 MEQ IV BOLUS ×4 (17:36→20:46)
--- NOTE | 2022-08-06 17:37 | NURSING ---
k+ riders just arrived and started mag not on unit
[2022-08-06] MEDS: Budesonide Respules 0.5 MG/2 ML AMPUL.NEB. INHALATION (18:54)
[2022-08-06] MEDS: Heparin Injection (Vial) 5,000 UNIT/ML VIAL 5000 UNIT SC (22:08)
[2022-08-06] MEDS: Metoprolol Tartrate 25 MG Tablet PO (22:08)
[2022-08-06] MEDS: Atorvastatin Calcium 40 MG Tablet PO (22:09)
[2022-08-06] MEDS: HYDROcodone Bitartrate/Apap 5/325 Tablet PO (22:09)
[2022-08-06] MEDS: Acetaminophen 500 MG Tablet 1000 MG PO (22:09)
[2022-08-07] VITALS (8 sets, daily range): BP systolic 130–155; BP diastolic 65–85; PULSE 72–95; RESP 16–20; TEMP 37–37.3; O2SAT 94–96
[2022-08-07] MEDS: 0.9% Normal Saline 1,000 ML 100 ML IV (00:03)
[2022-08-07 05:14] LABS: Absolute Lymphocyte Count 0.96 X10^3/uL (0.83-4.51); Absolute Neutrophil Count 14.8 X10^3/uL (2.0-7.7); Basophil# 0.02 X10^3/uL; Basophil% 0.1 % (0-1); Hemoglobin 11.8 g/dL (13.0-16.5); Lymphocyte # 0.96 X10^3/ul (0.83-4.51); Lymphocyte % 5.7 % (19-41); Mean Corp Hgb Conc 32.8 g/dL (32-36); Mean Corpuscular Hgb 29.8 pg (27.0-32.0); Mean Corpuscular Volume 90.9 fL (80-94); Mean Platelet Vol. 10.1 fl (6.2-12.0); Monocyte# 1.11 X10^3/uL; Monocyte% 6.5 % (0-10); NRBC Flagged by Analyzer 0 % (0-5); Neutrophil # 14.78 X10^3/uL (2.7-7.7); Neutrophil % 87.1 % (47-70); Platelet Count 237 K/mm3 (150-450); RBC Distribution Width CV 13.5 % (11.6-14.6); RBC Distribution Width SD 45.3 fl (35.1-43.9); Red Blood Count 3.96 M/mm3 (4.6-6.2)
[2022-08-07] MEDS: 0.9% Normal Saline 1,000 ML 150 ML IV (05:18)
[2022-08-07 05:43] LABS: Lactic Acid 1.2 mmol/L (0.4-1.9)
[2022-08-07 05:51] LABS: ALB/GLOB Ratio 0.9 RATIO (0.9-2.4); AST(SGOT) 32 U/L (15-37); Alanine Aminotransfer ALT/SGPT 28 U/L (16-61); Alkaline Phosphatase 70 U/L (45-117); Anion Gap 8 (5-15); BUN 19 mg/dL (7-18); BUN/Creat Ratio 24.8 RATIO (10-20); Calcium,Total 8.6 mg/dL (8.5-10.1); Chloride 113 mmol/L (98-107); Creatinine, Serum 0.76 mg/dL (0.70-1.30); EST Glomerular Filtration Rate 104 mL/min (>60); Est Glom Filt Rate - Afr Amer 126 mL/min (>60); Globulin 3.3 g/dL (2.2-4.2); Glucose 119 mg/dL (74-106); Magnesium 2.2 mg/dL (1.6-2.6); Potassium 3.5 mmol/L (3.5-5.1); Protein, Total 6.3 g/dL (6.4-8.2); Sodium Level 142 mmol/L (136-145)
[2022-08-07] MEDS: Budesonide Respules 0.5 MG/2 ML AMPUL.NEB. INHALATION (07:07)
[2022-08-07] MEDS: Ipratropium/Albuterol Sulfate 3 ML AMPUL.NEB INHALATION ×2 (07:07→10:23)
--- NOTE | 2022-08-07 09:05 | CASEMGMT ---
Addendum entered by Monique Diaz 08/07/22 12:20: Pt did not qualify for home oxygen. Original Note: MARILOU JAMES Assessment: Face to Face with pt for initial transition planning/care coordination assessment. MARILOU JAMES introduced self and role at [facility], pt voices understanding and consents to assessment. Pt is A/O x4 and answers all questions appropriately at this time. Pt lying in bed in no distress on RA. Care providers, pharmacy, and demographics verified/updated. Admitting Dx: COPD exac PCP:[facility]:Pt states he sees a dr at the allergy and asthma clinic in [place]; [facility]; [facility] Preferred Pharmacy: [facility] Insurance: [employer] Prescription Benefit: yes LNOK: Dariel Wayne, son Living Arrangements: Pt lives alone in a two story home with 3 steps to enter with a double rail. Pt reports he is I in ADL's and denies concerns at home. He states it just takes time to complete ADL's. Pt also cooks for self or orders food out and picks up. Transportation: Pt drives self and denies concerns with transportation. DME/HHC/SNF: Pt has a BP monitor, stairlift, FWW and standard walker. Pt denies hx of HHC. States his insurance has sent out a nurse through them only. Pt denies SNF stays. Pt states no concerns with going home at time of dc. Pt does not have therapy ordered. 6 clicks state home with help. Pt denies needing any help in the home at this time. Pt is scheduled for a hip replacement on 08/23. Pt states once this is done, he will be able to get around better. Pt states no further concerns/needs. CM to follow. Advised pt to ask CM if any further question/concerns/needs arise, voices understanding. Pt Goal: Home Plan: Home
[2022-08-07] MEDS: Metoprolol Tartrate 25 MG Tablet PO (09:28)
[2022-08-07] MEDS: amLODIPine 10 MG Tablet PO (09:29)
[2022-08-07] MEDS: Pantoprazole Sodium 40 MG Tablet PO (09:29)
[2022-08-07] MEDS: Acetaminophen 500 MG Tablet 1000 MG PO (09:29)
[2022-08-07] MEDS: Cyanocobalamin 500 MCG Tablet 1000 MCG PO (09:29)
[2022-08-07] MEDS: Heparin Injection (Vial) 5,000 UNIT/ML VIAL 5000 UNIT SC (09:30)
[2022-08-07] MEDS: Montelukast 10 MG Tablet PO (09:30)
[2022-08-07] MEDS: Cholecalciferol (VIT D3) 25 MCG TABLET (1,000 UNITS) PO (09:37)
[2022-08-07] MEDS: HYDROcodone Bitartrate/Apap 5/325 Tablet PO (09:44)
--- NOTE | 2022-08-07 10:11 | DCINST_ITS ---
Discharge Instructions Diet Discharge Diet: Low fat / Low cholesterol Activity Discharge Activity: Return to Normal Activity Dressing / Incision Call your doctor if you observe: Fever of 101 or Higher, Shortness of breath, Dizziness, Fainting spells, Swelling in the ankles, Chest pain and Increased palpitations (irregular heartbeat) Follow Up Care Test Results: Test results from this visit will be discussed in further detail at your follow- up appointment, if applicable. Discharge Plan Admission Admit Date/Time: 08/06/22 13:56 Attending Provider: Roc Das Primary Care Provider: Kev Steve Consulting Providers: Kim Ponce Discharge Orders/Prescriptions Prescriptions: New amoxicillin-pot clavulanate 875-125 mg tablet 1 tab PO BID Qty: 14 0RF Continued acetaminophen 500 mg tablet 1,000 mg PO BID Rx Instructions: Do not exceed 3000 mg/day gabapentin 300 mg capsule 300 mg PO DAILY PRN (Reason: Pain) lansoprazole 30 MG capsule 30 mg PO DAILY Label Comments: ACID REFLUX cyanocobalamin (vitamin B-12) 1,000 MCG tablet extended release 1,000 mcg PO DAILY Label Comments: supplement cholecalciferol (vitamin D3) 1,000 UNIT tablet 1,000 unit PO DAILY Label Comments: supplement lorazepam 0.5 MG tablet 0.5 mg PO QHS PRN PRN (Reason: Anxiety) montelukast 10 MG tablet 10 mg PO DAILY albuterol sulfate 18 GM HFA aerosol inhaler 2 puff inhalation Q6H PRN PRN (Reason: Wheezing) budesonide-formoterol 6 GM HFA aerosol inhaler 1 puff inhalation DAILY hydrocodone-acetaminophen 5-325 mg tablet 1 tab PO BID atorvastatin 40 mg tablet 40 mg PO QHS amlodipine 10 mg tablet 10 mg PO DAILY metoprolol tartrate 25 mg tablet 25 mg PO BID Referrals / Follow Up: Kev Steve [Primary Care Provider] - Within 1 Week Disposition Disposition (needs filled in before D/C Order can be placed): Home, Self Care
--- NOTE | 2022-08-07 14:02 | PCM.DC.SUM ---
Providers Date of Admission: 08/06/22 Primary Care Physician: Kev Steve Reason For Visit: COPD EXACERBATION Diagnosis Discharge Diagnosis (1) Intractable vomiting: Status: Acute Code(s): R11.10 - Vomiting, unspecified Medications at Discharge Home Medications lansoprazole 30 mg capsule,delayed release 30 mg PO DAILY GERD 09/07/13 cholecalciferol (vitamin D3) 25 mcg (1,000 unit) tablet 1,000 unit PO DAILY SUPPLEMENT 03/12/16 cyanocobalamin (vitamin B-12) 1,000 mcg tablet,extended release 1,000 mcg PO DAILY SUPPLEMENT 03/12/16 albuterol sulfate 90 mcg/actuation aerosol inhaler 2 puff inhalation Q6H PRN PRN Wheezing 11/09/19 budesonide-formoterol HFA 160 mcg-4.5 mcg/actuation aerosol inhaler 1 puff inhalation DAILY copd 11/09/19 lorazepam 0.5 mg tablet 0.5 mg PO QHS PRN PRN Anxiety 11/09/19 montelukast 10 mg tablet 10 mg PO DAILY breathing 11/09/19 acetaminophen 500 mg tablet 1,000 mg PO BID PAIN 06/24/21 gabapentin 300 mg capsule 300 mg PO DAILY PRN Pain 03/16/22 amlodipine 10 mg tablet 10 mg PO DAILY . 08/06/22 atorvastatin 40 mg tablet 40 mg PO QHS CHOLESTEROL 08/06/22 hydrocodone-acetaminophen 5-325mg 5mg-325mg 1 tab PO BID PAIN 08/06/22 metoprolol tartrate 25 mg tablet 25 mg PO BID ' 08/06/22 amoxicillin 875 mg-potassium clavulanate 125 mg tablet 1 tab PO BID #14 tabs 08/07/22 Hospital Course Operations None Procedures None Summary of Care Provided Minutes Spent on Discharge: 40 Hospital Course: Per HPI: SUSY REED, is a 82 M who presents with above. Patient has past medical history of CAD s/p CABG, Hypertension, Hyperlipidemia who comes in with the above complaints. Patient stated that he went out to [employer] a day prior to admission. He ate some ribs and when he got home he had nausea with abdominal discomfort.? He stated that he stayed up all night because he has had intractable nausea and vomiting.? This morning, he felt still unwell and slightly short of breath and decided to come to the hospital.? He denied any fever or chills.? Denies any diarrhea, abdominal pain at the time of being seen. In the ED showed blood pressure 153/88, heart rate 109, respiratory 27, temperature 99.4 F, oxygen sat is 97% on 2 L of oxygen.? WBC 18.5, hemoglobin 14.9, platelet 296, sodium 139, potassium 2.9, chloride 106, carbon 21, BUN 24, creatinine 1.16, previous creatinine was 0.92.? Magnesium is 1.9.? Calcium is 10.2. Admitting chest x-ray showed mild left basilar opacity concerning for pneumonia and moderate hiatal hernia. Hospital Course: 1. Acute intractable vomiting secondary to gastroenteritis with aspiration pneumonitis versus pneumonia?82-year-old male presents to the hospital with intractable nausea and vomiting as well as findings on chest x-ray consistent with pneumonia versus aspiration. Leukocytosis is improving, his nausea and vomiting as well as his diarrhea have completely resolved and his he is feeling much better today. I discussed with him the plan for discharge today he expressed understanding of the risk benefits of going home and is okay with going home today. We will cover him with 7 more days of Augmentin for possible aspiration and recommend that he follow-up with his PCP in 3 to 5 days. He improved faster than anticipated. 2. Coronary artery disease status post CABG, hypertension, hyperlipidemia are all chronic medical conditions which complicate his care. His home medications were continued where appropriate. Physical Exam Narrative General: Alert, Oriented x3, Cooperative, No apparent distress HEENT: Atraumatic, PERRLA, EOMI, Normocephalic Oral: Moist Mucosa Neck: Supple, No JVD Lungs: Diminished, Normal air movement, No rhonchi, No wheeze, No rales Cardiovascular: Regular rate, Regular Rhythm, Normal S1, Normal S2, No murmurs Abdomen: Soft, Non Tender, Non-Distended, No Hepato-splenomegaly Extremities: No edema, Capillary Refill Less than 3 Seconds Skin: No rashes, No breakdown Musculoskeletal: No Tenderness to Palpation of Joints or Extremities Neurological: Cranial nerves II-XII grossly intact, Motor Exam 5/5 strength throughout, Sensory exam intact to light touch and pain Psych/Mental Status: Normal Affect, Appropriate Weight / BMI Weight Weight: 141 lb 1.533 oz Body Mass Index (BMI) 23.4 ABG / Lab / Microbiology Data Result Diagrams: 08/07/22 05:02 08/07/22 05:02 Laboratory: Laboratory Results - last 24 hr 08/06/22 10:30: Total Bilirubin 0.60, Direct Bilirubin 0.15, AST 39 H, ALT 36, Alkaline Phosphatase 102, Total Protein 8.4 H, Albumin 4.1, Globulin 4.3 H 08/06/22 10:30: Magnesium 1.9 08/06/22 11:30: Miscellaneous Cytology Cancelled 08/06/22 15:07: Lactic Acid 5.4 H* 08/07/22 05:02: WBC 17.0 H, RBC 3.96 L, Hgb 11.8 L, Hct 36.0 L, MCV 90.9, MCH 29.8, MCHC 32.8, RDW Std Deviation 45.3 H, RDW Coeff of Nida 13.5, Plt Count 237, MPV 10.1, Immature Gran % (Auto) 0.600, Neut % (Auto) 87.1 H, Lymph % (Auto) 5.7 L, [place] % (Auto) 6.5, Eos % (Auto) 0.0, Baso % (Auto) 0.1, Absolute Neuts (auto) 14.8 H, Absolute Lymphs (auto) 0.96, Nucleated RBC % 0 08/07/22 05:02: Sodium 142, Potassium 3.5, Chloride 113 H, Carbon Dioxide 21.0, Anion Gap 8, BUN 19 H, Creatinine 0.76, Estim Creat Clear Calc 50.40, Est GFR (MDRD) Af Amer 126, Est GFR (MDRD) Non-Af 104, BUN/Creatinine Ratio 24.8 H, Glucose 119 H, Calcium 8.6, Magnesium 2.2, Total Bilirubin 0.30, AST 32, ALT 28, Alkaline Phosphatase 70, Total Protein 6.3 L, Albumin 3.0 L, Globulin 3.3, Albumin/Globulin Ratio 0.9 08/07/22 05:02: Lactic Acid 1.2 Microbiology: Microbiology 08/06/22 10:50 Nasal Secretion SARS-CoV-2 & FLU Antigen (Rapid) - Final D/C Instructions Discharge Diet: Low fat / Low cholesterol Call your doctor if you observe: Fever of 101 or Higher, Shortness of breath, Dizziness, Fainting spells, Swelling in the ankles, Chest pain and Increased palpitations (irregular heartbeat) Meaningful Use Info Meaningful Use Diagnoses (Choose all that apply): None applicable Discharge Plan Admission Admit Date/Time: 08/06/22 13:56 Attending Provider: Roc Das Primary Care Provider: Kev Steve Consulting Providers: Kim Ponce Discharge Orders/Prescriptions Prescriptions: New amoxicillin-pot clavulanate 875-125 mg tablet 1 tab PO BID Qty: 14 0RF Continued acetaminophen 500 mg tablet 1,000 mg PO BID Rx Instructions: Do not exceed 3000 mg/day gabapentin 300 mg capsule 300 mg PO DAILY PRN (Reason: Pain) lansoprazole 30 MG capsule 30 mg PO DAILY Label Comments: ACID REFLUX cyanocobalamin (vitamin B-12) 1,000 MCG tablet extended release 1,000 mcg PO DAILY Label Comments: supplement cholecalciferol (vitamin D3) 1,000 UNIT tablet 1,000 unit PO DAILY Label Comments: supplement lorazepam 0.5 MG tablet 0.5 mg PO QHS PRN PRN (Reason: Anxiety) montelukast 10 MG tablet 10 mg PO DAILY albuterol sulfate 18 GM HFA aerosol inhaler 2 puff inhalation Q6H PRN PRN (Reason: Wheezing) budesonide-formoterol 6 GM HFA aerosol inhaler 1 puff inhalation DAILY hydrocodone-acetaminophen 5-325 mg tablet 1 tab PO BID atorvastatin 40 mg tablet 40 mg PO QHS amlodipine 10 mg tablet 10 mg PO DAILY metoprolol tartrate 25 mg tablet 25 mg PO BID Referrals / Follow Up: Kev Steve [Primary Care Provider] - Within 1 Week Disposition Disposition (needs filled in before D/C Order can be placed): Home, Self Care Charges/Coding Visit Charges Inpatient E&M: 04130 Disch Hosp >30min
[2022-08-09 13:18] LABS: Pathologist Review Reviewed
== END 2022-08-07 14:43 | disposition home or self-care (01) | DRG 391 ==
LOC: ED 13:55 → MS3 17:36
PROVIDERS: Admitting Provider Internal Medicine; Emergency Provider Emergency Medicine; PCP Family Medicine; Visit Provider Family Medicine
DX: K52.9 Noninfective gastroenteritis and colitis, unspecified (principal); J69.0 Pneumonitis due to inhalation of food and vomit; E78.5 Hyperlipidemia, unspecified; I25.10 Atherosclerotic heart disease of native coronary artery without angina pectoris; I10 Essential (primary) hypertension; E87.6 Hypokalemia; E83.42 Hypomagnesemia; E86.0 Dehydration; R73.09 Other abnormal glucose; Z20.822 Contact with and (suspected) exposure to COVID-19; Z87.891 Personal history of nicotine dependence; Z95.1 Presence of aortocoronary bypass graft
CPT/HCPCS: 36415; 71046; 80048; 80053; 80076; 83605; 83735; 85025; 87040; 87428; 93005; 94640; 94668; 99252; 99285; J7030; J7040; A4216; G0463; J0295; J0696; J2405

== ENCOUNTER 2022-08-08 01:24 | Observation (INO) | payer MEDICARE, SELFPAY ==
[2022-08-08] VITALS (16 sets, daily range): BP systolic 136–195; BP diastolic 80–106; PULSE 82–109; RESP 15–26; TEMP 36.4–37.7; O2SAT 95–99; BMI 24.3; BMI 15.5
--- NOTE | 2022-08-08 01:43 | EKG12_ITS ---
Test Reason : ABD. PAIN Blood Pressure : / mmHG Vent. Rate : 086 BPM Atrial Rate : 086 BPM P-R Int : 154 ms QRS Dur : 120 ms QT Int : 432 ms P-R-T Axes : 031 -30 024 degrees QTc Int : 516 ms Sinus rhythm with Premature atrial complexes with Aberrant conduction Possible Left atrial enlargement Left axis deviation Right bundle branch block Abnormal ECG Confirmed by DEENA SHERMAN, SEVERINO ([id number]), scientific publications editor TONY CESAR ([id number]) on 08/09/2022 1:14:08 PM Referred By: Cici Hernandez Confirmed By:SEVERINO SHAFFER MD
[2022-08-08] MEDS: 0.9% Normal Saline 1,000 ML 150 ML IV ×5 (01:57→23:45)
--- NOTE | 2022-08-08 02:16 | RAD_ITS ---
INDICATION: sob EXAMINATION/TECHNIQUE: X-RAY - XR Chest 1 View COMPARISON: None. FINDINGS: LINES/DEVICES: None. LUNGS: No consolidation, edema or effusion. No pneumothorax. MEDIASTINUM AND CARDIOVASCULAR STRUCTURES: Cardiac silhouette not enlarged. Central airways and mediastinal contour are unremarkable. There is a hiatal hernia measures 10 cm. BONES AND SOFT TISSUES: Right shoulder arthroplasty. RAD/Chest 1 View (Portable) IMPRESSION: No radiographic evidence of acute cardiopulmonary disease. Electronically Signed: Aicha Scott MD at 2:31 EST ,
[2022-08-08 02:22] LABS: Absolute Lymphocyte Count 1.51 X10^3/uL (0.83-4.51); Absolute Neutrophil Count 12.7 X10^3/uL (2.0-7.7); Basophil# 0.03 X10^3/uL; Basophil% 0.2 % (0-1); Eosinophil# 0.02 X10^3/uL; Eosinophils% 0.1 % (0-5); Hematocrit 41.4 % (40-54); Hemoglobin 13.6 g/dL (13.0-16.5); Lymphocyte # 1.51 X10^3/ul (0.83-4.51); Lymphocyte % 9.7 % (19-41); Mean Corp Hgb Conc 32.9 g/dL (32-36); Mean Corpuscular Hgb 29.6 pg (27.0-32.0); Mean Platelet Vol. 10.7 fl (6.2-12.0); Monocyte# 1.21 X10^3/uL; Monocyte% 7.8 % (0-10); NRBC Flagged by Analyzer 0 % (0-5); Neutrophil # 12.68 X10^3/uL (2.7-7.7); Neutrophil % 81.9 % (47-70); Platelet Count 290 K/mm3 (150-450); RBC Distribution Width CV 13.6 % (11.6-14.6); RBC Distribution Width SD 44.5 fl (35.1-43.9); White Blood Count 15.5 K/mm3 (4.4-11.0)
--- NOTE | 2022-08-08 02:23 | EDS_ITS ---
HPI History of Present Illness Chief Complaint: Shortness of Breath Detail of Chief Complaint: Shortness of breath, weakness, diarrhea Informant: patient Narrative Narrative: Patient presents via EMS secondary to diarrhea, shortness of breath, and weakness. Patient was admitted on the and discharged on the after having intractable vomiting at home. He had evidence of an infiltrate on x-ray, possible aspiration. Patient reportedly had resolution of his symptoms overnight and was discharged with a prescription for Augmentin. Patient states since getting home he had recurrent diarrhea that is charcoal vásquez in color. He states he feels very weak and is having trouble getting around his home. He still feels short of breath. [facility] Medical History Anxiety Arthritis Asthma Atherosclerotic heart disease of coqu[place] coronary artery without angina pectoris Back pain Cancer Carotid artery disease Carotid bruit Difficulty swallowing Eosinophilic asthma Essential (primary) hypertension FH: sudden cardiac (SCD) Former smoker Gastric reflux Hiatal hernia History of asthma History of diverticulitis History of hiatal hernia History of non-ST elevation myocardial infarction (NSTEMI) (11/14/19) Hyperlipidemia Metabolic acidosis Mild ascending aorta dilatation Status asthmaticus Vertigo Wears dentures Wears glasses Home Medications lansoprazole 30 mg capsule,delayed release 30 mg PO DAILY GERD 09/07/13 [History Last Taken 08/05/22] cholecalciferol (vitamin D3) 25 mcg (1,000 unit) tablet 1,000 unit PO DAILY SUPPLEMENT 03/12/16 [History Last Taken 08/05/22] cyanocobalamin (vitamin B-12) 1,000 mcg tablet,extended release 1,000 mcg PO DAILY SUPPLEMENT 03/12/16 [History Last Taken 08/05/22] albuterol sulfate 90 mcg/actuation aerosol inhaler 2 puff inhalation Q6H PRN PRN Wheezing 11/09/19 [History Last Taken 08/05/22] budesonide-formoterol HFA 160 mcg-4.5 mcg/actuation aerosol inhaler 1 puff inhalation DAILY copd 11/09/19 [History Last Taken 1 Week Ago ~07/30/22] lorazepam 0.5 mg tablet 0.5 mg PO QHS PRN PRN Anxiety 11/09/19 [History Last Taken 08/05/22] montelukast 10 mg tablet 10 mg PO DAILY breathing 11/09/19 [History Last Taken 08/05/22] acetaminophen 500 mg tablet 1,000 mg PO BID PAIN 06/24/21 [History Last Taken 08/05/22] gabapentin 300 mg capsule 300 mg PO DAILY PRN Pain 03/16/22 [History Last Taken 08/05/22] amlodipine 10 mg tablet 10 mg PO DAILY . 08/06/22 [History Last Taken 08/05/22] atorvastatin 40 mg tablet 40 mg PO QHS CHOLESTEROL 08/06/22 [History Last Taken 08/05/22] hydrocodone-acetaminophen 5-325mg 5mg-325mg 1 tab PO BID PAIN 08/06/22 [History Last Taken 08/05/22] metoprolol tartrate 25 mg tablet 25 mg PO BID ' 08/06/22 [History Last Taken 08/05/22] amoxicillin 875 mg-potassium clavulanate 125 mg tablet 1 tab PO BID #14 tabs 08/07/22 [Rx Last Taken Unknown] Allergy/AdvReac Type Severity Reaction Status Date / Time Iodinated Contrast Media Allergy Intermediate Rash Verified 08/06/22 10:27 nitroglycerin Allergy Other Verified 08/06/22 10:27 simvastatin AdvReac Severe Myalgias Verified 08/06/22 10:27 Family History Grandfather Myocardial infarction Sudden cardiac Grandmother CVA (cerebral vascular accident) Grandfather Cancer Father Colon cancer Hypertension Mother Breast cancer CHF (congestive heart failure) Brother COPD (chronic obstructive pulmonary disease) Sister CAD (coronary artery disease) Hx CABG Hypertension HLD (hyperlipidemia) Son Hypertension Surgical History H/O coronary artery bypass surgery (12/2006) History of esophagogastroduodenoscopy (EGD) History of left heart catheterization (11/15/19) History of lumbar fusion History of partial colectomy Hx of colonoscopy Hx of hernia repair Hx of shoulder replacement Hx of sinus surgery Hx of total hip arthroplasty Social History Smoking Status: Former smoker quit date: 06/20/79 Tobacco: How many years used: 15 alcohol intake: never substance use type: does not use seatbelt use: always ROS ROS ED Constitutional Constitutional ED: Denies chills or fever(s) Eyes Eyes: Denies change in vision or discharge from eye(s) ENT ENT ED: Denies discharge from eye(s), rhinorrhea or sore throat Cardiovascular Cardiovascular: Denies chest pain or palpitations Respiratory/Chest Respiratory/Chest: Reports dyspnea Gastrointestinal Gastrointestinal: Reports diarrhea; Denies nausea or vomiting Genitourinary Genitourinary ED: Denies dysuria Musculoskeletal Musculoskeletal: Denies back pain or extremity pain Integumentary Denies Abrasions or rash Neurologic Neurologic: Denies headache(s) or weakness Psychiatric Psychiatric: Denies anxiety or depression Allergic/Immunologic Allergic/Immunologic ED: Denies lip swelling or urticaria EXAM Physical Exam Const Vital Signs: 08/08/22 01:27 08/08/22 01:33 08/08/22 03:01 Temperature 97.6 F L 97.6 F L Temperature Source Temporal Temporal Pulse Rate 88 86 Respiratory Rate 26 H 15 Respiratory Effort Short of Breath Respiratory Depth Normal Respiratory Pattern Tachypnea Blood Pressure 195/91 H 180/87 H Blood Pressure Mean 125 118 Pulse Ox 99 98 Oxygen Delivery Method Room Air Room Air Room Air Positive well nourished and well developed General Appearance ED: well developed HEENT Reports normocephalic, head/scalp atraumatic and dry mucous membranes Mouth ED: Yes dry mucous membranes Mouth: dry mucous membranes Eyes PERRL and EOMs intact bilaterally Neck supple Chest Wall inspection of chest normal and palpation of chest normal Resp clear to auscultation bilaterally Resp Narrative: Mildly tachypneic. Cardio regular rate and regular rhythm GI GI Narrative: Abdomen soft with mild diffuse tenderness. No guarding or rebound. Active phoebe l sounds noted. Palpation: soft Extremity normal to inspection Neuro oriented x3 Neuro Narrative: Generalized weakness, no focal neurologic deficit. 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 EKG obtained to evaluate for cardiac arrhythmia/ischemia. Chest x-ray obtained given shortness of breath and recent pneumonia diagnosis. Lab work obtained to evaluate for leukocytosis, anemia, electrolyte derangement. Stool guaiac ordered given his charcoal colored stools. Lab Data Attestation: I reviewed the patient's lab results. Labs: Laboratory Results - last 24 hr 08/08/22 08/08/22 08/08/22 01:50 01:50 01:50 WBC 15.5 H RBC 4.60 Hgb 13.6 Hct 41.4 MCV 90.0 MCH 29.6 MCHC 32.9 RDW Std Deviation 44.5 H RDW Coeff of Nida 13.6 Plt Count 290 MPV 10.7 Immature Gran % (Auto) 0.300 Neut % (Auto) 81.9 H Lymph % (Auto) 9.7 L [place] % (Auto) 7.8 Eos % (Auto) 0.1 Baso % (Auto) 0.2 Absolute Neuts (auto) 12.7 H Absolute Lymphs (auto) 1.51 Nucleated RBC % 0 PT 13.1 INR 1.0 APTT 32.1 Sodium 141 Potassium 2.9 L Chloride 108 H Carbon Dioxide 21.0 Anion Gap 12 BUN 16 Creatinine 0.91 Estim Creat Clear Calc 55.38 Est GFR (MDRD) Af Amer 103 Est GFR (MDRD) Non-Af 85 BUN/Creatinine Ratio 17.7 Glucose 82 Lactic Acid Calcium 9.2 Total Bilirubin 0.50 Direct Bilirubin 0.15 AST 45 H ALT 34 Alkaline Phosphatase 79 Troponin I High Sens 22 B-Natriuretic Peptide Total Protein 7.6 Albumin 3.7 Globulin 3.9 08/08/22 08/08/22 01:50 01:50 WBC RBC Hgb Hct MCV MCH MCHC RDW Std Deviation RDW Coeff of Nida Plt Count MPV Immature Gran % (Auto) Neut % (Auto) Lymph % (Auto) [place] % (Auto) Eos % (Auto) Baso % (Auto) Absolute Neuts (auto) Absolute Lymphs (auto) Nucleated RBC % PT INR APTT Sodium Potassium Chloride Carbon Dioxide Anion Gap BUN Creatinine Estim Creat Clear Calc Est GFR (MDRD) Af Amer Est GFR (MDRD) Non-Af BUN/Creatinine Ratio Glucose Lactic Acid 2.1 H* Calcium Total Bilirubin Direct Bilirubin AST ALT Alkaline Phosphatase Troponin I High Sens B-Natriuretic Peptide 67.7 Total Protein Albumin Globulin Radiography Chest X-Ray - ED: 1 View, Read by ED Physician and Chronic Changes Diagnostic Testing: Clinical Impression(s) from Imaging Studies Chest X-Ray 08/08/22 02:16 IMPRESSION: No radiographic evidence of acute cardiopulmonary disease. Electronically Signed: Aicha Scott MD at 2:31 EST Reading Location ID and State: [facility] / [place] Tel , Service support , EKG Initial EKG: Attestation: I personally reviewed and interpreted this EKG as follows: Interpretation: Sinus Rhythm (Sinus 86 bpm with right bundle branch block.) Treatment and Re-Evaluation Narrative: CBC reveals a white count of 15.5, improved when compared to prior labs. 82% neutrophils are noted. Coags are unremarkable. Chemistry studies significant for a potassium of 2.9. Renal function is normal. LFTs and troponin are unremarkable. BNP is normal. Lactic acid is slightly elevated at 2.1. Portabl e chest x-ray per my interpretation reveals no focal infiltrate. It is noted that the patient's recent infiltrate was noted on a lateral image but was not visualized on the AP view. Radiology interpretation is reviewed. Rectal examination is performed. Rectal vault is largely empty. Very small stool that was obtained did test positive for blood. Patient's hemoglobin is actually higher today than prior labs. Patient has been ordered IV potassium replacement. I will speak with hospitalist regarding admission. Discharge Plan Triage Chief Complaint: Shortness of Breath ED Provider: Cici Hernandez Dx/Rx/DC Orders Clinical Impression: Weakness, Hypokalemia, GI bleed, Pneumonia Prescriptions: No Action acetaminophen 500 mg tablet 1,000 mg PO BID Rx Instructions: Do not exceed 3000 mg/day gabapentin 300 mg capsule 300 mg PO DAILY PRN (Reason: Pain) lansoprazole 30 MG capsule 30 mg PO DAILY Label Comments: ACID REFLUX cyanocobalamin (vitamin B-12) 1,000 MCG tablet extended release 1,000 mcg PO DAILY Label Comments: supplement cholecalciferol (vitamin D3) 1,000 UNIT tablet 1,000 unit PO DAILY Label Comments: supplement lorazepam 0.5 MG tablet 0.5 mg PO QHS PRN PRN (Reason: Anxiety) montelukast 10 MG tablet 10 mg PO DAILY albuterol sulfate 18 GM HFA aerosol inhaler 2 puff inhalation Q6H PRN PRN (Reason: Wheezing) budesonide-formoterol 6 GM HFA aerosol inhaler 1 puff inhalation DAILY hydrocodone-acetaminophen 5-325 mg tablet 1 tab PO BID atorvastatin 40 mg tablet 40 mg PO QHS amlodipine 10 mg tablet 10 mg PO DAILY metoprolol tartrate 25 mg tablet 25 mg PO BID amoxicillin-pot clavulanate 875-125 mg tablet 1 tab PO BID Qty: 14 0RF Primary Care Provider: Kev Steve Referrals: Kev Steve [Primary Care Provider] - Disposition Disposition: Acute Care Hospital [facility]
[2022-08-08 02:31] LABS: Prothrombin Time (Protime)PT. 13.1 SECONDS (11.7-14.9)
[2022-08-08 02:32] LABS: Partial Thromboplast Time 32.1 Seconds (24.1-36.2)
[2022-08-08 02:38] LABS: AST(SGOT) 45 U/L (15-37); Alanine Aminotransfer ALT/SGPT 34 U/L (16-61); Albumin, Serum 3.7 g/dL (3.2-5.0); Alkaline Phosphatase 79 U/L (45-117); Anion Gap 12 (5-15); BUN 16 mg/dL (7-18); BUN/Creat Ratio 17.7 RATIO (10-20); Bilirubin, Direct 0.15 mg/dL (0.00-0.30); Calcium,Total 9.2 mg/dL (8.5-10.1); Chloride 108 mmol/L (98-107); Creatinine, Serum 0.91 mg/dL (0.70-1.30); EST Glomerular Filtration Rate 85 mL/min (>60); Est Glom Filt Rate - Afr Amer 103 mL/min (>60); Estimated Creatinine Clearance 55.38 ml/min; Globulin 3.9 g/dL (2.2-4.2); Glucose 82 mg/dL (74-106); Potassium 2.9 mmol/L (3.5-5.1); Protein, Total 7.6 g/dL (6.4-8.2); Sodium Level 141 mmol/L (136-145); Troponin-I HS 22 pg/mL (3.0-78.0)
[2022-08-08 02:39] LABS: BNP,B-Type NATRIURETIC PEPTIDE 67.7 pg/mL (0-100); Lactic Acid 2.1 mmol/L (0.4-1.9)
[2022-08-08] MEDS: Potassium Chloride 10mEq/100mL 10 MEQ/100 ML IV.SOLN. 100 MEQ IV BOLUS ×4 (03:01→06:40)
--- NOTE | 2022-08-08 04:15 | HP.PCM.HOS_ITS ---
HPI - General General Date of Admission: 08/08/22 Date of Service: 08/08/22 Chief Complaint: Dry well nausea, vomiting, diarrhea HPI Narrative SUSY REED, is a 82-year-old male with a history of COPD, coronary artery disease status post bypass in 2006, eosinophilic asthma who presented to [facility] 08/08/2022 for continued diarrhea, nausea, vomiting. He had been admitted 08/06 with intractable nausea and vomiting and diarrhea but had seemed to improve and was discharged 08/07. In the ED hemoglobin was stable but he was FOBT positive and was complaining of poor p.o. intake. Hospitalist consulted for admission. Patient evaluated bedside and he reports that when he went home he continued to have nausea, vomiting, diarrhea and then his diarrhea has been charcoal like for several days and has been feeling some shortness of breath which has been over several days. Has had generalized abdominal pain as well and has not been eating and drinking well. Has had some cough today but denies other complaints at this time. [facility] Medical History Anxiety Arthritis Asthma Atherosclerotic heart disease of [place] coronary artery without angina pectoris Back pain Cancer Carotid artery disease Carotid bruit Difficulty swallowing Eosinophilic asthma Essential (primary) hypertension FH: sudden cardiac (SCD) Former smoker Gastric reflux Hiatal hernia History of asthma History of diverticulitis History of hiatal hernia History of non-ST elevation myocardial infarction (NSTEMI) (11/14/19) Hyperlipidemia Metabolic acidosis Mild ascending aorta dilatation Status asthmaticus Vertigo Wears dentures Wears glasses Home Medications lansoprazole 30 mg capsule,delayed release 30 mg PO DAILY GERD 09/07/13 [History Last Taken 08/05/22] cholecalciferol (vitamin D3) 25 mcg (1,000 unit) tablet 1,000 unit PO DAILY SUPPLEMENT 03/12/16 [History Last Taken 08/05/22] cyanocobalamin (vitamin B-12) 1,000 mcg tablet,extended release 1,000 mcg PO DAILY SUPPLEMENT 03/12/16 [History Last Taken 08/05/22] albuterol sulfate 90 mcg/actuation aerosol inhaler 2 puff inhalation Q6H PRN PRN Wheezing 11/09/19 [History Last Taken 08/05/22] budesonide-formoterol HFA 160 mcg-4.5 mcg/actuation aerosol inhaler 1 puff inhalation DAILY copd 11/09/19 [History Last Taken 1 Week Ago ~07/30/22] lorazepam 0.5 mg tablet 0.5 mg PO QHS PRN PRN Anxiety 11/09/19 [History Last Taken 08/05/22] montelukast 10 mg tablet 10 mg PO DAILY breathing 11/09/19 [History Last Taken 08/05/22] acetaminophen 500 mg tablet 1,000 mg PO BID PAIN 06/24/21 [History Last Taken 08/05/22] gabapentin 300 mg capsule 300 mg PO DAILY PRN Pain 03/16/22 [History Last Taken 08/05/22] amlodipine 10 mg tablet 10 mg PO DAILY . 08/06/22 [History Last Taken 08/05/22] atorvastatin 40 mg tablet 40 mg PO QHS CHOLESTEROL 08/06/22 [History Last Taken 08/05/22] hydrocodone-acetaminophen 5-325mg 5mg-325mg 1 tab PO BID PAIN 08/06/22 [History Last Taken 08/05/22] metoprolol tartrate 25 mg tablet 25 mg PO BID ' 08/06/22 [History Last Taken 08/05/22] amoxicillin 875 mg-potassium clavulanate 125 mg tablet 1 tab PO BID #14 tabs 08/07/22 [Rx Last Taken Unknown] Allergy/AdvReac Type Severity Reaction Status Date / Time Iodinated Contrast Media Allergy Intermediate Rash Verified 08/06/22 10:27 nitroglycerin Allergy Other Verified 08/06/22 10:27 simvastatin AdvReac Severe Myalgias Verified 08/06/22 10:27 Family History Grandfather Myocardial infarction Sudden cardiac Grandmother CVA (cerebral vascular accident) Grandfather Cancer Father Colon cancer Hypertension Mother Breast cancer CHF (congestive heart failure) Brother COPD (chronic obstructive pulmonary disease) Sister CAD (coronary artery disease) Hx CABG Hypertension HLD (hyperlipidemia) Son Hypertension Surgical History H/O coronary artery bypass surgery (12/2006) History of esophagogastroduodenoscopy (EGD) History of left heart catheterization (11/15/19) History of lumbar fusion History of partial colectomy Hx of colonoscopy Hx of hernia repair Hx of shoulder replacement Hx of sinus surgery Hx of total hip arthroplasty Social History Smoking Status: Former smoker quit date: 06/20/79 Tobacco: How many years used: 15 alcohol intake: never substance use type: does not use seatbelt use: always ROS ROS Narrative General: Denies fever or chills HENT: Denies headache, denies stuffy nose, denies sore throat EYES: Denies changes in vision Resp: Slight cough today, has had some shortness of breath Cardiac: Denies chest pain GI: Reports nausea, vomiting, diarrhea and generalized abdominal pain : Denies changes in urination Extremity: Has some left ankle trace pitting edema that he reports is chronic MSK: Denies weakness Neuro: Denies any numbness, denies tingling Heme: Denies any bleeding or bruising Skin: Denies rashes Psychiatric: No complaints voiced Vital Signs Vital Signs Vital Signs: 08/08/22 01:27 08/08/22 01:33 08/08/22 03:01 Temperature 97.6 F L 97.6 F L Temperature Source Temporal Temporal Pulse Rate 88 86 Respiratory Rate 26 H 15 Respiratory Effort Short of Breath Respiratory Depth Normal Respiratory Pattern Tachypnea Blood Pressure 195/91 H 180/87 H Blood Pressure Mean 125 118 Pulse Ox 99 98 Oxygen Delivery Method Room Air Room Air Room Air 08/08/22 04:10 Temperature 98.9 F Temperature Source Oral Pulse Rate 87 Respiratory Rate 20 H Respiratory Effort Respiratory Depth Respiratory Pattern Blood Pressure 187/97 H Blood Pressure Mean 127 Pulse Ox 99 Oxygen Delivery Method Room Air Weight Weight: 66.2 kg Body Mass Index (BMI) 24.3 Physical Exam Narrative General: Alert, oriented, appears anxious HEENT: Atraumatic, normocephalic Eyes: Anicteric, normal conjunctiva, extraocular movements grossly intact Neck: Supple Respiratory: Clear to auscultation bilaterally, normal respiratory effort Cardiovascular: Regular rate and rhythm GI: Soft, mildly tender diffusely without rebound, guarding, rigidity, nondistended Extremities: Trace edema in left ankle which she reports is chronic Musculoskeletal: Moving all extremities Neuro: No overt focal neurological deficits Skin: No rashes appreciated Psych: Cooperative Results Lab / Micro Data Result Diagrams: 08/08/22 01:50 08/08/22 01:50 Labs: Laboratory Results - last 24 hr 08/08/22 01:50: WBC 15.5 H, RBC 4.60, Hgb 13.6, Hct 41.4, MCV 90.0, MCH 29.6, MCHC 32.9, RDW Std Deviation 44.5 H, RDW Coeff of Nida 13.6, Plt Count 290, MPV 10.7, Immature Gran % (Auto) 0.300, Neut % (Auto) 81.9 H, Lymph % (Auto) 9.7 L, [place] % (Auto) 7.8, Eos % (Auto) 0.1, Baso % (Auto) 0.2, Absolute Neuts (auto) 12.7 H, Absolute Lymphs (auto) 1.51, Nucleated RBC % 0 08/08/22 01:50: PT 13.1, INR 1.0, APTT 32.1 08/08/22 01:50: Sodium 141, Potassium 2.9 L, Chloride 108 H, Carbon Dioxide 21.0, Anion Gap 12, BUN 16, Creatinine 0.91, Estim Creat Clear Calc 55.38, Est GFR (MDRD) Af Amer 103, Est GFR (MDRD) Non-Af 85, BUN/Creatinine Ratio 17.7, Glucose 82, Calcium 9.2, Total Bilirubin 0.50, Direct Bilirubin 0.15, AST 45 H, ALT 34, Alkaline Phosphatase 79, Troponin I High Sens 22, Total Protein 7.6, Albumin 3.7, Globulin 3.9 08/08/22 01:50: Lactic Acid 2.1 H* 08/08/22 01:50: B-Natriuretic Peptide 67.7 Micro: Microbiology 08/08/22 02:45 Stool Stool Occult Blood (REGULO) - Final Occult Blood Positive Radiology Impression Chest X-Ray 08/08/22 02:16 IMPRESSION: No radiographic evidence of acute cardiopulmonary disease. Electronically Signed: Aicha Scott MD at 2:31 EST , Assessment & Plan Assessment/Plan (1) Weakness: (2) Hypokalemia: (3) Intractable vomiting: PLAN: Plan #Intractable nausea/vomiting/diarrhea -Reports inability to tolerate p.o., continue fluids and can attempt transitional diet if he can tolerate -Zofran as needed -We will obtain respiratory panel and GI panel -Had FIT in ED that was positive, did have EGD and colonoscopy earlier in [address] Hudson which did not show any abnormalities at that time -Was placed on PPI drip in ED, will continue and consult GI for evaluation -Will monitor H&H and obtain orthostats, at present hemoglobin is roughly unchanged, do not feel emergent evaluation is needed We will continue Augmentin which was given on discharge on 08/07 #COPD, does not presently seem to be in exacerbation with recent concerns for aspiration pneumonia -Chest x-ray unremarkable, no wheezing -Will give nebs -Not requiring O2 -Continue Augmentin that he was discharged on #Coronary artery disease status post bypass -Do not see aspirin on medicine list, will continue statin -May need to clarify aspirin #DVT ppx: SCDs Mishel Lance MD Time spent in the patient's overall evaluation,decision-making process, review of diagnostic data, adjustment of management, discussion with other providers, nursing nursing and ancillary staff involved in patient's care documentation, 60 Minutes Charges/Coding Visit Charges Inpatient E&M: 37991 Init Hosp L2
[2022-08-08] MEDS: amLODIPine 10 MG Tablet PO (05:45)
[2022-08-08] MEDS: Ondansetron 4 MG/2 ML Vial IV ×2 (05:49→15:26)
[2022-08-08] MEDS: 0.9% Saline Lock 10 ML Syringe IV ×2 (05:49→20:23)
[2022-08-08 05:57] LABS: Reflex Lactate? Y
[2022-08-08 06:26] LABS: Absolute Lymphocyte Count 1.11 X10^3/uL (0.83-4.51); Absolute Neutrophil Count 10.8 X10^3/uL (2.0-7.7); Basophil# 0.02 X10^3/uL; Basophil% 0.2 % (0-1); Eosinophil# 0.01 X10^3/uL; Eosinophils% 0.1 % (0-5); Hematocrit 40.1 % (40-54); Hemoglobin 13.2 g/dL (13.0-16.5); Lymphocyte # 1.11 X10^3/ul (0.83-4.51); Lymphocyte % 8.4 % (19-41); Mean Corp Hgb Conc 32.9 g/dL (32-36); Mean Corpuscular Volume 91.1 fL (80-94); Mean Platelet Vol. 10.2 fl (6.2-12.0); Monocyte# 1.16 X10^3/uL; Monocyte% 8.8 % (0-10); NRBC Flagged by Analyzer 0 % (0-5); Neutrophil # 10.84 X10^3/uL (2.7-7.7); Platelet Count 254 K/mm3 (150-450); RBC Distribution Width CV 13.4 % (11.6-14.6); RBC Distribution Width SD 45.2 fl (35.1-43.9); White Blood Count 13.2 K/mm3 (4.4-11.0)
[2022-08-08 06:52] LABS: Lactic Acid 1.3 mmol/L (0.4-1.9)
[2022-08-08 06:54] LABS: AST(SGOT) 44 U/L (15-37); Alanine Aminotransfer ALT/SGPT 31 U/L (16-61); Albumin, Serum 3.3 g/dL (3.2-5.0); Alkaline Phosphatase 76 U/L (45-117); Anion Gap 10 (5-15); BUN 13 mg/dL (7-18); BUN/Creat Ratio 16.4 RATIO (10-20); Calcium,Total 8.1 mg/dL (8.5-10.1); Chloride 112 mmol/L (98-107); Creatinine, Serum 0.79 mg/dL (0.70-1.30); EST Glomerular Filtration Rate 100 mL/min (>60); Est Glom Filt Rate - Afr Amer 121 mL/min (>60); Estimated Creatinine Clearance 34.83 ml/min; Globulin 3.4 g/dL (2.2-4.2); Glucose 73 mg/dL (74-106); Magnesium 1.8 mg/dL (1.6-2.6); Protein, Total 6.7 g/dL (6.4-8.2); Sodium Level 141 mmol/L (136-145); Thyroid Stim Hormone (TSH) 1.82 uIU/mL (0.358-3.74)
[2022-08-08] MEDS: Ipratropium/Albuterol Sulfate 3 ML AMPUL.NEB INHALATION ×2 (07:16→19:22)
--- NOTE | 2022-08-08 07:17 | PCM.PN.BLA ---
Progress Note Discharged yesterday after having resolution of his symptoms presents this morning because of recurrent of his symptoms tested positive for blood in his stool. We will continue with Augmentin for aspiration coverage, GI has been consulted. Continue with PPI.
[2022-08-08] MEDS: Amox/Clavulanate 875 MG Tablet PO ×2 (09:54→16:34)
[2022-08-08] MEDS: Montelukast 10 MG Tablet PO (09:56)
[2022-08-08] MEDS: Metoprolol Tartrate 25 MG Tablet PO ×2 (10:01→20:22)
[2022-08-08] MEDS: Potassium Chloride Oral Tablet 20 MEQ 60 MEQ PO (11:54)
[2022-08-08] MEDS: Ensure Plus High Protein 120 ML LIQUID PO ×3 (13:54→20:22)
[2022-08-08] MEDS: Glycerin/Hypromellose/PEG400 15 ml Bottle 1 DRP EACH EYE (16:34)
[2022-08-08] MEDS: Atorvastatin Calcium 40 MG Tablet PO (20:23)
[2022-08-08] MEDS: Acetaminophen 325 MG Tablet 650 MG PO (23:50)
[2022-08-09] VITALS (9 sets, daily range): BP systolic 130–162; BP diastolic 73–93; PULSE 74–94; RESP 16–18; TEMP 36.7–37.7; O2SAT 94–97
[2022-08-09] MEDS: 0.9% Normal Saline 1,000 ML 150 ML IV ×3 (05:34→18:42)
[2022-08-09] MEDS: Gabapentin 300 MG Capsule PO (06:44)
[2022-08-09 06:49] LABS: Absolute Neutrophil Count 5.2 X10^3/uL (2.0-7.7); Basophil# 0.03 X10^3/uL; Basophil% 0.4 % (0-1); Eosinophil# 0.09 X10^3/uL; Eosinophils% 1.1 % (0-5); Hemoglobin 13.9 g/dL (13.0-16.5); Lymphocyte % 21.4 % (19-41); Mean Corp Hgb Conc 33.1 g/dL (32-36); Mean Corpuscular Hgb 30.3 pg (27.0-32.0); Mean Corpuscular Volume 91.7 fL (80-94); Mean Platelet Vol. 9.6 fl (6.2-12.0); Monocyte# 0.94 X10^3/uL; Monocyte% 11.8 % (0-10); NRBC Flagged by Analyzer 0 % (0-5); Neutrophil # 5.17 X10^3/uL (2.7-7.7); Platelet Count 289 K/mm3 (150-450); RBC Distribution Width CV 13.3 % (11.6-14.6); RBC Distribution Width SD 45.1 fl (35.1-43.9); Red Blood Count 4.58 M/mm3 (4.6-6.2)
[2022-08-09] MEDS: Ipratropium/Albuterol Sulfate 3 ML AMPUL.NEB INHALATION ×3 (07:03→19:12)
[2022-08-09 07:09] LABS: Anion Gap 9 (5-15); BUN 8 mg/dL (7-18); BUN/Creat Ratio 8.3 RATIO (10-20); Calcium,Total 8.9 mg/dL (8.5-10.1); Chloride 109 mmol/L (98-107); Creatinine, Serum 0.97 mg/dL (0.70-1.30); EST Glomerular Filtration Rate 79 mL/min (>60); Est Glom Filt Rate - Afr Amer 96 mL/min (>60); Estimated Creatinine Clearance 36.16 ml/min; Glucose 77 mg/dL (74-106); Potassium 2.9 mmol/L (3.5-5.1); Sodium Level 138 mmol/L (136-145)
--- NOTE | 2022-08-09 07:41 | EX.PCM.CON.G ---
HPI Consult Data Date of Consult: 08/09/22 HPI Narrative Reason for Consultation: Nausea, vomiting and diarrhea HPI Narrative: SUSY REED, is a 82 M who presents via EMS secondary to diarrhea, shortness of breath, and weakness.? Patient was admitted on the and discharged on the after having intractable vomiting at home.? He had evidence of an infiltrate on x-ray, possible aspiration.? Patient reportedly had resolution of his symptoms overnight and was discharged with a prescription for Augmentin.? Patient states since getting home he had recurrent diarrhea that is charcoal vásquez in color.? He states he feels very weak and is having trouble getting around his home.? He still feels short of breath. He has a history of melanotic stools in the past which resulted in upper and lower endoscopy back in 05/09/2021. Upper scope showed a hiatal hernia but no other abnormalities and lower scope head showed diverticular disease and no other abnormalities. I was asked to see him due to the fact that he had blood in his stool. Currently his hemoglobin is stable at 13.5. He did have some darker stools but they have subsequently resolved. He has been determined to be positive for rotavirus. He is able to eat a diet at this time. [facility] Medical History Anxiety Arthritis Asthma Atherosclerotic heart disease of [place] coronary artery without angina pectoris Back pain Cancer Carotid artery disease Carotid bruit Difficulty swallowing Eosinophilic asthma Essential (primary) hypertension FH: sudden cardiac (SCD) Former smoker Gastric reflux Hiatal hernia History of asthma History of diverticulitis History of hiatal hernia History of non-ST elevation myocardial infarction (NSTEMI) (11/14/19) Hyperlipidemia Metabolic acidosis Mild ascending aorta dilatation Status asthmaticus Vertigo Wears dentures Wears glasses Home Medications lansoprazole 30 mg capsule,delayed release 30 mg PO DAILY GERD 09/07/13 [History Last Taken 08/05/22] cholecalciferol (vitamin D3) 25 mcg (1,000 unit) tablet 1,000 unit PO DAILY SUPPLEMENT 03/12/16 [History Last Taken 08/05/22] cyanocobalamin (vitamin B-12) 1,000 mcg tablet,extended release 1,000 mcg PO DAILY SUPPLEMENT 03/12/16 [History Last Taken 08/05/22] albuterol sulfate 90 mcg/actuation aerosol inhaler 2 puff inhalation Q6H PRN PRN Wheezing 11/09/19 [History Last Taken 08/05/22] budesonide-formoterol HFA 160 mcg-4.5 mcg/actuation aerosol inhaler 1 puff inhalation DAILY copd 11/09/19 [History Last Taken 1 Week Ago ~07/30/22] lorazepam 0.5 mg tablet 0.5 mg PO QHS PRN PRN Anxiety 11/09/19 [History Last Taken 08/05/22] montelukast 10 mg tablet 10 mg PO DAILY breathing 11/09/19 [History Last Taken 08/05/22] acetaminophen 500 mg tablet 1,000 mg PO BID PAIN 06/24/21 [History Last Taken 08/05/22] gabapentin 300 mg capsule 300 mg PO DAILY PRN Pain 03/16/22 [History Last Taken 08/05/22] amlodipine 10 mg tablet 10 mg PO DAILY BLOOD PRESSURE 08/06/22 [History Last Taken 08/05/22] atorvastatin 40 mg tablet 40 mg PO QHS CHOLESTEROL 08/06/22 [History Last Taken 08/05/22] hydrocodone-acetaminophen 5-325mg 5mg-325mg 1 tab PO BID PAIN 08/06/22 [History Last Taken 08/05/22] metoprolol tartrate 25 mg tablet 25 mg PO BID BLOOD PRESSURE 08/06/22 [History Last Taken 08/05/22] amoxicillin 875 mg-potassium clavulanate 125 mg tablet 1 tab PO BID #14 tabs 08/07/22 [Rx Last Taken Unknown] Allergy/AdvReac Type Severity Reaction Status Date / Time Iodinated Contrast Media Allergy Intermediate Rash Verified 08/06/22 10:27 nitroglycerin Allergy Other Verified 08/06/22 10:27 simvastatin AdvReac Severe Myalgias Verified 08/06/22 10:27 Family History Grandfather Myocardial infarction Sudden cardiac Grandmother CVA (cerebral vascular accident) Grandfather Cancer Father Colon cancer Hypertension Mother Breast cancer CHF (congestive heart failure) Brother COPD (chronic obstructive pulmonary disease) Sister CAD (coronary artery disease) Hx CABG Hypertension HLD (hyperlipidemia) Son Hypertension Surgical History H/O coronary artery bypass surgery (12/2006) History of esophagogastroduodenoscopy (EGD) History of left heart catheterization (11/15/19) History of lumbar fusion History of partial colectomy Hx of colonoscopy Hx of hernia repair Hx of shoulder replacement Hx of sinus surgery Hx of total hip arthroplasty Social History Smoking Status: Former smoker quit date: 06/20/79 Tobacco: How many years used: 15 alcohol intake: never substance use type: does not use seatbelt use: always ROS ROS Narrative General: Denies fever or chills HENT: Denies headache, denies stuffy nose, denies sore throat EYES: Denies changes in vision Resp: Slight cough today, has had some shortness of breath Cardiac: Denies chest pain GI: Reports nausea, vomiting, diarrhea and generalized abdominal pain : Denies changes in urination Extremity: Has some left ankle trace pitting edema that he reports is chronic MSK: Denies weakness Neuro: Denies any numbness, denies tingling Heme: Denies any bleeding or bruising Skin: Denies rashes Psychiatric: No complaints voiced Physical Exam Narrative General: Alert, oriented, appears anxious HEENT: Atraumatic, normocephalic Eyes: Anicteric, normal conjunctiva, extraocular movements grossly intact Neck: Supple Respiratory: Clear to auscultation bilaterally, normal respiratory effort Cardiovascular: Regular rate and rhythm GI: Soft, mildly tender diffusely without rebound, guarding, rigidity, nondistended Extremities: Trace edema in left ankle which she reports is chronic Musculoskeletal: Moving all extremities Neuro: No overt focal neurological deficits Skin: No rashes appreciated Psych: Cooperative Lab / Micro Data Result Diagrams: 08/09/22 06:35 08/09/22 06:35 Labs: Laboratory Results - last 24 hr 08/09/22 06:35: WBC 8.0, RBC 4.58 L, Hgb 13.9, Hct 42.0, MCV 91.7, MCH 30.3, MCHC 33.1, RDW Std Deviation 45.1 H, RDW Coeff of Nida 13.3, Plt Count 289, MPV 9.6, Immature Gran % (Auto) 0.300, Neut % (Auto) 65.0, Lymph % (Auto) 21.4, [place] % (Auto) 11.8 H, Eos % (Auto) 1.1, Baso % (Auto) 0.4, Absolute Neuts (auto) 5.2, Absolute Lymphs (auto) 1.70, Nucleated RBC % 0 08/09/22 06:35: Sodium 138, Potassium 2.9 L, Chloride 109 H, Carbon Dioxide 20.0 L, Anion Gap 9, BUN 8, Creatinine 0.97, Estim Creat Clear Calc 36.16, Est GFR (MDRD) Af Amer 96, Est GFR (MDRD) Non-Af 79, BUN/Creatinine Ratio 8.3 L, Glucose 77, Calcium 8.9 Micro: Microbiology 08/08/22 04:46 Stool Enteric Bacteriology - Final Rotavirus 08/08/22 04:46 Stool C. difficile DNA Amplification - Final 08/08/22 07:15 Mucosa - Nose Respiratory Panel (PCR) - Final 08/08/22 02:45 Stool Stool Occult Blood (REGULO) - Final Occult Blood Positive Assessment & Plan Assessment/Plan (1) Weakness: (2) Hypokalemia: (3) Intractable vomiting: PLAN: Plan #Intractable nausea/vomiting/diarrhea -This is likely secondary to acute viral gastroenteritis secondary to rotavirus. -Currently he is able to stay hydrated and tolerate oral food without any abdominal pain, cramping or diarrhea. This would explain his non gapped metabolic acidosis as seen on his biochemical profile. -He had FIT in ED that was positive, did have EGD and colonoscopy earlier in [address] Hudson which did not show any abnormalities at that time -PPI can be switched for H2 receptor joselito as there is increased risk of C. difficile colitis in the setting of an acute viral infection and antibiotic usage. -No need for endoscopic evaluation at this time. I will keep following him. Charges/Coding Visit Charges Inpatient E&M: 09108 Init Hosp L2
[2022-08-09] MEDS: Amox/Clavulanate 875 MG Tablet PO ×2 (08:33→17:42)
[2022-08-09] MEDS: amLODIPine 10 MG Tablet PO (08:43)
[2022-08-09] MEDS: Montelukast 10 MG Tablet PO (08:43)
[2022-08-09] MEDS: Metoprolol Tartrate 25 MG Tablet PO ×2 (08:43→20:03)
[2022-08-09] MEDS: Ensure Plus High Protein 120 ML LIQUID PO ×3 (08:44→19:54)
[2022-08-09] MEDS: Potassium Chloride 10mEq/100mL 10 MEQ/100 ML IV.SOLN. 100 MEQ IV BOLUS ×4 (09:30→12:57)
--- NOTE | 2022-08-09 12:54 | PN.HOSP_ITS ---
Reason for Visit Reason for Visit: Diagnoses Hypokalemia (08/08/22) Vomiting, unspecified (08/08/22) Weakness (08/08/22) Subjective Subjective Patient seen and examined. He is still having diarrhea. He denies any fever, chills, chest pain, nausea vomiting or abdominal pain. Review of symptoms otherwise negative. He has had about 3 episodes of diarrhea today. Stool test came back positive for rotavirus. Objective Data Objective Data Vital Signs: Vital Signs Temp Pulse Resp BP Pulse Ox O2 Del Method 98.0 F 89 17 130/85 H 95 Room Air 08/09/22 08:30 08/09/22 08:43 08/09/22 08:30 08/09/22 08:43 08/09/22 08:30 08/09/22 08:46 Oxygen Delivery Method Room Air Weight: 94 lb 5.725 oz Body Mass Index (BMI) 15.5 Intake & Output: Intake and Output for Last 24 Hours 08/07/22 08/08/22 08/09/22 23:59 23:59 23:59 Intake Total 5560.0 / 5560.0 Output Total 300 / 300 Balance 5260.0 / 5260.0 / Lab / Micro Data Result Diagrams: 08/09/22 06:35 08/09/22 06:35 Labs: Laboratory Results - last 24 hr 08/09/22 06:35: WBC 8.0, RBC 4.58 L, Hgb 13.9, Hct 42.0, MCV 91.7, MCH 30.3, MCHC 33.1, RDW Std Deviation 45.1 H, RDW Coeff of Nida 13.3, Plt Count 289, MPV 9.6, Immature Gran % (Auto) 0.300, Neut % (Auto) 65.0, Lymph % (Auto) 21.4, [place] % (Auto) 11.8 H, Eos % (Auto) 1.1, Baso % (Auto) 0.4, Absolute Neuts (auto) 5.2, Absolute Lymphs (auto) 1.70, Nucleated RBC % 0 08/09/22 06:35: Sodium 138, Potassium 2.9 L, Chloride 109 H, Carbon Dioxide 20.0 L, Anion Gap 9, BUN 8, Creatinine 0.97, Estim Creat Clear Calc 36.16, Est GFR (MDRD) Af Amer 96, Est GFR (MDRD) Non-Af 79, BUN/Creatinine Ratio 8.3 L, Glucose 77, Calcium 8.9 Micro: Microbiology 08/08/22 04:46 Stool Enteric Bacteriology - Final Rotavirus 08/08/22 04:46 Stool C. difficile DNA Amplification - Final 08/08/22 07:15 Mucosa - Nose Respiratory Panel (PCR) - Final 08/08/22 02:45 Stool Stool Occult Blood (REGULO) - Final Occult Blood Positive Physical Exam Const alert, oriented x3 and no apparent distress HEENT head/scalp atraumatic, moist oral mucous membranes and oropharynx normal Head and Scalp: normocephalic Mouth: oral and palatal mucosa normal Eyes PERRL, EOMs intact bilaterally and conjunctivae normal Neck no lymphadenopathy and supple Resp normal respiratory effort, no retractions, no use of accessory muscles and clear to auscultation bilaterally Cardio regular rate, regular rhythm, S1 normal heart sound, S2 normal heart sound and no murmurs GI normal to inspection, nondistended, normoactive bowel sounds, soft to palpation, non-tender and non-distended Extremity normal to inspection, full ROM and no clubbing, cyanosis or edema Neuro oriented x3, CN's II-XII intact bilaterally, moves all extremities and no focal motor deficits Sensorium / Orientation: awake and alert Motor Exam: strength 5/5 throughout Psych affect normal Assessment & Plan Assessment/Plan (1) Intractable vomiting: (2) Diarrhea: PLAN: Plan #Acute gastroenteritis due to rotavirus infection. * Nausea and vomiting is improving but still having diarrhea. * Continue gentle hydration with IV fluids. Stool for occult blood was positive but this is likely due to the diarrhea. * Gastroenterology was consulted, and per documentation they also think it is due to acute gastroenteritis due to rotavirus. * Patient did have EGD and colonoscopy in 03/09/2022 which did not show any abnormalities. No need for endoscopic evaluation at this time. * Per GI recommendation we will switch PPI to famotidine due to increased risk of C. difficile in the setting of acute viral infection and antibiotic usage. * #Hypokalemia: Potassium is 2.9. Will replace and trend. #Non-anion gap metabolic acidosis. Bicarb is 20. Anion gap is 9. This likely due to diarrhea. Should improve as diarrhea resolves. #Hypertension: On amlodipine and metoprolol. #COPD: Not in exacerbation. On breathing treatments of bronchodilators. #CAD s/p CABG: On statin. Patient currently not on aspirin. In light of rectal bleeding, will hold off on that. #Recent aspiration pneumonia: * Was recently managed for aspiration pneumonia and was placed on Augmentin on 08/07/2021. * We will continue to finish course. DVT prophylaxis: SCDs Total time spent on evaluating patient discharge, seeing patient, evaluation and management and documentation: 40 minutes. Charges/Coding Visit Charges Inpatient E&M: 83146 Subs Hosp L2
--- NOTE | 2022-08-09 14:57 | CASEMGMT ---
RN ERIKA NOTE: Intro role of CM to patient and ESTRELLA form explained re: Observation status for treatment of N/V/D.? Explained hospitalization will be paid per his insurance policy for Outpatient billing?and condition will continue to be evaluated for Inpt necessity. Also let pt know that [facility] sends paper in the billing packet with their phone number if questions arise. Discussed Pharmacy section of ESTRELLA form and self administered medication guideline.? Pt verbalizes understanding and does not have further questions. ?Form signed, copy made and placed in chart, and original given to pt. Andres MCKINNEY RN CM
[2022-08-09] MEDS: Acetaminophen 325 MG Tablet 650 MG PO (17:42)
[2022-08-09] MEDS: Ondansetron 4 MG/2 ML Vial IV (17:42)
[2022-08-09] MEDS: Glycerin/Hypromellose/PEG400 15 ml Bottle 1 DRP EACH EYE (18:42)
[2022-08-09] MEDS: Atorvastatin Calcium 40 MG Tablet PO (20:03)
[2022-08-10] VITALS (9 sets, daily range): BP systolic 130–166; BP diastolic 86–95; PULSE 70–87; RESP 15–18; TEMP 36.6–37; O2SAT 96–97; BMI 15.2
[2022-08-10] MEDS: 0.9% Normal Saline 1,000 ML 150 ML IV ×2 (01:07→07:43)
[2022-08-10 06:59] LABS: Absolute Lymphocyte Count 1.65 X10^3/uL (0.83-4.51); Absolute Neutrophil Count 4.7 X10^3/uL (2.0-7.7); Basophil# 0.02 X10^3/uL; Basophil% 0.3 % (0-1); Hemoglobin 13.4 g/dL (13.0-16.5); Lymphocyte # 1.65 X10^3/ul (0.83-4.51); Mean Corp Hgb Conc 33.5 g/dL (32-36); Mean Corpuscular Hgb 29.9 pg (27.0-32.0); Mean Corpuscular Volume 89.3 fL (80-94); Mean Platelet Vol. 9.5 fl (6.2-12.0); Monocyte# 0.81 X10^3/uL; Monocyte% 10.8 % (0-10); NRBC Flagged by Analyzer 0 % (0-5); Neutrophil # 4.72 X10^3/uL (2.7-7.7); Neutrophil % 62.8 % (47-70); POSITIVE MORPHOLOGY YES; Platelet Count 270 K/mm3 (150-450); RBC Distribution Width CV 13.1 % (11.6-14.6); Red Blood Count 4.48 M/mm3 (4.6-6.2); White Blood Count 7.5 K/mm3 (4.4-11.0)
[2022-08-10 07:00] LABS: Differential Indicated SCAN CRITERIA MET
[2022-08-10] MEDS: Ipratropium/Albuterol Sulfate 3 ML AMPUL.NEB INHALATION ×3 (07:24→19:37)
[2022-08-10 07:27] LABS: Anion Gap 8 (5-15); BUN 6 mg/dL (7-18); BUN/Creat Ratio 7.2 RATIO (10-20); Calcium,Total 8.8 mg/dL (8.5-10.1); Chloride 111 mmol/L (98-107); Creatinine, Serum 0.83 mg/dL (0.70-1.30); EST Glomerular Filtration Rate 94 mL/min (>60); Est Glom Filt Rate - Afr Amer 114 mL/min (>60); Estimated Creatinine Clearance 40.87 ml/min; Glucose 87 mg/dL (74-106); Potassium 2.8 mmol/L (3.5-5.1); Sodium Level 141 mmol/L (136-145)
[2022-08-10] MEDS: Amox/Clavulanate 875 MG Tablet PO ×2 (07:43→16:33)
[2022-08-10] MEDS: Montelukast 10 MG Tablet PO (10:04)
[2022-08-10] MEDS: Metoprolol Tartrate 25 MG Tablet PO ×2 (10:04→21:19)
[2022-08-10] MEDS: amLODIPine 10 MG Tablet PO (10:04)
[2022-08-10] MEDS: Potassium Chloride 10mEq/100mL 10 MEQ/100 ML IV.SOLN. 100 MEQ IV BOLUS ×4 (10:10→13:36)
[2022-08-10] MEDS: Glycerin/Hypromellose/PEG400 15 ml Bottle 1 DRP EACH EYE (10:11)
[2022-08-10] MEDS: Acetaminophen 325 MG Tablet 650 MG PO ×2 (10:20→18:28)
--- NOTE | 2022-08-10 11:41 | CASEMGMT ---
Addendum entered by Moinque Diaz 08/10/22 16:23: MARILOU JAMES in to pt room to discuss HHC. Patient was provided a list of HHC providers including quality and resource use data and consistent with the patient?s preferred geographic region, medical needs, and insurance network were provided from the [facility] Guide. Pt chose [facility]. TC to Ashlie, referral left via vm. Will await acceptance. Original Note: MARILOU JAMES in to pt room, pt lying in bed in no distress. Discussed dc planning with patient. Pt states he cannot return home alone with this illness. Discussed that we will have therapy evaluate him and see what the recommendations are. Pt is agreeable to going to SNF if recommended again stating he has so much arthritis and weakness now. Pt states he was to have his hip replaced at the beginning of August. Orders received for therapy. TC to therapy to request eval. Updated SW.
--- NOTE | 2022-08-10 12:40 | PN.HOSP_ITS ---
Reason for Visit Reason for Visit: Diagnoses Hypokalemia (08/08/22) Vomiting, unspecified (08/08/22) Diarrhea, unspecified (08/08/22) Weakness (08/08/22) Subjective Subjective Patient seen and examined. He is feeling better today. The diarrhea is improving he went only twice this morning. He is tolerating a diet. He has otherwise remained hemodynamically stable. Review of systems otherwise negative. He has remained hemodynamically stable. Objective Data Objective Data Vital Signs: Vital Signs Temp Pulse Resp BP Pulse Ox O2 Del Method 98.2 F 86 18 147/92 H 97 Room Air 08/10/22 07:48 08/10/22 10:04 08/10/22 07:48 08/10/22 10:04 08/10/22 07:48 08/10/22 07:53 Oxygen Delivery Method Room Air Weight: 91 lb 4.342 oz Body Mass Index (BMI) 15.2 Intake & Output: Intake and Output for Last 24 Hours 08/08/22 08/09/22 08/10/22 23:59 23:59 23:59 Intake Total 5560.0 / 5560.0 4005.0 / 4005.0 2652.5 / 2652.5 Output Total 300 / 300 Balance 5260.0 / 5260.0 4005.0 / 4005.0 2652.5 / 2652.5 Lab / Micro Data Result Diagrams: 08/10/22 06:46 08/10/22 06:46 Labs: Laboratory Results - last 24 hr 08/10/22 06:46: WBC 7.5, RBC 4.48 L, Hgb 13.4, Hct 40.0, MCV 89.3, MCH 29.9, MCHC 33.5, RDW Std Deviation 43.0, RDW Coeff of Nida 13.1, Plt Count 270, MPV 9.5, Immature Gran % (Auto) 0.100, Neut % (Auto) 62.8, Lymph % (Auto) 22.0, [place] % (Auto) 10.8 H, Eos % (Auto) 4.0, Baso % (Auto) 0.3, Absolute Neuts (auto) 4.7, Absolute Lymphs (auto) 1.65, Nucleated RBC % 0 08/10/22 06:46: Sodium 141, Potassium 2.8 L, Chloride 111 H, Carbon Dioxide 2 2.0, Anion Gap 8, BUN 6 L, Creatinine 0.83, Estim Creat Clear Calc 40.87, Est GFR (MDRD) Af Amer 114, Est GFR (MDRD) Non-Af 94, BUN/Creatinine Ratio 7.2 L, Glucose 87, Calcium 8.8 Micro: Microbiology 08/08/22 04:46 Stool Enteric Bacteriology - Final Rotavirus 08/08/22 04:46 Stool C. difficile DNA Amplification - Final 08/08/22 07:15 Mucosa - Nose Respiratory Panel (PCR) - Final 08/08/22 02:45 Stool Stool Occult Blood (REGULO) - Final Occult Blood Positive Physical Exam Const alert, oriented x3 and no apparent distress HEENT head/scalp atraumatic, moist oral mucous membranes and oropharynx normal Head and Scalp: normocephalic Mouth: oral and palatal mucosa normal Eyes PERRL, EOMs intact bilaterally and conjunctivae normal Neck no lymphadenopathy and supple Resp normal respiratory effort, no retractions, no use of accessory muscles and clear to auscultation bilaterally Cardio regular rate, regular rhythm, S1 normal heart sound, S2 normal heart sound and no murmurs GI normal to inspection, nondistended, normoactive bowel sounds, soft to palpation, non-tender and non-distended Extremity normal to inspection, full ROM and no clubbing, cyanosis or edema Neuro oriented x3, CN's II-XII intact bilaterally, moves all extremities and no focal motor deficits Sensorium / Orientation: awake and alert Motor Exam: strength 5/5 throughout Psych affect normal Assessment & Plan Assessment/Plan (1) Intractable vomiting: (2) Diarrhea: PLAN: Plan #Acute gastroenteritis due to rotavirus infection. * diarrhea is improving. HE has had only 2 bouts of diarrhea this morning * now tolerating an oral diet * nausea and vomiting have also improved and he feels much better overall. * Gastroenterology was consulted, and per documentation they also think it is due to acute gastroenteritis due to rotavirus. * Patient did have EGD and colonoscopy in 03/09/2022 which did not show any abnormalities. No need for endoscopic evaluation at this time. * Per GI recommendation we will switch PPI to famotidine due to increased risk of C. difficile in the setting of acute viral infection and antibiotic usage. * #Hypokalemia: Potassium is 2.8 today. Will replace and trend. Check magnesium level #Non-anion gap metabolic acidosis.resolved. Bicarb is 22 today. Was likely due to diarrhea. #Hypertension: On amlodipine and metoprolol. #COPD: Not in exacerbation. On breathing treatments of bronchodilators. #CAD s/p CABG: On statin. Patient currently not on aspirin. In light of rectal bleeding, will hold off on that. #Recent aspiration pneumonia: * Was recently managed for aspiration pneumonia and was placed on Augmentin on 08/07/2021. * We will continue to finish course. DVT prophylaxis: SCDs Total time spent on evaluating patient discharge, seeing patient, evaluation and management and documentation: 37 minutes. Charges/Coding Visit Charges Inpatient E&M: 71244 Subs Hosp L2
--- NOTE | 2022-08-10 14:14 | CASEMGMT ---
Social Work? SW in to meet with pt following update from RN Monique JAMES, that pt does not feel safe to go home and requesting placement at nursing facility. SW introduced self and role at the hospital. Pt agreeable to discussing discharge planning. A list of SNF providers including quality and resource use data consistent with the patient?s preferred geographic region, medical needs, and insurance network were provided from the [employer] Guide. Pt reviewed list Shared preference is [facility] then [facility]. TRACY sent referral to Jyothi at TCU. ? PLAN: SNF? DENIS Wall?
--- NOTE | 2022-08-10 16:26 | CHAPLAIN ---
Type of Pastoral Visit _x__ Initial Visit ___ Follow-up Visit ___ On-call Visit ___ General Patient Visit ___ Spiritual Assessment ___ Family Conference ___ Bereavement ___ Rapid Response ___ Code Blue ___ Other (describe below) Pastoral Care Referral From _x__ Patient ___ Family ___ Nurse ___ Physician ___ Thermostatic Controls Supervisor ___ Revenue Specialist ___ Other (describe below) Sacrament/Intervention _x__ Active listening ___ Anointing ___ Pentecostalism ___ Bereavement ___ Communion _x__ Lizbet exploration ___ _x__ Life review _x__ Prayer ___ Reconciliation ___ Sacrament of Sick _x__ Supportive presence ___ Wedding ___ Other (describe below) Pastoral Comments patient shares about his recent help and that he is mostly supported by a grandson; patient has a son that also has health concerns; pt is connected to [employer]aritan for extra support and identifies his lizbet is strong; pt has goals for rehab and for future surgery; pt welcomes 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
[2022-08-10] MEDS: Ensure Plus High Protein 120 ML LIQUID PO ×2 (16:33→21:18)
[2022-08-10] MEDS: Ondansetron 4 MG/2 ML Vial IV (16:38)
[2022-08-10] MEDS: 0.9% Saline Lock 10 ML Syringe IV (16:38)
[2022-08-10] MEDS: Gabapentin 300 MG Capsule PO (18:27)
[2022-08-10] MEDS: Atorvastatin Calcium 40 MG Tablet PO (21:19)
[2022-08-11 04:00] VITALS: BP 157/91; PULSE 65; RESP 16; TEMP 37; O2SAT 95
[2022-08-11] MEDS: Gabapentin 300 MG Capsule PO (05:55)
[2022-08-11] MEDS: Acetaminophen 325 MG Tablet 650 MG PO (05:55)
[2022-08-11 06:00] VITALS: BMI 15.3
[2022-08-11 06:10] LABS: Absolute Neutrophil Count 4.5 X10^3/uL (2.0-7.7); Basophil# 0.04 X10^3/uL; Basophil% 0.5 % (0-1); Eosinophil# 0.54 X10^3/uL; Eosinophils% 6.5 % (0-5); Hematocrit 38.1 % (40-54); Lymphocyte % 28.7 % (19-41); Mean Corp Hgb Conc 34.1 g/dL (32-36); Mean Corpuscular Hgb 30.1 pg (27.0-32.0); Mean Corpuscular Volume 88.2 fL (80-94); Mean Platelet Vol. 9.4 fl (6.2-12.0); Monocyte# 0.84 X10^3/uL; NRBC Flagged by Analyzer 0 % (0-5); Neutrophil # 4.51 X10^3/uL (2.7-7.7); Neutrophil % 53.9 % (47-70); POSITIVE MORPHOLOGY YES; Platelet Count 278 K/mm3 (150-450); RBC Distribution Width SD 41.8 fl (35.1-43.9); Red Blood Count 4.32 M/mm3 (4.6-6.2); White Blood Count 8.4 K/mm3 (4.4-11.0)
[2022-08-11 06:22] LABS: Differential Indicated SCAN CRITERIA MET
[2022-08-11 06:55] LABS: Anion Gap 9 (5-15); BUN 6 mg/dL (7-18); BUN/Creat Ratio 7.2 RATIO (10-20); Calcium,Total 9.2 mg/dL (8.5-10.1); Chloride 108 mmol/L (98-107); Creatinine, Serum 0.84 mg/dL (0.70-1.30); EST Glomerular Filtration Rate 93 mL/min (>60); Est Glom Filt Rate - Afr Amer 113 mL/min (>60); Estimated Creatinine Clearance 40.58 ml/min; Glucose 85 mg/dL (74-106); Potassium 2.9 mmol/L (3.5-5.1); Sodium Level 139 mmol/L (136-145)
[2022-08-11] MEDS: Ipratropium/Albuterol Sulfate 3 ML AMPUL.NEB INHALATION ×2 (07:21→13:51)
[2022-08-11] MEDS: Glycerin/Hypromellose/PEG400 15 ml Bottle 1 DRP EACH EYE (07:22)
[2022-08-11 07:26] VITALS: PULSE 89; RESP 18; O2SAT 98
[2022-08-11 08:21] VITALS: PULSE 93
[2022-08-11] MEDS: amLODIPine 10 MG Tablet PO (08:21)
[2022-08-11] MEDS: Amox/Clavulanate 875 MG Tablet PO (08:21)
[2022-08-11] MEDS: Montelukast 10 MG Tablet PO (08:21)
[2022-08-11] MEDS: Metoprolol Tartrate 25 MG Tablet PO (08:21)
[2022-08-11] MEDS: Potassium Chloride 10mEq/100mL 10 MEQ/100 ML IV.SOLN. 100 MEQ IV BOLUS ×4 (08:21→11:49)
[2022-08-11] MEDS: Ondansetron 4 MG/2 ML Vial IV (08:21)
[2022-08-11] MEDS: Ensure Plus High Protein 120 ML LIQUID PO ×2 (08:22→13:32)
[2022-08-11] MEDS: 0.9% Saline Lock 10 ML Syringe IV (08:22)
[2022-08-11 08:30] LABS: Atypical Lymphocyte 1+ %
[2022-08-11 08:40] VITALS: BP 131/83; PULSE 93; RESP 18; TEMP 37.2; O2SAT 96
--- NOTE | 2022-08-11 08:55 | CASEMGMT ---
Social Work Upon discussion with RN pt has decided to go home with [facility]. Therapy team feels this is appropriate. SW canceled referral to TCU. DENIS Wall
[2022-08-11 09:09] LABS: Magnesium 1.7 mg/dL (1.6-2.6)
--- NOTE | 2022-08-11 10:08 | CASEMGMT ---
Received notification from Ashlie at [facility], they are able to accept pt for SOC tomorrow. MARILOU CM in to pt room to make aware. Pt states he just got off the phone with [facility] as well. Pt denies any questions.
[2022-08-11 13:53] VITALS: PULSE 90; RESP 18
[2022-08-11 14:37] VITALS: BP 136/80; PULSE 86; RESP 18; TEMP 36.4; O2SAT 96
[2022-08-11 14:56] LABS: Potassium 3.5 mmol/L (3.5-5.1)
--- NOTE | 2022-08-11 15:12 | DCINST_ITS ---
Discharge Instructions Diet Discharge Diet: Low fat / Low cholesterol Activity Discharge Activity: Return to Normal Activity Weight Bearing Status: Weight bearing as tolerated Dressing / Incision Call your doctor if you observe: Fever of 101 or Higher, Shortness of breath, Dizziness, Swelling in the ankles, Chest pain, Increased palpitations (irregular heartbeat) and Calf discomfort Follow Up Care Test Results: Test results from this visit will be discussed in further detail at your follow- up appointment, if applicable. Discharge Plan Admission Admit Date/Time: 08/08/22 04:15 Primary Reason for Your Visit: gastroenteritis due to rotavirus infection Attending Provider: Dian Mcneal Primary Care Provider: Kev Steve Consulting Providers: Mishel Lance ; Roc Das Instructions Patient Instructions: Rotavirus (Stool) Discharge Orders/Prescriptions Prescriptions: New potassium chloride 20 mEq tablet extended release 20 meq PO DAILY Qty: 14 0RF Continued acetaminophen 500 mg tablet 1,000 mg PO BID Rx Instructions: Do not exceed 3000 mg/day gabapentin 300 mg capsule 300 mg PO DAILY PRN (Reason: Pain) lansoprazole 30 MG capsule 30 mg PO DAILY Label Comments: ACID REFLUX cyanocobalamin (vitamin B-12) 1,000 MCG tablet extended release 1,000 mcg PO DAILY Label Comments: supplement cholecalciferol (vitamin D3) 1,000 UNIT tablet 1,000 unit PO DAILY Label Comments: supplement lorazepam 0.5 MG tablet 0.5 mg PO QHS PRN PRN (Reason: Anxiety) montelukast 10 MG tablet 10 mg PO DAILY albuterol sulfate 18 GM HFA aerosol inhaler 2 puff inhalation Q6H PRN PRN (Reason: Wheezing) budesonide-formoterol 6 GM HFA aerosol inhaler 1 puff inhalation DAILY hydrocodone-acetaminophen 5-325 mg tablet 1 tab PO BID atorvastatin 40 mg tablet 40 mg PO QHS amlodipine 10 mg tablet 10 mg PO DAILY metoprolol tartrate 25 mg tablet 25 mg PO BID amoxicillin-pot clavulanate 875-125 mg tablet 1 tab PO BID Qty: 14 0RF Referrals / Follow Up: Kev Steve [Primary Care Provider] - Within 2 Weeks Disposition Disposition (needs filled in before D/C Order can be placed): Home Health Service
--- NOTE | 2022-08-11 15:18 | DS.PCM_ITS ---
Providers Date of Admission: 08/08/22 Date of Discharge: 08/11/22 Primary Care Physician: Kev Steve Consultations 08/08/22 07:26 Consult: Gastroenterology Routine Consulting Provider: [facility] Reason for Consult: Charcoal stools, FIT + EMERGENT Consult: No MD Notified: Yes Date Notified: 08/08/22 Time Notified: 11:42 Method of Notification: via text Reason For Visit: INTRACTABLE N/V/D Diagnosis Discharge Diagnosis (1) Intractable vomiting: Status: Acute Code(s): R11.10 - Vomiting, unspecified (2) Diarrhea: Status: Acute Code(s): R19.7 - Diarrhea, unspecified Plan #Acute gastroenteritis due to rotavirus infection. * diarrhea is improving. HE has had only 2 bouts of diarrhea this morning * now tolerating an oral diet * nausea and vomiting have also improved and he feels much better overall. * Gastroenterology was consulted, and per documentation they also think it is due to acute gastroenteritis due to rotavirus. * Patient did have EGD and colonoscopy in 03/09/2022 which did not show any abnormalities. No need for endoscopic evaluation at this time. * Per GI recommendation we will switch PPI to famotidine due to increased risk of C. difficile in the setting of acute viral infection and antibiotic usage. * #Hypokalemia: Potassium is 2.8 today. Will replace and trend. Check magnesium level #Non-anion gap metabolic acidosis.resolved. Bicarb is 22 today. Was likely due to diarrhea. #Hypertension: On amlodipine and metoprolol. #COPD: Not in exacerbation. On breathing treatments of bronchodilators. #CAD s/p CABG: On statin. Patient currently not on aspirin. In light of rectal bleeding, will hold off on that. #Recent aspiration pneumonia: * Was recently managed for aspiration pneumonia and was placed on Augmentin on 08/07/2021. * We will continue to finish course. DVT prophylaxis: SCDs Total time spent on evaluating patient discharge, seeing patient, evaluation and management and documentation: 37 minutes. Medications at Discharge Home Medications lansoprazole 30 mg capsule,delayed release 30 mg PO DAILY GERD 09/07/13 cholecalciferol (vitamin D3) 25 mcg (1,000 unit) tablet 1,000 unit PO DAILY SUPPLEMENT 03/12/16 cyanocobalamin (vitamin B-12) 1,000 mcg tablet,extended release 1,000 mcg PO DAILY SUPPLEMENT 03/12/16 albuterol sulfate 90 mcg/actuation aerosol inhaler 2 puff inhalation Q6H PRN PRN Wheezing 11/09/19 budesonide-formoterol HFA 160 mcg-4.5 mcg/actuation aerosol inhaler 1 puff inhalation DAILY copd 11/09/19 lorazepam 0.5 mg tablet 0.5 mg PO QHS PRN PRN Anxiety 11/09/19 montelukast 10 mg tablet 10 mg PO DAILY breathing 11/09/19 acetaminophen 500 mg tablet 1,000 mg PO BID PAIN 06/24/21 gabapentin 300 mg capsule 300 mg PO DAILY PRN Pain 03/16/22 amlodipine 10 mg tablet 10 mg PO DAILY BLOOD PRESSURE 08/06/22 atorvastatin 40 mg tablet 40 mg PO QHS CHOLESTEROL 08/06/22 hydrocodone-acetaminophen 5-325mg 5mg-325mg 1 tab PO BID PAIN 08/06/22 metoprolol tartrate 25 mg tablet 25 mg PO BID BLOOD PRESSURE 08/06/22 amoxicillin 875 mg-potassium clavulanate 125 mg tablet 1 tab PO BID #14 tabs 08/07/22 ondansetron 4 mg disintegrating tablet 4 mg PO Q6H PRN nausea and vomiting #20 tabs 08/11/22 potassium chloride 20 mEq tablet,extended release 20 meq PO DAILY #14 tabs 08/11/22 Hospital Course Operations None Procedures None Summary of Care Provided Minutes Spent on Discharge: 45 Hospital Course: Patient is an 82-year-old male with a past medical history as outlined who was admitted through the ED on 08/08/2022 with a complaint of diarrhea, nausea and vomiting. He had been admitted with similar complaints on 08/06/2022 but it improved so he was discharged home on 08/07/2022. However his symptoms persisted he came into the ED where he also tested positive for stool for occult blood. He was admitted and managed for acute gastroenteritis. Stool panel was positive for rotavirus and his positive stool occult blood was thought to be due to the d iarrhea from the rotavirus. Gastroenterology was consulted and concurred with this. Patient was hydrated with IV fluids. Diarrhea gradually resolved and he felt much better. He was able to tolerate an oral diet. He remained stable and was discharged home on 08/11/2022. He is to follow-up with his primary care doctor within 1 to 2 weeks. Patient seen and examined prior to discharge. He had no active complaints and had an uneventful night. Review of systems otherwise negative. Labs and vitals reviewed. Home medication reviewed and reconciled. Diarrhea had resolved. Physical Exam Const alert, oriented x3 and no apparent distress General Appearance: cooperative Orientation / Consciousness: awake Exam Limitations: no limitations HEENT normocephalic, head/scalp atraumatic, hearing grossly normal bilaterally, moist oral mucous membranes and oropharynx normal Eyes PERRL, EOMs intact bilaterally and conjunctivae normal Neck no lymphadenopathy and supple Resp normal respiratory effort, no retractions, no use of accessory muscles and clear to auscultation bilaterally Cardio regular rate, regular rhythm, S1 normal heart sound, S2 normal heart sound and no murmurs GI normal to inspection, nondistended, normoactive bowel sounds, soft to palpation, non-tender and non-distended Extremity normal to inspection, full ROM and no clubbing, cyanosis or edema Skin no rashes or lesions noted Neuro oriented x3, CN's II-XII intact bilaterally, moves all extremities and no focal motor deficits Sensorium / Orientation: awake and alert Motor Exam: strength 5/5 throughout Psych affect normal Weight / BMI Weight Weight: 91 lb 11.397 oz Body Mass Index (BMI) 15.3 ABG / Lab / Microbiology Data Result Diagrams: 08/11/22 05:50 08/11/22 13:42 Laboratory: Laboratory Results - last 24 hr 08/11/22 05:50: WBC 8.4, RBC 4.32 L, Hgb 13.0, Hct 38.1 L, MCV 88.2, MCH 30.1, MCHC 34.1, RDW Std Deviation 41.8, RDW Coeff of Nida 13.0, Plt Count 278, MPV 9.4, Immature Gran % (Auto) 0.400, Neut % (Auto) 53.9, Lymph % (Auto) 28.7, Lucas % (Auto) 10.0, Eos % (Auto) 6.5 H, Baso % (Auto) 0.5, Absolute Neuts (auto) 4.5, Absolute Lymphs (auto) 2.40, Nucleated RBC % 0, Atypical Lymphocytes 1+ 08/11/22 05:50: Sodium 139, Potassium 2.9 L, Chloride 108 H, Carbon Dioxide 22.0, Anion Gap 9, BUN 6 L, Creatinine 0.84, Estim Creat Clear Calc 40.58, Est GFR (MDRD) Af Amer 113, Est GFR (MDRD) Non-Af 93, BUN/Creatinine Ratio 7.2 L, Glucose 85, Calcium 9.2 08/11/22 05:50: Magnesium 1.7 08/11/22 13:42: Potassium 3.5 Microbiology: Microbiology 08/08/22 04:46 Stool Enteric Bacteriology - Final Rotavirus 08/08/22 04:46 Stool C. difficile DNA Amplification - Final 08/08/22 07:15 Mucosa - Nose Respiratory Panel (PCR) - Final 08/08/22 02:45 Stool Stool Occult Blood (REGULO) - Final Occult Blood Positive D/C Instructions Discharge Diet: Low fat / Low cholesterol Discharge Activity: Return to Normal Activity Weight Bearing Status: Weight bearing as tolerated Call your doctor if you observe: Fever of 101 or Higher, Shortness of breath, Dizziness, Swelling in the ankles, Chest pain, Increased palpitations (irregular heartbeat) and Calf discomfort Meaningful Use Info Meaningful Use Diagnoses (Choose all that apply): None applicable Discharge Plan Admission Admit Date/Time: 08/08/22 04:15 Primary Reason for Your Visit: gastroenteritis due to rotavirus infection Attending Provider: Dian Mcneal Primary Care Provider: Kev Steve Consulting Providers: Mishel Lance ; Roc Das Instructions Patient Instructions: Rotavirus (Stool) Discharge Orders/Prescriptions Prescriptions: New potassium chloride 20 mEq tablet extended release 20 meq PO DAILY Qty: 14 0RF ondansetron 4 mg tablet,disintegrating 4 mg PO Q6H PRN (Reason: nausea and vomiting) Qty: 20 0RF Continued acetaminophen 500 mg tablet 1,000 mg PO BID Rx Instructions: Do not exceed 3000 mg/day gabapentin 300 mg capsule 300 mg PO DAILY PRN (Reason: Pain) lansoprazole 30 MG capsule 30 mg PO DAILY Label Comments: ACID REFLUX cyanocobalamin (vitamin B-12) 1,000 MCG tablet extended release 1,000 mcg PO DAILY Label Comments: supplement cholecalciferol (vitamin D3) 1,000 UNIT tablet 1,000 unit PO DAILY Label Comments: supplement lorazepam 0.5 MG tablet 0.5 mg PO QHS PRN PRN (Reason: Anxiety) montelukast 10 MG tablet 10 mg PO DAILY albuterol sulfate 18 GM HFA aerosol inhaler 2 puff inhalation Q6H PRN PRN (Reason: Wheezing) budesonide-formoterol 6 GM HFA aerosol inhaler 1 puff inhalation DAILY hydrocodone-acetaminophen 5-325 mg tablet 1 tab PO BID atorvastatin 40 mg tablet 40 mg PO QHS amlodipine 10 mg tablet 10 mg PO DAILY metoprolol tartrate 25 mg tablet 25 mg PO BID amoxicillin-pot clavulanate 875-125 mg tablet 1 tab PO BID Qty: 14 0RF Referrals / Follow Up: Kev Steve [Primary Care Provider] - Within 2 Weeks Disposition Disposition (needs filled in before D/C Order can be placed): Home Health Service Charges/Coding Visit Charges Inpatient E&M: 53818 Disch Hosp >30min
== END 2022-08-11 16:30 | disposition home health service (06) ==
LOC: ED 03:32 → MS3 04:45
PROVIDERS: Family Medicine; Admitting Provider Internal Medicine; Emergency Provider Emergency Medicine; PCP Family Medicine; Referring Provider Emergency Medicine; Visit Provider Student in an Organized Health Care Education/Training Program
DX: A08.0 Rotaviral enteritis (principal); J44.9 Chronic obstructive pulmonary disease, unspecified; J18.9 Pneumonia, unspecified organism; E87.6 Hypokalemia; E87.20 Acidosis, unspecified; I10 Essential (primary) hypertension; I25.10 Atherosclerotic heart disease of native coronary artery without angina pectoris; K92.2 Gastrointestinal hemorrhage, unspecified; K44.9 Diaphragmatic hernia without obstruction or gangrene; Z87.891 Personal history of nicotine dependence; K57.90 Diverticulosis of intestine, part unspecified, without perforation or abscess without bleeding; Z79.899 Other long term (current) drug therapy; E78.00 Pure hypercholesterolemia, unspecified; I25.2 Old myocardial infarction; Z95.1 Presence of aortocoronary bypass graft; F41.9 Anxiety disorder, unspecified; R06.02 Shortness of breath
CPT/HCPCS: 36415; 71045; 80048; 80053; 80076; 82274; 83605; 83735; 83880; 84132; 84443; 84484; 85025; 85610; 85730; 87493; 87506; 87633; 93005; 94640; 94668; 96361; 96365; 96366; 96368; 96375; 96376; 97161; 97165; 97802; 97803; 99221; 99252; 99285; J7030; A4216; G0378; G0463; J2405

== ENCOUNTER 2022-10-11 12:23 | Observation (INO) | payer MEDICARE, SELFPAY ==
[2022-09-29 12:48] LABS: Absolute Lymphocyte Count 2.52 X10^3/uL (0.83-4.51); Absolute Neutrophil Count 8.5 X10^3/uL (2.0-7.7); Basophil# 0.06 X10^3/uL; Basophil% 0.5 % (0-1); Eosinophil# 0.23 X10^3/uL; Eosinophils% 1.9 % (0-5); Hematocrit 41.1 % (40-54); Hemoglobin 13.1 g/dL (13.0-16.5); Lymphocyte # 2.52 X10^3/ul (0.83-4.51); Lymphocyte % 20.3 % (19-41); Mean Corp Hgb Conc 31.9 g/dL (32-36); Mean Corpuscular Hgb 29.4 pg (27.0-32.0); Mean Corpuscular Volume 92.4 fL (80-94); Mean Platelet Vol. 10.1 fl (6.2-12.0); Monocyte# 1.01 X10^3/uL; Monocyte% 8.2 % (0-10); NRBC Flagged by Analyzer 0 % (0-5); Neutrophil # 8.51 X10^3/uL (2.7-7.7); Neutrophil % 68.6 % (47-70); Platelet Count 370 K/mm3 (150-450); RBC Distribution Width CV 12.8 % (11.6-14.6); RBC Distribution Width SD 43.9 fl (35.1-43.9); Red Blood Count 4.45 M/mm3 (4.6-6.2); White Blood Count 12.4 K/mm3 (4.4-11.0)
[2022-09-29 13:06] LABS: Anion Gap 5 (5-15); BUN 19 mg/dL (7-18); BUN/Creat Ratio 21.7 RATIO (10-20); Calcium,Total 9.5 mg/dL (8.5-10.1); Chloride 105 mmol/L (98-107); Creatinine, Serum 0.88 mg/dL (0.70-1.30); EST Glomerular Filtration Rate 89 mL/min (>60); Est Glom Filt Rate - Afr Amer 107 mL/min (>60); Glucose 94 mg/dL (74-106); Potassium 3.7 mmol/L (3.5-5.1); Sodium Level 138 mmol/L (136-145)
[2022-09-29 13:32] LABS: Magnesium 2.1 mg/dL (1.6-2.6)
[2022-10-11] VITALS (16 sets, daily range): BP systolic 130–155; BP diastolic 66–86; PULSE 61–90; RESP 16–18; TEMP 36.4–36.7; O2SAT 94–99; BMI 24.2
--- NOTE | 2022-10-11 | HIP_PTH ---
PATIENT: SUSY REED LOC: [facility] U#:[id number] AGE/SX: 82/M ROOM: RI313 RE10/11/[address]: Dr. Olivier Sousa MD : 1940 BED: 1 DIS: 10/12/2022 SPEC #: [id number] RECD: 10/11/22 13:45 STATUS: LIGIA SIMPSON #: [id number] LARA: 10/11/22 00:[address]: Olivier Sousa DEPT: SURGICAL PATHOLOGY RECD BY: Parker Elam ENTERED: 10/12/22 09:27 SP TYPE: TOTAL HIP OTHR DR: MD Dr. Stephan Barillas DO Dr. Prakash Chand, MD Eugene Petrilla Tissues: Hip, NOS Procedures: Decalcification bone/plaque Surgery Specimen Level IV HEADER OPERATION: ERAS, total hip replacement PRE-OP DIAGNOSIS: Severe primary osteoarthritis TISSUE SUBMITTED: Left hip bone MICROSCOPIC DIAGNOSIS Bone and tissue of left hip, total hip resection: Severe degenerative joint disease. 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 AM:judith 10/15/2022 MICROSCOPIC DESCRIPTION Slides are reviewed. GROSS DESCRIPTION Received is one container labeled with the patient's name and designated bone and tissue left hip. The specimen consists of a distorted fitch femoral head measuring 6.0 x 6.0 x 4.8 cm. Also present in the specimen container is soft tissue, bone and bone reamings aggregating to 8.0 x 5.0 x 2.0 cm. The articular surface displays prominent osteophyte formation, eburnation and bone erosion. Canine Service Instructor Trainer sections are submitted in two cassettes as follows: 1 - soft tissue and one reamings, 2 - bone after decalcification. / AM:judith 10/12/2022 TC:5 CPT: 17328, 84027
[2022-10-11] MEDS: Lactated Ringers 1,000 ML 999 ML IV ×2 (07:35→13:00)
[2022-10-11 08:30] LABS: Bedside Glucose 101 mg/dL (74-106)
[2022-10-11] MEDS: Magnesium 1 GM over 15 mins IV (08:37)
[2022-10-11] MEDS: Acetaminophen 500 MG Tablet 1000 MG PO ×3 (08:38→21:41)
[2022-10-11] MEDS: Gabapentin 600 MG Tablet 300 MG PO (09:11)
[2022-10-11] MEDS: Cefazolin 2 GM in 0.9% Normal Saline 100 ML IV (10:43)
[2022-10-11] MEDS: TXA 1000mg in NS100 100ml (IVPB at Incision) 660 MG IV (10:56)
[2022-10-11] MEDS: TXA 1000mg in NS100 100ml (IVPB at Closure) 660 MG IV (11:59)
[2022-10-11] MEDS: JPS (Morphine 10mg/ml) OPERA.SITE (12:03)
--- NOTE | 2022-10-11 12:27 | PCM.OP.BLANK ---
Operative Report Date of Procedure: 10/11/22 Preoperative diagnosis Left hip primary osteoarthritis Postoperative diagnosis: Same Operation: Left total hip replacement surgery Surgeon: Dr. Olivier Sousa MD Corporate Representative: Zamzam Amato PA-C Second program assistant operating room nurse Anesthesia: General Anesthesiologist Laura /RYLEY Special medications: IV [Ancef] 2 g IV, IV Tranexamic acid 1 g IV x 2 EBL: 250 Fluid in: 1400 Indications for surgery : Patient is a [ 82 ]-year-old with a long-standing history of [left ] severe hip pain that has failed adequate nonoperative treatment. Due to persistent pain and disability, they decided to proceed with hip replacement surgery. Appropriate informed consent was obtained and signed. Appropriate medical workup was performed preoperatively and patient was deemed safe for surgery by the anesthesia department as well. digital assistant, physician program assistant, was utilized throughout the entire procedure. They were vital in helping with patient positioning, holding of retractors, exposing the tissues adequately for safe completion of the procedure including cutting of the bone, helping client service executive appropriate alignment and sizing of the components, implantation of the components, as well as wound closure, bandage application, and safe patient transfer. Without surgical aides teacher, physician program assistant, surgical time would have been significantly increased, and surgical outcome would have been less optimal. Operative findings: Patient had severe arthritis of the involved hip joint. They underwent a small posterior approach to the hip. We utilized a size [7 press-fit Accolade 2 stem] 127 degree neck angle, a press fit acetabular component size [58 ] titanium cluster, Trident X3 10? hooded polyethylene liner with a 36 mm inner diameter, a Biolox ceramic femoral head size [36] with a -5mm neck length. 30 mm, 6.5 millimeter screw was used in the acetabular component. this reproduced their anatomy nicely. Clinically good leg lengths were noted. Good hip stability through range of motion with no undue pistoning. Standard wound closure in layers, followed by leeanne, followed by Mepilex dressing Details of procedure: Patient was taken to the operating room and transferred to the operating table. Given appropriate anesthetic agent by that department. Patient was then rolled into a lateral decubitus position with the involved painful hip up in the air. Appropriate timeouts had been performed. Hip had been appropriately marked with my initials. Padded anterior and posterior position was utilized. Axillary roll placed. ROMEO hose and SCDs on the nonoperative limb utilized throughout the procedure. Tranexamic acid and IV antibiotics given preoperatively. Operative lower extremity was prepped padded and draped in the usual orthopedic sterile fashion for the procedure. I injected the pain relieving solution in the standard sterile technique of the soft tissues of the hip carefully. Incision was made curving over the tip of the greater trochanter posteriorly. Full thickness skin flaps are raised down on the fascia delia. Fascia delia was opened in length with our incision. Charnley self-retaining hip retractor was carefully placed by the surgeon. Leg was appropriately rotated and held by the program assistant. Retractor was used to lift the abductors anteriorly to visualize the piriformis tendon and external rotators. Area was infiltrated with pain relieving cocktail. Piriformis tendon and external rotators released off the greater trochanter with the Bovie. Tagging suture was placed in each of these separately. We then split the tissue superior to the piriformis tendon through capsule and onto the pelvis. Acetabular labrum was also divided. With traction and manipulation arthritic femoral head was dislocated from the acetabulum. Retractors were carefully placed around the femoral neck. Cutting guide was utilized to map out the proposed cut approximately 1 fingerbreadth above the lesser trochanter. This femoral neck cut was carried out with a saw. Arthritic femoral head removed and measured and inspected. Inferior acetabular retractor was placed by the surgeon, held by the program assistant. Bone hook utilized to pull the proximal femur anteriorly. Labrum removed from about the acetabulum a long knife. Tissue removed from the depth of the acetabulum with the Bovie. Arthritic acetabulum was noted. We began reaming with the appropriate sized reamer based on the measurement of the femoral head. Reaming was done with 45? of abduction, 20? of anteversion, reproducing there anatomy. Reaming was done incrementally up to the appropriate size creating a smooth cylindrical acetabulum and was done down to healthy bone. Trial acetabular component 1 millimeters smaller than the largest reamer was utilized with the outrigger device. Appropriate abduction and anteversion confirmed as well as size and position of cup. We irrigated with bulb syringe saline. Appropriate acetabular opponent was opened and hammered into position with the outrigger device, with 45? of abduction and 20 degrees of anteversion. We could see through the hole in the cup it was adequately down onto the bone in the pelvis. Good stability was noted. Acetabular screw placed per routine. Trial liner with a 10? bullard was appropriately positioned. Acetabular retractors removed. A proximal femoral elevator utilized. Held by the program assistant. We used a sharp awl entering down inside the bone of the proximal femur. Utilized the natacha cutting osteotome in the proximal lateral greater trochanteric region. The fragment removed. Broaching was then done from the smallest broach, upto the appropriate size. Good stability was confirmed. We then trialed the construct with a standard neck length and appropriate sized femoral head on 127? angle neck. We were happy with the construct. Good stability to flexion, rotation by the program assistant. At this point trials removed. I now placed the appropriate polyethylene acetabular liner into a clean dry previously placed shell. This was hammered into position. Suction device was used to confirm its stability. We now exposed the proximal femur with appropriate retractors in place, held by the program assistant, actual femoral stem was checked, opened, and then hammered into the proximal femur and seated down to a similar position as the trial had. We now again trialed appropriate neck length upon. It was then opened. Now impacted the appropriate sized femoral head, neck construct onto the clean dried trunion. Was noted to be stable. Hip was inspected, and joint was reduced for a final time. Good hip stability and leg lengths noted. This was then irrigated with saline and cleaned. Next the remainder of the pain relieving solution was injected carefully throughout the soft tissues of the hip joint. Closure was carried out with a combination of #1 Vicryl, running #2 strata fix in the fascia delia, followed by mid layer #1 Vicryl with #1 strata fix running. Next running 0 strata fix, followed by skin leeanne, Xeroform, Mepilex dressing. We placed ROMEO hose and SCD on the operative leg. Patient awoken from the anesthetic and transferred back to room bed in recovery room in satisfactory condition. Patient will be placed in observation for pain management, PT, IV antibiotics, medication for DVT prevention. Hospitalist consulted for postoperative medical management. Hopeful discharge to home tomorrow This note was generated with [employer] software. It may contain incorrect words, spelling, and punctuation that were not noted in checking the note before signing.
--- NOTE | 2022-10-11 12:42 | RAD_ITS ---
STUDY: X-RAY - PELVIS AND LEFT HIP REASON FOR EXAM: Male, 82 years old. Post Op -- AP both hips on single des/lateral of op hip PACU TECHNIQUE: 2 views of the pelvis and hip. COMPARISON: Comparison is made with prior study of September 28, 2016. FINDINGS: The patient is status post left total hip replacement. There is good alignment. Postoperative soft tissue changes. Stable appearance of the prosthetic right hip joint. RAD/Hip Min 2 Views (Portable) IMPRESSION: Status post left total hip replacement. There is good alignment. Postoperative soft tissue changes. Electronically Signed: Saroj Harris MD at 13:16 EDT ,
[2022-10-11] MEDS: dexAMETHasone 10 MG/ML Vial IV (13:00)
[2022-10-11] MEDS: Lactated Ringers 1,000 ML 125 ML IV ×3 (13:00→21:37)
[2022-10-11] MEDS: 0.9% Saline Lock 10 ML Syringe IV ×2 (15:21→21:40)
[2022-10-11] MEDS: Ondansetron 4 MG/2 ML Vial IV (15:21)
--- NOTE | 2022-10-11 15:54 | PCM.HP.STD ---
HPI - General General Date of Admission: 10/11/22 Date of Service: 10/11/22 HPI Narrative SUSY REED, is a 82 M is being admitted electively for left total hip replacement surgery for left hip primary osteoarthritis by Dr. Olivier Sousa. Patient has extensive cardiac history with CABG done many years ago. He does not have chest pain pressure tightness or shortness of breath/dyspnea on exertion. No recent syncope. Patient does not have abdominal pain. Recently had right inguinal laparoscopic surgery by Dr. Hudson with no acute issues. No nausea vomiting. Bowel movement regular. Patient voiding urine spontaneously. He has a spinal stimulator [facility] Medical History (Updated 09/28/22 @ 11:29 by Juju Carey) Acute exacerbation of COPD with asthma Anxiety Arthritis Asthma Atherosclerotic heart disease of [place] coronary artery without angina pectoris Back pain Cancer Cardiology follow-up encounter Carotid artery disease Carotid bruit Difficulty swallowing Eosinophilic asthma Essential (primary) hypertension FH: sudden cardiac (SCD) Former smoker Gastric reflux High cholesterol History of asthma History of diverticulitis History of echocardiogram History of edema History of hiatal hernia History of non-ST elevation myocardial infarction (NSTEMI) (11/14/19) History of pain when walking History of stress test Hyperlipidemia Hypertension Metabolic acidosis Mild ascending aorta dilatation Neuropathy Pain management Vertigo Walker as ambulation aid Wears dentures Wears glasses Home Medications lansoprazole 30 mg capsule,delayed release 30 mg PO DAILY GERD 09/07/13 [History Last Taken 10/11/22 07:00] cholecalciferol (vitamin D3) 25 mcg (1,000 unit) tablet 1,000 unit PO DAILY SUPPLEMENT 03/12/16 [History Last Taken 08/05/22] cyanocobalamin (vitamin B-12) 1,000 mcg tablet,extended release 1,000 mcg PO DAILY SUPPLEMENT 03/12/16 [History Last Taken 08/05/22] albuterol sulfate 90 mcg/actuation aerosol inhaler 2 puff inhalation Q6H PRN PRN Wheezing 11/09/19 [History Last Taken 08/05/22] budesonide-formoterol HFA 160 mcg-4.5 mcg/actuation aerosol inhaler 1 puff inhalation DAILY copd 11/09/19 [History Last Taken 10/11/22 07:00] lorazepam 0.5 mg tablet 0.5 mg PO QHS PRN PRN Anxiety 11/09/19 [History Last Taken 08/05/22] montelukast 10 mg tablet 10 mg PO DAILY breathing 11/09/19 [History Last Taken 08/05/22] acetaminophen 500 mg tablet 1,300 mg PO BID PAIN 06/24/21 [History Last Taken 08/05/22] gabapentin 300 mg capsule 300 mg PO BID 03/16/22 [History Last Taken 10/11/22 07:00] amlodipine 10 mg tablet 10 mg PO DAILY BLOOD PRESSURE 08/06/22 [History Last Taken 10/11/22 07:00] atorvastatin 40 mg tablet 40 mg PO QHS CHOLESTEROL 08/06/22 [History Last Taken 08/05/22] hydrocodone-acetaminophen 5-325mg 5mg-325mg 1 tab PO PRN PRN Pain 08/06/22 [History Last Taken 10/11/22 07:00] metoprolol tartrate 25 mg tablet 25 mg PO BID BLOOD PRESSURE 08/06/22 [History Last Taken 10/11/22 07:00] ondansetron 4 mg disintegrating tablet 4 mg PO Q6H PRN nausea and vomiting #20 tabs 08/11/22 [Rx Last Taken Unknown] Allergy/AdvReac Type Severity Reaction Status Date / Time Iodinated Contrast Media Allergy Intermediate Rash Verified 10/11/22 08:21 nitroglycerin Allergy Other Verified 10/11/22 08:21 simvastatin AdvReac Severe Myalgias Verified 10/11/22 08:21 Family History Grandfather Myocardial infarction Sudden cardiac Grandmother CVA (cerebral vascular accident) Grandfather Cancer Father Colon cancer Hypertension Mother Breast cancer CHF (congestive heart failure) Brother COPD (chronic obstructive pulmonary disease) Sister CAD (coronary artery disease) Hx CABG Hypertension HLD (hyperlipidemia) Son Hypertension Surgical History (Updated 09/28/22 @ 11:29 by Juju Carey) H/O coronary artery bypass surgery (12/2006) History of esophagogastroduodenoscopy (EGD) History of esophagogastroduodenoscopy (EGD) History of left heart catheterization (11/15/19) History of lumbar fusion History of partial colectomy Hx of colonoscopy Hx of hernia repair Hx of right inguinal hernia repair Hx of shoulder replacement Hx of sinus surgery Hx of total hip arthroplasty Social History Smoking Status: Former smoker quit date: 06/20/79 Tobacco: How many years used: 15 alcohol intake: never substance use type: does not use seatbelt use: always Vital Signs Vital Signs Vital Signs: 10/11/22 08:18 10/11/22 08:27 10/11/22 12:33 Temperature 97.5 F L 97.7 F L Temperature Source Temporal Temporal Pulse Rate 66 74 Pulse Strength Respiratory Rate 16 16 Respiratory Pattern Normal Normal Blood Pressure 149/86 H 147/70 H Blood Pressure Mean 107 95 Blood Pressure Source Monitor Monitor Blood Pressure Position Semi-Fowlers Semi-Fowlers Blood Pressure Location Left Arm Right Arm Baseline BP 149/86 Pulse Ox 96 99 Oxygen Delivery Method Room Air Nasal Cannula Oxygen Flow Rate (L/min) 4 10/11/22 12:57 10/11/22 12:45 10/11/22 13:00 Temperature Temperature Source Pulse Rate 62 64 Pulse Strength Normal (2+) Respiratory Rate 16 16 Respiratory Pattern Blood Pressure 147/75 H 137/70 H Blood Pressure Mean 99 92 Blood Pressure Source Monitor Monitor Blood Pressure Position Semi-Fowlers Supine Blood Pressure Location Right Arm Right Arm Baseline BP 149/86 149/86 Pulse Ox 97 98 Oxygen Delivery Method Nasal Cannula Nasal Cannula Oxygen Flow Rate (L/min) 4 4 10/11/22 13:15 10/11/22 13:30 10/11/22 13:45 Temperature Temperature Source Pulse Rate 61 64 66 Pulse Strength Respiratory Rate 16 16 16 Respiratory Pattern Blood Pressure 142/66 H 144/68 H 139/66 H Blood Pressure Mean 91 93 90 Blood Pressure Source Monitor Monitor Monitor Blood Pressure Position Supine Semi-Fowlers Semi-Fowlers Blood Pressure Location Right Arm Right Arm Right Arm Baseline BP 149/86 149/86 149/86 Pulse Ox 98 97 97 Oxygen Delivery Method Room Air Nasal Cannula Nasal Cannula Oxygen Flow Rate (L/min) 4 4 10/11/22 14:00 10/11/22 14:14 10/11/22 14:53 Temperature 97.9 F 97.8 F Temperature Source Temporal Oral Pulse Rate 68 67 64 Pulse Strength Respiratory Rate 16 16 16 Respiratory Pattern Blood Pressure 140/68 H 130/73 H 148/72 H Blood Pressure Mean 92 92 97 Blood Pressure Source Monitor Monitor Monitor Blood Pressure Position Semi-Fowlers Semi-Fowlers Semi-Fowlers Blood Pressure Location Right Arm Right Arm Right Arm Baseline BP 149/86 149/86 Pulse Ox 96 98 95 Oxygen Delivery Method Nasal Cannula Room Air Oxygen Flow Rate (L/min) 4 4 Weight Weight: 145 lb 8.081 oz Body Mass Index (BMI) 24.2 Results Lab / Micro Data Result Diagrams: 09/29/22 12:15 09/29/22 12:15 Labs: Laboratory Results - last 24 hr 10/11/22 08:00: POC Glucose 101 Radiology Impression Hip X-Ray 10/11/22 12:42 IMPRESSION: Status post left total hip replacement. There is good alignment. Postoperative soft tissue changes. Electronically Signed: Saroj Harris MD at 13:16 EDT ,
--- NOTE | 2022-10-11 16:17 | PCM.CONS.GEN ---
Assessment & Plan Assessment/Plan (1) Primary osteoarthritis of left hip: (2) Atherosclerotic heart disease of [place] coronary artery without angina pectoris: PLAN: Plan This 82-year-old gentleman is being admitted for elective left hip total replacement. 1. Perioperative management of left total hip replacement on 10/11/2022: Patient does not have acute issues of chest pain pressure tightness or shortness of breath. Has not voided urine yet but is trying at the time of my examination. Bladder scan every 4 hourly. Bowel care on stool softener/laxative. DVT prophylaxis as per orthopedic surgeon. PT and OT as ordered. 2. Coronary artery status post CABG: Patient had last echo in October 2019 reported EF 65% with stage I diastolic dysfunction. It was reported suboptimal technically difficult study and did not mention about the valvular heart disease but I hear systolic murmur, TR and MR. Patient had negative pharmacological nuclear perfusion scan in June 2022. Had last cardiology office visit in September 06 to . Continue metoprolol and amlodipine. 3. Carotid stenosis, hypertension and dyslipidemia: Last carotid ultrasound reported less than 50% bilaterally. On atorvastatin 40 mg nightly. Blood pressure is in acceptable limit. 4. COPD/eosinophilic asthma: Not in exacerbation. Bronchodilator as needed. Incentive spirometry. 5. Other multiple comorbidities include chronic back pain status post nerve stimulator, primary degenerative arthritis, and vertigo: PT and OT. VTE prophylaxis as per orthopedic surgeon. HPI Consult Data Date of Consult: 10/11/22 Attending Care Provider: Perioperative management for left hip total replacement and multiple health conditions including coronary artery disease, COPD, chronic back pain, hypertension. HPI Narrative HPI Narrative: SUSY REED, is a 82 M is being admitted in orthopedic service after elective left total hip replacement surgery for left hip primary osteoarthritis by Dr. Olivier Sousa. Patient has extensive cardiac history with CABG done many years ago. He does not have chest pain pressure tightness or shortness of breath/dyspnea on exertion. No recent syncope. Patient does not have abdominal pain. Recently had right inguinal laparoscopic surgery by Dr. Hudson with no acute issues. No nausea vomiting. Bowel movement regular. Patient voiding urine spontaneously. He has a spinal stimulator. No acute issues. Past medical history includes coronary artery disease status post CABG, carotid artery disease less than 50% bilaterally, last carotid ultrasound October 2017, COPD/eosinophilic asthma, dyslipidemia, hypertension and mild ascending aortic dilatation Past surgical history: Recent laparoscopic inguinal surgery by Dr. Hudson. CABG in 2006. [facility] Medical History (Updated 10/11/22 @ 16:[address] Guille Cao MD) Acute exacerbation of COPD with asthma Anxiety Arthritis Asthma Atherosclerotic heart disease of [place] coronary artery without angina pectoris Back pain Cancer Cardiology follow-up encounter Carotid artery disease Carotid bruit Difficulty swallowing Eosinophilic asthma Essential (primary) hypertension FH: sudden cardiac (SCD) Former smoker Gastric reflux High cholesterol History of asthma History of diverticulitis History of echocardiogram History of edema History of hiatal hernia History of non-ST elevation myocardial infarction (NSTEMI) (11/14/19) History of pain when walking History of stress test Hyperlipidemia Hypertension Metabolic acidosis Mild ascending aorta dilatation Neuropathy Pain management Vertigo Walker as ambulation aid Wears dentures Wears glasses Home Medications lansoprazole 30 mg capsule,delayed release 30 mg PO DAILY GERD 09/07/13 [History Last Taken 10/11/22 07:00] cholecalciferol (vitamin D3) 25 mcg (1,000 unit) tablet 1,000 unit PO DAILY SUPPLEMENT 03/12/16 [History Last Taken 08/05/22] cyanocobalamin (vitamin B-12) 1,000 mcg tablet,extended release 1,000 mcg PO DAILY SUPPLEMENT 03/12/16 [History Last Taken 08/05/22] albuterol sulfate 90 mcg/actuation aerosol inhaler 2 puff inhalation Q6H PRN PRN Wheezing 11/09/19 [History Last Taken 08/05/22] budesonide-formoterol HFA 160 mcg-4.5 mcg/actuation aerosol inhaler 1 puff inhalation DAILY copd 11/09/19 [History Last Taken 10/11/22 07:00] lorazepam 0.5 mg tablet 0.5 mg PO QHS PRN PRN Anxiety 11/09/19 [History Last Taken 08/05/22] montelukast 10 mg tablet 10 mg PO DAILY breathing 11/09/19 [History Last Taken 08/05/22] acetaminophen 500 mg tablet 1,300 mg PO BID PAIN 06/24/21 [History Last Taken 08/05/22] gabapentin 300 mg capsule 300 mg PO BID 03/16/22 [History Last Taken 10/11/22 07:00] amlodipine 10 mg tablet 10 mg PO DAILY BLOOD PRESSURE 08/06/22 [History Last Taken 10/11/22 07:00] atorvastatin 40 mg tablet 40 mg PO QHS CHOLESTEROL 08/06/22 [History Last Taken 08/05/22] hydrocodone-acetaminophen 5-325mg 5mg-325mg 1 tab PO PRN PRN Pain 08/06/22 [History Last Taken 10/11/22 07:00] metoprolol tartrate 25 mg tablet 25 mg PO BID BLOOD PRESSURE 08/06/22 [History Last Taken 10/11/22 07:00] ondansetron 4 mg disintegrating tablet 4 mg PO Q6H PRN nausea and vomiting #20 tabs 08/11/22 [Rx Last Taken Unknown] Allergy/AdvReac Type Severity Reaction Status Date / Time Iodinated Contrast Media Allergy Intermediate Rash Verified 10/11/22 08:21 nitroglycerin Allergy Other Verified 10/11/22 08:21 simvastatin AdvReac Severe Myalgias Verified 10/11/22 08:21 Family History Grandfather Myocardial infarction Sudden cardiac Grandmother CVA (cerebral vascular accident) Grandfather Cancer Father Colon cancer Hypertension Mother Breast cancer CHF (congestive heart failure) Brother COPD (chronic obstructive pulmonary disease) Sister CAD (coronary artery disease) Hx CABG Hypertension HLD (hyperlipidemia) Son Hypertension Surgical History (Updated 09/28/22 @ 11:29 by Juju Carey) H/O coronary artery bypass surgery (12/2006) History of esophagogastroduodenoscopy (EGD) History of esophagogastroduodenoscopy (EGD) History of left heart catheterization (11/15/19) History of lumbar fusion History of partial colectomy Hx of colonoscopy Hx of hernia repair Hx of right inguinal hernia repair Hx of shoulder replacement Hx of sinus surgery Hx of total hip arthroplasty Social History Smoking Status: Former smoker quit date: 06/20/79 Tobacco: How many years used: 15 alcohol intake: never substance use type: does not use seatbelt use: always ROS ROS Narrative Constitutional: Chronic fatigue. No acute fever or chills, headache or flulike symptoms. HEENT: Reports systems reviewed and no addt'l complaints, except as documented Respiratory/Chest: Denies chest pain, shortness of breath at rest or with exertion Gastrointestinal: Denies coffee ground emesis, hematemesis or vomiting Genitourinary: Denies burning urination or new urinary tract symptoms Musculoskeletal: Left chronic hip joint pain, primary osteoarthritis and limited range of motion. Status post right hip arthroplasty in the past Neurologic: Denies seizure-like activity. A spinal stimulator. skin: No ulcer. No rash Endocrinology: Reports systems reviewed and no addt'l complaints, except as documented Hematologic/Lymphatic: Reports systems reviewed and no addt'l complaints, except as documented Rest 14 ROS are negative except as mentioned in HPI Physical Exam Narrative General: Alert, Oriented x3, Cooperative HEENT: Atraumatic, PERRLA, EOMI, Normocephalic Oral: No Gingival or Mucosal Lesions/ Ulcerations Neck: Supple, No JVD, Negative Carotid Bruits Lungs: Air entry diminished in bilateral lung bases. No crepitation/rhonchi Cardiovascular: Regular rate, Regular Rhythm, Normal S1, Normal S2, systolic murmur over LLSB and cardiac apex. Abdomen: Bowel Sounds Present, Soft, Non Tender, Non-Distended : Did not void postop urine Yet. No dysuria. No renal angle tenderness. No suprapubic tenderness. Extremities: No edema, Capillary Refill Less than 3 Seconds Skin: Surgical dressing status post left hip replacement. Musculoskeletal: No Tenderness to Palpation of Joints or Extremities. Left hip surgical dressing is dry. No acute tenderness hematoma or bleeding. Neurological: Cranial nerves II-XII grossly intact, DTR 2+/4 and Symmetrical, Neuro grossly intact Psych/Mental Status: Normal Affect, Appropriate. Lab / Micro Data Result Diagrams: 09/29/22 12:15 09/29/22 12:15 Labs: Laboratory Results - last 24 hr 10/11/22 08:00: POC Glucose 101 Radiology Impression Hip X-Ray 10/11/22 12:42 IMPRESSION: Status post left total hip replacement. There is good alignment. Postoperative soft tissue changes. Electronically Signed: Saroj Harris MD at 13:16 EDT , Charges/Coding Visit Charges Office Visits / Consults: [id number] OP Consult L4
[2022-10-11] MEDS: Aspirin 81 MG TAB.CHEW PO (17:03)
[2022-10-11] MEDS: Ensure Surgery 237 ML LIQUID PO (17:17)
[2022-10-11] MEDS: oxyCODONE 5 MG Tablet PO (18:56)
[2022-10-11] MEDS: Cefazolin 1 GM/50 ML BAG IV (21:36)
[2022-10-11] MEDS: Atorvastatin Calcium 40 MG Tablet PO (21:42)
[2022-10-11] MEDS: Senna/Docusate Sodium 1 Tablet 2 TABLET PO (21:42)
[2022-10-11] MEDS: Metoprolol Tartrate 25 MG Tablet PO (21:44)
[2022-10-11] MEDS: Gabapentin 300 MG Capsule PO (21:49)
[2022-10-12] MEDS: Cefazolin 1 GM/50 ML BAG IV (03:08)
[2022-10-12 03:10] VITALS: BP 130/68; PULSE 68; RESP 18; TEMP 36.6; O2SAT 94
[2022-10-12 05:12] VITALS: BP 147/76; PULSE 71; RESP 18; TEMP 36.8; O2SAT 95
[2022-10-12 05:13] VITALS: BMI 24.2
[2022-10-12] MEDS: 0.9% Saline Lock 10 ML Syringe IV (05:14)
[2022-10-12] MEDS: Acetaminophen 500 MG Tablet 1000 MG PO (05:14)
[2022-10-12 07:23] LABS: Hematocrit 36.6 % (40-54); Hemoglobin 11.9 g/dL (13.0-16.5); Mean Corp Hgb Conc 32.5 g/dL (32-36); Mean Corpuscular Hgb 29.3 pg (27.0-32.0); Mean Corpuscular Volume 90.1 fL (80-94); Mean Platelet Vol. 10.1 fl (6.2-12.0); Platelet Count 292 K/mm3 (150-450); RBC Distribution Width CV 12.9 % (11.6-14.6); RBC Distribution Width SD 42.4 fl (35.1-43.9); Red Blood Count 4.06 M/mm3 (4.6-6.2); White Blood Count 18.2 K/mm3 (4.4-11.0)
[2022-10-12 07:30] VITALS: PULSE 80; RESP 18
[2022-10-12] MEDS: Budesonide Respules 0.5 MG/2 ML AMPUL.NEB. INHALATION (07:30)
--- NOTE | 2022-10-12 07:42 | PN.ORTHO_ITS ---
Subjective Subjective Patient sitting at bedside. Patient states pain is been very well managed. Patient denies chest pain, shortness of breath, calf pain, nausea vomiting. Patient states he is ready for discharge home. No other complaints at this time. Objective Data Objective Data Vital Signs: Vital Signs Temp Pulse Resp BP Pulse Ox O2 Del Method O2 Flow Rate 98.2 F 71 18 147/76 H 95 Room Air 4 10/12/22 05:12 10/12/22 05:12 10/12/22 05:12 10/12/22 05:12 10/12/22 05:12 10/12/22 05:12 10/11/22 14:14 Oxygen Flow Rate (L/min) 4 Oxygen Delivery Method Room Air Weight: 66 kg Body Mass Index (BMI) 24.2 Intake & Output: Intake and Output for Last 24 Hours 10/10/22 10/11/22 10/12/22 23:59 23:59 23:59 Intake Total 3248.67 / 3248.67 1002.08 / 1002.08 Output Total 1800 / 1800 Balance 1448.67 / 1448.67 1002.08 / 1002.08 Lab / Micro Data Result Diagrams: 10/12/22 06:50 09/29/22 12:15 Labs: Laboratory Results - last 24 hr 10/11/22 08:00: POC Glucose 101 10/12/22 06:50: WBC 18.2 H, RBC 4.06 L, Hgb 11.9 L, Hct 36.6 L, MCV 90.1, MCH 29.3, MCHC 32.5, RDW Std Deviation 42.4, RDW Coeff of Nida 12.9, Plt Count 292, MPV 10.1 Micro: Microbiology 09/29/22 12:15 Swab (Method) Nasal Screen MRSA/MSSA - Final Radiography Diagnostic Testing: Radiology Impression Hip X-Ray 10/11/22 12:42 IMPRESSION: Status post left total hip replacement. There is good alignment. Postoperative soft tissue changes. Electronically Signed: Saroj Harris MD at 13:16 EDT , Physical Exam Narrative Exam, I found patient sitting comfortably in a chair at bedside. Cranial nerves II through XII gross intact. Patient had excellent range of motion of the upper extremities. Patient in no respiratory distress speaking in full sentences. Exam of the left hip I found the dressing to be clean dry intact. Patient had no tenderness surrounding the incisional area. Patient had good flexion- extension of the left knee ankle and foot. No calf tenderness. Neurovascular is otherwise intact. Const alert and oriented x3 General Appearance: cooperative HEENT normocephalic Eyes PERRL Resp normal respiratory effort Extremity normal capillary refill, no clubbing, cyanosis or edema, no calf tenderness and no pedal edema Skin no rashes or lesions noted Neuro CN's II-XII intact bilaterally Motor Exam: strength 5/5 throughout and muscle tone normal throughout Psych mental status grossly normal and affect normal Assessment & Plan Assessment/Plan (1) S/P total left hip arthroplasty: PLAN: 1. Continue all pain medications as prescribed 2. Aspirin 81 mg 1 p.o. every 12 hours x30 days for postop DVT prophylaxis 3. Encourage incentive spirometry 4. Full weightbearing as tolerated with walker 5. Therapy today discharge home after therapy 6. Continue outpatient therapy as scheduled 7. Follow-up with Dr. Sousa as scheduled
--- NOTE | 2022-10-12 07:45 | DCINST_ITS ---
Discharge Instructions Diet Discharge Diet: No restrictions Activity Discharge Activity: May Not Drive, May Shower and Use Walker May shower in (days): 3 May resume sexual activity in: No Restrictions Ice area for (Minutes): 30 Weight Bearing Status: Weight bearing as tolerated Dressing / Incision Call your doctor if your incision/area has: Continuous Slow Oozing, Sudden Increased Bleeding, Increased Pain/ Swelling, Increased Redness, Foul Smelling Discharge and Swelling at the incision site Call your doctor if you observe: Fever of 101 or Higher Change Dressing in: leave in place till F/U Remove Dressing in: leave in place till F/U Follow Up Care Please Follow Up With: Olivier Sousa MD When: As scheduled Test Results: Test results from this visit will be discussed in further detail at your follow- up appointment, if applicable. Discharge Plan Admission Admit Date/Time: 10/11/22 12:23 Primary Reason for Your Visit: Left total hip arthroplasty Attending Provider: Olivier Sousa Primary Care Provider: Kev Steve Consulting Providers: Lele Carter ; Guille Cao ; Stephan Rios Discharge Orders/Prescriptions Prescriptions: New acetaminophen 500 mg Tablet 1,000 mg PO Q8 30 Days Qty: 180 0RF aspirin 81 mg Tablet,Chewable 81 mg PO BIDCM 30 Days Qty: 60 0RF oxycodone 5 mg Tablet 5 - 10 mg PO Q4H PRN PRN (Reason: Pain Score 4-10) 7 Days Qty: 84 0RF Continued gabapentin 300 mg capsule 300 mg PO BID lansoprazole 30 MG capsule 30 mg PO DAILY Label Comments: ACID REFLUX cyanocobalamin (vitamin B-12) 1,000 MCG tablet extended release 1,000 mcg PO DAILY Label Comments: supplement cholecalciferol (vitamin D3) 1,000 UNIT tablet 1,000 unit PO DAILY Label Comments: supplement lorazepam 0.5 MG tablet 0.5 mg PO QHS PRN PRN (Reason: Anxiety) montelukast 10 MG tablet 10 mg PO DAILY albuterol sulfate 18 GM HFA aerosol inhaler 2 puff inhalation Q6H PRN PRN (Reason: Wheezing) budesonide-formoterol 6 GM HFA aerosol inhaler 1 puff inhalation DAILY atorvastatin 40 mg tablet 40 mg PO QHS amlodipine 10 mg tablet 10 mg PO DAILY metoprolol tartrate 25 mg tablet 25 mg PO BID ondansetron 4 mg tablet,disintegrating 4 mg PO Q6H PRN (Reason: nausea and vomiting) Qty: 20 0RF Discontinued acetaminophen 500 mg tablet 1,300 mg PO BID Rx Instructions: Do not exceed 3000 mg/day hydrocodone-acetaminophen 5-325 mg tablet 1 tab PO PRN PRN (Reason: Pain) Referrals / Follow Up: Kev Steve [Primary Care Provider] - Disposition Disposition (needs filled in before D/C Order can be placed): Home, Self Care
[2022-10-12 07:57] LABS: Anion Gap 7 (5-15); BUN 14 mg/dL (7-18); BUN/Creat Ratio 15.3 RATIO (10-20); Calcium,Total 9.4 mg/dL (8.5-10.1); Chloride 107 mmol/L (98-107); Creatinine, Serum 0.92 mg/dL (0.70-1.30); EST Glomerular Filtration Rate 84 mL/min (>60); Est Glom Filt Rate - Afr Amer 102 mL/min (>60); Estimated Creatinine Clearance 52.73 ml/min; Glucose 135 mg/dL (74-106); Potassium 3.4 mmol/L (3.5-5.1); Sodium Level 137 mmol/L (136-145)
[2022-10-12 08:56] VITALS: BP 152/65; PULSE 76
[2022-10-12] MEDS: amLODIPine 10 MG Tablet PO (08:56)
[2022-10-12] MEDS: Aspirin 81 MG TAB.CHEW PO (08:56)
[2022-10-12] MEDS: Pantoprazole Sodium 40 MG Tablet PO (08:56)
[2022-10-12] MEDS: Montelukast 10 MG Tablet PO (08:56)
[2022-10-12] MEDS: Metoprolol Tartrate 25 MG Tablet PO (08:56)
[2022-10-12] MEDS: Senna/Docusate Sodium 1 Tablet 2 TABLET PO (08:56)
[2022-10-12] MEDS: Gabapentin 300 MG Capsule PO (09:00)
[2022-10-12] MEDS: Ensure Surgery 237 ML LIQUID PO (09:00)
[2022-10-12 09:01] VITALS: BP 152/65; PULSE 76; RESP 16; TEMP 36.7; O2SAT 96
--- NOTE | 2022-10-12 10:02 | CASEMGMT ---
Addendum entered by Monique Diaz 10/12/22 10:24: Pt accepted for HHC to start tomorrow. Pt aware. Addendum entered by Monique Diaz 10/12/22 10:22: TC to Ashlie at [facility], referral made, will await acceptance. Original Note: MARILOU JAMES Assessment: Face to Face with pt for initial transition planning/care coordination assessment. MARILOU JAMES introduced self and role at [facility], pt voices understanding and consents to assessment. Pt is A/O x4 and answers all questions appropriately at this time. Pt sitting up in chair in no distress. Care providers, pharmacy, and demographics verified/updated. Admitting Dx: Lt total hip PCP:[facility] Specialists:max Sousa; Tony, cardio; [facility]; misael, pod; [facility], [place] Preferred Pharmacy: [facility] Retail Insurance: [employer] Prescription Benefit: yes LNOK: Dariel Wayne Jr, son; [employer], dtr Living Arrangements: Pt lives alone in a two story home with 3 steps to enter. There is a chairlift to the second floor. Pt reports he is I in ADL's prior to surgery. His son will be staying with him until he is able to care for himself again. Pt grandson and dtr do grocery shopping. Pt recently cancelled MOW. Transportation: Pt drives self and denies concerns with transportation. Pt family to transport until he is able to drive again. DME/HHC/SNF: Pt has a FWW, rollator, toilet side rails, shower chair and grab bars in the bathroom. Pt has had [facility] HHC and denies SNF stays. Pt states no concerns with going home at time of dc. He states he will start therapy in a couple of weeks when he can drive. He plans to do this at [facility]. Discussed having HHC until then, pt agreeable. Pt wishes to have [facility] HHC and denies need for list of other options. Pt states no further concerns/needs. CM to follow. Advised pt to ask CM if any further question/concerns/needs arise, voices understanding. Pt Goal: Home with HHC Plan: Home with HHC
[2022-10-12 10:52] VITALS: BMI 24.2
--- NOTE | 2022-10-12 10:58 | PHA.DC.MC ---
Pharmacy Service has performed discharge medication reconciliation and counseling for this patient. 1. ACETAMINOPHEN 1000MG PO Q8 2. ASPIRIN 81MG PO BIDCM X 30 DAYS 3. OXYCODONE 5-10MG PO Q4H PRN PAIN 4-10 The patient's discharge medication list was reviewed for discrepancies and discrepancies were resolved. Home Medications lansoprazole 30 mg capsule,delayed release 30 mg PO DAILY GERD 09/07/13 cholecalciferol (vitamin D3) 25 mcg (1,000 unit) tablet 1,000 unit PO DAILY SUPPLEMENT 03/12/16 cyanocobalamin (vitamin B-12) 1,000 mcg tablet,extended release 1,000 mcg PO DAILY SUPPLEMENT 03/12/16 albuterol sulfate 90 mcg/actuation aerosol inhaler 2 puff inhalation Q6H PRN PRN Wheezing 11/09/19 budesonide-formoterol HFA 160 mcg-4.5 mcg/actuation aerosol inhaler 1 puff inhalation DAILY copd 11/09/19 lorazepam 0.5 mg tablet 0.5 mg PO QHS PRN PRN Anxiety 11/09/19 montelukast 10 mg tablet 10 mg PO DAILY breathing 11/09/19 gabapentin 300 mg capsule 300 mg PO BID 03/16/22 amlodipine 10 mg tablet 10 mg PO DAILY BLOOD PRESSURE 08/06/22 atorvastatin 40 mg tablet 40 mg PO QHS CHOLESTEROL 08/06/22 metoprolol tartrate 25 mg tablet 25 mg PO BID BLOOD PRESSURE 08/06/22 ondansetron 4 mg disintegrating tablet 4 mg PO Q6H PRN nausea and vomiting #20 tabs 08/11/22 acetaminophen 500 mg tablet 1,000 mg PO Q8 30 days #180 tabs 10/12/22 aspirin 81 mg chewable tablet 81 mg PO BIDCM Postop DVT prophylaxis 30 days #60 tabs 10/12/22 oxycodone 5 mg tablet 5 - 10 mg PO Q4H PRN PRN Pain Score 4-10 7 days #84 tabs 10/12/22 The patient was counseled on the following discharge medications and changes in medications for homegoing were reviewed. The Reason for Use, instructions for use, and potential side effects were reviewed for all new medications. The patient's questions regarding all of their medications were answered. The patient was able to verbally demonstrate an understanding of their discharge medications.
== END 2022-10-12 11:40 | disposition home health service (06) ==
LOC: SDC 13:56 → MS3 13:56
PROVIDERS: Anesthesiology; Admitting Provider Orthopaedic Surgery; PCP Family Medicine; Referring Provider Orthopaedic Surgery; Visit Provider Orthopaedic Surgery
PROC: 0SRB0JZ Replacement of Left Hip Joint with Synthetic Substitute, Open Approach (ICD-10-PCS; CPT 27130; principal; 2022-10-11 10:05)
DX: M16.12 Unilateral primary osteoarthritis, left hip (principal); J44.9 Chronic obstructive pulmonary disease, unspecified; I25.10 Atherosclerotic heart disease of native coronary artery without angina pectoris; E78.00 Pure hypercholesterolemia, unspecified; Z87.891 Personal history of nicotine dependence; I10 Essential (primary) hypertension; Z79.899 Other long term (current) drug therapy; M79.7 Fibromyalgia; Z79.82 Long term (current) use of aspirin; Z95.1 Presence of aortocoronary bypass graft
CPT/HCPCS: 27130; 01214; 36415; 73502; 80048; 82962; 83735; 85025; 85027; 87081; 88305; 88311; 94640; 94668; 96361; 96365; 96366; 96375; 97110; 97116; 97162; 97166; 97530; 97535; 99221; C1776; J7120; A4216; G0378; J2405; J3475

== ENCOUNTER 2024-08-23 12:00 | Outpatient (RCR) | payer MEDICARE, SELFPAY ==
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
--- NOTE | 2024-08-23 15:04 | HP.PTDCSUM_ITS ---
Discharge Summary D/C summary: It has been my pleasure to treat SUSY REED referred by Dr. Raúl Moscoso MD, with the diagnosis of CERVICAL MYELOPATHY for a total of 9 visit(s). Discharge Date: 08/23/24 Please see the following information for a summary of their discharge status. Subjective Subjective: PATIENT REPORTS HE HAS LESS PAIN AND CAN TURN HIS HEAD BETTER. HE REPORTS THE PAIN COMES AND GOES. THE STIFFNESS IS CONSTANT. HE REPORTS COMPLIANCE WITH HEP AND IS CONSIDERING [employer]. PATIENT DENIES ANY NEW SYMPTOMS SINCE STARTING THERAPY. Pain NECK/SHLDS: Pain Intensity (Out of 10): 1 Overall Improvement % Improvement: 50 Objective Objective/Function: PATIENT WAS SEEN TODAY FOR RE-ASSESSMENT OF PROGRESS TOWARD THE SET PT GOALS AND THE NEED FOR FURTHER PHYSICAL THERAPY VS READINESS FOR DISCHARGE. UPON EXAM TODAY: ROM deficit: ANGEL LIMITED ACTIVE SHOULDER ELEVATION AND C/O DISCOMFORT WITH TESTING. R SHLD ELEVATION TO ~135 DEG AND L TO 143 DEG TODAY. Motor deficit: R SHLD FLEX 3+ TO 4-/5 IN AVAILABLE ROM. R ELBOW FLEX 4/5 EXT 3+/5, PROJECT MANAGEMENT INSTRUCTOR 48 LBS. PATIENT IS R HAND DOMINANT. L SHLD GROSSLY 4/5 IN AVAILABLE ROM, ELBOW FLEX 4/5, ELBOW EXT 4-/5, PROJECT MANAGEMENT INSTRUCTOR 51 LBS. Cervical Mvmt Loss: Flex: NIL Pro: NIL Ext: MOD Ret: LION RSB: MOD LSB: MOD R Rot: MOD L Rot: MOD PATIENT DENIES PAIN WITH CERVICAL ROM TESTING TODAY WHICH IS A BIG IMPROVEMENT FROM INITIAL EVAL. HE ALSO REPORTS HE CAN NOW GET HIMSELF UP FROM SITTING WITHOUT USING HIS ARMS. Goals Goal 1:: DECREASE C/O NECK PAIN BY AT LEAST 25% TO EASE ADL'S. Goal Progress: Goal Met Goal 2:: IMPROVE PERSONAL CARE, LIFTING, READING, SLEEP, WORK, DRIVING AND RECREATIONAL FUNCTION WITH AT LEAST 5 POINT IMPROVEMENT IN NECK OSWESTRY SCORE. Goal Progress: Goal Met Goal 3:: INSTRUCT IN PROPHYLAXIS Goal Progress: Goal Met Plan Plan: D/C TO INDEP HEP AND FOLLOW UP WITH DR. MOSCOSO AFTER MRI. PATIENT AGREEABLE. D/C Information d/c sentence: If there are questions or concerns regarding this patient's physical therapy, please feel free to call me at [phone]. Thank you for the referral of this patient. Sincerely, Ashlie Alston, PT, Cert MDT Balance/Gait/Functional tests Balance/Special Test Scores Oswestry Neck Score: 14 Improvement % Improvement: 50
== END 2024-08-23 19:00 | disposition home or self-care (01) ==
LOC: PT 12:00
PROVIDERS: PCP Family Medicine; Referring Provider Orthopaedic Surgery Orthopaedic Surgery of the Spine; Visit Provider Orthopaedic Surgery Orthopaedic Surgery of the Spine
DX: G95.9 Disease of spinal cord, unspecified (principal)
CPT/HCPCS: 97035; 97110; 97140; 97162; 97530

== ENCOUNTER → 2024-08-24 | Outpatient (CLI) | payer MEDICARE, SELFPAY ==
--- NOTE | 2024-08-24 10:46 | MRI_ITS ---
PROCEDURE: MRI cervical spine without IV contrast REASON FOR EXAM: Pain, radiculopathy TECHNIQUE: Multisequence multiplanar MR images of the cervical spine were obtained without the administration of intravenous contrast. COMPARISON: 02/02/2018 FINDINGS: Vertebral body heights are within normal limits. Similar-appearing ankylosis of C2-3 and C4-5. Multilevel degenerative endplate changes, greatest from C5 through C7. Unchanged hyperintense T2 cord signal at the level of C5-6 likely related to myelomalacia. No new cord signal abnormalities. Upper cervical kyphosis. No suspicious paraspinal mass. C2-3: No focal disc abnormality, spinal stenosis or significant foraminal narrowing. Vertebral body and facet ankylosis, greater on the right. Advanced right facet arthropathy also noted. C3-4: Small posterior disc osteophyte complex. Severe bilateral facet and uncovertebral arthrosis. Mild spinal stenosis. Moderate/severe bilateral foraminal narrowing. C4-5: Vertebral body and facet ankylosis. Posterior osteophyte complex. Bilateral facet and uncovertebral arthrosis. Moderate/severe spinal stenosis. Severe bilateral foraminal narrowing. C5-6: Posterior disc osteophyte complex. Severe bilateral facet and uncovertebral arthrosis. Severe spinal stenosis with narrowing of the thecal sac measuring 5 mm in AP diameter. Severe bilateral foraminal narrowing. C6-7: Posterior disc osteophyte complex. Severe bilateral facet and uncovertebral arthrosis, greater on the right. Moderate/severe spinal stenosis. Severe right and moderate left foraminal narrowing. C7-T1: No focal disc abnormality, spinal stenosis or significant foraminal narrowing. Severe bilateral facet arthrosis. MRI/Spine Cervical (Routine) IMPRESSION: 1. Acquired moderate/severe to severe spinal stenosis from C4 through C7 as abo ve. 2. Acquired moderate to severe multilevel foraminal narrowing. See level by le chantelle comments above. 3. Unchanged myelomalacia at C5-C6. 4. Overall, degenerative changes at C5-6 and C6-7 are slightly progressed when compared to prior. Reading Location: [facility]
== END | disposition home or self-care (01) ==
LOC: MRI 10:31
PROVIDERS: PCP Family Medicine; Referring Provider Orthopaedic Surgery Orthopaedic Surgery of the Spine; Visit Provider Orthopaedic Surgery Orthopaedic Surgery of the Spine
DX: G95.9 Disease of spinal cord, unspecified (principal)
CPT/HCPCS: 72141

== ENCOUNTER → 2024-09-24 | Outpatient (CLI) | payer MEDICARE, SELFPAY ==
[2024-09-24 15:49] LABS: Absolute Lymphocyte Count 1.91 X10^3/uL (0.83-4.51); Absolute Neutrophil Count 5.6 X10^3/uL (2.0-7.7); Basophil# 0.05 X10^3/uL; Basophil% 0.6 % (0-1); Eosinophil# 0.18 X10^3/uL; Eosinophils% 2.1 % (0-5); Hematocrit 44.2 % (40-54); Hemoglobin 14.4 g/dL (13.0-16.5); Lymphocyte # 1.91 X10^3/ul (0.83-4.51); Lymphocyte % 22.2 % (19-41); Mean Corp Hgb Conc 32.6 g/dL (32-36); Mean Corpuscular Hgb 29.3 pg (27.0-32.0); Mean Corpuscular Volume 89.8 fL (80-94); Mean Platelet Vol. 10.3 fl (6.2-12.0); Monocyte# 0.81 X10^3/uL; Monocyte% 9.4 % (0-10); NRBC Flagged by Analyzer 0 % (0-5); Neutrophil # 5.63 X10^3/uL (2.7-7.7); Neutrophil % 65.5 % (47-70); Platelet Count 291 K/mm3 (150-450); RBC Distribution Width CV 13.7 % (11.6-14.6); RBC Distribution Width SD 44.9 fl (35.1-43.9); Red Blood Count 4.92 M/mm3 (4.6-6.2); White Blood Count 8.6 K/mm3 (4.4-11.0)
== END | disposition home or self-care (01) ==
PROVIDERS: PCP Family Medicine; Referring Provider Nurse Practitioner; Visit Provider Nurse Practitioner
DX: B44.81 Allergic bronchopulmonary aspergillosis (principal); J45.50 Severe persistent asthma, uncomplicated; D72.10 Eosinophilia, unspecified
CPT/HCPCS: 36415; 82785; 85025

== ENCOUNTER → 2025-02-26 | Outpatient (CLI) | payer MEDICARE, SELFPAY ==
[2025-02-26 14:52] LABS: Hematocrit 48.6 % (40-54); Hemoglobin 15.9 g/dL (13.0-16.5); Immature Granulocytes Count 0.020 X10^3/uL (0.0-0.0); Mean Corp Hgb Conc 32.7 g/dL (32-36); Mean Corpuscular Volume 90.2 fL (80-94); Mean Platelet Vol. 9.8 fl (6.2-12.0); NRBC Flagged by Analyzer 0 % (0-5); Platelet Count 302 K/mm3 (150-450); RBC Distribution Width CV 13.4 % (11.6-14.6); RBC Distribution Width SD 44.0 fl (35.1-43.9); Red Blood Count 5.39 M/mm3 (4.6-6.2); White Blood Count 8.6 K/mm3 (4.4-11.0)
[2025-02-26 18:14] LABS: AST(SGOT) 28 U/L (<=37); Alanine Aminotransfer ALT/SGPT 21 U/L (<=46); Albumin, Serum 4.7 g/dL (3.4-4.8); Alkaline Phosphatase 87 U/L (40-129); Anion Gap 13 (5-15); BUN 22 mg/dL (4-19); BUN/Creat Ratio 22.0 RATIO (10-20); Calcium,Total 10.3 mg/dL (7.6-11.0); Carbon Dioxide 23.1 mmol/L (21.0-32.0); Chloride 103 mmol/L (98-108); Cholesterol 139 mg/dL (<=200); Globulin 3.5 g/dL (2.2-4.2); Glucose 92 mg/dL (70-99); Hepatitis C Antibody Nonreactive (Nonreactive); Low Density Lipoprotein Calc. 75 mg/dL; Potassium 4.0 mmol/L (3.3-5.1); Triglycerides 119 mg/dL; Very Low Density Lipoprotein 24 mg/dL (5-40); Vitamin D,25 Hydroxy 49.0 ng/mL (30-100); cholesterol:hdl ratio screen 3.46
== END | disposition home or self-care (01) ==
LOC: POLAB3 14:35
PROVIDERS: PCP Family Medicine Geriatric Medicine; Visit Provider Family Medicine Geriatric Medicine
DX: Z13.89 Encounter for screening for other disorder (principal); E03.9 Hypothyroidism, unspecified; E78.5 Hyperlipidemia, unspecified; I10 Essential (primary) hypertension; E55.9 Vitamin D deficiency, unspecified
CPT/HCPCS: 36415; 80053; 80061; 82306; 84443; 85025; 86803

== ENCOUNTER → 2025-05-21 | Outpatient (CLI) | payer MEDICARE, SELFPAY ==
[2025-05-21 10:50] LABS: Hematocrit 43.3 % (40-54); Hemoglobin 14.6 g/dL (13.0-16.5); Immature Granulocytes Count 0.030 X10^3/uL (0.0-0.0); Mean Corp Hgb Conc 33.7 g/dL (32-36); Mean Corpuscular Volume 90.4 fL (80-94); Mean Platelet Vol. 9.4 fl (6.2-12.0); NRBC Flagged by Analyzer 0 % (0-5); Platelet Count 248 K/mm3 (150-450); RBC Distribution Width CV 13.0 % (11.6-14.6); RBC Distribution Width SD 43.3 fl (35.1-43.9); Red Blood Count 4.79 M/mm3 (4.6-6.2); White Blood Count 8.5 K/mm3 (4.4-11.0)
[2025-05-21 11:43] LABS: AST(SGOT) 28 U/L (<=37); Alanine Aminotransfer ALT/SGPT 20 U/L (<=46); Albumin, Serum 4.1 g/dL (3.4-4.8); Alkaline Phosphatase 80 U/L (40-129); Anion Gap 13 (5-15); BUN 18 mg/dL (4-19); BUN/Creat Ratio 19.4 RATIO (10-20); Calcium,Total 9.6 mg/dL (7.6-11.0); Carbon Dioxide 20.3 mmol/L (21.0-32.0); Chloride 107 mmol/L (98-108); Cholesterol 110 mg/dL (<=200); Globulin 3.4 g/dL (2.2-4.2); Glucose 93 mg/dL (70-99); Low Density Lipoprotein Calc. 56 mg/dL; Potassium 4.1 mmol/L (3.3-5.1); Triglycerides 132 mg/dL; Very Low Density Lipoprotein 26 mg/dL (5-40); cholesterol:hdl ratio screen 3.62
[2025-05-21 18:32] LABS: Xtra Tube Kwok EXTRA TUBE
== END | disposition home or self-care (01) ==
LOC: POLAB3 10:30
PROVIDERS: PCP Family Medicine Geriatric Medicine; Visit Provider Family Medicine Geriatric Medicine
DX: I10 Essential (primary) hypertension (principal); E78.5 Hyperlipidemia, unspecified; R06.2 Wheezing
CPT/HCPCS: 36415; 80053; 80061; 84443; 85025; 87631